=== PATIENT | male | born 1950 | race Caucasian/White ===

== ENCOUNTER → 2019-12-06 13:41 | Outpatient (BNVA) | payer MEDICARE, MEDICAID, SELFPAY | PROVIDERS: Family Provider Nurse Practitioner Primary Care; PCP Nurse Practitioner Primary Care; Visit Provider Internal Medicine Rheumatology | DX: L40.50 Arthropathic psoriasis, unspecified (principal); Z79.899 Other long term (current) drug therapy; L40.8 Other psoriasis | CPT/HCPCS: 36415; 80076; 82565; 85025; 85651; 86140 ==

== ENCOUNTER → 2019-12-06 14:04 | Outpatient (BNVA) | payer MEDICARE, MEDICAID, SELFPAY | PROVIDERS: Family Provider Nurse Practitioner Primary Care; PCP Nurse Practitioner Primary Care; Visit Provider Internal Medicine Rheumatology | DX: Z79.899 Other long term (current) drug therapy (principal); L40.50 Arthropathic psoriasis, unspecified | CPT/HCPCS: 85025 ==

== ENCOUNTER → 2020-02-21 10:39 | Outpatient (BNVA) | payer MEDICARE, MEDICAID, SELFPAY | PROVIDERS: Family Provider Nurse Practitioner Primary Care; PCP Nurse Practitioner Primary Care; Visit Provider Internal Medicine Rheumatology | DX: Z79.899 Other long term (current) drug therapy (principal) | CPT/HCPCS: 36415; 80076; 82565; 85025; 85651; 86140 ==

== ENCOUNTER 2020-03-23 09:46 | Outpatient (CLI) | payer MEDICARE, MEDICAID, SELFPAY ==
--- NOTE | 2020-03-23 10:15 | USCV_ITS ---
Bj Potter Age: 69 Gender: M : 1950 Exam Date: 03/23/2020 10:37 Ordering Phys: Gary Joshi MD ([email or web address]) Technologist: TANG PLEITEZ Exam Location: [facility] [place] Indication: PAD Risk Factors: Previous Vascular Surgery: RIGHT LEFT BP: 131.0 / BP: 129.0/ 0 0 Waveform Velocity (cm/s) Velocity (cm/s) Waveform Triphasic 113.9 Iliac Prox 102.0 Triphasic Triphasic 105.9 Iliac Mid 115.0 Triphasic Triphasic 109.2 Iliac Distal 121.9 Triphasic Triphasic 105.8 MAINTENANCE ASSOCIATE 99.4 Triphasic Triphasic 64.5 SFA Prox 120.3 Triphasic Triphasic 84.9 SFA Mid 98.6 Triphasic Triphasic 82.3 SFA Dist 98.6 Triphasic Biphasic 39.1 POP 83.4 Triphasic Biphasic 38.5 GLASS VIAL FILLER 45.3 Biphasic Biphasic 38.5 DPA 50.4 Biphasic FINDINGS Could not do SHONDA's due to ankle pressures being greater than 200. Supernormal resting ABIs bilaterally Normal Doppler flow velocities Mild to moderate diffuse plaques in the iliac and femoral arteries bilaterally CONCLUSIONS 1. Mild to moderate diffuse plaques in the iliac and femoral arteries bilaterally. 2. Features of arterial sclerosis 3. No significant arterial obstruction, based on the above findings Dr Aaron Edouard MD [facility] (Electronically Signed) Final Date: 23 March 2020 23:22 S
== END 2020-03-23 09:47 | disposition home or self-care (01) ==
LOC: US 09:47
PROVIDERS: Family Provider Nurse Practitioner Primary Care; PCP Nurse Practitioner Primary Care; Visit Provider Internal Medicine Cardiovascular Disease
DX: I73.9 Peripheral vascular disease, unspecified (principal)
CPT/HCPCS: 93925

== ENCOUNTER → 2020-03-26 10:37 | Outpatient (BNVA) | payer MEDICARE, MEDICAID, SELFPAY | PROVIDERS: Family Provider Nurse Practitioner Primary Care; PCP Nurse Practitioner Primary Care; Visit Provider Internal Medicine | DX: L40.50 Arthropathic psoriasis, unspecified (principal); Z79.899 Other long term (current) drug therapy | CPT/HCPCS: 36415; 80053; 85025; 85651; 99213 ==

== ENCOUNTER 2020-04-06 13:54 | Outpatient (CLI) | payer MEDICARE, MEDICAID, SELFPAY ==
--- NOTE | 2020-04-06 14:15 | USCV_ITS ---
Bj Potter Age: 69 Gender: M : 1950 Exam Date: 04/06/2020 14:29 Ordering Phys: Valerie Wade MD Technologist: Bolivar Smith [place] [facility] [place]: CHEST PAIN BP: 130 / 80 HR: 75 Rhythm: Sinus Technical Quality: Adequate MEASUREMENTS (Male / Female) Normal Values 2D ECHO LV Diastolic Diameter PLAX 5.6 cm 4.2 - 5.9 / 3.9 - 5.3 cm LV Systolic Diameter PLAX 3.8 cm IVS Diastolic Thickness 0.7 cm 0.6 - 1.0 / 0.6 - 0.9 cm IVS Systolic Thickness 1.5 cm LVPW Diastolic Thickness 1.1 cm 0.6 - 1.0 / 0.6 - 0.9 cm LVPW Systolic Thickness 1.5 cm LVOT Diameter 2.1 cm LV Ejection Fraction 2D Teich 58.9 % LV Ejection Fraction MOD 2C 67.8 % LV Ejection Fraction 2C AL 66.5 % LA Diameter 4.3 cm LA Width 3.4 cm LA Height 5.1 cm RA Width 4.1 cm RA Height 3.4 cm M-MODE LV Diastolic Diameter MM 4.3 cm 4.2 - 5.9 / 3.9 - 5.3 cm LV Systolic Diameter MM 3.2 cm LV Ejection Fraction MM Teich 53.5 % IVS Diastolic Thickness MM 1.2 cm 0.6 - 1.0 / 0.6 - 0.9 cm IVS Systolic Thickness MM 1.2 cm LVPW Diastolic Thickness MM 1.2 cm 0.6 - 1.0 / 0.6 - 0.9 cm LVPW Systolic Thickness MM 1.5 cm RV Diastolic Diameter MM 1.9 cm Aortic Annulus Diameter 4.1 cm LA Ao Ratio MM 1.1 MV E Point Septal Separation 2.0 cm DOPPLER AV Peak Velocity 134.0 cm/s LVOT Peak Velocity 84.0 cm/s AV Area Cont Eq vti 2.5 cm squared AV Area Cont Eq pk 2.2 cm squared MV Area PHT 5.0 cm squared Mitral E to A Ratio 0.9 MV E' Velocity 11.0 cm/s Mitral E to MV E' Ratio 8.1 Mitral E to LV E' Lateral Ratio 7.5 Mitral E to LV E' Septal Ratio 8.8 TR Peak Velocity 201.0 cm/s TR Peak Gradient 16.1 mmHg Right Atrial Pressure 3.0 mmHg Pulmonary Artery Systolic Pressu 19.2 mmHg PV Peak Velocity 106.0 cm/s FINDINGS Left Ventricle Moderate diffuse hypokinesia of the septum and the anteroseptal segments. LV ejection fraction around 45-50%(visual).Grade I/IV diastolic dysfunction (abnormal relaxation filling pattern), normal to mildly elevated filling pressures. Right Ventricle The right ventricle is normal in size and function. Right Atrium The right atrium is normal in size. Left Atrium Mildly increased left atrial size. Mitral Valve Trace mitral valve regurgitation. Thickened mitral valve. Moderate mitral annular calcification. Aortic Valve No gross abnormalities noted Tricuspid Valve No gross abnormalities noted.trace tricuspid valve regurgitation. Pulmonic Valve Mild pulmonary valve regurgitation. Pericardium Normal pericardium without effusion. Aorta Normal ascending aorta dimension. CONCLUSIONS Moderate diffuse hypokinesia of the septum and the anteroseptal segments. LV ejection fraction around 45-50%(visual).Grade I/IV diastolic dysfunction (abnormal relaxation filling pattern), normal to mildly elevated filling pressures. Mildly increased left atrial size. Trace mitral valve regurgitation. Thickened mitral valve. Moderate mitral annular calcification. Mild pulmonary valve regurgitation. Normal estimated pulmonary artery pressure There is no pericardial effusion. There are no intracardiac masses. No previous study is available for comparison. Dr Aaron Edouard MD FAC (Electronically Signed) Final Date: 07 April 2020 09:49 S
== END 2020-04-06 13:55 | disposition home or self-care (01) ==
LOC: US 13:55
PROVIDERS: PCP Nurse Practitioner Primary Care; Visit Provider Internal Medicine
DX: R07.9 Chest pain, unspecified (principal); I34.1 Nonrheumatic mitral (valve) prolapse; I37.1 Nonrheumatic pulmonary valve insufficiency
CPT/HCPCS: 93306

== ENCOUNTER → 2020-07-16 10:35 | Outpatient (BNVA) | payer MEDICARE, MEDICAID, SELFPAY | PROVIDERS: PCP Nurse Practitioner Primary Care; Visit Provider Internal Medicine | DX: L40.50 Arthropathic psoriasis, unspecified (principal); Z11.59 Encounter for screening for other viral diseases; Z11.1 Encounter for screening for respiratory tuberculosis; Z79.899 Other long term (current) drug therapy; D86.9 Sarcoidosis, unspecified; M32.9 Systemic lupus erythematosus, unspecified; L40.8 Other psoriasis; M06.9 Rheumatoid arthritis, unspecified | CPT/HCPCS: 36415; 80053; 85025; 85651; 86480; 86704; 86803; 87340; 99214 ==

== ENCOUNTER → 2020-09-10 13:35 | Outpatient (BNVA) | payer MEDICARE, MEDICAID, SELFPAY | PROVIDERS: PCP Nurse Practitioner Primary Care; Visit Provider Internal Medicine | DX: L40.50 Arthropathic psoriasis, unspecified (principal); D86.9 Sarcoidosis, unspecified; Z79.899 Other long term (current) drug therapy; Z79.52 Long term (current) use of systemic steroids; L40.9 Psoriasis, unspecified; Z87.891 Personal history of nicotine dependence | CPT/HCPCS: 99213 ==

== ENCOUNTER → 2020-12-28 08:33 | Outpatient (BNVA) | payer MEDICARE, MEDICAID, SELFPAY | PROVIDERS: PCP Nurse Practitioner Primary Care; Visit Provider Internal Medicine | DX: L40.50 Arthropathic psoriasis, unspecified (principal); R05 Cough; Z79.899 Other long term (current) drug therapy; Z79.52 Long term (current) use of systemic steroids; Z87.891 Personal history of nicotine dependence | CPT/HCPCS: 99214 ==

== ENCOUNTER → 2021-03-12 13:50 | Outpatient (BNVA) | payer MEDICARE, MEDICAID, SELFPAY | PROVIDERS: PCP Nurse Practitioner Primary Care; Visit Provider Internal Medicine | DX: L40.50 Arthropathic psoriasis, unspecified (principal); Z79.899 Other long term (current) drug therapy; Z87.891 Personal history of nicotine dependence | CPT/HCPCS: 36415; 80053; 85025; 85651; 86140; 99213; 99214 ==

== ENCOUNTER 2023-04-30 11:55 | Outpatient (CLI) | payer MEDICARE, MEDICAID, SELFPAY ==
--- NOTE | 2023-04-30 12:02 | CT_ITS ---
WS: [id number] CT HEAD TECHNIQUE: Noncontrast CT of the head obtained from the skullbase to the vertex. CLINICAL INFORMATION: DEMENTIA, MEMORY LOSS COMPARISON: None. DLP: 1100.[address] scans at [facility] use at least one of these dose optimization techniques: automated e xposure control; mA and/or kV adjustment per patient size (includes targeted exams where dose is matc hed to clinical indication); or iterative reconstruction. FINDINGS: No evidence of intracranial hemorrhage or mass effect. Ventricular system and basal cisterns are galdamez nt. Moderate small vessel changes with moderate parenchymal volume loss. No extra-axial fluid collect ions. No evidence of mass or mass effect. Mild mucosal thickening with small amount of fluid in the ethmoid air cells. Mastoid air cells are we ll aerated. IMPRESSION: 1. No evidence of intracranial hemorrhage or mass effect. 2. Moderate small vessel changes with moderate parenchymal volume loss. 3. No acute intracranial findings.
== END 2023-04-30 11:56 | disposition home or self-care (01) ==
PROVIDERS: PCP Family Medicine; Visit Provider Family Medicine
DX: F03.90 Unspecified dementia, unspecified severity, without behavioral disturbance, psychotic disturbance, mood disturbance, and anxiety (principal); I67.89 Other cerebrovascular disease
CPT/HCPCS: 70450

== ENCOUNTER 2023-11-25 15:48 | Emergency (ER) | payer MEDICARE, MEDICAID, SELFPAY ==
[2023-11-25 15:57] VITALS: BP 165/78; PULSE 103; RESP 18; TEMP 36.4; O2SAT 95
--- NOTE | 2023-11-25 16:13 | ECG_ITS ---
[facility] Test Date: 2023-11-25 Pat Name: Bj Potter Department: Room: Gender: Male Dispute Resolution Specialist: : 1950 Requested By: Rebel Davis Order Number: [id number] Siddhartha MD: Irineo Rick M.D. Measurements Intervals [place] Rate: 111 P: 101 TX: 182 QRS: -2 QRSD: 101 T: 36 QT: 323 QTc: 440 Interpretive Statements SINUS TACHYCARDIA WITH OCCASIONAL SUPRAVENTRICULAR PREMATURE COMPLEXES ANTERIOR MYOCARDIAL INFARCTION , PROBABLY OLD [40+ ms Q WAVE AND/OR ST/T ABNORMALITY IN V3/V4] Compared to ECG 10/03/2017 20:52:35 Myocardial infarct finding now present Sinus rhythm no longer present Intraventricular conduction delay no longer present T-wave abnormality no longer present Electronically Signed On 11-25-2023 16:48:10 CDT by Irineo Rick M.D. [id number] f
--- NOTE | 2023-11-25 16:13 | XRR_ITS ---
PROCEDURE INFORMATION: Exam: XR Chest Exam date and time: 11/25/2023 5:00 PM Age: 73 years old Clinical indication: Shortness of breath; Additional info: SOB TECHNIQUE: Imaging protocol: Radiologic exam of the chest. Views: 1 view. COMPARISON: CR XR chest 1V [id number] 08/01/2019 6:28 PM FINDINGS: Lungs: Unremarkable. No consolidation. Pleural spaces: Unremarkable. No pleural effusion. No pneumothorax. Heart/Mediastinum: Unremarkable. No cardiomegaly. Bones/joints: Median sternotomy. Multiple nonacute right-sided rib fractures. XR/XR chest 1V portable [id number] IMPRESSION: No acute findings.
--- NOTE | 2023-11-25 16:13 | CTR_ITS ---
PROCEDURE INFORMATION: Exam: CT Head Without Contrast Exam date and time: 11/25/2023 4:45 PM Age: 73 years old Clinical indication: Pain; Headache; Additional info: PATHAK TECHNIQUE: Imaging protocol: Computed tomography of the head without contrast. Radiation optimization: All CT scans at this facility use at least one of these dose optimization techniques: automated exposure control; mA and/or kV adjustment per patient size (includes targeted exams where dose is matched to clinical indication); or iterative reconstruction. COMPARISON: CT head wo con* [id number] 04/30/2023 12:13 PM RADIATION DOSE METRICS: Total DLP (mGy-cm): 1110.28 FINDINGS: Brain: No intracranial hemorrhage. There is global parenchymal volume loss. Periventricular white matter hypoattenuation is nonspecific but most likely due to small vessel disease. No evidence of acute territorial infarct or cerebral edema. No mass effect or midline shift. Cerebral ventricles: Prominent ventricles likely secondary to volume loss. Paranasal sinuses: Visualized sinuses are unremarkable. No fluid levels. Mastoid air cells: Visualized mastoid air cells are well aerated. Bones/joints: Unremarkable. No acute fracture. Soft tissues: Unremarkable. CT/CT head wo con* [id number] IMPRESSION: No acute intracranial findings.
--- NOTE | 2023-11-25 16:16 | ED_ITS ---
HPI - Chest Pain 2 General: Chief Complaint: Chest Pain Stated Complaint: migraine, sob, chest pain Time Seen by Provider: 11/25/23 16:09 Source: patient Mode of arrival: ambulatory Limitations: no limitations History of Present Illness: 73-year-old male who states over last 3 days has been having migraine headaches he is also been having chest pain and some shortness of breath. He has photophobia and phonophobia. He states that he is seen at [facility] 3 days ago and told he may have a bronchitis he states he gave him a steroid but did not give him any prescription. Had a mild cough he denies any severe chest pain denies any worsening improving factors. Associated symptoms: Reports dyspnea; Deny abdominal pain, fever(s), nausea or vomiting Review of Systems 2 Const: Denies: fever(s), chills, body aches or change in appetite Eyes: Denies: blurry vision or eye discomfort ENMT: Denies: throat pain or dental pain Card: Reports: chest pain Resp: Reports: dyspnea GI: Denies: abdominal pain, nausea, vomiting or diarrhea Musc: Denies: neck pain or back pain Skin/Breast: Denies: rash Neuro: Reports: headache(s) PFSH ED 2 PFSH: Medical History COPD (chronic obstructive pulmonary disease) PAD (peripheral artery disease) CAD (coronary artery disease) Hyperlipidemia High risk medication use Psoriatic arthritis Surgical History No pertinent past surgical history Family History Other Cancer Denies family history of Lupus (systemic lupus erythematosus) Rheumatoid arthritis Diabetes Social History Smoking and tobacco/nicotine status: former use of tobacco/nicotine Alcohol intake: current Alcohol intake frequency: holidays/special occasions only Alcohol type: beer Substance/Drug Use: never Physical Exam 2 Const: COMMON NORMALS: no acute distress, patient oriented x3 and healthy appearing HENMT: COMMON NORMALS: normocephalic and atraumatic HEAD & SCALP: n ormocephalic and atraumatic Eye: COMMON NORMALS: Equal, round and reactive pupils present and EOMs intact bilaterally PUPIL: Yes Equal, round and reactive pupils present Neck/C-Spine: COMMON NORMALS: full ROM and supple Chest: COMMONS NORMALS: normal inspection of the chest and normal palpation of entire chest wall Resp: COMMON NORMALS: normal respiratory effort, No retractions, No use of accessory muscles and clear to auscultation bilaterally AUSCULTATION: clear to auscultation bilaterally Cardio: COMMON NORMALS: regular rate, regular rhythm and No murmurs present (Cardio) RATE: regular rate RHYTHM: regular rhythm GI: COMMON NORMALS: Normal to inspection, nondistended, normoactive bowel sounds present, Soft to palpation, non-tender and no masses PALPATION: Yes Soft to palpation Extremity: COMMON NORMALS: normal to inspection and full ROM Neuro: COMMON NORMALS: patient oriented x3, moves all extremities and no focal motor deficits Psych: COMMON NORMALS: mental status grossly normal, Normal thought process present and cooperative THOUGHT PROCESS: Normal thought process present Skin: COMMON NORMALS: no rashes or lesions noted and no wounds GENERAL SKIN EXAM: no rashes or lesions noted Course 2 Vital Signs: Vital signs: Vital Signs Temperature 97.5 F L 11/25/23 15:57 Pulse Rate 103 H 11/25/23 15:57 Respiratory Rate 18 11/25/23 16:28 Blood Pressure 165/78 11/25/23 15:57 Pulse Oximetry 95 11/25/23 15:57 Oxygen Delivery Me thod Room Air 11/25/23 15:57 MDM - Chest Pain Medical Decision Making 73-year-old male presents with headache along with chest pain dyspnea is been going on for days he is well-appearing here he feels much improved blood work here is all normal he is stable for discharge follow-up with PCP and return if worsening. Medical Records I reviewed the patient's medical records. Lab Data I reviewed the patient's lab results. 11/25/23 16:22 11/25/23 16:22 Radiology Impressions Chest X-Ray 11/25/23 16:13 IMPRESSION: No acute findings. Head CT 11/25/23 16:13 IMPRESSION: No acute intracranial findings. Laboratory Results WBC 12.91 10^3/uL (3.29-11.43) H 11/25/23 16:22 RBC 4.50 10^6/uL (3.85-5.65) 11/25/23 16:22 Hgb 11.40 g/dL (11.27-16.99) 11/25/23 16: Hct 35.8 % (37-53) L 11/25/23 16: MCV 79.6 fl (82-101) L 11/25/23 16: MCH 25.3 pg (27-33) L 11/25/23 16: MCHC 31.8 g/dL (30-55) 11/25/23 16: RDW 13.4 % (12.1-15.1) 11/25/23 16: Plt Count 269 10^3/cmm (157-399) 11/25/23 16: MPV 10.4 fL (7.4-10.4) 11/25/23 16: Neut % (Auto) 89.3 % 11/25/23 16: Lymph % (Auto) 7.6 % 11/25/23: Liberty % (Auto) 2.6 % 11/25/23: Eos % (Auto) 0.0 % 11/25/23 16: Baso % (Auto) 0.1 % 11/25/23: Neut # (Auto) 11.54 10^3/uL (1.8-7.7) H 11/25/23: Lymph # (Auto) 1.0 10^3/uL (0.8-4.8) 11/25/23: Liberty # (Auto) 0.3 10^3/uL (0.2-0.9) 11/25/23: Eos # (Auto) 0.0 10^3/uL (0.0-0.8) 11/25/23 16: Baso # (Auto) 0.0 10^3/uL (0.0-0.1) 11/25/23: Nucleated RBC % (auto) 0 % 11/25/23: Nucleated RBCs # 0.0 /100WBC 11/25/23 16: PT 13.80 SECONDS (12.1-14.9) 11/25/23 16: INR 1.03 (0.8-1.2) 11/25/23 16: D-Dimer 0.38 ug/mLFEU (0-0.59) 11/25/23 16:22 Sodium 137 mmol/L (136-145) 11/25/23 16:22 Potassium 4.5 mmol/L (3.5-5.1) 11/25/23 16:22 Chloride 100 mmol/L (98-107) 11/25/23 16:22 Carbon Dioxide 19 mmol/L (22-29) L 11/25/23 16:22 Anion Gap 22.5 (5-19) H 11/25/23 16:22 BUN 16 mg/dL (8-23) 11/25/23 16:22 Creatinine 1.0 mg/dL (0.7-1.2) 11/25/23 16:22 GFR Calculation Not Reportable 11/25/23 16:22 Glucose 221 mg/dL (65-115) H 11/25/23 16:22 Calculated Osmolality 292 mOsm/kg (285-295) 11/25/23 16:22 Calcium 9.0 mg/dL (8.5-10.5) 11/25/23 16:22 Total Bilirubin 0.4 mg/dL (0.15-1.2) 11/25/23 16:22 AST 13 U/L (0-40) 11/25/23 16:22 ALT 18 U/L (0-41) 11/25/23 16:22 Alkaline Phosphatase 63 U/L (40-130) 11/25/23 16:22 Troponin T Baseline 19 ng/L (0-15) H 11/25/23 16:22 Troponin T 120 Minute 19.48 ng/L (0-15) H 11/25/23 18:14 Delta Troponin T 0.48 ABS# (0-10) 11/25/23 18:14 NT-Pro-B Natriuret Pep 1607 pg/mL (0-125) H 11/25/23 16:22 Total Protein 6.8 g/dL (6.6-8.7) 11/25/23 16:22 Albumin 4.1 g/dL (3.5-5.2) 11/25/23 16:22 Globulin 2.7 g/dL (1.3-4.6) 11/25/23 16:22 All radiology interpretation(s) finalized by discharge EKG Data EKG 1: I personally reviewed and interpreted this EKG as follows: EKG interpretation date: 11/25/23 EKG interpretation time: 15:52 Interpretation: sinus tach hr [address] or t wave abnormalities qrs 101 qtc 389 EKG 2: I personally reviewed and interpreted this EKG as follows: EKG interpretation date: 11/25/23 EKG interpretation time: 18:09 Interpretation: sinus tach hr [address] or t wave abnormalities qrs 105 qtc 378 Discharge Plan Discharge Patient Disposition: Home Clinical Impression: Chest pain, Headache Condition: Stable Prescriptions: No Action cetirizine 10 mg capsule PO docusate sodium 100 mg capsule 100 mg PO DAILY PRN magnesium oxide 400 mg magnesium capsule 400 mg PO BID meloxicam 7.5 mg tablet 7.5 mg PO BID tizanidine [Zanaflex] 4 mg capsule 4 mg PO BID PRN fluticasone propion-salmeterol [Advair Diskus] 500-50 mcg/dose blister with device 1 inh INHALATION BID aspirin [Adult Aspirin Regimen] 81 mg tablet,delayed release (DR/EC) 81 mg PO DAILY atorvastatin 80 mg tablet 80 mg PO DAILY ezetimibe 10 mg tablet 10 mg PO DAILY ferrous sulfate 325 mg (65 mg iron) tablet,delayed release (DR/EC) 325 mg PO DAILY glipizide 5 mg tablet 5 mg PO DAILY hydrocodone-acetaminophen 7.5-325 mg tablet 1 tab PO Q6H PRN losartan-hydrochlorothiazide 50-12.5 mg tablet 1 tab PO DAILY metformin 1,000 mg tablet extended release 24hr 1,000 mg PO BID nitroglycerin [Nitrostat] 0.4 mg tablet, sublingual 0.4 mg SUBLINGUAL Q5M PRN omeprazole 20 mg capsule,delayed release(DR/EC) 20 mg PO DAILY albuterol sulfate [ProAir HFA] 90 mcg/actuation HFA aerosol inhaler 1 puff INHALATION Q6H PRN Spiriva Respimat 2.5 mcg/actuation mist 2 inh INHALATION .unknown tamsulosin 0.4 mg capsule 0.4 mg PO .bedtime vitamin E 200 unit capsule 200 unit PO DAILY prednisone 5 mg tablet 5 mg PO .COMPLEX Qty: 20 0RF Rx Instructions: 5 mg PO take 15mg po q day x 3 days, then 10mg po qday x 3 days, then 5mg po qday; Xeljanz 5 mg tablet 5 mg PO BID Qty: 60 3RF methotrexate sodium 2.5 mg tablet 15 mg PO .weekly Qty: 30 2RF folic acid 1 mg tablet 1 mg PO DAILY Qty: 90 1RF Brilinta 90 mg tablet 90 mg PO BID Qty: 60 1RF Rx Instructions: MUST MAKE AN APPOINTMENT PRIOR TO ANY MORE REFILLS isosorbide mononitrate 30 mg tablet extended release 24 hr 15 mg PO .Bedtime Qty: 15 0RF Rx Instructions: Must have follow-up for further refills metoprolol succinate 25 mg tablet extended release 24 hr 25 mg PO DAILY Qty: 60 0RF Rx Instructions: Must make appointment and be seen for further refills. Discharge Orders: Discharge ED (Routine); Ordered 11/25/23 Ordered By: Rebel Davis Discharge Diet: Advance as tolerated Discharge Activity: Limit activity as instructed Patient Instructions: Chest Pain (ED), General Headache (ED) Coding Level of Care Code ED Supervisor Coremaker for Brayden Perales
[2023-11-25 16:28] VITALS: RESP 18
[2023-11-25] MEDS: morphine 4 mg/mL SDV 1 mL IVP (16:28)
[2023-11-25] MEDS: ondansetron 2 mg/ML SDV 2 mL 4 MG IVP (16:28)
[2023-11-25 16:37] LABS: Basophils % 0.1 %; Hematocrit 35.8 % (37-53); Lymphocytes % 7.6 %; Mean Corpuscular HGB Conc 31.8 g/dL (30-55); Mean Corpuscular Hemoglobin 25.3 pg (27-33); Mean Corpuscular Volume 79.6 fl (82-101); Mean Platelet Volume 10.4 fL (7.4-10.4); Monocytes # 0.3 10^3/uL (0.2-0.9); Monocytes % 2.6 %; Neutrophils # 11.54 10^3/uL (1.8-7.7); Neutrophils % 89.3 %; Nucleated Red Blood Cells % 0 %; Platelet Count 269 10^3/cmm (157-399); Red Cell Distribution Width 13.4 % (12.1-15.1); White Blood Count 12.91 10^3/uL (3.29-11.43)
[2023-11-25 16:51] LABS: Troponin(5th) Baseline 19 ng/L (0-15)
[2023-11-25 17:00] LABS: INR 1.03 (0.8-1.2)
[2023-11-25 17:02] LABS: D Dimer 0.38 ug/mLFEU (0-0.59)
[2023-11-25 17:13] LABS: NT Pro B Type Natriuretic Pept 1607 pg/mL (0-125)
[2023-11-25] MEDS: FUROsemide 10 mg/mL SDV 10mL 60 MG IVP (17:39)
--- NOTE | 2023-11-25 18:13 | ECG_ITS ---
[facility] Test Date: 2023-11-25 Pat Name: Bj Potter Department: Room: Gender: Male Claim Attorney: : 1950 Requested By: Rebel Davis Order Number: [id number] Siddhartha MD: Irineo Rick M.D. Measurements Intervals [place] Rate: 104 P: 77 SD: 181 QRS: -1 QRSD: 105 T: 36 QT: 317 QTc: 419 Interpretive Statements SINUS TACHYCARDIA WITH OCCASIONAL SUPRAVENTRICULAR PREMATURE COMPLEXES Compared to ECG 11/25/2023 15:52:20 Myocardial infarct finding no longer present Electronically Signed On 11-26-2023 7:49:28 CDT by Irineo Rick M.D. [id number]
[2023-11-25 18:17] LABS: Alanine Aminotransferase 18 U/L (0-41); Albumin Level 4.1 g/dL (3.5-5.2); Alkaline Phosphatase 63 U/L (40-130); Anion Gap 22.5 (5-19); Aspartate Amino Transferase 13 U/L (0-40); Blood Urea Nitrogen 16 mg/dL (8-23); Carbon Dioxide 19 mmol/L (22-29); Chloride 100 mmol/L (98-107); Creatinine Clr Calc Pharmacy 74.4113; Globulin 2.7 g/dL (1.3-4.6); Glucose 221 mg/dL (65-115); Osmolality Calculated 292 mOsm/kg (285-295); Potassium 4.5 mmol/L (3.5-5.1); Sodium 137 mmol/L (136-145); Total Bilirubin 0.4 mg/dL (0.15-1.2); Total Protein 6.8 g/dL (6.6-8.7)
[2023-11-25 18:43] LABS: Troponin 5 2HR 19.48 ng/L (0-15); Troponin 5 2HR Delta 0.48 ABS# (0-10)
[2023-11-25 19:28] VITALS: PULSE 98; RESP 18; O2SAT 95
== END 2023-11-25 19:29 | disposition home or self-care (01) ==
PROVIDERS: Emergency Provider Emergency Medicine
DX: R07.9 Chest pain, unspecified (principal); R51.9 Headache, unspecified; Z79.82 Long term (current) use of aspirin; Z79.84 Long term (current) use of oral hypoglycemic drugs; Z87.891 Personal history of nicotine dependence; J44.9 Chronic obstructive pulmonary disease, unspecified; I25.10 Atherosclerotic heart disease of native coronary artery without angina pectoris; E78.5 Hyperlipidemia, unspecified
CPT/HCPCS: 36415; 70450; 71045; 80053; 83880; 84484; 85025; 85378; 85610; 93005; 96374; 96375; 99285; J1940; J2270; J2405

== ENCOUNTER 2023-12-09 14:12 | Emergency (ER) | payer MEDICARE, MEDICAID, SELFPAY ==
[2023-12-09 14:28] VITALS: BP 132/76; PULSE 110; RESP 16; TEMP 36.6; O2SAT 98; BMI 29.7
--- NOTE | 2023-12-09 15:07 | XR_ITS ---
WS: [id number] Examination: XR chest 1V portable [id number] Reason for Exam: sob Date: December 09, 2023 Comparison: November 25, 2023 Findings: The heart is prominent in size. The mediastinum is not widened. Sternal wires are in place. There is no pulmonary edema or large effusion The lungs are hyperinflated without dense consolidation Impression: No failure consolidation is identified. The heart is prominent in size.
--- NOTE | 2023-12-09 15:07 | CT_ITS ---
WS: [id number] CT HEAD TECHNIQUE: Noncontrast CT of the head obtained from the skullbase to the vertex. CLINICAL INFORMATION: andrade COMPARISON: 11/25/2023 DLP: 1087.[address] scans at [facility] use at least one of these dose optimization techniques: automated e xposure control; mA and/or kV adjustment per patient size (includes targeted exams where dose is matc hed to clinical indication); or iterative reconstruction. FINDINGS: No evidence of intracranial hemorrhage or mass effect. Ventricular system and basal cisterns are galdamez nt. Mild small vessel changes with mild parenchymal volume loss. No extra-axial fluid collections. No evidence of mass or mass effect. Intracranial vascular calcification. Paranasal sinuses and mastoid air cells are well aerated. .Normal visualized soft tissues. IMPRESSION: 1. No evidence of intracranial hemorrhage or mass effect. 2. Mild small vessel changes. Mild parenchymal volume loss. 3. No acute intracranial findings.
--- NOTE | 2023-12-09 15:13 | ED_ITS ---
HPI - Headache 2 General: Chief Complaint: Headache Stated Complaint: head pains, sob Time Seen by Provider: 12/09/23 15:04 Source: patient Mode of arrival: ambulatory Limitations: no limitations History of Present Illness: 73-year-old male states he has had inter mittent headaches for the last 3 weeks. States he has headache currently rates it a 3 out of 10 he denies it being severe in nature said some mild dyspnea as well over that time. He denies any fever denies any chest pain. Denies any visual disturbances or weakness Associated symptoms: Deny chest pain, fever(s), nausea, rash or vomiting Review of Systems 2 Const: Denies: fever(s), chills, body aches or change in appetite Eyes: Denies: blurry vision or eye discomfort ENMT: Denies: throat pain or dental pain Card: Denies: chest pain Resp: Reports: dyspnea GI: Denies: abdominal pain, nausea, vomiting or diarrhea Musc: Denies: neck pain or back pain Skin/Breast: Denies: rash Neuro: Reports: headache(s) PFSH ED 2 PFSH: Medical History COPD (chronic obstructive pulmonary disease) PAD (peripheral artery disease) CAD (coronary artery disease) Hyperlipidemia High risk medication use Psoriatic arthritis Surgical History No pertinent past surgical history Family History Other Cancer Denies family history of Lupus (systemic lupus erythematosus) Rheumatoid arthritis Diabetes Social History Smoking and tobacco/nicotine status: former use of tobacco/nicotine Alcohol intake: current Alcohol intake frequency: holidays/special occasions only Alcohol type: beer Substance/Drug Use: never Physical Exam 2 Const: COMMON NORMALS: no acute distress, patient oriented x3 and healthy appearing HENMT: COMMON NORMALS: normocephalic and atraumatic HEAD & SCALP: n ormocephalic and atraumatic Neck/C-Spine: COMMON NORMALS: full ROM and supple Chest: COMMONS NORMALS: normal inspection of the chest and normal palpation of entire chest wall Resp: COMMON NORMALS: normal respiratory effort, No retractions, No use of accessory muscles and clear to auscultation bilaterally AUSCULTATION: clear to auscultation bilaterally Cardio: COMMON NORMALS: regular rate, regular rhythm and No murmurs present (Cardio) RATE: regular rate RHYTHM: regular rhythm Extremity: COMMON NORMALS: normal to inspection and full ROM Neuro: COMMON NORMALS: patient oriented x3, moves all extremities and no focal motor deficits Psych: COMMON NORMALS: mental status grossly normal, Normal thought process present and cooperative THOUGHT PROCESS: Normal thought process present Skin: COMMON NORMALS: no rashes or lesions noted and no wounds GENERAL SKIN EXAM: no rashes or lesions noted Course 2 Vital Signs: Vital signs: Vital Signs Temperature 97.8 F 12/09/23 14:28 Pulse Rate 110 H 12/09/23 14:28 Respiratory Rate 18 12/09/23 15:55 Blood Pressure 132/76 12/09/23 14:28 Pulse Oximetry 99 12/09/23 15:55 Oxygen Delivery Me thod Room Air 12/09/23 15:55 MDM - Headache Medical Decision Making Patient presents here with a headache is likely a tension headache head CT was normal his headaches resolved with Toradol he had some dyspnea his chest x-ray is normal blood works normal no signs of PE he stable for discharge he is to follow-up with PCP and return if worsening he understands agrees to plan. Medical Records I reviewed the patient's medical records. Lab Data I reviewed the patient's lab results. 12/09/23 15:30 12/09/23 15:30 Laboratory Results WBC 6.87 10^3/uL (3.29-11.43) 12/09/23 15:30 RBC 4.76 10^6/uL (3.85-5.65) 12/09/23 15:30 Hgb 11.90 g/dL (11.27-16.99) 12/09/23 15:30 Hct 38.4 % (37-53) 12/09/23 15:30 MCV 80.7 fl (82-101) L 12/09/23 15:30 MCH 25.0 pg (27-33) L 12/09/23 15:30 MCHC 31.0 g/dL (30-55) 12/09/23 15:30 RDW 13.8 % (12.1-15.1) 12/09/23 15:30 Plt Count 171 10^3/cmm (157-399) 12/09/23 15:30 MPV 10.2 fL (7.4-10.4) 12/09/23 15:30 Neut % (Auto) 79.6 % 12/09/23 15:30 Lymph % (Auto) 6.7 % 12/09/23 15:30 [place] % (Auto) 11.4 % 12/09/23 15:30 Eos % (Auto) 1.0 % 12/09/23 15:30 Baso % (Auto) 0.9 % 12/09/23 15:30 Neut # (Auto) 5.47 10^3/uL (1.8-7.7) 12/09/23 15:30 Lymph # (Auto) 0.5 10^3/uL (0.8-4.8) L 12/09/23 15:30 [place] # (Auto) 0.8 10^3/uL (0.2-0.9) 12/09/23 15:30 Eos # (Auto) 0.1 10^3/uL (0.0-0.8) 12/09/23 15:30 Baso # (Auto) 0.1 10^3/uL (0.0-0.1) 12/09/23 15:30 Nucleated RBC % (auto) 0 % 12/09/23 15: Nucleated RBCs # 0.0 /100WBC 12/09/23 15:30 D-Dimer 0.49 ug/mLFEU (0-0.59) 12/09/23 15:30 Sodium 136 mmol/L (136-145) 12/09/23 15:30 Potassium 3.9 mmol/L (3.5-5.1) 12/09/23 15:30 Chloride 100 mmol/L (98-107) 12/09/23 15:30 Carbon Dioxide 23 mmol/L (22-29) 12/09/23 15:30 Anion Gap 16.9 (5-19) 12/09/23 15:30 BUN 10 mg/dL (8-23) 12/09/23 15:30 Creatinine 1.1 mg/dL (0.7-1.2) 12/09/23 15:30 GFR Calculation Not Reportable 12/09/23 15:30 Glucose 163 mg/dL (65-115) H 12/09/23 15:30 Calculated Osmolality 285 mOsm/kg (285-295) 12/09/23 15:30 Calcium 8.5 mg/dL (8.5-10.5) 12/09/23 15:30 Total Bilirubin 0.4 mg/dL (0.15-1.2) 12/09/23 15:30 AST 21 U/L (0-40) 12/09/23 15:30 ALT 25 U/L (0-41) 12/09/23 15:30 Alkaline Phosphatase 57 U/L (40-130) 12/09/23 15:30 Total Protein 7.4 g/dL (6.6-8.7) 12/09/23 15:30 Albumin 4.2 g/dL (3.5-5.2) 12/09/23 15:30 Globulin 3.2 g/dL (1.3-4.6) 12/09/23 15:30 All radiology interpretation(s) finalized by discharge EKG Data EKG 1: I personally reviewed and interpreted this EKG as follows: EKG interpretation date: 12/09/23 EKG interpretation time: 15:54 Interpretation: sinus tach hr [address] or t wave abnormalities qrs 81 qtc 358 Discharge Plan Discharge Patient Disposition: Home Clinical Impression: Headache Condition: Stable Prescriptions: No Action cetirizine 10 mg capsule PO docusate sodium 100 mg capsule 100 mg PO DAILY PRN magnesium oxide 400 mg magnesium capsule 400 mg PO BID meloxicam 7.5 mg tablet 7.5 mg PO BID tizanidine [Zanaflex] 4 mg capsule 4 mg PO BID PRN fluticasone propion-salmeterol [Advair Diskus] 500-50 mcg/dose blister with device 1 inh INHALATION BID aspirin [Adult Aspirin Regimen] 81 mg tablet,delayed release (DR/EC) 81 mg PO DAILY atorvastatin 80 mg tablet 80 mg PO DAILY ezetimibe 10 mg tablet 10 mg PO DAILY ferrous sulfate 325 mg (65 mg iron) tablet,delayed release (DR/EC) 325 mg PO DAILY glipizide 5 mg tablet 5 mg PO DAILY hydrocodone-acetaminophen 7.5-325 mg tablet 1 tab PO Q6H PRN losartan-hydrochlorothiazide 50-12.5 mg tablet 1 tab PO DAILY metformin 1,000 mg tablet extended release 24hr 1,000 mg PO BID nitroglycerin [Nitrostat] 0.4 mg tablet, sublingual 0.4 mg SUBLINGUAL Q5M PRN omeprazole 20 mg capsule,delayed release(DR/EC) 20 mg PO DAILY albuterol sulfate [ProAir HFA] 90 mcg/actuation HFA aerosol inhaler 1 puff INHALATION Q6H PRN Spiriva Respimat 2.5 mcg/actuation mist 2 inh INHALATION .unknown tamsulosin 0.4 mg capsule 0.4 mg PO .bedtime vitamin E 200 unit capsule 200 unit PO DAILY prednisone 5 mg tablet 5 mg PO .COMPLEX Qty: 20 0RF Rx Instructions: 5 mg PO take 15mg po q day x 3 days, then 10mg po qday x 3 days, then 5mg po qday; Xeljanz 5 mg tablet 5 mg PO BID Qty: 60 3RF methotrexate sodium 2.5 mg tablet 15 mg PO .weekly Qty: 30 2RF folic acid 1 mg tablet 1 mg PO DAILY Qty: 90 1RF Brilinta 90 mg tablet 90 mg PO BID Qty: 60 1RF Rx Instructions: MUST MAKE AN APPOINTMENT PRIOR TO ANY MORE REFILLS isosorbide mononitrate 30 mg tablet extended release 24 hr 15 mg PO .Bedtime Qty: 15 0RF Rx Instructions: Must have follow-up for further refills metoprolol succinate 25 mg tablet extended release 24 hr 25 mg PO DAILY Qty: 60 0RF Rx Instructions: Must make appointment and be seen for further refills. Discharge Orders: Discharge ED (Routine); Ordered 12/09/23 Ordered By: Rebel Davis Discharge Diet: Advance as tolerated Discharge Activity: Resume usual activity Patient Instructions: General Headache (ED) Coding Level of Care Code ED Director Of Clinical Trials for Brayden Perales
[2023-12-09] MEDS: ondansetron 2 mg/ML SDV 2 mL 4 MG IVP (15:31)
[2023-12-09] MEDS: ketorolac 30 mg/mL INJ 15 MG IVP (15:31)
[2023-12-09 15:39] LABS: Basophils # 0.1 10^3/uL (0.0-0.1); Basophils % 0.9 %; Eosinophils # 0.1 10^3/uL (0.0-0.8); Hematocrit 38.4 % (37-53); Lymphocytes # 0.5 10^3/uL (0.8-4.8); Lymphocytes % 6.7 %; Mean Corpuscular Volume 80.7 fl (82-101); Mean Platelet Volume 10.2 fL (7.4-10.4); Monocytes # 0.8 10^3/uL (0.2-0.9); Monocytes % 11.4 %; Neutrophils # 5.47 10^3/uL (1.8-7.7); Neutrophils % 79.6 %; Nucleated Red Blood Cells % 0 %; Platelet Count 171 10^3/cmm (157-399); Red Blood Count 4.76 10^6/uL (3.85-5.65); Red Cell Distribution Width 13.8 % (12.1-15.1); White Blood Count 6.87 10^3/uL (3.29-11.43)
--- NOTE | 2023-12-09 15:54 | ECG_ITS ---
[facility] Test Date: 2023-12-09 Pat Name: Bj Potter Department: Room: Gender: Male Night Assistant: : 1950 Requested By: Rebel Davis Order Number: [id number] Siddhartha MD: Irineo Rick M.D. Measurements Intervals [place] Rate: 113 P: -24 CO: 156 QRS: -5 QRSD: 81 T: 0 QT: 291 QTc: 400 Interpretive Statements SINUS TACHYCARDIA LOW QRS VOLTAGE IN EXTREMITY LEADS [QRS DEFLECTION < 0.5 mV IN LIMB LEADS] SEPTAL MYOCARDIAL INFARCTION , PROBABLY OLD [40+ ms Q WAVE IN V1/V2] Compared to ECG 11/25/2023 18:09:24 Low QRS voltage now present Myocardial infarct finding now present Electronically Signed On 12-09-2023 22:11:31 CDT by Irineo Rick M.D. [id number]
[2023-12-09 15:55] VITALS: RESP 18; O2SAT 99
[2023-12-09 15:58] LABS: D Dimer 0.49 ug/mLFEU (0-0.59)
[2023-12-09 16:00] LABS: Alanine Aminotransferase 25 U/L (0-41); Albumin Level 4.2 g/dL (3.5-5.2); Alkaline Phosphatase 57 U/L (40-130); Anion Gap 16.9 (5-19); Aspartate Amino Transferase 21 U/L (0-40); Blood Urea Nitrogen 10 mg/dL (8-23); Calcium 8.5 mg/dL (8.5-10.5); Carbon Dioxide 23 mmol/L (22-29); Chloride 100 mmol/L (98-107); Globulin 3.2 g/dL (1.3-4.6); Glucose 163 mg/dL (65-115); Osmolality Calculated 285 mOsm/kg (285-295); Potassium 3.9 mmol/L (3.5-5.1); Sodium 136 mmol/L (136-145); Total Bilirubin 0.4 mg/dL (0.15-1.2); Total Protein 7.4 g/dL (6.6-8.7)
== END 2023-12-09 16:21 | disposition home or self-care (01) ==
PROVIDERS: Emergency Provider Emergency Medicine
DX: R51.9 Headache, unspecified (principal); Z79.82 Long term (current) use of aspirin; Z79.84 Long term (current) use of oral hypoglycemic drugs; Z87.891 Personal history of nicotine dependence; J44.9 Chronic obstructive pulmonary disease, unspecified; I25.10 Atherosclerotic heart disease of native coronary artery without angina pectoris; E78.5 Hyperlipidemia, unspecified
CPT/HCPCS: 70450; 71045; 80053; 85025; 85378; 93005; 96374; 96375; 99285; J1885; J2405

== ENCOUNTER 2024-02-18 13:13 | Outpatient (CLI) | payer MEDICARE, MEDICAID, SELFPAY ==
--- NOTE | 2024-02-18 13:21 | XRR_ITS ---
PROCEDURE INFORMATION: Exam: XR Chest Exam date and time: 02/18/2024 1:25 PM Age: 73 years old Clinical indication: Cough and shortness of breath; Prior surgery; Surgery date: 6+ months; Surgery type: Open heart, stent; Additional info: Shortness of breath, cough, copd TECHNIQUE: Imaging protocol: Radiologic exam of the chest. Views: 2 views. COMPARISON: CR XR chest 1V portable [id number] 12/09/2023 3:10 PM FINDINGS: Lungs: No significant active pathology. Pleural spaces: No pleural effusion or pneumothorax. Heart/Mediastinum: Unremarkable. Bones/joints: Prior median sternotomy. Unchanged old right healed rib fractures. Mild degenerative change present in the spine. XR/XR chest 2V* [id number] IMPRESSION: No acute pathology or significant interval change.
== END 2024-02-18 13:14 | disposition home or self-care (01) ==
DX: R05.9 Cough, unspecified (principal); R06.02 Shortness of breath; J44.1 Chronic obstructive pulmonary disease with (acute) exacerbation
CPT/HCPCS: 71046

== ENCOUNTER → 2024-06-01 13:00 | Outpatient (BNVA) | payer MEDICARE, MEDICAID, SELFPAY | PROVIDERS: Visit Provider Family Medicine | DX: Z79.899 Other long term (current) drug therapy (principal); E55.9 Vitamin D deficiency, unspecified; L40.50 Arthropathic psoriasis, unspecified; I25.810 Atherosclerosis of coronary artery bypass graft(s) without angina pectoris; I73.9 Peripheral vascular disease, unspecified; E78.49 Other hyperlipidemia; R79.89 Other specified abnormal findings of blood chemistry | CPT/HCPCS: 80053; 80061; 82306; 82607; 82746; 83036; 84443; 84550; 85025; 85651; 86140; G0103 ==

== ENCOUNTER → 2024-06-15 16:05 | Outpatient (BNVA) | payer MEDICARE, MEDICAID, SELFPAY | PROVIDERS: PCP Family Medicine; Visit Provider Family Medicine | DX: R06.00 Dyspnea, unspecified (principal); J18.9 Pneumonia, unspecified organism; J98.09 Other diseases of bronchus, not elsewhere classified | CPT/HCPCS: 71046 ==

== ENCOUNTER 2024-07-20 08:24 | Outpatient (CLI) | payer MEDICARE, MEDICAID, SELFPAY ==
--- NOTE | 2024-07-20 08:30 | CT_ITS ---
WS: [id number] CT chest wo con [id number] HISTORY: R06.00 - Dyspnea, unspecified TECHNIQUE: Axial imaging performed through the thorax. Coronal and sagittal reformats are submitted. All CT scans at [facility] use at least one of these dose optimization techniques: automated exposure control; mA and/or kV adjustment per patient size (includes targeted exams where dose is mat ched to clinical indication); or iterative reconstruction. CONTRAST: None DLP: 386.79 mGy.cm COMPARISON: Chest radiograph 06/15/2024 Lungs and central airway: Breathing motion artifact at the lung bases. No pneumonia. Minimal subsegme ntal atelectasis in the RIGHT middle lobe and in the LEFT upper lobe. No mass or pneumonia. Pleura: Normal. No pleural effusion. Heart and pericardium: Heart is normal size. Prior CABG. Mediastinum and lisa: No mediastinum or hilar adenopathy. Vessels: Mild atherosclerosis aorta. Normal size pulmonary artery. Chest wall and lower neck: No soft tissue masses. Upper abdomen: Small hiatal hernia. Gallbladder is slightly contracted. No adrenal mass. Osseous structures: Remote posterior RIGHT rib fractures have healed. CT/CT chest wo con [id number] IMPRESSION: 1. No pneumonia or consolidations. 2. Minimal subsegmental atelectasis in the RIGHT middle and LEFT upper lobes. 3. Moderate atherosclerosis thoracic aorta. No aneurysm. 4. Prior CABG. 5. No mediastinal or hilar adenopathy.
== END 2024-07-20 08:25 | disposition home or self-care (01) ==
LOC: RAD 08:25
PROVIDERS: PCP Family Medicine; Visit Provider Family Medicine
DX: K44.9 Diaphragmatic hernia without obstruction or gangrene (principal); I70.0 Atherosclerosis of aorta; R06.00 Dyspnea, unspecified; R05.8 Other specified cough; R06.2 Wheezing; Z95.1 Presence of aortocoronary bypass graft
CPT/HCPCS: 71250

== ENCOUNTER 2024-10-06 17:52 | Emergency (ER) | payer MEDICARE, MEDICAID, SELFPAY ==
[2024-10-06 17:59] VITALS: BP 133/70; PULSE 120; RESP 20; TEMP 36.6; O2SAT 98; BMI 26.4
--- NOTE | 2024-10-06 18:08 | XRR_ITS ---
PROCEDURE INFORMATION: Exam: XR Chest Exam date and time: 10/06/2024 7:21 PM Age: 74 years old Clinical indication: Cough; Additional info: Copd, cough/congestion TECHNIQUE: Imaging protocol: Radiologic exam of the chest. Views: 1 view. COMPARISON: CT chest [facility] [id number] 07/20/2024 8:36 AM FINDINGS: Lungs: Unremarkable. No consolidation. Pleural spaces: Unremarkable. No pleural effusion. No pneumothorax. Heart/Mediastinum: Unremarkable. No cardiomegaly. Bones/joints: Old healed fractures of the right 5th, 6th, 7th and 8th ribs. XR/XR chest 1V portable [id number] IMPRESSION: No acute findings.
[2024-10-06 18:38] LABS: Basophils # 0.1 10^3/uL (0.0-0.1); Basophils % 1.1 %; Eosinophils # 0.6 10^3/uL (0.0-0.8); Eosinophils % 6.5 %; Hematocrit 37.9 % (37-53); Lymphocytes # 1.8 10^3/uL (0.8-4.8); Lymphocytes % 20.6 %; Mean Corpuscular HGB Conc 31.1 g/dL (30-55); Mean Corpuscular Volume 80.3 fl (82-101); Mean Platelet Volume 9.7 fL (7.4-10.4); Monocytes # 0.8 10^3/uL (0.2-0.9); Monocytes % 9.7 %; Neutrophils % 61.9 %; Nucleated Red Blood Cells % 0 %; Platelet Count 253 10^3/cmm (157-399); Red Blood Count 4.72 10^6/uL (3.85-5.65); Red Cell Distribution Width 13.9 % (12.1-15.1); White Blood Count 8.56 10^3/uL (3.29-11.43)
[2024-10-06 18:58] LABS: Alanine Aminotransferase 14 U/L (0-41); Albumin Level 4.2 g/dL (3.5-5.2); Alkaline Phosphatase 53 U/L (40-130); Aspartate Amino Transferase 12 U/L (0-40); Blood Urea Nitrogen 13 mg/dL (8-23); Calcium 9.2 mg/dL (8.5-10.5); Carbon Dioxide 24 mmol/L (22-29); Chloride 99 mmol/L (98-107); Globulin 2.4 g/dL (1.3-4.6); Glucose 314 mg/dL (65-115); Osmolality Calculated 292 mOsm/kg (285-295); Sodium 135 mmol/L (136-145); Total Bilirubin 0.3 mg/dL (0.15-1.2); Total Protein 6.6 g/dL (6.6-8.7)
[2024-10-06 19:11] LABS: Covid PCR NEGATIVE (Negative); Influenza A NEGATIVE (Negative); Influenza B NEGATIVE (Negative); Respiratory Syncytial Virus Ce NEGATIVE (Negative)
[2024-10-06 19:42] VITALS: BP 110/87; PULSE 114; O2SAT 96
--- NOTE | 2024-10-06 19:53 | W.ED.URI ---
HPI - URI/Sore Throat General: Chief Complaint: Upper Respiratory Infection Stated Complaint: chest conjestion Time Seen by Provider: 10/06/24 19:34 Source: patient Mode of arrival: ambulatory Limitations: no limitations History of Present Illness: Patient is a 74-year-old male presents to ED today with complaint of cough and chest congestion. He states he has had a longstanding history of lung problems over the past 25 to 30 years and always has some degree of shortness of breath. Looking at previous documentation, he has been seen several times for COPD exacerbations over the past several months. Patient states he has all kinds of puffers and nebulizer medications that he uses at home. He feels like symptoms have been worse over the past few days. He arrives in no acute distress satting normally on room air. He has not been running fevers. He is not having any chest pain. MD elicited complaint: cough and other (sob) Onset (ago): day(s) Consistency: constant Severity: moderate Description of mucous: clear Able to tolerate fluids by mouth: Yes Exacerbating factors: nothing Relieving factors: nothing Associated symptoms: Deny abdominal pain, chills, chest pain, diarrhea, fever(s), headache(s), nausea or vomiting Treatments prior to arrival: none Related Data Home Medications Medication Instructions Recorded Confirmed albuterol sulfate 90 mcg/actuation 1 puff inhalation Q6H PRN 12/05/19 09/08/24 aerosol inhaler (ProAir HFA) aspirin 81 mg tablet,delayed 81 mg PO DAILY 12/05/19 09/08/24 release (Adult Aspirin Regimen) ferrous sulfate 325 mg (65 mg 325 mg PO DAILY 12/05/19 09/08/24 iron) tablet,delayed release glipizide 5 mg tablet 5 mg PO DAILY 12/05/19 09/08/24 losartan 50 mg-hydrochlorothiazide 1 tab PO DAILY 12/05/19 09/08/24 12.5 mg tablet metformin 1,000 mg tablet,extended 1,000 mg PO BID 12/05/19 09/08/24 release 24hr (osmotic) nitroglycerin 0.4 mg sublingual 0.4 mg sublingual Q5M PRN 12/05/19 09/08/24 tablet (Nitrostat) omeprazole 20 mg capsule,delayed 20 mg PO DAILY 12/05/19 09/08/24 release tamsulosin 0.4 mg capsule 0.4 mg PO .bedtime 12/05/19 09/08/24 tiotropium bromide 2.5 2 inh inhalation .unknown 12/05/19 09/08/24 mcg/actuation mist for inhalation (Spiriva Respimat) Previous Rx's Medication Instructions Recorded methotrexate sodium 2.5 mg tablet 15 mg (6 x 2.5 mg) PO .weekly #30 11/01/20 tabs isosorbide mononitrate 30 mg 15 mg (1/2 x 30 mg) PO .Bedtime 01/10/22 tablet,extended release 24 hr #15 tabs fluticasone 500 mcg-salmeterol 50 1 inh inhalation BID #60 ea 07/04/24 mcg/dose blistr powdr for inhalation (Advair Diskus) baclofen 10 mg tablet 10 mg PO BID #30 tabs 08/23/24 lidocaine 5 % topical patch 1 patch topical DAILY #15 ea 08/23/24 guaifenesin 400 mg tablet 400 mg PO QID PRN cough #90 tabs 09/08/24 ipratropium 0.5 mg-albuterol 3 mg 3 ml inhalation QID PRN wheezing 09/08/24 (2.5 mg base)/3 mL nebulization #180 mL soln prednisone 10 mg tablet 10 mg PO DAILY #30 tabs 09/08/24 amoxicillin 875 mg-potassium 1 tab PO BID #14 tabs 10/06/24 clavulanate 125 mg tablet azithromycin 250 mg tablet See Rx Instructions PO .COMPLEX #6 10/06/24 tabs Allergies Allergy/AdvReac Type Severity Reaction Status Date / Time montelukast [From [facility]] Allergy Intermediate Altered Verified 09/08/24 14:56 Heart Rate simvastatin Allergy Intermediate Hives/Skin Verified 09/08/24 14:56 Rash codeine Allergy Mild N/V Verified 09/08/24 14:56 milk Allergy Mild GI problems Verified 09/08/24 14:56 Sulfa (Sulfonamide Allergy Mild N/V Verified 09/08/24 14:56 Antibiotics) tramadol Allergy Mild N/V Verified 09/08/24 14:56 Review of Systems Const: Denies: fever(s), chills, body aches, fatigue or malaise Eyes: Denies: change in vision or blurry vision Card: Denies: chest pain, palpitations, irregular heart rhythm, lightheadedness, syncope or dyspnea on exertion Resp: Reports: dyspnea, non-productive cough and chest congestion; Denies: wheezing, pain on inspiration or hemoptysis GI: Denies: abdominal pain, nausea, vomiting, heartburn or diarrhea : Denies: flank pain, difficulty urinating or dysuria Musc: Denies: neck pain, back pain, extremity pain, extremity swelling or joint pain Skin/Breast: Denies: rash Neuro: Denies: headache(s), numbness in extremities, weakness in extremities, sensory changes or confusion PFSH ED PFSH: Medical History COPD (chronic obstructive pulmonary disease) PAD (peripheral artery disease) CAD (coronary artery disease) Hyperlipidemia High risk medication use Psoriatic arthritis Surgical History No pertinent past surgical history Family History Other Cancer Denies family history of Lupus (systemic lupus erythematosus) Rheumatoid arthritis Diabetes Social History Smoking and tobacco/nicotine status: never used tobacco/nicotine Alcohol intake: current Alcohol intake frequency: holidays/special occasions only Alcohol type: beer Substance/Drug Use: never Physical Exam Const: COMMON NORMALS: no acute distress, average body habitus, patient oriented x3, no limitations, healthy appearing, alert and well nourished GENERAL APPEARANCE: cooperative ORIENTATION/CONSCIOUSNESS: Yes awake, Yes oriented to person, Yes oriented to place and Yes oriented to time HENMT: COMMON NORMALS: normocephalic and atraumatic HEAD & SCALP: normal to inspection, normocephalic and atraumatic Eye: COMMON NORMALS: no scleral icterus Neck/C-Spine: COMMON NORMALS: full ROM, no lymphadenopathy, supple and no meningeal signs Chest: COMMONS NORMALS: normal inspection of the chest and normal palpation of entire chest wall Resp: COMMON NORMALS: normal respiratory effort AUSCULTATION: rhonchi and wheezes Cardio: COMMON NORMALS: regular rhythm RATE: tachycardic RHYTHM: regular rhythm GI: COMMON NORMALS: Normal to inspection, nondistended, normoactive bowel sounds present, Soft to palpation, non-tender, No hepatosplenomegaly present and no masses PALPATION: Yes Soft to palpation and Yes No hepatosplenomegaly present : COMMON NORMALS: Yes no CVA tenderness BLADDER/KIDNEY EXAM: Yes no CVA tenderness Back/Pelvis: COMMON NORMALS: no CVA tenderness and thoracic and lumbar spine normal to inspection Extremity: COMMON NORMALS: normal to inspection GENERAL: Yes normal exam except as noted Neuro: COMMON NORMALS: patient oriented x3, moves all extremities, no focal motor deficits, no sensory deficits noted and gait normal SENSORIUM/ORIENTATION: Yes alert, Yes oriented to person, Yes oriented to place and Yes oriented to time MENINGEAL SIGNS: Yes no meningeal signs Skin: COMMON NORMALS: no rashes or lesions noted GENERAL SKIN EXAM: no rashes or lesions noted Course Vital Signs: Vital signs: Vital Signs Temperature 97.9 F 10/06/24 17:59 Pulse Rate 104 H 10/06/24 20:12 Respiratory Rate 18 10/06/24 20:12 Blood Pressure 110/87 10/06/24 20:03 Pulse Oximetry 100 10/06/24 20:12 Oxygen Delivery Me thod Room Air 10/06/24 20:12 MDM - URI/Sore Throat Medical Decision Making Patient's lung sounds improving after IV Solu-Medrol and DuoNeb treatment by respiratory. He is satting normally on room air. Mildly tachycardic on repeat examination at 104. Blood work overall is unremarkable. Elevations to blood sugar 314. He has been on steroids recently for his breathing. COVID/flu/RSV is negative. CXR showing no acute findings. He will be treated with antibiotics for COPD exacerbation. Recommend he follow-up with his primary care provider. At some point he was supposed to have a CT of his chest performed for screening although I do not see any standing order for this. Also referred to pulmonology. Medical Records I reviewed the patient's medical records. Lab Data I reviewed the patient's lab results. 10/06/24 18:31 10/06/24 18:31 Radiology Impressions Chest X-Ray 10/06/24 18:08 IMPRESSION: No acute findings. Laboratory Results WBC 8.56 10^3/uL (3.29-11.43) 10/06/24 18:31 RBC 4.72 10^6/uL (3.85-5.65) 10/06/24 18: Hgb 11.80 g/dL (11.27-16.99) 10/06/24 18: Hct 37.9 % (37-53) 10/06/24 18: MCV 80.3 fl (82-101) L 10/06/24 18: MCH 25.0 pg (27-33) L 10/06/24 18: MCHC 31.1 g/dL (30-55) 10/06/24 18: RDW 13.9 % (12.1-15.1) 10/06/24 18: Plt Count 253 10^3/cmm (157-399) 10/06/24 18: MPV 9.7 fL (7.4-10.4) 10/06/24 18: Neut % (Auto) 61.9 % 10/06/24 18: Lymph % (Auto) 20.6 % 10/06/24 18: Hernando % (Auto) 9.7 % 10/06/24 18: Eos % (Auto) 6.5 % 10/06/24 18: Baso % (Auto) 1.1 % 10/06/24: Neut # (Auto) 5.30 10^3/uL (1.8-7.7) 10/06/24 18: Lymph # (Auto) 1.8 10^3/uL (0.8-4.8) 10/06/24 18: Hernando # (Auto) 0.8 10^3/uL (0.2-0.9) 10/06/24 18: Eos # (Auto) 0.6 10^3/uL (0.0-0.8) 10/06/24 18: Baso # (Auto) 0.1 10^3/uL (0.0-0.1) 10/06/24 18: Nucleated RBC % (auto) 0 % 10/06/24 18: Nucleated RBCs # 0.0 /100WBC 10/06/24 18: Sodium 135 mmol/L (136-145) L 10/06/24 18: Potassium 4.0 mmol/L (3.5-5.1) 10/06/24 18:31 Chloride 99 mmol/L (98-107) 10/06/24 18:31 Carbon Dioxide 24 mmol/L (22-29) 10/06/24 18:31 Anion Gap 16.0 (5-19) 10/06/24 18:31 BUN 13 mg/dL (8-23) 10/06/24 18:31 Creatinine 0.9 mg/dL (0.7-1.2) 10/06/24 18:31 GFR Calculation Not Reportable 10/06/24 18: Glucose 314 mg/dL (65-115) H 10/06/24 18:31 Calculated Osmolality 292 mOsm/kg (285-295) 10/06/24 18: Calcium 9.2 mg/dL (8.5-10.5) 10/06/24 18: Total Bilirubin 0.3 mg/dL (0.15-1.2) 10/06/24 18:31 AST 12 U/L (0-40) 10/06/24 18: ALT 14 U/L (0-41) 10/06/24 18:31 Alkaline Phosphatase 53 U/L (40-130) 10/06/24 18:31 Total Protein 6.6 g/dL (6.6-8.7) 10/06/24 18:31 Albumin 4.2 g/dL (3.5-5.2) 10/06/24 18:31 Globulin 2.4 g/dL (1.3-4.6) 10/06/24 18:31 Coronavirus (PCR) Negative (Negative) 10/06/24 18:06 Influenza A (PCR) Negative (Negative) 10/06/24 18:06 Influenza Type B (PCR) Negative (Negative) 10/06/24 18:06 RSV (PCR) Negative (Negative) 10/06/24 18:06 All radiology interpretation(s) finalized by discharge Discharge Plan Discharge Patient Disposition: Home Clinical Impression: COPD with acute exacerbation Condition: Stable Prescriptions: New azithromycin 250 mg tablet See Rx Instructions .ROUTE .COMPLEX Qty: 6 0RF Rx Instructions: take 500 mg today (day 1), then 250 mg for 4 days (days 2-5) amoxicillin-pot clavulanate 875-125 mg tablet 1 tab PO BID Qty: 14 0RF No Action aspirin [Adult Aspirin Regimen] 81 mg tablet,delayed release (DR/EC) 81 mg PO DAILY ferrous sulfate 325 mg (65 mg iron) tablet,delayed release (DR/EC) 325 mg PO DAILY glipizide 5 mg tablet 5 mg PO DAILY losartan-hydrochlorothiazide 50-12.5 mg tablet 1 tab PO DAILY metformin 1,000 mg tablet extended release 24hr 1,000 mg PO BID nitroglycerin [Nitrostat] 0.4 mg tablet, sublingual 0.4 mg SUBLINGUAL Q5M PRN omeprazole 20 mg capsule,delayed release(DR/EC) 20 mg PO DAILY albuterol sulfate [ProAir HFA] 90 mcg/actuation HFA aerosol inhaler 1 puff INHALATION Q6H PRN Spiriva Respimat 2.5 mcg/actuation mist 2 inh INHALATION .unknown tamsulosin 0.4 mg capsule 0.4 mg PO .bedtime fluticasone propion-salmeterol [Advair Diskus] 500-50 mcg/dose blister with device 1 inh INHALATION BID Qty: 60 2RF baclofen 10 mg tablet 10 mg PO BID Qty: 30 0RF lidocaine 5 % adhesive patch,medicated 1 patch topical DAILY Qty: 15 0RF Rx Instructions: leave on most painful area for up to 12 hrs ipratropium-albuterol 0.5 mg-3 mg(2.5 mg base)/3 mL solution for nebulization 3 ml inhalation QID PRN (Reason: wheezing) Qty: 180 2RF guaifenesin 400 mg tablet 400 mg PO QID PRN (Reason: cough) Qty: 90 2RF Rx Instructions: May take one tab up to four times a day as needed for cough. prednisone 10 mg tablet 10 mg PO DAILY Qty: 30 1RF methotrexate sodium 2.5 mg tablet 15 mg PO .weekly Qty: 30 2RF isosorbide mononitrate 30 mg tablet extended release 24 hr 15 mg PO .Bedtime Qty: 15 0RF Rx Instructions: Must have follow-up for further refills Discharge Orders: Discharge ED (Routine); Ordered 10/06/24 Ordered By: Celeste Estes Referrals: Frnacois Mcgill DO [Primary Care Provider] - Patient Instructions: COPD (Chronic Obstructive Pulmonary Disease) (DC) Activity Restrictions/Additional Instructions: As we discussed, please follow-up with primary care provider next week for reevaluation. You may return to the emergency department at anytime for worsening shortness of breath, difficulty breathing, chest pain, fevers, generally feeling worse or unwell, or any other concerns you may have. I hope you begin to feel better soon. Coding Level of Care Code ED Tetryl Screen Operator for Brayden Perales
[2024-10-06] MEDS: methylPREDNISolone sod succ 125 mg/2 mL INJ IVP (20:02)
[2024-10-06 20:03] VITALS: BP 110/87; PULSE 107; O2SAT 96
[2024-10-06 20:05] VITALS: PULSE 104; RESP 18; O2SAT 98
[2024-10-06] MEDS: ipratropium-albuterol 3 mL Neb INHALATION (20:11)
[2024-10-06 20:12] VITALS: PULSE 104; RESP 18; O2SAT 100
== END 2024-10-06 21:17 | disposition home or self-care (01) ==
PROVIDERS: Emergency Provider Physician Assistant; PCP Family Medicine
DX: J44.1 Chronic obstructive pulmonary disease with (acute) exacerbation (principal); Z11.52 Encounter for screening for COVID-19; Z79.82 Long term (current) use of aspirin; Z79.84 Long term (current) use of oral hypoglycemic drugs; I25.10 Atherosclerotic heart disease of native coronary artery without angina pectoris; E78.5 Hyperlipidemia, unspecified
CPT/HCPCS: 36415; 71045; 80053; 85025; 87637; 94640; 96374; 99284; J2919

== ENCOUNTER → 2024-12-28 15:15 | Outpatient (BNVA) | payer MEDICARE, MEDICAID, SELFPAY | PROVIDERS: PCP Family Medicine; Visit Provider Family Medicine | DX: M06.9 Rheumatoid arthritis, unspecified (principal); M54.50 Low back pain, unspecified; E78.49 Other hyperlipidemia; E11.9 Type 2 diabetes mellitus without complications; R06.00 Dyspnea, unspecified; Z12.5 Encounter for screening for malignant neoplasm of prostate; R79.89 Other specified abnormal findings of blood chemistry | CPT/HCPCS: 80053; 80061; 82607; 82728; 82746; 83036; 83540; 83690; 84439; 84443; 85025; 85651; 86038; 86140; 86200; 86431; G0103 ==

== ENCOUNTER → 2024-12-30 14:05 | Outpatient (BNVA) | payer MEDICARE, MEDICAID, SELFPAY | PROVIDERS: PCP Family Medicine; Visit Provider Family Medicine | DX: M06.9 Rheumatoid arthritis, unspecified (principal); L40.50 Arthropathic psoriasis, unspecified; M54.50 Low back pain, unspecified; E78.49 Other hyperlipidemia; E11.9 Type 2 diabetes mellitus without complications | CPT/HCPCS: 72100 ==

== ENCOUNTER 2025-01-10 12:18 | Emergency (ER) | payer MEDICARE, MEDICAID, SELFPAY ==
[2025-01-10 12:37] VITALS: BP 139/75; PULSE 112; RESP 20; TEMP 36.3; O2SAT 98
--- NOTE | 2025-01-10 14:03 | W.ED.WOUNDLC ---
HPI - Wound/Laceration General: Chief Complaint: Wound/Laceration Stated Complaint: lump on buttocks Time Seen by Provider: 01/10/25 12:41 Source: patient Mode of arrival: ambulatory Limitations: no limitations History of Present Illness: Patient is a 74-year-old male who presents to ED today with a complaint of a boil on his left buttock. He states symptoms are been present over the past 2 to 3 months. He reports previous similar lesion 10 years ago that drained on its own and then took forever to heal. States he has never had any formal follow-up or evaluation by general surgery. He is not complaining of fevers, chills, body aches. Onset (ago): month(s) Location: other (buttock) Place: home Patient tetanus UTD: Yes Context: accidental Associated symptoms: Reports no associated symptoms; Denies chills, fever(s) or vomiting Related Data Home Medications ?Medication ?Instructions ?Recorded ?Confirmed acetaminophen 325 mg tablet 325 mg PO QID PRN Pain 10/11/24 01/10/25 (Tylenol) docusate sodium 50 mg capsule 50 mg PO DAILY PRN Constipation 10/11/24 01/10/25 (Stool Softener) albuterol sulfate 90 mcg/actuation 1 puff inhalation Q6H PRN Pain 01/10/25 01/10/25 aerosol inhaler fluticasone fur. 200 mcg-umeclid 1 inh inhalation QAM 01/10/25 01/10/25 62.5 mcg-vilant 25 mcg inhalat.powder (Trelegy Ellipta) metformin 500 mg tablet,extended 1,000 mg PO DAILY 01/10/25 01/10/25 release 24 hr methotrexate sodium 2.5 mg tablet See Rx Instructions PO .weekly PRN 01/10/25 01/10/25 pain or arthritis flare Previous Rx's ?Medication ?Instructions ?Recorded ipratropium 0.5 mg-albuterol 3 mg 3 ml inhalation QID PRN wheezing 09/08/24 (2.5 mg base)/3 mL nebulization #180 mL soln atorvastatin 40 mg tablet (Lipitor) 40 mg PO DAILY 90 days #90 tabs 10/20/24 glipizide 5 mg tablet 5 mg PO DAILY 90 days #90 tabs 10/20/24 losartan 50 mg tablet 50 mg PO DAILY 90 days #90 tabs 10/20/24 omeprazole 20 mg capsule,delayed 20 mg PO DAILY 90 days #90 caps 10/20/24 release tamsulosin 0.4 mg capsule 0.4 mg PO .bedtime 90 days #90 caps 10/20/24 folic acid 1 mg tablet 1 mg PO DAILY #90 tabs 01/05/25 prednisone 10 mg tablet 10 mg PO QDAY PRN pain or 01/05/25 arthritis flare #90 tabs tirzepatide 2.5 mg/0.5 mL 2.5 mg (0.5 mL) SUBCUT .q7days #2 01/05/25 subcutaneous pen injector mL (Mounjaro) amoxicillin 875 mg-potassium 1 tab PO BID #14 tabs 01/10/25 clavulanate 125 mg tablet Allergies Allergy/AdvReac Type Severity Reaction Status Date / Time montelukast (From [facility]) Allergy Intermediate Altered Verified 01/05/25 12:58 Heart Rate simvastatin Allergy Intermediate Hives/Skin Verified 01/05/25 12:58 Rash codeine Allergy Mild N/V Verified 01/05/25 12:58 milk Allergy Mild GI problems Verified 01/05/25 12:58 Sulfa (Sulfonamide Allergy Mild N/V Verified 01/05/25 12:58 Antibiotics) tramadol Allergy Mild N/V Verified 01/05/25 12:58 Review of Systems Const: Denies: fever(s), chills, body aches, fatigue or malaise GI: Denies: abdominal pain, vomiting or change in bowel habits Skin/Breast: Reports: other ( boil ) PFSH ED PFSH: Medical History COPD (chronic obstructive pulmonary disease) PAD (peripheral artery disease) CAD (coronary artery disease) Hyperlipidemia High risk medication use Psoriatic arthritis Surgical History No pertinent past surgical history Family History Other Cancer Denies family history of Lupus (systemic lupus erythematosus) Rheumatoid arthritis Diabetes Social History Smoking and tobacco/nicotine status: never used tobacco/nicotine Alcohol intake: current Alcohol intake frequency: holidays/special occasions only Alcohol type: beer Substance/Drug Use: never Physical Exam Const: COMMON NORMALS: no acute distress, average body habitus, patient oriented x3, no limitations, healthy appearing, alert and well nourished Resp: COMMON NORMALS: normal respiratory effort and clear to auscultation bilaterally AUSCULTATION: clear to auscultation bilaterally Cardio: COMMON NORMALS: regular rate and regular rhythm RATE: regular rate RHYTHM: regular rhythm GI: OTHER: no buttock or pilonidal abscess; he has a very small dime sized area just to the left of his anal verge that is somewhat tender to palpation; no perineal involvement; no discharge present Neuro: COMMON NORMALS: patient oriented x3 SENSORIUM/ORIENTATION: Yes alert Course Vital Signs: Vital signs: Vital Signs Temperature 97.4 F L 01/10/25 12:37 Pulse Rate 112 H 01/10/25 12:37 Respiratory Rate 20 H 01/10/25 12:37 Blood Pressure 139/75 01/10/25 12:37 Pulse Oximetry 98 01/10/25 12:37 Oxygen Delivery Me thod Room Air 01/10/25 12:37 MDM - Wound/Laceration Medical Decision Making Patient with a very small 1 cm perianal possible abscess. This has been present over the past 2 to 3 months. Will have him follow-up with general surgery. Will place on Augmentin. At this time I think area is too small to visualize anything on CT imaging. Clinically appears no acute distress. Vitals stable. Return ED precautions discussed. Differential Diagnosis Likely abscess Medical Records I reviewed the patient's medical records. No radiology studies performed this visit Discharge Plan Discharge Patient Disposition: Home Clinical Impression: Anorectal abscess Condition: Stable Prescriptions: New amoxicillin-pot clavulanate 875-125 mg tablet 1 tab PO BID Qty: 14 0RF No Action ipratropium-albuterol 0.5 mg-3 mg(2.5 mg base)/3 mL solution for nebulization 3 ml inhalation QID PRN (Reason: wheezing) Qty: 180 2RF prednisone 10 mg tablet 10 mg PO QDAY PRN (Reason: pain or arthritis flare) Qty: 90 1RF folic acid 1 mg tablet 1 mg PO DAILY Qty: 90 3RF Mounjaro 2.5 mg/0.5 mL pen injector 2.5 mg SUBCUT .q7days Qty: 2 2RF Rx Instructions: Wed acetaminophen [Tylenol] 325 mg tablet 325 mg PO QID PRN (Reason: Pain) Stool Softener 50 mg capsule 50 mg PO DAILY PRN (Reason: Constipation) atorvastatin [Lipitor] 40 mg tablet 40 mg PO DAILY 90 Days Qty: 90 1RF glipizide 5 mg tablet 5 mg PO DAILY 90 Days Qty: 90 1RF losartan 50 mg tablet 50 mg PO DAILY 90 Days Qty: 90 1RF omeprazole 20 mg capsule,delayed release(DR/EC) 20 mg PO DAILY 90 Days Qty: 90 1RF tamsulosin 0.4 mg capsule 0.4 mg PO .bedtime 90 Days Qty: 90 1RF albuterol sulfate 90 mcg/actuation HFA aerosol inhaler 1 puff INHALATION Q6H PRN (Reason: Pain) metformin 500 mg tablet extended release 24 hr 1,000 mg PO DAILY methotrexate sodium 2.5 mg tablet See Rx Instructions PO .weekly PRN (Reason: pain or arthritis flare) Rx Instructions: Take 3 tabs by mouth one time a week. Trelegy Ellipta 200-62.5-25 mcg blister with device 1 inh inhalation QAM Discharge Orders: Discharge ED (Routine); Ordered 01/10/25 Ordered By: Celeste Estes Referrals: Francois Mcgill DO [Primary Care Provider, Family Practice] Activity Restrictions/Additional Instructions: As we discussed, case management should reach out to you shortly to help set you up with your follow-up appointment with general surgery for further evaluation. You may return to the emergency department for worsening pain, swelling, fevers, or any other concerns you may have. Print Language: Icelandic Coding Level of Care Code ED Bed Laborer for Brayden Perales
[2025-01-10 14:21] VITALS: BP 100/72; PULSE 102; RESP 16; O2SAT 97
--- NOTE | 2025-01-11 08:50 | DCPLANNER ---
Message sent to General Surgery for follow up- Medical Decision Making Patient with a very small 1 cm perianal possible abscess. This has been present over the past 2 to 3 months. Will have him follow-up with general surgery. Will place on Augmentin. At this time I think area is too small to visualize anything on CT imaging. Clinically appears no acute distress. Vitals stable. Return ED precautions discussed.
== END 2025-01-10 14:24 | disposition home or self-care (01) ==
PROVIDERS: Emergency Provider Physician Assistant; PCP Family Medicine
DX: K61.2 Anorectal abscess (principal); Z79.84 Long term (current) use of oral hypoglycemic drugs; J44.9 Chronic obstructive pulmonary disease, unspecified; I25.10 Atherosclerotic heart disease of native coronary artery without angina pectoris; E78.5 Hyperlipidemia, unspecified
CPT/HCPCS: 99283

== ENCOUNTER → 2025-01-18 13:39 | Outpatient (BNVA) | payer MEDICARE, MEDICAID, SELFPAY | PROVIDERS: PCP Family Medicine; Visit Provider Surgery | DX: L02.91 Cutaneous abscess, unspecified (principal) | CPT/HCPCS: 99203 ==

== ENCOUNTER → 2025-02-01 13:15 | Outpatient (BNVA) | payer MEDICARE, MEDICAID, SELFPAY | PROVIDERS: PCP Family Medicine; Visit Provider Surgery | DX: K61.2 Anorectal abscess (principal) | CPT/HCPCS: 99213 ==

== ENCOUNTER → 2025-03-13 11:20 | Outpatient (BNVA) | payer MEDICARE, MEDICAID, SELFPAY | PROVIDERS: PCP Family Medicine; Referring Provider Family Medicine; Visit Provider Internal Medicine Rheumatology | DX: M54.9 Dorsalgia, unspecified (principal); G89.29 Other chronic pain; Z79.899 Other long term (current) drug therapy; M05.79 Rheumatoid arthritis with rheumatoid factor of multiple sites without organ or systems involvement; L40.0 Psoriasis vulgaris; Z71.85 Encounter for immunization safety counseling | CPT/HCPCS: 36415; 72072; 72100; 80076; 82306; 82565; 85025; 85651; 86140; 86480; 86704; 86803; 87340; 99204 ==

== ENCOUNTER → 2025-04-05 13:00 | Outpatient (BNVA) | payer MEDICARE, MEDICAID, SELFPAY | PROVIDERS: PCP Family Medicine; Visit Provider Family Medicine | DX: R79.89 Other specified abnormal findings of blood chemistry (principal); E11.9 Type 2 diabetes mellitus without complications | CPT/HCPCS: 80048; 82607; 83036 ==

== ENCOUNTER 2025-04-13 14:59 | Outpatient (CLI) | payer MEDICARE, MEDICAID, SELFPAY ==
--- NOTE | 2025-04-13 15:45 | CTR_ITS ---
PROCEDURE INFORMATION: Exam: CTA Abdominal Aorta and Bilateral Lower Extremities (Run-off) With Contrast Exam date and time: 04/13/2025 4:08 PM Age: 74 years old Clinical indication: Pad, bilateral leg pain with numbness; Additional info: I73.9 - peripheral vascular disease, unspecified TECHNIQUE: Imaging protocol: Computed tomographic angiography of the of the abdominal aorta, pelvis and bilateral lower extremities with contrast. 3D rendering (Not supervised by radiologist): MIP and/or 3D reconstructed images were created by the technologist. Radiation optimization: All CT scans at this facility use at least one of these dose optimization techniques: automated exposure control; mA and/or kV adjustment per patient size (includes targeted exams where dose is matched to clinical indication); or iterative reconstruction. Contrast material: OMNIPAQUE 350; Contrast volume: 125 ml; Contrast route: INTRAVENOUS (IV); COMPARISON: CT chest wo con [id number] 07/20/2024 8:36 AM RADIATION DOSE METRICS: Total DLP (mGy-cm): 1634.04 FINDINGS: Aorta: Aortic and coronary atherosclerosis. No aortic aneurysm. No aortic dissection. Celiac trunk and mesenteric arteries: No occlusion or significant stenosis. Renal arteries: No occlusion or significant stenosis. Right iliac arteries: No occlusion or significant stenosis. Right femoral/popliteal arteries: No occlusion or significant stenosis. Right infrapopliteal arteries: Limited evaluation due to diminutive size with heavy calcification. Probably multifocal [id number] stenosis. Left iliac arteries: No occlusion or significant stenosis. 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 Left infrapopliteal arteries: Limited evaluation due to diminutive size with heavy calcification. Probably multifocal [id number] stenosis. Lung: Few scattered strands of the lung bases. Liver: No mass. Gallbladder and biliary ducts: Unremarkable. No calcified stones. No ductal dilation. Pancreas: Unremarkable. No mass. No ductal dilation. Spleen: Small splenule. Otherwise Normal. No splenomegaly. Adrenal glands: Normal. No mass. Kidneys and ureters: Nonspecific although commonly benign renal cysts. Otherwise Normal. No mass. Stomach and bowel: Unremarkable. No obstruction. No mucosal thickening. Appendix: No evidence of appendicitis. Urinary bladder: Unremarkable. No mass. Reproductive: Unremarkable as visualized. Intraperitoneal space: Unremarkable. No free air. No significant fluid collection. Lymph nodes: No lymphadenopathy. Bones/joints: [id number] degenerative changes of lumbar vertebral bodies with multilevel endplate spurring and disc space narrowing. No acute fracture. No dislocation. Soft tissues: Unremarkable. 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 Bilaterally,Limited evaluation of the runoff vessels due to diminutive size with heavy calcification. Probably multifocal [id number] stenosis. Heavy atheromatous vascular calcifications of the aorta and virtually all vessels.
[2025-04-13] MEDS: iohexol 350 mg/mL 500 mL Btl (per mL) IV (16:18)
== END 2025-04-13 15:00 | disposition home or self-care (01) ==
LOC: RAD 15:03
PROVIDERS: PCP Family Medicine; Visit Provider Family Medicine
DX: I73.9 Peripheral vascular disease, unspecified (principal); I70.92 Chronic total occlusion of artery of the extremities; I70.0 Atherosclerosis of aorta; R20.9 Unspecified disturbances of skin sensation
CPT/HCPCS: 75635

== ENCOUNTER 2025-04-21 13:07 | Emergency (ER) | payer MEDICARE, MEDICAID, SELFPAY ==
--- OUTSIDE RECORDS SUMMARY | 2024-07-11 04:00 | XMS_ITS ---
Author Organization [facility] [employer] Address [address] [place], [place] [id number] Care Team Providers Care Radio Performer Name Role Phone Bhupendra HERNANDEZ, Shahid Unavailable [phone] Farncois Mcgill DO Unavailable Unavailable Cara Mcclain Unavailable [phone] Allergies Allergen (clinical drug ingredient) Drug/Non Drug Allergy documented on EMR Reaction Allergy Type Onset Date Status Milk milk (uncoded) Unknown Allergy Activ e apremilast otezia (uncoded) Unknown Allergy Ac tive Sulfa (uncoded) Unknown Allergy Acti ve simvastatin Zocor Unknown Drug Allergy Activ e Sulfatrim Unknown Drug Allergy Active montelukast Singulair Unknown Drug Allergy Activ e codeine codeine Unknown Drug Allergy Active theophylline Unknown Drug Allergy Acti ve simvastatin simvastatin Unknown Drug Allergy Act rigo tramadol tramadol Unknown Drug Allergy Active montelukast montelukast Unknown Drug Allergy Act rigo REASON FOR VISIT New patient evaluation, FALL Medications Medication SIG (Take, Route, Frequency, Duration) Notes Start Date End Date Status Acetaminophen-[place] codone Bitartrate 325 mg-7.5 mg 1 tab po orally QID prn pain (hold within 4H of planned sleep); Duration: 30 day(s) Printed prescriptions given (3-months). Active Social History Tobacco Use: Social History Observation Description Date Details (start date - stop date) Former Smoker NA - NA alcohol Question Answer Notes Did you have a drink containing alcohol in the p ast year? No Points 0 Interpretation Negative Tobacco use: Question Answer Notes : former smoker When did you start smoking? Encounters Encounter Location Date Provider Diagnosis [facility] [address] [place], [place] [id number] 07/11/2024 Cara Owen Other detention (current) drug therapy Z79.899 ; Enthesopathy, unspecified M77.9 ; Low back pain M54.5 ; Sacroiliitis, not elsewhere classified M46.1 ; Intervertebral disc disorders with radiculopathy, lumbar region M51.16 ; Obstructive sleep apnea (adult) (pediatric) G47.33 and terminal gauger (current) use of opiate analgesic Z79.891 Assessments Encounter Date Diagnosis (ICD Code) Assessment Notes Treatment Notes Treatment Clinical Notes Section Notes 07/11/2024 Other detention (current) drug therapy (ICD-10 - Z79.899) Patient was given a copy of the Treatment Agreement, signed by patient on . 2022 opioid (OUD) risk tool score = . This places the patient in the low/high risk category. Plan urine toxicology screen today in anticipation of possibly starting opioid therapy at future visit as well as to assess for any prescribed, unprescribed, and / or illicit controlled substance(s). 07/11/2024 Enthesopathy, unspecified (ICD-10 - M77.9) Prior tendon steroid injections with history of efficacy appreciated 07/11/2024 Low back pain (ICD-10 - M54.5) Will consider interventional spine treatment when such treatment is desired by patient. Would need to consider patient's anticoagulation status in the event of planning a procedure 07/11/2024 Sacroiliitis, not elsewhere classified (ICD-10 - M46.1) 07/11/2024 Intervertebral disc disorders with radiculopathy, lumbar region (ICD-10 - M51.16) 07/11/2024 Obstructive sleep apnea (adult) (pediatric) (ICD-10 - G47.33) Patient with history of pneumonia in regards to prior attempt at CPAP utilization. Patient has expressed no interest in repeating CPAP titration portion of sleep study. Patient has verbalized understanding of the risks of OSAS as well as the risk of concomitant use of opioids (worsened sleep apnea, respiratory depression, ). Plan to restrict opioid usage in relation to sleep in lieu of strict compliance with positive airway pressure device: patient has verbalized understanding to hold short-acting opioids within four hours of planned sleep 07/11/2024 residential (current) use of opiate analgesic (ICD-10 - Z79.051) Patient has received the Opioid Analgesic [facility] Patient Counseling Guide. Patient has had opportunity to read the Guide and ask questions pertaining to the Guide. Patient has refused offer of a Narcan nasal spray prescription. Plan Of Treatment Medication Medication Name Sig Start Date Stop Date Notes Acetaminophen-Hydrocod one Bitartrate 325 mg-7.5 mg 1 tab po orally QID prn pain (hold within 4H of planned sleep); Duration: 30 day(s) Printed prescription s given (3-months). Treatment Notes Assessment Notes Other terminologist (current) drug therapy Patient was given a copy of the Treatment Agreement, signed by patient on . 2022 opioid (OUD) risk tool score = . This places the patient in the low/high risk category. Plan urine toxicology screen today in anticipation of possibly starting opioid therapy at future visit as well as to assess for any prescribed, unprescribed, and / or illicit controlled substance(s). Enthesopathy, unspecified Prior tendon s teroid injections with history of efficacy appreciated Low back pain Will consider interv entional spine treatment when such treatment is desired by patient. Would need to consider patient's anticoagulation status in the event of planning a procedure Obstructive sleep apnea (glenn lt) (pediatric) Patient with history of pneumonia in reg ards to prior attempt at CPAP utilization. Patient has expressed no interest in repeating CPAP titration portion of sleep study. Patient has verbalized understanding of the risks of OSAS as well as the risk of concomitant use of opioids (worsened sleep apnea, respiratory depression, ). Plan to restrict opioid usage in relation to sleep in lieu of strict compliance with positive airway pressure device: patient has verbalized understanding to hold short-acting opioids within four hours of planned sleep terminal gauger (current) use of o piate analgesic Patient has received the Opioid Analgesic [facility] Patient Counseling Guide. Patient has had opportunity to read the Guide and ask questions pertaining to the Guide. Patient has refused offer of a Narcan nasal spray prescription. Progress Notes * Bj POTTER CDOB: [birth year] (74 yo M)Acc No.[id number]:07/11/2024 Patient: Bj STILES Provider: HAVEN Eduardo :1950 A ge:73 Y S ex:Male Date:07/11/2024 Address:[address], [place], [id number] Subjective: * Chief Complaints: * 1 . New patient evaluation. 2. FALL. * HPI: C ervical Spine: 73 year old male presents with c/o pain f or * i n the neck. T horacic Spine: c/o pain f or * i n the mid back. L umbar Spine: c/o pain f or * i n the lower back , in the bilateral lower back. This pain extends into the right hip, buttock, groin and thigh. The back pain is described as constant aching with intermittent spasms in the thigh. This pain is aggravated by bending forward, riding in car > 10-15 miles, and lifting > 15-20 pounds. This pain is somewhat alleviated with frequent position changes and topical agents. c /o tingling/numbness i n the legs, feet, and toes; patient has related these symptoms to diabetes. c /o weakness i n the lower extremities. Denies : radiation of pain. Denies : change in bowel/bladder function. Denies : previous surgery:. injury: f ell out of tree as a child. S acro-Iliac / Coccyx: c/o pain f or * * . P otential Work or Litigation Related Injury: No: p atient stated pain is not due to a work or litigation related injury. P hysician's referral: Physician's referral received: gregorio Mcgill for lower back, hip and knee pain s ee scanned documents. P hysician/Clinic notes: Notes received from: [facility]; see scanned document. P revious Imaging/Studies: X-rays o f the L-spine on 08/17/09; of the knees on 10/06/13; of the pelvis on 04/22/10. MRI o f the L-spine on 06/09/12. I nterventional: Tendon steroid injection: o n 07/30/15 with fair benefit and moderate improvement with ADLs, such as reaching and lifting; on 07/28/16 with good benefit; on 09/30/17 with good benefit and good improvement with ADLs, such as moving arm and shoulder. P revious Therapy: Previous therapy: p hysical therapy for * with * benefit for weeks; home exercises for * with * benefit for weeks; chiropractic manipulation for * with * benefit for weeks; ice/heat therapy with * benefit for weeks; muscle relaxants for * with * benefit for weeks; anti-inflammatories for * with * benefit for weeks , physical therapy with benefit. Medication history: N orco 5/325; Teton 7.5/325; naproxen 500 mg; Lidoderm 5% patch; Zanaflex 4 mg; tramadol 50 mg. M edications: N on Compliance/Failure to Follow Treatment Agreement: Failure to bring prescribed medications to appointments: 1 (short #17 Teton), 10/27/16. * ROS: C onstitutional: Positive for: w eight loss 100 lbs. O pthalmology: Positive for: u se of eye glasses, use of contact lenses.? H ENT: Positive for: d iminished hearing, rhinitis, nasal congestion, sinus congestion, seasonal allergies, dry mouth. C ardiovascular: : N egative. R espiratory: [facility] with complaints of, restless legs, restlessness during sleep, thrashing about, impaired memory / intellectual function. S leep study completed at [facility] > 15 years ago. Patient does not use a CPAP.?[place] Sleepiness Scale: 0 . P ositive for: d ifficulty breathing, wheezing. ? G astrointestinal: : N egative. M usculoskeletal: Positive for: j oint pain, joint stiffness. ? I ntegumentary/ Dermatology: : N egative. N eurological: Claustrophobic: n o. P ositive for: m royal loss, headaches. P sychiatric: : N egative. E ndocrine: Positive for: e xcessive sweating, excessive thirst, diabetes mellitus, blood sugar range:120- 150. H ematology/Lymphatic: : N egative. * Medical History: C hronic bilateral low back pain with bilateral sciatica, Lumbar spondylosis, Psoriatic arthritis, Knee pain, Diabetes mellitus, Chronic obstructive pulmonary disease, Coronary artery disease, Psoriasis, Osteoarthritis, Chronic immunosuppression, Asthma, Sleep apnea (does not use CPAP), Hyperlipidemia, Elevated AST/ALT 10/24/01 (secondary to methotrexate), Hip pain, Plantar fasciitis, Bilateral shoulder pain, history of right shoulder trauma, Knee pain, Chronic obstructive pulmonary disease, Peripheral artery disease. * Surgical History: C oronary artery bypass graft, 06/1997, Bronchoscopy x 3 , Sinus surgery x 2 , Thumb arthrodesis, left, 12/2005, Tear duct surgery, bilateral, 06/2012, Knee arthroscopy, left, 01/2014, Knee surgery, performed at [facility] , Open heart surgery, performed at [facility] , Placement of stents, performed at [facility], 2015, Cataract surgery, bilateral, 2018. * Hospitalization/Major Diagno stic Procedure: L telma issues , Pneumonia, 12/2015, Bronchitis, 03/10/16. * Family History: F ather: 60 yrs, alcoholism. M other: 54 yrs, diabetes. * Social History: T obacco use : f ormer smoker When did you start smoking? * M arijuana: no. M eth: no. O ther illicit drug use: no. A lcohol Did you have a drink containing alcohol in the past year? N o Points 0 Interpretation N egative M arried: no (). C hildren: 3. E ducation: highest grade completed 8th. O ccupation: none. E xercise: daily. 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 T ravel: no. * Allergies: o tezia, Zocor, Sulfatrim, Singulair, codeine, theophylline, simvastatin, tramadol, Sulfa, montelukast, milk. Objective: * Vitals: Therapeutic Interventions: * Therapeutic Interventions: 1 . C ounseling Conditions of treatment : patient counseled to bring all medications prescribed by RING ROLLING MACHINE OPERATOR to every visit. Patient was advised that use of illicit drugs (including marijuana, other street drugs, prescription drugs not disclosed, and prescription drugs belonging to other persons) will result in dissolution of treatment. Patient also advised that misuse of prescription drugs (including sharing prescribed medications with other persons and inappropriate self-dosing) will result in dissolution of treatment. Patient verbalized understanding and intent to comply with treatment requirements 2 . D rug Screening Urine Sample : collected (results pending) 3 . I llicit drugs Social history : information is accurate regarding illicit drugs and dates of last use; if applicable. Patient confirmed that current listed medications are accurate and include all medications (prescribed and OTC) used within the past 2 months Assessment: * Assessment: 1. O ther detention (current) drug therapy - Z79.899 (Primary) 2 . E nthesopathy, unspecified - M77.9 3 . L ow back pain - M54.5 4 . S acroiliitis, not elsewhere classified - M46.1 5 . I ntervertebral disc disorders with radiculopathy, lumbar region - M51.16 6 . O bstructive sleep apnea (adult) (pediatric) - G47.33 7 . L wesley term (current) use of opiate analgesic - Z79.891? Plan: * Treatment: 2. E nthesopathy, unspecified Notes: Prior tendon steroid injections with history of efficacy appreciated 3. L ow back pain Notes: Will consider interventional spine treatment when such treatment is desired by patient. Would need to consider patient's anticoagulation status in the event of planning a procedure 4. O bstructive sleep apnea (adult) (pediatric) Notes: Patient with history of pneumonia in regards to prior attempt at CPAP utilization. Patient has expressed no interest in repeating CPAP titration portion of sleep study. Patient has verbalized understanding of the risks of OSAS as well as the risk of concomitant use of opioids (worsened sleep apnea, respiratory depression, ). Plan to restrict opioid usage in relation to sleep in lieu of strict compliance with positive airway pressure device: patient has verbalized understanding to hold short-acting opioids within four hours of planned sleep 5. L wesley term (current) use of opiate analgesic Notes: Patient has received the Opioid Analgesic [facility]S Patient Counseling Guide. Patient has had opportunity to read the Guide and ask questions pertaining to the Guide. Patient has refused offer of a Narcan nasal spray prescription. 6. O thers Continue Acetaminophen-Hydrocodone Bitartrate tablet, 325 mg-7.5 mg, 1 tab po, orally, QID prn pain (hold within 4H of planned sleep), 30 day(s), 120, Refills 0, Notes to Pharmacist: Printed prescriptions given (3-months).. * Procedure Codes: G 8427 DOC MEDS VERIFIED W/[place], [address] Urine Dip Cup, Modifiers: QW * Preventive Medicine: Counseling: C are Goal Follow Up Plan: BMI management provided Y es Above Normal BMI Follow-up D ietary management education, guidance, and counseling P ain Management: Follow-up Plan documented: Y es ASA Status Classification: s core: P 3. Screening / Special Tests: F all Risk Screening: N o falls in the past year as of: 12/06/19 * Images: * Electronic signature of Liyah Owen WEBBING TACKER on 04/21/2025 at 01:12 PM CDT Sign off status: Pending * Provider: Renee Owen WEBBING TACKER Date: 09/10/2023 Generated for Lori martinez/Yaniv/Dixon on: 0 04/21/2025 01:12 PM CDT History and Physical Notes * HPI (History of Present Illness) Category Sub-Category Detail Notes Category Not es Lumbar Spine injury: fell out of tree as a child tingling/numbness in the legs, feet, a nd toes; patient has related these symptoms to diabetes pain in the lower back , in the bilateral lower back. This pain extends into the right hip, buttock, groin and thigh. The back pain is described as constant aching with intermittent spasms in the thigh. This pain is aggravated by bending forward, riding in car > 10-15 miles, and lifting > 15-20 pounds. This pain is somewhat alleviated with frequent position changes and topical agents radiation of pain previous surgery: weakness in the lower extremi ties change in bowel/bladder function Cervical Spine pain in the neck Thoracic Spine pain in the mid back Sacro-Iliac / Coccyx pain * Interventional Tendon steroid injection: on with fair benefit and moderate improvement with ADLs, such as reaching and lifting; on 07/28/16 with good benefit; on 09/30/17 with good benefit and good improvement with ADLs, such as moving arm and shoulder Previous Therapy Previous therapy: pediatric physical therapist apy for * with * benefit for weeks; home exercises for * with * benefit for weeks; chiropractic manipulation for * with * benefit for weeks; ice/heat therapy with * benefit for weeks; muscle relaxants for * with * benefit for weeks; anti-inflammatories for * with * benefit for weeks , physical therapy with benefit Medication history: Teton 5/325; Teton 7 .5/325; naproxen 500 mg; Lidoderm 5% patch; Zanaflex 4 mg; tramadol 50 mg Potential Work or Litigation Related Injury No: patient stated pain is not d ue to a work or litigation related injury Previous Imaging/Studies MRI of the L-spine o n 06/09/12 X-rays of the L-spine on ; of the knees on 10/06/13; of the pelvis on 04/22/10 Physician's referral Physician's referra l received: from Dr. Mcgill for lower back, hip and knee pain see scanned documents Physician/Clinic notes Notes received from: [facility]; see scanned document Non Compliance/Failure to Follow Treatment Agreement Failure to bring prescribed medications to appointments: 06/24/18 (short #17 Briseyda), 10/27/16
--- OUTSIDE RECORDS SUMMARY | 2025-04-21 13:12 | XMS_ITS | Encounter Summary ---
Author Organization [facility] Address [address] [place] [address] Care Team Providers Care Production Clerk Name Role Phone Astrid Escobedo DO Primary Care Provider Encounter Details Date Type Department Care Team (Latest Contact Info) Description 07/21/2003 Outpatient Historical [facility] Rheumatology- [place] [address] [place] [phone] Winston Magana MD NO ADDRESS ON FILE PSORIATIC ARTHROPATHY (CMS/HCC) (Primary Dx); AFTERCARE [facility] USE MEDICATN Social History Tobacco Use Types Packs/Day Years Used Date Smoking Tobacco: Never Assessed Sex and Gender Information Value Date Recorded Sex Assigned at Not on file 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
--- OUTSIDE RECORDS SUMMARY | 2025-04-21 13:12 | XMS_ITS | Encounter Summary ---
Author Organization [facility] Address [address] [place] [address] Care Team Providers Care Research Biologist Name Role Phone Astrid Escobedo DO Primary Care Provider [phone] Encounter Details Date Type Department Care Team (Latest Contact Info) Description 07/29/2005 Outpatient Historical [facility] Rheumatology- [place] [address] [address] [place] [phone] Winston Magana MD NO ADDRESS ON FILE PSORIATIC ARTHROPATHY (CMS/HCC) (Primary Dx) Social History Tobacco Use Types Packs/Day Years Used Date Smoking Tobacco: Never Assessed Sex and Gender Information Value Date Recorded Sex Assigned at Not on file 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
--- OUTSIDE RECORDS SUMMARY | 2025-04-21 13:12 | XMS_ITS | Encounter Summary ---
Author Organization [facility] Address [address] [place] [address] Care Team Providers Care Rewriter Name Role Phone Astrid Escobedo DO Primary Care Provider Encounter Details Date Type Department Care Team (Latest Contact Info) Description 08/11/2001 Outpatient Historical [facility] Rheumatology- [place] [address] [place] [phone] Winston Magana MD NO ADDRESS ON FILE PSORIATIC ARTHROPATHY (CMS/HCC) (Primary Dx); AFTERCARE LONG-TERM USE MEDICATN Social History Tobacco Use Types Packs/Day Years Used Date Smoking Tobacco: Never Assessed Sex and Gender Information Value Date Recorded Sex Assigned at Not on file 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
--- OUTSIDE RECORDS SUMMARY | 2025-04-21 13:12 | XMS_ITS | Encounter Summary ---
Author Organization [facility] Address [address] [place] [address] Care Team Providers Care Heat Treat Technician Name Role Phone Astrid Escobedo DO Primary Care Provider Encounter Details Date Type Department Care Team (Latest Contact Info) Description 03/30/2003 Outpatient Historical [facility] Rheumatology- [place] [address] [address] [place] [phone] Winston Magana MD NO ADDRESS ON FILE PSORIATIC ARTHROPATHY (CMS/HCC) (Primary Dx); AFTERCARE [facility] USE MEDICATN Social History Tobacco Use Types Packs/Day Years Used Date Smoking Tobacco: Never Assessed Sex and Gender Information Value Date Recorded Sex Assigned at Not on file 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
--- OUTSIDE RECORDS SUMMARY | 2025-04-21 13:12 | XMS_ITS | Encounter Summary ---
Author Organization [facility] Address [address] [place] [address] Care Team Providers Care Broker Name Role Phone Astrid Escobedo DO Primary Care Provider [phone] Encounter Details Date Type Department Care Team (Latest Contact Info) Description 04/28/2002 Outpatient Historical [facility] Rheumatology- [place] [address] [address] [place] [phone] Winston Magana MD NO ADDRESS ON FILE PSORIATIC ARTHROPATHY (CMS/HCC) (Primary Dx); AFTERCARE HALF-WAY USE MEDICATN Social History Tobacco Use Types Packs/Day Years Used Date Smoking Tobacco: Never Assessed Sex and Gender Information Value Date Recorded Sex Assigned at Not on file 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
--- OUTSIDE RECORDS SUMMARY | 2025-04-21 13:12 | XMS_ITS | Encounter Summary ---
Author Organization [facility] Address [address] [place] [address] Care Team Providers Care Indoor Sports Centre Manager Name Role Phone Astrid Escobedo DO Primary Care Provider Encounter Details Date Type Department Care Team (Latest Contact Info) Description 12/29/2005 Outpatient Historical [facility] Orthopedics- 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
--- OUTSIDE RECORDS SUMMARY | 2025-04-21 13:12 | XMS_ITS | Encounter Summary ---
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 Social History Tobacco Use Types Packs/Day Years Used Date Smoking Tobacco: Never Assessed Sex and Gender Information Value Date Recorded Sex Assigned at Not on file 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
--- OUTSIDE RECORDS SUMMARY | 2025-04-21 13:12 | XMS_ITS | Encounter Summary ---
Author Organization [facility] Address [address] [place] [address] Care Team Providers Care Director Cardiology Name Role Phone Astrid Escobedo DO Primary Care Provider Encounter Details Date Type Department Care Team (Latest Contact Info) Description 11/05/2005 Outpatient Historical [facility] [address] [place] [address] [place] [address] Anthony Wilson MD [address] [place] [address] LOC PRIM OSTEOARTH-HAND (Primary Dx) Social History Tobacco Use Types Packs/Day Years Used Date Smoking Tobacco: Never Assessed Sex and Gender Information Value Date Recorded Sex Assigned at Not on file 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 Gender Identity Not on file Sexual Orientation Not on file documented as of this encounter Plan of Treatment Not on file documented as of this encounter Procedures Procedure Name Priority Date/Time Associated Diagnosis Comments POC GLUCOSE Routine 11/05/2005 8:57 AM CAM SPECIALIST POC GLUCOSE Routine 11/05/2005 7:02 AM CAM SPECIALIST documented in this encounter Results * (ABNORMAL) POC GLUCOSE (11/05/2005 8:57 AM CAM SPECIALIST) GLUCOSE POC 152(H) 60 - 100 mg/dL INTERFACE SYSTEM 11/05/2005 8:57 AM CAM SPECIALIST us Historical Provider POINT OF CARE TESTING Final Result INTERFACE SYSTEM Refer to clinic/hospital department * (ABNORMAL) POC GLUCOSE (11/05/2005 7:02 AM CAM SPECIALIST) GLUCOSE POC 140(H) 60 - 100 mg/dL INTERFACE SYSTEM 11/05/2005 7:02 AM CAM SPECIALIST [facility] Provider POINT OF CARE TESTING Final Result Performing Organization Address [facility] de Phone Number INTERFACE SYSTEM Refer to clinic/hospital department documented in this encounter Visit Diagnoses Diagnosis Primary localized osteoarthrosis, hand- Primary documented in this encounter Care Teams Director Cardiology Relationship Specialty Start Date End Date Astrid Escobedo DO [address] [place] [address] PCP - General Family Practice 12/17/15 documented as of this encounter
--- OUTSIDE RECORDS SUMMARY | 2025-04-21 13:12 | XMS_ITS | Encounter Summary ---
Author Organization [facility] Address [address] [place] [address] Care Team Providers Care Accounting Policy Consultant Name Role Phone Astrid Escobedo DO Primary Care Provider [phone] Encounter Details Date Type Department Care Team (Late st Contact Info) Description 01/13/2001 Outpatient Historical [facility] Winston Magana MD NO ADDRESS ON FILE Encounter for long-term (current) use of other medications (Primary Dx); Psoriatic arthropathy (CMS/HCC) Social History Tobacco Use Types Packs/Day Years Used Date Smoking Tobacco: Never Assessed Sex and Gender Information Value Date Recorded Sex Assigned at Not on file 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
--- OUTSIDE RECORDS SUMMARY | 2025-04-21 13:12 | XMS_ITS | Encounter Summary ---
Author Organization [facility] Address [address] [place] [address] Care Team Providers Care Assistant To The Dean Name Role Phone Astrid Escobedo DO Primary Care Provider Encounter Details Date Type Department Care Team (Latest Contact Info) Description 10/13/2005 Outpatient Historical [facility] Orthopedics- 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
--- OUTSIDE RECORDS SUMMARY | 2025-04-21 13:12 | XMS_ITS | Encounter Summary ---
Author Organization [facility] Address [address] [place] [address] Care Team Providers Care Security Officers And Guards Name Role Phone Astrid Escobedo DO Primary Care Provider Reason for Visit * Reason Onset Date Comments Referral 04/17/2025 Encounter Details Date Type Department Care Team (Late st Contact Info) Description 04/17/2025 Telephone [facility] Vascular Surgery [place] [address] [place] [address] Lucian Mcdonnell MD [address] [place] [address] Referral Social History Tobacco Use Types Packs/Day Years Used Date Smoking Tobacco: Former Cigarettes Q uit: 09/07/1996 Smokeless Tobacco: Current Chew Alcohol Use Standard Drinks/Week Comments No 0 (1 standard drink = 0.6 oz pur e alcohol) Sex and Gender Information Value Date Recorded Sex Assigned at Not on file 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 We can probably move his appt time up since we won't need the US. * Telephone Encounter - Karol Osborne - 04/17/2025 1:31 PM CDT Spoke to pt and made appts. documented in this encounter Plan of Treatment Upcoming Encounters Date Type Department Care Team (Latest Contact Info) Description 04/25/2025 3:45 PM CDT Office Visit [facility] Vascular Surgery [place] [address] [place] [address] Lucian Kirkpatrick MD [address] [place] [address] 05/03/2025 1:45 PM CDT Hospital Encounter [facility] [address] [place] [address] Bright Tenorio MD [address] [place] [address] 05/03/2025 1:45 PM CDT - 05/03/2025 2:[address] [facility] [address] [place] [address] Bright Tenorio MD [address] [place] [address] EYE PARS PLANA VITRECTOMY 05/04/2025 8:10 AM CDT Office Visit [facility] Op[facility] [place] [address] [place] [address] Bright Tenorio MD [address] [place] [address] Scheduled Procedures Name Priority Associated Diagnoses Date/Ti me EYE PARS PLANA VITRECTOMY H33.001 05/03/2025 1:45 PM CDT EYE MEMBRANE PEEL H33.001 05/03/2025 1:45 PM CDT EYE AIR FLUID GAS EXCHANGE H33.001 05/03/2025 1:45 PM CDT documented as of this encounter Goals Goal Patient Goal Type Associated Problems Recent Progress Patient-Stated? Author Autogenerat ed Goal Care Plan Autogenerated Problem No Vani Walker documented as of this encounter Visit Diagnoses Not on filedocumented in this encounter Additional Health Concerns Active Problems Noted Date Diagnosed Date Autogenerated Problem 04/10/2025 documented as of this encounter Care Teams Security Officers And Guards Relationship Specialty Start Date End Date Astrid Escobedo DO [address] [place] [address] PCP - General Family Practice 12/17/15 documented as of this encounter
--- OUTSIDE RECORDS SUMMARY | 2025-04-21 13:12 | XMS_ITS | Clinical Summary ---
Author Organization [facility] Address [address] [facility] Attn: Epic Prelude ADT [place] [address] Care Team Providers Care Client Services Account Manager Name Role Phone Astrid Escobedo DO Primary Care Provider Allergies Active Allergy Reactions Criticality Noted Date Comments Apremilast Unknown 03/06/2025 Codeine Nausea and Vomiting Low 12/17/2015 Milk Abdominal Pain Low 12/17/2015 Montelukast Other (See Comments) 12/17/2015 Rapid heart rate Simvastatin Rash Low 12/17/2015 Sulfa (Sulfonamide Antibiotics) Nausea and Vomiting Low 12/17/2015 Sulfamethoxazole-Trimet hoprim Unknown 03/06/2025 Theophylline Unknown 12/17/2015 Tramadol Nausea and Vomiting Low 12/17/2015 Medications isosorbide mononitrate (IMDUR) 30 mg Extended Release 24 hour tablet Take 30 mg by mouth daily surveyor geophysical prospecting. 12/22/19 18 Active ticagrelor (BRILINTA) 90 mg Tablet Take by mouth. 12/22/19 18 Active tamsulosin (FLOMAX) 0.4 mg capsule Take 0.4 mg by mouth daily. 12/22/19 18 Active metoprolol succinate (TOPROL XL) 25 mg Extended Release 24 hour tablet Take 25 mg by mouth daily. 12/22/19 18 Active omeprazole (PriLOSEC) 20 mg Capsule, Delayed Release(E.C.) Take 20 mg by mouth daily. 12/22/19 18 Active metFORMIN (GLUCOPHAGE) 1,000 mg tablet Take 1,000 mg by mouth 2 times daily with meals. 12/17/19 16 Active fluticasone propion-salmeter oL (ADVAIR HFA) 115-21 mcg/actuation HFA Aerosol Inhaler Take 2 Puffs by inhalation every 12 hours. 12 Gram 1 12/20/19 16 Active raNITIdine (ZANTAC) 300 mg tablet Take 300 mg by mouth 2 times daily. 12/17/19 16 Active dextromethorphan -guaiFENesin (MUCINEX DM) 30-600 mg Tablet Sustained Release 12HR Take 1 Tablet by mouth every 12 hours. 12/17/19 16 Active tiotropium (SPIRIVA) 18 mcg capsule Take 18 mcg by inhalation daily. 12/17/19 16 Active atorvastatin (LIPITOR) 80 mg tablet Take 80 mg by mouth Daily LATE. 12/17/19 16 Active HYDROcodone-acet aminophen (NORCO) 7.5-325 mg Tablet Take 1 Tablet by mouth every 6 hours as needed for Pain, Moderate. 12/17/19 16 Active aspirin (KEYLA) 325 mg tablet Take 325 mg by mouth daily. 12/17/19 16 Active glipiZIDE (GLUCOTROL) 5 mg tablet Take 5 mg by mouth daily with breakfast. 12/17/19 16 Active magnesium oxide (MAG-OX) 400 mg (241.3 mg magnesium) tablet Take 400 mg by mouth 2 times daily. 12/17/19 16 Active ipratropium-albu teroL (DUONEB) 0.5 mg-3 mg(2.5 mg base)/3 mL Solution for Nebulization Take 3 mL by inhalation every 4 hours as needed for Shortness of Breath. 12/17/19 16 Active losartan-hydroCH LOROthiazide (HYZAAR) 50-12.5 mg tablet Take 1 Tablet by mouth daily. 12/17/19 16 Active nitroglycerin (NITROSTAT) 0.4 mg Tablet, Sublingual Place 0.4 mg under tongue every 5 minutes as needed for Chest Pain. 12/17/19 16 Active vitamin E 400 unit capsule Take 400 Units by mouth daily. 12/17/19 16 Active nystatin (MYCOSTATIN) 100,000 unit/gram Ointment Apply to affected area 4 times daily as needed. 12/17/19 16 Active folic acid (FOLVITE) 1 mg tablet Take 1 mg by mouth daily. 12/17/19 16 Active Mounjaro 2.5 mg/0.5 mL Pen Injector 02/01/20 25 Active neomycin-polymyx in-dexAMETHasone (Maxitrol) 3.5mg/mL-10,000 unit/mL-0.1 % suspension Administer 1 Drop in right eye see administration instructions. QID x 7 days, TID x 7 days, BID x 7 days, q-day x 7 days, stop 5 mL 1 02/16/20 Active timoloL maleate (TIMOPTIC) 0.5% solution Administer 1 Drop in right eye 2 times daily. 10 mL 02/17/20 25 Active brimonidine (ALPHAGAN) 0.2 % solution Administer 1 Drop in right eye 2 times daily. 10 mL 02/17/20 25 Active neomycin-polymyx in B-hydrocortisone (CORTISPORIN OTIC) 3.5-10,000-1 mg/mL-unit/mL-% otic suspension 02/22/20 Active methotrexate (RHEUMATREX) 2.5 mg Tablet 01/06/20 Active Trelegy Ellipta 200-62.5-25 mcg Disk with Device 02/24/20 Active losartan (COZAAR) 50 mg tablet 02/25/20 25 Active clindamycin HCL (CLEOCIN) 300 mg Capsule 01/19/20 25 Active Hospital, Clinic, or Other Facility Administered Medication Ordered Dose Route Frequency Start Date End Date Status phenylephrine 2.5 % ophthalmic solution 1 DropIndications:Type 2 diabetes mellitus without complication, with long-term current use of insulin ([facility]) 1 Drop Right Eye ONE TIME ONLY 02/16/2025 Active tropicamide (MYDRIACYL) 1 % ophthalmic solution 1 DropIndications:Type 2 diabetes mellitus without complication, with long-term current use of insulin ([facility]) 1 Drop Right Eye ONE TIME ONLY 02/16/2025 Active proparacaine (OPTHAINE) 0.5 % ophthalmic solution 1 DropIndications:Type 2 diabetes mellitus without complication, with long-term current use of insulin ([facility]) 1 Drop Right Eye ONE TIME ONLY 02/16/2025 Active phenylephrine 2.5 % ophthalmic solution 1 DropIndications:Macu la-off rhegmatogenous retinal detachment, right 1 Drop Right Eye ONE TIME ONLY 04/10/2025 Active tropicamide (MYDRIACYL) 1 % ophthalmic solution 1 DropIndications:Macu la-off rhegmatogenous retinal detachment, right 1 Drop Right Eye ONE TIME ONLY 04/10/2025 Active proparacaine (OPTHAINE) 0.5 % ophthalmic solution 1 DropIndications:Macu la-off rhegmatogenous retinal detachment, right 1 Drop Both Eyes ONE TIME ONLY 04/10/2025 Active povidone-iodine (BETADINE) 5 % ophthalmic solution 1 DropIndications:Macu lar hole of right eye 1 Drop Right Eye INTRA-PROCEDURE ONCE 04/10/2025 Active Active Problems Problem Noted Date Diagnosed Date Macula-off rhegmatogenous retinal detachment, ri ght 02/13/[address] 12/21/2017 Type 2 diabetes mellitus without complication COPD (chronic obstructive pulmonary disease) 07/2016 CAD (coronary atherosclerotic disease) 6 COPD with exacerbation 12/17/2015 Encounters Date Type Department Care Team Description 04/17/2025 Orders Only [facility] [address] [place] [address] Francois Mcgill, 04/17/2025 Telephone [facility] Surgery [address] [phone] Lucian Kirkpatrick MD Referral 04/11/2025 Telephone [facility] Surgery [address] [place] [phone] Jose Dailey MD Referral 04/10/2025 2:40 PM CDT Office Visit [facility] [place] [address] [facility] [address] [place] [phone] Bright Tenorio MD Macula-off rhegmatogenous retinal detachment, right (Primary Dx); Macular hole of right eye; Type 2 diabetes mellitus without complication, with long-term current use of insulin ([facility]/HCC); Type 2 diabetes mellitus without complication, without long-term current use of insulin (CMS/HCC); Epiretinal membrane (ERM) of left eye 04/10/2025 Orders Only [facility] [place] [address] [place] [phone] Bright Tenorio MD 04/07/2025 Orders Only [facility] [place] [address] [place] [phone] Sanjuanita Ozuna DO PAD (peripheral artery disease) (Primary Dx); Iliac artery stenosis, bilateral 04/07/2025 Abstract [facility] [place] [address] [place] [phone] Merisotes, Cysco A, PA 03/22/2025 External Device Data STL ABSTRACTION Provider, Abstract 03/21/2025 External Device Data ST[facility] ABSTRACTION Provider, Abstract 03/06/2025 1:40 PM CDT Office Visit [facility] [place] [address] [place] [phone] Bright Tenorio MD Macula-off rhegmatogenous retinal detachment, right (Primary Dx) 02/21/2025 External Device Data STL ABSTRACTION Provider, Abstract 02/16/2025 8:30 AM CDT Office Visit [facility] [place] [address] [place] [phone] Bright Tenorio MD Type 2 diabetes mellitus without complication, with long-term current use of insulin ([facility]) (Primary Dx); Macula-off rhegmatogenous retinal detachment, right 02/15/2025 2:46 PM CDT Anesthesia Event [facility] [address] [place] [phone] Connor Medellin DO Petersen, Jefferson L, WINSOME 02/15/2025 2:29 PM CDT - 02/15/2025 3:23 PM CDT Surgery [facility] [address] [place] [phone] Bright Tenorio MD PARS PLANA VITRECTOMY WITH LASER 02/15/2025 11:05 AM CDT - 02/15/2025 3:50 PM CDT Hospital Encounter [facility] [address] [place] [phone] Bright Tenorio MD Discharge Disposition: Home or Self Care 02/14/2025 External Device Data STL ABSTRACTION Provider, Abstract 02/14/2025 External Device Data STL ABSTRACTION Provider, Abstract 02/14/2025 External Device Data STL ABSTRACTION Provider, Abstract 02/13/2025 8:30 AM CDT Office Visit [facility] [place] [address] [phone] Bright Tenorio MD Macula-off rhegmatogenous retinal detachment, right (Primary Dx); Type 2 diabetes mellitus without complication, without long-term current use of insulin (CMS/HCC); Type 2 diabetes mellitus with both eyes affected by moderate nonproliferative retinopathy and macular edema, without long-term current use of insulin (CMS/HCC); Epiretinal membrane (ERM) of left eye 02/13/2025 Travel 02/13/2025 Orders Only [facility] [place] [address] [phone] Bright Tenorio MD from Last 3 Months Immunizations Immunization Administration Dates Next Due (PREVNAR 13)(6 WKS UP) PNEUM OCOCCAL CONJUGATE (PCV13) 0.5 ML, IM 12/20/2015 (TDVAX)(7 YRS UP) TETANUS AN D DIPHTHERIA TOXOIDS, ADSORBED (2 LF OF TETANUS TOXOID AND 2 LF OF DIPHTHERIA TOXOID), 0.5ML (PF), IM 02/21/2005 Family History Medical History Relation Name Comments Unknown Father Unknown Mother Relation Name Status Comments Father Mother Social History Tobacco Use Types Packs/Day Years Used Date Smoking Tobacco: Former Cigarettes Q uit: 09/07/1996 Smokeless Tobacco: Current Chew Tobacco Cessation:Ready to Q uit: Not Asked; Counseling Given: Not Answered Alcohol Use Standard Drinks/Week Comments No 0 (1 standard drink = 0.6 oz pur e alcohol) Sex and Gender Information Value Date Recorded Sex Assigned at Not on file 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 Gender Identity Not on file Sexual Orientation Not on file Last Filed Vital Signs Vital Sign Reading Time Taken Comments Blood Pressure 112/64 02/15/2025 3:26 PM CDT Pulse 88 02/15/2025 3:26 PM CDT Temperature 36.2 C (97.2 F) 02/15/2025 3:26 PM CDT Respiratory Rate 20 02/15/2025 1:19 PM CDT Oxygen Saturation 95% 02/15/2025 3:26 PM CDT Inhaled Oxygen Concentration - - Weight 86.2 kg (190 lb) 02/15/2025 1:19 PM CDT Height 177.8 cm (5' 10 ) 02/15/2025 1:19 PM CDT Body Mass Index 27.26 02/15/2025 1:19 PM CDT Plan of Treatment Upcoming Encounters Date Type Department Care Team (Latest Contact Info) Description 04/25/2025 3:45 PM CDT Office Visit [facility] [place] [address] [place] [address] Lucian Kirkpatrick MD [address] [place] [address] 05/03/2025 1:45 PM CDT Hospital Encounter [facility] [address] [facility] [address] [place] [address] Bright Tenorio MD [address] [place] [address] 05/03/2025 1:45 PM CDT - 05/03/2025 2:40 PM CDT Surgery [facility] [address] [facility] [address] [place] [address] Bright Tenorio MD [address] [place] [address] EYE PARS PLANA VITRECTOMY 05/04/2025 8:10 AM CDT Office Visit [facility] [place] [address] [place] [address] Bright Tenorio MD [address] [place] [phone] Scheduled Procedures Name Priority Associated Diagnoses Date/Ti me EYE PARS PLANA VITRECTOMY H33.001 05/03/2025 1:45 PM CDT EYE MEMBRANE PEEL H33.001 05/03/2025 1:45 PM CDT EYE AIR FLUID GAS EXCHANGE H33.001 05/03/2025 1:45 PM CDT Health Maintenance Due Date Last Done Comments DIABETES ANNUAL FOOT EXAM 1967 DIABETES MICROALBUMIN ANNUAL SCREEN 1967 LDL CHOLESTEROL ANNUAL 1967 COLORECTAL SCREENING 1994 Colorectal Cancer Screening 1994 FIT-DNA Q 3 years 1994 FIT/FOBT Q 1 year 1994 Flex Sig/CT Colonography Q 5 years 1994 [place] VACCINE (1 of 2) 1999 DTAP/TDAP/TD VACCINES (1 - Tdap) 02/22/2005 02/22/20 05 Abdominal Aortic Aneurysm (A AA) Screening 2014 PNEUMOCOCCAL VACCINE 50+ YEA RS (2 of 2 - PPSV23, PCV20, or PCV21) 02/14/2016 12/20/2015 DIABETES HBA1C Q 6 MONTHS 06/18/2016 12/18/2015, 08/2016 COVID-19 Vaccine (2 - 2023-2 5 season) 2024 03/20/2022 Medicare [place] ([place]) Preventative Visit/Annual Wellness Visit 09/07/2024 RSV VACCINE (60+ or ) (1 - 1-dose 75+ series) 2024 INFLUENZA VACCINE (#1) 2025 07/02/2021, 2019 DIABETES ANNUAL RETINAL EXAM 04/10/202612/2024, 04/10/2025, 04/10/2025, Additional history exists Goals Goal Patient Goal Type Associated Problems Recent Progress Patient-Stated? Author Autogenerat ed Goal Care Plan Autogenerated Problem No Vani Walker Procedures Procedure Name Priority Date/Time Associated Diagnosis Comments CTA ABD AORTA BI ILIOFEM W AND/OR WO Routine 04/13/2025 3:57 PM CDT OCT, RETINA - OU - BOTH EYES Routine 04/10/2025 3:16 PM CDT Macula-off rhegmatogenous retinal detachment, right EYE DROPS Routine 03/06/2025 2:44 PM CDT Macula-off rhegmatogenous retinal detachment, right OCT, RETINA - OU - BOTH EYES Routine 03/06/2025 2:40 PM CDT Macula-off rhegmatogenous retinal detachment, right POC GLUCOSE Routine 02/15/2025 2:35 PM CDT MI INJ SUBSTITUTE PARS PLANA/LIMBL W/WO ASPIR SPX 02/15/2025 2:29 PM CDT H33.001 MI VITRECTOMY MCHNL PARS PLNA FOCAL ENDOLASER PC 02/15/2025 2:29 PM CDT H33.001 POC GLUCOSE Routine 02/15/2025 1:19 PM CDT OCT, RETINA - OU - BOTH EYES Routine 02/13/2025 9:41 AM CDT Macula-off rhegmatogenous retinal detachment, right Epiretinal membrane (ERM) of left eye EYE DROPS Routine 02/13/2025 9:29 AM CDT Type 2 diabetes mellitus without complication, without long-term current use of insulin ([facility]) Type 2 diabetes mellitus with both eyes affected by moderate nonproliferative retinopathy and macular edema, without long-term current use of insulin ([facility]) HEMOGLOBIN A1C Routine 12/18/2015 1:42 AM CDT from Last 3 Months or Most Recently Relevant to Health Maintenance Results * CTA ABD AORTA BI ILIOFEM W AND/OR WO (04/13/2025 3:57 PM CDT) Anatomical Region Laterality Modality Abdomen Computed Tomogra phy Francois Mcgill DO CT ORDERABLES Final Result * OCT, RETINA - OU - BOTH EYES (04/10/2025 3:16 PM CDT) Narrative [facility] OPHTHALMOLOGY ORDERS - 04/10/2025 4:23 PM CDT Right Eye Quality was good. Left Eye Quality was good. Notes Optical Coherence Tomography ordered to evaluate the status of the macula: Right Eye: FTMH. Left Eye: trace Epiretinal membrane Result [facility] Bright Tenorio MD OPHTH TOMOGRAPHY Final Resu lt Performing Organization Address [facility] Co de Phone Number [facility] OPHTHALMOLOGY ORDERS * EYE DROPS (03/06/2025 2:44 PM CDT) Narrative [facility] - 03/06/2025 2:56 PM CDT Medications Eye Drops: 1 Drop phenylephrine (AK-DILATE, MYDFRIN) 2.5% ophthalmic solution Route: Right Eye ND: 06924-267-90, Lot: [id number], Expiration date: 02/05/2026 1 Drop tropicamide (MYDRIACYL) 1% ophthalmic solution Route: Right Eye NDC: 00227-518-79, Lot: [id number], Expiration date: 02/05/2026 1 Drop proparacaine (OPHTHAINE) 0.5% ophthalmic solution Route: Both Eyes NDC: 15806-482-57, Lot: [id number], Expiration date: 10/08/2026 Result [facility] Bright Tenorio MD OPHTH CLINIC PROCEDURES Fin al Result Performing Organization Address [facility] Co de Phone Number [facility] CLIA# [id number] [address] [place] [address] * OCT, RETINA - OU - BOTH EYES (03/06/2025 2:40 PM CDT) Narrative [facility] OPHTHALMOLOGY ORDERS - 03/06/2025 2:56 PM CDT Right Eye Quality was good. Left Eye Quality was good. Notes Optical Coherence Tomography ordered to evaluate the status of the macula: Right Eye: no photos. Left Eye: trace Epiretinal membrane Bright Tenorio MD OPHTH TOMOGRAPHY Final Resu lt [facility] OPHTHALMOLOGY ORDERS * (ABNORMAL) POC GLUCOSE (02/15/2025 2:35 PM CDT) Only the most recent of2 resultswithin the time period is included. GLUCOSE POC 302(H) 74 - 99 mg/dL 02/15/2025 2:35 PM CDT [facility] SPECIMEN SOURCE, GLUCOSE POC Capillary 02/15/2025 2:35 PM CDT [facility] COMMENT, GLU POC Notified Caregiver 02/15/2025 2:35 PM CDT [facility] Blood, whole 02/15/2025 2:35 PM CDT 02/15/2025 2:43 PM CDT Bright Tenorio MD POINT OF CARE TESTING Final Result Performing Organization Address [facility]/ZIP Co de Phone Number [facility] CLIA# [id number] [address] [address] * OCT, RETINA - OU - BOTH EYES (02/13/2025 9:41 AM CDT) Narrative [facility] OPHTHALMOLOGY ORDERS - 02/13/2025 9:52 AM CDT Right Eye Quality was good. Left Eye Quality was good. Notes Optical Coherence Tomography ordered to evaluate the status of the macula: Right Eye: Retinal detachment, subretinal fluid Left Eye: trace Epiretinal membrane Bright Tenorio MD OPHTH TOMOGRAPHY Final Resu lt [facility] OPHTHALMOLOGY ORDERS * EYE DROPS (02/13/2025 9:29 AM CDT) Narrative [facility] - 02/13/2025 9:54 AM CDT Medications Eye Drops: 2 Drop proparacaine (OPHTHAINE) 0.5% ophthalmic solution Route: Both Eyes NDC: 71347-796-85, Lot: [id number], Expiration date: 10/08/2026 1 Drop tropicamide (MYDRIACYL) 1% ophthalmic solution Route: Both Eyes NDC: 90712-101-16, Lot: [id number], Expiration date: 12/06/2025 1 Drop phenylephrine (AK-DILATE, MYDFRIN) 2.5% ophthalmic solution Route: Both Eyes NDC: 78004-520-88, Lot: [id number], Expiration date: 02/05/2026 us Bright Tenorio MD OPHTH CLINIC PROCEDURES Fin al Result Performing Organization Address [facility] Co de Phone Number [facility] CLIA# [id number] [address] [place] [address] * (ABNORMAL) HEMOGLOBIN A1C (12/18/2015 1:42 AM CDT) HEMOGLOBIN A1C 6.9(H) 4.0 - 6.0 % 12/18/2015 9:23 AM CDT [facility] Morgan Everett [facility] EST. AVG GLUCOSE, A1C 151 mg/dL 12/18/2015 9:23 AM CDT [facility] Blood Venipuncture / Unknown 12/18/2015 1:42 AM CDT 12/18/2015 2:06 AM CDT Narrative [facility] Morgan Everett [facility] - 12/18/2015 9:23 AM CDT If not available from last three months. Test performed on ClouliII instrumentation using HPLC methodology us Hernan Millard MD CHEMISTRY ORDERABLES Final Res ult Performing Organization Address [facility]/ZIP Co de Phone Number [facility] CLIA# [id number] [address] [place], [place] [address] [facility] Morgan Everett [facility] CLIA # [id number] [address] [facility] [place] [address] from Last 3 Months or Most Recently Relevant to Health Maintenance Additional Health Concerns Active Problems Noted Date Diagnosed Date Autogenerated Problem 04/10/2025 Insurance [employer] [facility] [place]ICAID [place] Advance Directives For more information, please contact: [phone] * Full Code (Latest Code Status on File) Date Activated Date Inactivated Comments 02/15/2025 1:03 PM 02/15/2025 5:50 PM Care Teams Client Services Account Manager Relationship Specialty Start Date End Date Astrid Escobedo DO [address] [place] [address] PCP - General Family Practice 12/17/15
--- OUTSIDE RECORDS SUMMARY | 2025-04-21 13:12 | XMS_ITS | Encounter Summary ---
Author Organization [facility] Address [address] [place] [address] Care Team Providers Care Green Chain Marker Name Role Phone Astrid Escobedo DO Primary Care Provider [phone] Encounter Details Date Type Department Care Team (Latest Contact Info) Description 06/26/2005 Outpatient Historical [facility] Rheumatology- [place] [address] [place] [phone] Winston Magana MD NO ADDRESS ON FILE PSORIATIC ARTHROPATHY (CMS/HCC) (Primary Dx); AFTERCARE PENITENTIARY USE MEDICATN Social History Tobacco Use Types Packs/Day Years Used Date Smoking Tobacco: Never Assessed Sex and Gender Information Value Date Recorded Sex Assigned at Not on file 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
--- OUTSIDE RECORDS SUMMARY | 2025-04-21 13:12 | XMS_ITS | Encounter Summary ---
Author Organization [facility] Address [address] [place] [address] Care Team Providers Care Parking Lot Signaler Name Role Phone Astrid Escobedo DO Primary Care Provider Encounter Details Date Type Department Care Team (Latest Contact Info) Description 08/18/2002 Outpatient Historical [facility] Rheumatology- [place] [address] [place] [phone] Winston Magana MD NO ADDRESS ON FILE PSORIATIC ARTHROPATHY (CMS/HCC) (Primary Dx); AFTERCARE JAIL USE MEDICATN Social History Tobacco Use Types Packs/Day Years Used Date Smoking Tobacco: Never Assessed Sex and Gender Information Value Date Recorded Sex Assigned at Not on file 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
--- OUTSIDE RECORDS SUMMARY | 2025-04-21 13:12 | XMS_ITS | Encounter Summary ---
Author Organization [facility] Address [address] [place] [address] Care Team Providers Care Bulk Sugar Handler Name Role Phone Astrid Escobedo DO Primary Care Provider [phone] Encounter Details Date Type Department Care Team (Late st Contact Info) Description 04/17/2025 Orders Only [facility] Vascular Surgery [place] [address] [address] Francois Mcgill, [address] [address] Social History Tobacco Use Types Packs/Day Years Used Date Smoking Tobacco: Former Cigarettes Q uit: 09/07/1996 Smokeless Tobacco: Current Chew Alcohol Use Standard Drinks/Week Comments No 0 (1 standard drink = 0.6 oz pur e alcohol) Sex and Gender Information Value Date Recorded Sex Assigned at Not on file 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 Gender Identity Not on file Sexual Orientation Not on file documented as of this encounter Plan of Treatment Upcoming Encounters Date Type Department Care Team (Latest Contact Info) Description 04/25/2025 3:45 PM CDT Office Visit [facility] Vascular Surgery [place] [address] [address] Lucian Kirkpatrick MD [address] [address] 05/03/2025 1:45 PM CDT Hospital Encounter [facility] [address] [facility] [address] [place] [address] Bright Tenorio MD [address] [place] [address] 05/03/2025 1:45 PM CDT - 05/03/2025 2:40 PM CDT Surgery [facility] Surgery [place] [address] [place] [phone] Bright Tenorio MD [address] [place] [address] EYE PARS PLANA VITRECTOMY 05/04/2025 8:10 AM CDT Office Visit [facility] Ophthalmology [place] [address] [facility] [address] [place] [address] Bright Tenorio MD [address] [place] [address] Scheduled Procedures Name Priority Associated Diagnoses [...] Vani Walker documented as of this encounter Procedures Procedure Name Priority Date/Time Associated Diagnosis Comments CTA ABD AORTA BI ILIOFEM W AND/OR WO Routine 04/13/2025 3:57 PM CDT documented in this encounter Results * CTA ABD AORTA BI ILIOFEM W AND/OR WO (04/13/2025 3:57 PM CDT) Anatomical Region Laterality Modality Abdomen Computed Tomogra phy Francois Mcgill DO CT ORDERABLES Final Result documented in this encounter Visit Diagnoses Not on filedocumented in this encounter Additional Health Concerns Active Problems Noted Date Diagnosed Date Autogenerated Problem 04/10/2025 documented as of this encounter Care Teams Bulk Sugar Handler Relationship Specialty Start Date End Date Astrid Escobedo DO [address] [place] [address] PCP - General Family Practice 12/17/15 documented as of this encounter
--- OUTSIDE RECORDS SUMMARY | 2025-04-21 13:12 | XMS_ITS | Encounter Summary ---
Author Organization [facility] Address [address] [place] [address] Care Team Providers Care Teacher Aide Clerical Name Role Phone Astrid Escobedo DO Primary Care Provider Encounter Details Date Type Department Care Team (Latest Contact Info) Description 01/13/2001 Outpatient Historical [facility] Rheumatology- Bill Arango Jimi [address] [place] [address] Winston Magana MD NO ADDRESS ON FILE Psoriatic arthropathy (CMS/HCC) (Primary Dx); Encounter for long-term (current) use of other medications Social History Tobacco Use Types Packs/Day Years Used Date Smoking Tobacco: Never Assessed Sex and Gender Information Value Date Recorded Sex Assigned at Not on file 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
--- OUTSIDE RECORDS SUMMARY | 2025-04-21 13:12 | XMS_ITS | Encounter Summary ---
Author Organization [facility] Address [address] [place] [address] Care Team Providers Care Industrial Controls Technician Name Role Phone Astrid Escobedo DO Primary Care Provider Encounter Details Date Type Department Care Team (Latest Contact Info) Description 11/17/2005 Outpatient Historical [facility] Orthopedics- 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
--- OUTSIDE RECORDS SUMMARY | 2025-04-21 13:12 | XMS_ITS | Encounter Summary ---
Author Organization [facility] Address [address] [place] [address] Care Team Providers Care Fur Cutter Name Role Phone Astrid Escobedo DO Primary Care Provider Encounter Details Date Type Department Care Team (Latest Contact Info) Description 12/08/2002 Outpatient Historical [facility] Rheumatology- Khan Nba Jimi [address] [place] [address] Winston Magana MD NO ADDRESS ON FILE PSORIATIC ARTHROPATHY (CMS/HCC) (Primary Dx); AFTERCARE [facility] USE MEDICATN Social History Tobacco Use Types Packs/Day Years Used Date Smoking Tobacco: Never Assessed Sex and Gender Information Value Date Recorded Sex Assigned at Not on file 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
--- OUTSIDE RECORDS SUMMARY | 2025-04-21 13:12 | XMS_ITS | Encounter Summary ---
Author Organization [facility] Address [address] [place] [address] Care Team Providers Care Live Truck Operator Name Role Phone Astrid Escobedo DO Primary Care Provider [phone] Encounter Details Date Type Department Care Team (Latest Contact Info) Description 02/24/2001 Outpatient Historical [facility] Rheumatology- Bill Arango Jimi [address] [place] [phone] Winsotn Magana MD NO ADDRESS ON FILE Psoriatic arthropathy (CMS/HCC) (Primary Dx); Encounter for long-term (current) use of other medications Social History Tobacco Use Types Packs/Day Years Used Date Smoking Tobacco: Never Assessed Sex and Gender Information Value Date Recorded Sex Assigned at Not on file 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
--- OUTSIDE RECORDS SUMMARY | 2025-04-21 13:12 | XMS_ITS | Encounter Summary ---
Author Organization [facility] Address [address] [place] [address] Care Team Providers Care Medical Assistant Cardiology Name Role Phone Astrid Escobedo DO Primary Care Provider [phone] Encounter Details Date Type Department Care Team (Late st Contact Info) Description 04/07/2001 Outpatient Historical [facility] Winston Magana MD NO ADDRESS ON FILE Encounter for long-term (current) use of other medications (Primary Dx); Psoriatic arthropathy (CMS/HCC) Social History Tobacco Use Types Packs/Day Years Used Date Smoking Tobacco: Never Assessed Sex and Gender Information Value Date Recorded Sex Assigned at Not on file 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
--- OUTSIDE RECORDS SUMMARY | 2025-04-21 13:12 | XMS_ITS | Encounter Summary ---
Author Organization [facility] Address [address] [place] [address] Care Team Providers Care Grants Specialist Name Role Phone Astrid Escobedo DO Primary Care Provider [phone] Encounter Details Date Type Department Care Team (Late st Contact Info) Description 04/10/2025 Orders Only [facility] Ophthalmology [place] [address] [place] [address] Bright Tenorio MD [address] [place] [address] Social History Tobacco Use Types Packs/Day Years Used Date Smoking Tobacco: Former Cigarettes Q uit: 09/07/1996 Smokeless Tobacco: Current Chew Alcohol Use Standard Drinks/Week Comments No 0 (1 standard drink = 0.6 oz pur e alcohol) Sex and Gender Information Value Date Recorded Sex Assigned at Not on file Legal Sex Male 10:44 AM BEAD FLIPPER Gender Identity Not on file Sexual Orientation Not on file documented as of this encounter Plan of Treatment Upcoming Encounters Date Type Department Care Team (Latest Contact Info) Description 04/25/2025 3:45 PM CDT Office Visit [facility] Vascular Surgery [place] [address] [place] [address] Lucian Kirkpatrick MD [address] [place] [address] 05/03/2025 1:45 PM CDT Hospital Encounter [facility] [address] [place] [address] Bright Tenorio MD [address] [place] [address] 05/03/2025 1:45 PM CDT - 05/03/2025 2:40 PM CDT [facility] [place] [address] [place] [address] Bright Tenorio MD [address] [place] [address] EYE PARS PLANA VITRECTOMY 05/04/2025 8:10 AM CDT Office Visit [facility] Ophthalmology [place] [address] [facility] [address] [place] [address] Bright Tenorio MD [address] [place] [address] Scheduled Procedures Name Priority Associated Diagnoses [...] documented as of this encounter Care Teams Grants Specialist Relationship Specialty Start Date End Date Astrid Escobedo DO [address] [place] [address] PCP - General Family Practice 12/17/15 documented as of this encounter
--- OUTSIDE RECORDS SUMMARY | 2025-04-21 13:12 | XMS_ITS | Encounter Summary ---
Author Organization [facility] Address [address] [place] [address] Care Team Providers Care Cable Hooker Name Role Phone Astrid Escobedo DO Primary Care Provider Encounter Details Date Type Department Care Team (Latest Contact Info) Description 06/14/2004 Outpatient Historical [facility] [address] [place] [address] AMBULANCE, [facility] SHORTNESS OF BREATH (Primary Dx) Social History Tobacco Use Types Packs/Day Years Used Date Smoking Tobacco: Never Assessed Sex and Gender Information Value Date Recorded Sex Assigned at Not on file 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
--- OUTSIDE RECORDS SUMMARY | 2025-04-21 13:12 | XMS_ITS | Encounter Summary ---
Author Organization [facility] Address [address] [place] [address] Care Team Providers Care Tool And Die Supervisor Name Role Phone Astrid Escobedo DO Primary Care Provider Encounter Details Date Type Department Care Team (Latest Contact Info) Description 09/23/2001 Outpatient Historical [facility] Rheumatology- Khan Nba Jimi [address] [place] [address] Winston Magana MD NO ADDRESS ON FILE PSORIATIC ARTHROPATHY (CMS/HCC) (Primary Dx); AFTERCARE [place] USE MEDICATN Social History Tobacco Use Types Packs/Day Years Used Date Smoking Tobacco: Never Assessed Sex and Gender Information Value Date Recorded Sex Assigned at Not on file 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
--- OUTSIDE RECORDS SUMMARY | 2025-04-21 13:12 | XMS_ITS | Encounter Summary ---
Author Organization [facility] Address [address] [place] [address] Care Team Providers Care Vice President Talent Management Name Role Phone Astrid Escobedo DO Primary Care Provider [phone] Encounter Details Date Type Department Care Team (Latest Contact Info) Description 12/02/2000 Outpatient Historical [facility] Rheumatology- [place] Nba Jimi [address] [place] [address] Winston Magana MD NO ADDRESS ON FILE Psoriatic arthropathy (CMS/HCC) (Primary Dx) Social History Tobacco Use Types Packs/Day Years Used Date Smoking Tobacco: Never Assessed Sex and Gender Information Value Date Recorded Sex Assigned at Not on file 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
--- OUTSIDE RECORDS SUMMARY | 2025-04-21 13:12 | XMS_ITS | Encounter Summary ---
Author Organization [facility] Address [address] [place] [address] Care Team Providers Care Surgical Specialist Name Role Phone Astrid Escobedo DO Primary Care Provider Encounter Details Date Type Department Care Team (Latest Contact Info) Description 10/16/2005 Outpatient Historical [facility] Rheumatology- Khan Nba Jimi [address] [place] [address] Winston Magana MD NO ADDRESS ON FILE PSORIATIC ARTHROPATHY (CMS/HCC) (Primary Dx); AFTERCARE CUSTODIAL USE MEDICATN Social History Tobacco Use Types Packs/Day Years Used Date Smoking Tobacco: Never Assessed Sex and Gender Information Value Date Recorded Sex Assigned at Not on file 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
--- OUTSIDE RECORDS SUMMARY | 2025-04-21 13:12 | XMS_ITS | Encounter Summary ---
Author Organization [facility] Address [address] [place] [address] Care Team Providers Care Wood Barker Name Role Phone Astrid Escobedo DO Primary Care Provider Encounter Details Date Type Department Care Team (Latest Contact Info) Description 01/27/2002 Outpatient Historical [facility] Rheumatology- Bill Arango Jimi [address] [place] [address] Winston Magana MD NO ADDRESS ON FILE RHEUMATOID ARTHRITIS (CMS/[facility]) (Primary Dx); AFTERCARE TELLER HEAD USE MEDICATN Social History Tobacco Use Types Packs/Day Years Used Date Smoking Tobacco: Never Assessed Sex and Gender Information Value Date Recorded Sex Assigned at Not on file 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
--- OUTSIDE RECORDS SUMMARY | 2025-04-21 13:12 | XMS_ITS | Encounter Summary ---
Author Organization [facility] Address [address] [place] [address] Care Team Providers Care Manager Neonatal Name Role Phone Astrid Escobedo DO Primary Care Provider Encounter Details Date Type Department Care Team (Latest Contact Info) Description 03/13/2004 Outpatient Historical [facility] Rheumatology- Bill Arango Jimi [address] [place] [address] Winston Magana MD NO ADDRESS ON FILE PSORIATIC ARTHROPATHY (CMS/HCC) (Primary Dx); AFTERCARE SENIOR LIVING USE MEDICATN Social History Tobacco Use Types Packs/Day Years Used Date Smoking Tobacco: Never Assessed Sex and Gender Information Value Date Recorded Sex Assigned at Not on file 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
--- OUTSIDE RECORDS SUMMARY | 2025-04-21 13:12 | XMS_ITS | Encounter Summary ---
Author Organization [facility] Address [address] [place] [address] Care Team Providers Care Remittance Clerk Name Role Phone Astrid Escobedo DO Primary Care Provider Encounter Details Date Type Department Care Team (Latest Contact Info) Description 02/20/2005 Outpatient Historical [facility] Rheumatology- Khan Nba Jimi [address] [place] [address] Winston Magana MD NO ADDRESS ON FILE PSORIATIC ARTHROPATHY (CMS/HCC) (Primary Dx); AFTERCARE [facility] USE MEDICATN Social History Tobacco Use Types Packs/Day Years Used Date Smoking Tobacco: Never Assessed Sex and Gender Information Value Date Recorded Sex Assigned at Not on file 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
--- OUTSIDE RECORDS SUMMARY | 2025-04-21 13:12 | XMS_ITS | Encounter Summary ---
Author Organization [facility] Address [address] [place] [address] Care Team Providers Care Labeling Specialist Name Role Phone Astrid Escobedo DO Primary Care Provider [phone] Encounter Details Date Type Department Care Team (Late st Contact Info) Description 02/24/2001 Outpatient Historical [facility] Winston Magana MD NO ADDRESS ON FILE Encounter for long-term (current) use of other medications (Primary Dx); Psoriatic arthropathy (CMS/HCC) Social History Tobacco Use Types Packs/Day Years Used Date Smoking Tobacco: Never Assessed Sex and Gender Information Value Date Recorded Sex Assigned at Not on file 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
--- OUTSIDE RECORDS SUMMARY | 2025-04-21 13:12 | XMS_ITS | Encounter Summary ---
Author Organization [facility] Address [address] [place] [address] Care Team Providers Care Entertainment Usher Name Role Phone Astrid Escobedo DO Primary Care Provider Encounter Details Date Type Department Care Team (Latest Contact Info) Description 04/07/2001 Outpatient Historical [facility] Rheumatology- Bill Arango Jimi [address] [place] [address] Winston Magana MD NO ADDRESS ON FILE Psoriatic arthropathy (CMS/HCC) (Primary Dx); Encounter for long-term (current) use of other medications Social History Tobacco Use Types Packs/Day Years Used Date Smoking Tobacco: Never Assessed Sex and Gender Information Value Date Recorded Sex Assigned at Not on file 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
--- OUTSIDE RECORDS SUMMARY | 2025-04-21 13:13 | XMS_ITS | Encounter Summary ---
Author Organization [facility] Address [address] [place] [address] Care Team Providers Care Graduate Teaching Associate Name Role Phone sAtrid Escobedo DO Primary Care Provider [phone] Encounter Details Date Type Department Care Team (Latest Contact Info) Description 11/08/2004 Outpatient Historical [facility] Rheumatology- [place] [address] [place] [phone] Winston Magana MD NO ADDRESS ON FILE PSORIATIC ARTHROPATHY (CMS/HCC) (Primary Dx); AFTERCARE SKILLED NURSING USE MEDICATN Social History Tobacco Use Types Packs/Day Years Used Date Smoking Tobacco: Never Assessed Sex and Gender Information Value Date Recorded Sex Assigned at Not on file 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
--- OUTSIDE RECORDS SUMMARY | 2025-04-21 13:13 | XMS_ITS | Encounter Summary ---
Author Organization [facility] Address [address] [place] [address] Care Team Providers Care Tire And Lube Technician Name Role Phone Astrid Escobedo DO Primary Care Provider Encounter Details Date Type Department Care Team (Latest Contact Info) Description 09/24/2004 Outpatient Historical [facility] Allergy and Asthma- [place] [address] [place] [phone] Hector Landon MD NO ADDRESS ON FILE CHRONIC RHINITIS (Primary Dx); RESPIRATORY ABNORM NEC Social History Tobacco Use Types Packs/Day Years Used Date Smoking Tobacco: Never Assessed Sex and Gender Information Value Date Recorded Sex Assigned at Not on file 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
--- OUTSIDE RECORDS SUMMARY | 2025-04-21 13:13 | XMS_ITS | Encounter Summary ---
Author Organization [facility] Address [address] [place] [address] Care Team Providers Care Molding Utility Worker Name Role Phone Astrid Escobedo DO Primary Care Provider [phone] Encounter Details Date Type Department Care Team (Latest Contact Info) Description 07/05/2004 Outpatient Historical [facility] Rheumatology- [place] [address] [place] [phone] Winston Magana MD NO ADDRESS ON FILE PSORIATIC ARTHROPATHY (CMS/HCC) (Primary Dx); AFTERCARE CUSTODIAL USE MEDICATN Social History Tobacco Use Types Packs/Day Years Used Date Smoking Tobacco: Never Assessed Sex and Gender Information Value Date Recorded Sex Assigned at Not on file 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
--- OUTSIDE RECORDS SUMMARY | 2025-04-21 13:13 | XMS_ITS | Patient Health Record ---
Author Organization [facility] Address [address] [place], [place] [address] Care Team Providers Care Wine Consultant Name Role Phone Shahid Huizar MD Unavailable [phone] Francois Mcgill DO Unavailable Unavailable Cara Mcclain Unavailable [phone] Allergies Allergen (clinical drug ingredient) Drug/Non Drug [...] montelukast montelukast Unknown Drug Allergy Act rigo Reason For Referral Reason Psoriatic arthritis Diagnosis 1 Arthropathic psorias is, 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) Referring Provider First Name Francois Referring Provider Last Name Artem Referring Provider Speciality Family Med icine Referred Organization [facility] Referred Provider Shahid Huizar Referred Address [address] [place], [id number], Referred Provider Specialty Pain Managem ent General Notes Celina Sandoval 12:21:20 PM >Sent for insurance verification., Jossy Gastelum 06/21/2024 02:55:10 PM > [employer] and [employer]. Active. No copay. Referral Priority Routine Medications Medication SIG (Take, Route, Frequency, Duration) Notes Start Date End Date Status atorvastatin 80 mg 1 tab orally once a day (at bedtime); Duration: 30 day(s) Active methotrexate 2.5 mg as directed orally once a week; Duration: 30 Active Brilinta (ticagrelor) 90 mg 1 tab orally every 12 hours Active metoprolol 25 mg 1 tab orally once a day Active DOK sodium 100 mg 1 tab orally 2 times a day Active Metoprolol Succinate ER 25 mg 1 tab orally once a day Active fluticasone nasal 50 mcg/inh 1 spray intranasally once a day Active omeprazole 20 mg 1 cap orally once a day Active folic acid 1 tab orally as directed; Duration: 30 day(s) Active ProAir HFA CFC free 90 mcg/inh 2 puffs inhaled as needed; Duration: 30 day(s) Active ezetimibe 10 mg 1 tab orally once a day Active nitroglycerin 0.4 mg 1 tab sublingually every 5 minutes Active ferrous sulfate 325 mg 1 tab orally once a day Active Ridgeley 325 mg-7.5 mg 1 tab po orally QID prn pain (hold within 4H of planned sleep); Duration: 7 days Active Acetaminophen-Hydroc odone Bitartrate 325 mg-7.5 mg 1 tab po orally QID prn pain (hold within 4H of planned sleep); Duration: 30 day(s) Printed prescriptions given (3-months). Active isosorbide mononitrate 30 mg 1 tab orally once a day (in the morning) Active meloxicam 7.5 mg 1 tab orally twice a day Active aspirin 325 mg 1 tab orally once a day Active metFORMIN 1000 mg 1 tab orally 2 times a day; Duration: 30 day(s) Active glipiZIDE 5 mg 1 tab orally once a day; Duration: 30 day(s) Active Spiriva 18 mcg 1 ea inhaled once a day; Duration: 30 day(s) Active hydrochlorothiazide- losartan 12.5 mg-50 mg 1/2 tab orally once a day Active tamsulosin 0.4 mg 1 cap orally once a day Active Social History Tobacco Use: Social History Observation Description Date Details (start date - stop date) Former Smoker NA - NA alcohol Question Answer Notes Did you have a drink containing alcohol in the p ast year? No Points 0 Interpretation Negative Tobacco use: Question Answer Notes : former smoker When did you start smoking? Problems Problem Type SNOMED Code ICD Code Onset Dates Problem Status W/U Status Risk Notes Problem Sacroiliitis (39376987) Sacroiliitis (720.2) Active confirmed Problem Displacement of lumbar intervertebral disc without myelopathy (86240453) Lumbar (w/out myelopathy) intervertebral disc disorder (722.10) Active confirmed Problem Spasm (04164004) Muscle spasm (728.85) Active confirmed Problem Limb pain (32251179) Limb pain (729.5) Active confirmed Problem Low back pain (118084833) Low back pain (724.2) Active confirmed Problem Long-term drug therapy (663225626) LONG-TERM USE MEDS NEC (V58.69) Active confirmed r/o substance abuse Problem Obstructive sleep apnea syndrome (67418699) Sleep apnea, obstructive (327.23) Active confirmed Problem Solitary sacroiliitis (410716167) Sacroiliitis, not elsewhere classified (M46.1) Active confirmed Problem Low back pain (717290657) Low back pain (M54.5) Active confirmed Problem 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 (180927579) 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) Active confirmed Problem Enthesopathy (62994394) Enthesopathy, unspecified (M77.9) Active confirmed Problem Obstructive sleep apnea syndrome (28659631) Obstructive sleep apnea (adult) (pediatric) (G47.33) Active confirmed Problem H/O: psoriasis (093212278) Arthropathic psoriasis, 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) Active confirmed Problem Radiculopathy due to lumbar intervertebral disc disorder (579152586587856 ) Intervertebral disc disorders with radiculopathy, lumbar region (M51.16) Active confirmed Problem Myalgia (54196604) Myalgia (M79.1) Active confirmed Encounters Encounter Location Date Provider Diagnosis [facility] [address] [place], [place] [id number] 07/11/2024 Cara Owen Procedure and treatment not carried out because of patient's decision for unspecified reasons Z53.20 Assessments Encounter Date Diagnosis (ICD Code) Assessment Notes Treatment Notes Treatment Clinical Notes Section Notes 07/11/2024 Procedure and treatment not carried out because of patient's decision for unspecified reasons (ICD-10 - Z53.20) Plan Of Treatment No Information Insurance Providers Payer Name Payer Address Payer Phone Subscriber Number Group Number Insured Name Patient Relationship to Insured Coverage Start Date Coverage End Date [employer] MED[employer]ARE ADVANTAGE PLAN [address] [place] [address] [id number] Bj Potter Self - patient is the insured [place] [address] [place] [id number] Ulysses Potternie Self - patient is the insured Medical (General) History Medical History History ICD Code 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 Lumbar spondylosis Psoriatic arthritis Knee pain Diabetes mellitus Chronic obstructive pulmonary disease Coronary artery disease Psoriasis Osteoarthritis Chronic immunosuppression Asthma Sleep apnea (does not use CPAP) Hyperlipidemia Elevated AST/ALT 06/30/01 (secondary to methotrexate) Hip pain Plantar fasciitis Bilateral shoulder pain, history of righ t shoulder trauma Knee pain Chronic obstructive pulmonary disease Peripheral artery disease Surgical History Surgery Date(Month/Year) Coronary artery bypass graft, 06/1997 Bronchoscopy x 3 Sinus surgery x 2 Thumb arthrodesis, left, 12/2005 Tear duct surgery, bilateral, 06/2012 Knee arthroscopy, left, 01/2014 Knee surgery, performed at [facility] Open heart surgery, performed at [facility] Placement of stents, performed at [facility], 2 016 Cataract surgery, bilateral, 2019 Hospitalization History Reason Date(Month/Year) Bronchitis, 03/10/16 Pneumonia, 12/2015 Lung issues
--- OUTSIDE RECORDS SUMMARY | 2025-04-21 13:13 | XMS_ITS | Encounter Summary ---
Author Organization [facility] Address [address] [place] [address] Care Team Providers Care Oracle Application Architect Name Role Phone Astrid Escobedo DO Primary Care Provider [phone] Encounter Details Date Type Department Care Team (Latest Contact Info) Description 10/01/2004 Outpatient Historical [facility] Allergy and Asthma- [place] [address] [place] [phone] Hector Landon MD NO ADDRESS ON FILE CHRONIC RHINITIS (Primary Dx); RESPIRATORY ABNORM NEC Social History Tobacco Use Types Packs/Day Years Used Date Smoking Tobacco: Never Assessed Sex and Gender Information Value Date Recorded Sex Assigned at Not on file Legal Sex 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
--- OUTSIDE RECORDS SUMMARY | 2025-04-21 13:13 | XMS_ITS | Clinical Summary ---
Author Organization [facility] Address [address] [place] [address] Phone Care Team Providers Care Driller Multiple Spindle Name Role Phone Astrid Escobedo Primary Care Provider [phone] Allergies Active Allergy Reactions Criticality Noted Date Comments Codeine Nausea and Vomiting Low 12/17/2015 Milk Abdominal Pain Low 12/17/2015 Montelukast Other (See Comments) 12/17/2015 Rapid heart rate Simvastatin Rash Low 12/17/2015 Sulfa (Sulfonamide Antibiotics) Nausea and Vomiting Low 12/17/2015 Theophylline Unknown 12/17/2015 Tramadol Nausea and Vomiting Low 12/17/2015 Medications HYDROcodone-aceta minophen (NORCO) 7.5-325 mg Tablet Take 1 Tablet by mouth every 6 hours as needed for Pain, Moderate. Active ipratropium-albut antoinette (DUONEB) 0.5 mg-3 mg(2.5 mg base)/3 mL Solution for Nebulization Take 3 mL by inhalation every 4 hours as needed for Shortness of Breath. Active aspirin (KEYLA) 325 mg tablet Take 325 mg by mouth daily. Active atorvastatin (LIPITOR) 80 mg tablet Take 80 mg by mouth Daily LATE. Active dextromethorphan- guaiFENesin (MUCINEX DM) 30-600 mg Tablet Sustained Release 12HR Take 1 Tablet by mouth every 12 hours. Active folic acid (FOLVITE) 1 mg tablet Take 1 mg by mouth daily. Active glipiZIDE (GLUCOTROL) 5 mg tablet Take 5 mg by mouth daily with breakfast. Active losartan-hydrochl orothiazide (HYZAAR) 50-12.5 mg tablet Take 1 Tablet by mouth daily. Active magnesium oxide (MAG-OX) 400 mg tablet Take 400 mg by mouth 2 times daily. Active metFORMIN (GLUCOPHAGE) 1,000 mg tablet Take 1,000 mg by mouth 2 times daily with meals. Active nitroglycerin (NITROSTAT) 0.4 mg Tablet, Sublingual Place 0.4 mg under tongue every 5 minutes as needed for Chest Pain. Active ranitidine (ZANTAC) 300 mg tablet Take 300 mg by mouth 2 times daily. Active tiotropium (SPIRIVA) 18 mcg capsule Take 18 mcg by inhalation daily. Active vitamin E 400 unit capsule Take 400 Units by mouth daily. Active nystatin (MYCOSTATIN) 100,000 unit/gram Ointment Apply to affected area 4 times daily as needed. Active fluticasone-salme terol (ADVAIR HFA) 115-21 mcg/actuation HFA Aerosol Inhaler Take 2 Puffs by inhalation every 12 hours. 12 Gram 1 6 Active omeprazole (PriLOSEC) 20 mg Capsule, Delayed Release(E.C.) Take 20 mg by mouth daily. Active tamsulosin (FLOMAX) 0.4 mg capsule Take 0.4 mg by mouth daily. Active isosorbide mononitrate (IMDUR) 30 mg Extended Release 24 hour tablet Take 30 mg by mouth daily electric motor analyst. Active metoprolol succinate (TOPROL XL) 25 mg Extended Release 24 hour tablet Take 25 mg by mouth daily. Active ticagrelor (BRILINTA) 90 mg Tablet Take by mouth. Activ e Active Problems Problem Noted Date Diagnosed Date Lung infiltrate on CT 12/21/2017 Type 2 diabetes mellitus without complication CAD (coronary atherosclerotic disease) 6 COPD (chronic obstructive pulmonary disease) 07/2016 COPD with exacerbation 12/17/2015 Immunizations Immunization Administration Dates Next Due (PREVNAR [...] Years Used Date Smoking Tobacco: Former Cigarettes 2 30 0 09/07/1966 - 09/07/1996 Smokeless Tobacco: Never Alcohol Use Standard Drinks/Week Comments No 0 (1 standard drink = 0.6 oz pur e alcohol) Sex and Gender Information Value Date Recorded Sex Assigned at Not on file 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 Gender Identity Not on file Sexual Orientation Not on file Last Filed Vital Signs Vital Sign Reading Time Taken Comments Blood Pressure 132/68 02/24/2018 10:00 AM CDT Pulse 86 02/24/2018 10:00 AM CDT Temperature 36.4 C (97.5 F) 12/20/2015 8:49 AM CDT Respiratory Rate 20 12/20/2015 8:49 AM CDT Oxygen Saturation 99% 02/24/2018 10:00 AM CDT Inhaled Oxygen Concentration - - Weight 95.7 kg (211 lb) 02/24/2018 10:00 AM CDT Height 179.1 cm (5' 10.5 ) 02/24/2018 10:00 AM C DT Body Mass Index 29.85 02/24/2018 10:00 AM CDT Plan of Treatment Health Maintenance Due Date Last Done Comments DIABETES ANNUAL FOOT EXAM 1967 DIABETES ANNUAL RETINAL EXAM 1967 DIABETES MICROALBUMIN ANNUAL SCREEN 1967 LDL CHOLESTEROL ANNUAL 1967 COLORECTAL SCREENING 1994 Colorectal Cancer Screening 1994 FIT-DNA Q 3 years 1994 FIT/FOBT Q 1 year 1994 Flex Sig/CT Colonography Q 5 years 1994 ZOSTER VACCINE (1 of 2) 1999 DTAP/TDAP/TD VACCINES (1 - Tdap) 02/22/2005 02/22/20 05 PNEUMOCOCCAL VACCINE 50+ YEA RS (2 of 2 - PPSV23, PCV20, or PCV21) 02/14/2016 12/20/2015 DIABETES HBA1C Q 6 MONTHS 06/18/2016 12/18/2015 RSV VACCINE (60+ or ) (1 - 1-dose 75+ series) 2024 INFLUENZA VACCINE (#1) 2025 Procedures Procedure Name Priority Date/Time Associated Diagnosis Comments HEMOGLOBIN A1C Routine 12/18/2015 1:42 AM CDT from Last 3 Months or Most Recently Relevant to Health Maintenance Results * (ABNORMAL) HEMOGLOBIN A1C (12/18/2015 1:42 AM CDT) HEMOGLOBIN A1C 6.9(H) 4.0 - 6.0 % 12/18/2015 9:23 AM CDT [facility] EST. AVG GLUCOSE, A1C 151 mg/dL 12/18/2015 9:23 AM CDT [facility] Blood Venipuncture - L ab Collect / Unknown 12/18/2015 1:42 AM CDT 12/18/2015 2:06 AM CDT Narrative [facility] - 12/18/2015 9:23 AM CDT Test performed on App[employer] instrumentation using HPLC methodology us Hernan Millard MD CHEMISTRY ORDERABLES Final Res ult [facility] CLIA# [id number] [address] [place] [address] from Last 3 Months or Most Recently Relevant to Health Maintenance Insurance [place]ID [place] [facility] Advance Directives For more information, please contact: [phone] * Full Code (Latest Code Status on File) Date Activated Date Inactivated Comments 12/17/2015 6:17 PM 12/20/2015 1:12 PM Care Teams Driller Multiple Spindle Relationship Specialty Start Date End Date Astrid Escobedo DO [address] [place] [address] PCP - General Family Practice 12/17/15
--- NOTE | 2025-04-21 13:29 | ECG_ITS ---
[employer] Test Date: 2025-04-21 Pat Name: Bj Potter Department: Room: Gender: Male Barrel Racer: : 1950 Requested By: Rebel Davis Order Number: [id number] Siddhartha MD: Lamont Gonzalez M.D. Measurements Intervals [place] Rate: 134 P: 17 DE: 165 QRS: -11 QRSD: 95 T: 61 QT: 292 QTc: 437 Interpretive Statements SINUS TACHYCARDIA WITH A FUSION BEAT POSSIBLE ANTERIOR MYOCARDIAL INFARCTION , PROBABLY OLD [30 ms Q WAVE IN V3/V4, OR R < 0.2 mV IN V4] MILD NONSPECIFIC T WAVE ABNORMALITY Compared to ECG 12/09/2023 15:54:39 No significant changes Electronically Signed On 04-22-2025 22:10:48 CDT by Lamont Gonzalez M.D. [email or web address]
[2025-04-21 13:30] VITALS: BP 104/65; PULSE 97; RESP 16; O2SAT 97
--- NOTE | 2025-04-21 14:06 | ECG_ITS ---
[facility] Date: 2025-04[facility]21 Pat Name: Bj Potter Department: Room: Gender: Male Return Agent: : 1950 Requested By: Rebel Davis Order Number: [id number] Siddhartha MD: Lamont Gonzalez M.D. Measurements Intervals [place] Rate: 120 P: 81 AK: 181 QRS: -39 QRSD: 93 T: 125 QT: 301 QTc: 426 Interpretive Statements SINUS TACHYCARDIA LEFT AXIS DEVIATION [QRS AXIS < -30] ANTERIOR MYOCARDIAL INFARCTION , PROBABLY OLD [40+ ms Q WAVE AND/OR ST/T ABNORMALITY IN V3/V4] INFERIOR MYOCARDIAL INFARCTION , PROBABLY OLD [40+ ms Q WAVE AND/OR ST/T ABNORMALITY IN II/aVF] Compared to ECG 12/09/2023 15:54:39 No significant change Electronically Signed On 04-21-2025 14:12:45 CDT by Lamont Gonzalez M.D. [email or web address]
[2025-04-21 14:12] LABS: Hematocrit 36.2 % (37-53); Hemoglobin 12.00 g/dL (11.27-16.99); Mean Corpuscular HGB Conc 33.1 g/dL (30-55); Mean Corpuscular Hemoglobin 27.3 pg (27-33); Mean Corpuscular Volume 82.3 fl (82-101); Nucleated Red Blood Cells % 0 %; Platelet Count 172 10^3/cmm (157-399); Red Blood Count 4.40 10^6/uL (3.85-5.65); White Blood Count 13.86 10^3/uL (3.29-11.43)
--- NOTE | 2025-04-21 14:14 | XR_ITS ---
WS: [id number] Portable AP upright chest, 04/21/2025 Clinical Data: short of breath Comparison: Portable chest, 10/06/2024 Findings: No nodules, masses or effusions are seen. The heart is normal. The pulmonary vascularity is not increased. No pneumonia or pneumothorax is seen. The aortic arch and descending thoracic aorta show minimal calcification and tortuosity. There are old healed right lateral rib fractures. Midline sternotomy sutures are present. There are monitor leads on the chest wall. XR/XR chest 1V portable [id number] Impression: Atherosclerosis.
--- NOTE | 2025-04-21 14:15 | W.ED.GENADLT ---
HPI - General Adult General: Chief complaint: General Medical Stated complaint: Upper ABD both hip pain Time Seen by Provider: 04/21/25 14:02 History of Present Illness: Patient is a 74-year-old gentleman with history of HTN, DM, was outside today and it was high in the 90s, started having sweating, low back pain, bilateral knee pain. He did not have any injury. He just had overwhelming back pain, knee pain, shortness of breath, and sweating. Patient noted palpitations. Heart rate in triage and continued heart rate is in 120. No sick contacts. He did take his losartan this morning and blood pressure is soft at 104/65. Denies any nausea, vomiting, recent illness. Associated symptoms: Reports malaise; Deny chest pain, dyspnea, headache(s), nausea, rash, palpitations or vomiting Related Data Home Medications ?Medication ?Instructions ?Recorded ?Confirmed acetaminophen 325 mg tablet 325 mg PO QID PRN Pain 10/11/24 04/21/25 (Tylenol) docusate sodium 50 mg capsule 50 mg PO DAILY PRN Constipation 10/11/24 04/21/25 (Stool Softener) albuterol sulfate 90 mcg/actuation 2 puff inhalation Q6H PRN 04/21/25 04/21/25 aerosol inhaler Shortness Of Breath atorvastatin 40 mg tablet 40 mg PO QPM 04/21/25 04/21/25 brimonidine 0.2 % eye drops 1 drp ophthalmic (eye) TID PRN 04/21/25 04/21/25 glaucoma fluticasone fur. 200 mcg-umeclid 1 inh inhalation QAM 04/21/25 04/21/25 62.5 mcg-vilant 25 mcg inhalat.powder (Trelegy Ellipta) glipizide 5 mg tablet 5 mg PO DAILY 04/21/25 04/21/25 leflunomide 20 mg tablet 20 mg PO QAM 04/21/25 04/21/25 losartan 50 mg tablet 50 mg PO QPM 04/21/25 04/21/25 metformin 500 mg tablet,extended 1,000 mg PO QPM 04/21/25 04/21/25 release 24 hr methotrexate sodium 2.5 mg tablet See Rx Instructions .Route .COMPLEX 04/21/25 04/21/25 omeprazole 20 mg capsule,delayed 20 mg PO QAM 04/21/25 04/21/25 release prednisone 10 mg tablet 10 mg PO DAILY 04/21/25 04/21/25 timolol maleate 0.5 % eye drops 1 drp ophthalmic (eye) TID PRN 04/21/25 04/21/25 glaucoma tirzepatide 5 mg/0.5 mL 5 mg SUBCUT Q7D 04/21/25 04/21/25 subcutaneous pen injector Previous Rx's ?Medication ?Instructions ?Recorded ipratropium 0.5 mg-albuterol 3 mg 3 ml inhalation QID PRN wheezing 09/08/24 (2.5 mg base)/3 mL nebulization #180 mL soln insulin glargine 100 unit/mL (3 10 unit (0.1 mL) SUBCUT DAILY #15 04/05/25 mL) subcutaneous pen (Lantus mL Solostar U-100 Insulin) diclofenac sodium 75 mg 75 mg PO Q12H PRN moderate to 04/12/25 tablet,delayed release severe pain as needed #60 tabs methocarbamol 500 mg tablet 500 mg PO Q8H PRN muscle spasm #30 04/21/25 tabs Allergies Allergy/AdvReac Type Severity Reaction Status Date / Time montelukast (From Singulair) Allergy Intermediate Altered Verified 04/05/25 13:10 Heart Rate simvastatin Allergy Intermediate Hives/Skin Verified 04/05/25 13:10 Rash codeine Allergy Mild N/V Verified 04/05/25 13:10 milk Allergy Mild GI problems Verified 04/05/25 13:10 Sulfa (Sulfonamide Allergy Mild N/V Verified 04/05/25 13:10 Antibiotics) tramadol Allergy Mild N/V Verified 04/05/25 13:10 Review of Systems General: Reports: 10 or more systems reviewed and unremarkable except in HPI and below Const: Reports: body aches, fatigue and malaise; Denies: fever(s) or chills Eyes: Denies: change in vision or blurry vision Card: Denies: chest pain or palpitations Resp: Denies: dyspnea or non-productive cough GI: Denies: abdominal pain, nausea or vomiting : Denies: flank pain or difficulty urinating Musc: Reports: back pain, extremity pain, joint pain, joint stiffness and muscle cramps; Denies: extremity swelling, joint swelling, joint redness or joint warmth Skin/Breast: Denies: rash or pruritus Neuro: Denies: headache(s) or numbness in extremities Psych: Denies: anxiety or depression PFSH ED PFSH: Medical History (Updated 04/21/25 @ 16:20 by MARIBELL Casper) Immunization counseling Plaque psoriasis Seropositive rheumatoid arthritis of multiple sites Diabetes mellitus COPD (chronic obstructive pulmonary disease) PAD (peripheral artery disease) CAD (coronary artery disease) Hyperlipidemia High risk medication use Psoriatic arthritis Surgical History S/P colostomy S/P cataract extraction No pertinent past surgical history Family History Other Cancer Denies family history of Lupus (systemic lupus erythematosus) Rheumatoid arthritis Diabetes Social History Smoking and tobacco/nicotine status: never used tobacco/nicotine Alcohol intake: current Alcohol intake frequency: holidays/special occasions only Alcohol type: beer Substance/Drug Use: never Physical Exam Const: COMMON NORMALS: no acute distress, average body habitus and patient oriented x3 GENERAL APPEARANCE: cooperative and comfortable HENMT: COMMON NORMALS: normocephalic, atraumatic and TM's normal bilaterally HEAD & SCALP: normocephalic and atraumatic TYMPANIC MEMBRANE: TM's normal bilaterally Neck/C-Spine: COMMON NORMALS: full ROM and no lymphadenopathy Chest: COMMONS NORMALS: normal inspection of the chest and normal palpation of entire chest wall Cardio: COMMON NORMALS: regular rate and regular rhythm RATE: regular rate RHYTHM: regular rhythm GI: COMMON NORMALS: Normal to inspection, nondistended, normoactive bowel sounds present, Soft to palpation, non-tender and No hepatosplenomegaly present PALPATION: Yes Soft to palpation and Yes No hepatosplenomegaly present : COMMON NORMALS: Yes no CVA tenderness BLADDER/KIDNEY EXAM: Yes no CVA tenderness Back/Pelvis: COMMON NORMALS: no CVA tenderness Extremity: COMMON NORMALS: normal to inspection, full ROM and capillary refill normal Neuro: COMMON NORMALS: patient oriented x3 Psych: COMMON NORMALS: mental status grossly normal and Normal thought process present THOUGHT PROCESS: Normal thought process present Course Reevaluation(s): Reevaluation #1: Maybe some improvement. Patient complains of pain in back. Patient has approximately 500 mL in, blood pressure 109/64. Vital Signs: Vital signs: Vital Signs Pulse Rate 99 04/21/25 16:08 Respiratory Rate 18 04/21/25 16:08 Blood Pressure 88/44 04/21/25 16:08 Pulse Oximetry 97 04/21/25 16:08 Oxygen Delivery Me thod Room Air 04/21/25 13:30 MDM - General Adult Medical Decision Making Physical examination is benign, however all laboratory data he does have some association of metabolic acidosis with a CO2 of 19, blood glucose of 539, sodium of 129, that is in range with corrected, or pseudohyponatremia. He does have a leukocytosis and mild neutropenia without source. Urine analysis is pending. Blood glucose is improved to 360 12:09 units IV push of regular insulin. Discussed with patient. He states he is just taken his weekly insulin and has been taking his long-acting insulin. He is on prednisone 10 mg daily for his psoriatic arthritis. I do suspect differential of psoriatic arthritis flare. Will treat x 1, and have him follow-up with rheumatology. He is improved after IV fluids with his blood pressure is 136/81. Added on CRP. Patient had mild leukocytosis, and some neutrophils, and urine analysis is still pending. Medical Records I reviewed the patient's medical records. Lab Data I reviewed the patient's lab results. 04/21/25 14:06 04/21/25 14:06 Radiology Impressions Chest X-Ray 04/21/25 14:14 Impression: Atherosclerosis. Laboratory Results WBC 13.86 10^3/uL (3.29-11.43) H 04/21/25 14:06 RBC 4.40 10^6/uL (3.85-5.65) 04/21/25 14:06 Hgb 12.00 g/dL (11.27-16.99) 04/21/25 14:06 Hct 36.2 % (37-53) L 04/21/25 14:06 MCV 82.3 fl (82-101) 04/21/25 14:06 MCH 27.3 pg (27-33) 04/21/25 14:06 MCHC 33.1 g/dL (30-55) 04/21/25 14:06 RDW 14.1 % (12.1-15.1) 04/21/25 14:06 Plt Count 172 10^3/cmm (157-399) 04/21/25 14:06 MPV 10.3 fL (7.4-10.4) 04/21/25 14:06 Neut % (Auto) 90.4 % 04/21/25 14:06 Lymph % (Auto) 2.2 % 04/21/25 14:06 [place] % (Auto) 5.6 % 04/21/25 14:06 Eos % (Auto) 0.3 % 04/21/25 14:06 Baso % (Auto) 0.6 % 04/21/25 14:06 Neut # (Auto) 12.53 10^3/uL (1.8-7.7) H 04/21/25 14:06 Lymph # (Auto) 0.3 10^3/uL (0.8-4.8) L 04/21/25 14:06 [place] # (Auto) 0.8 10^3/uL (0.2-0.9) 04/21/25 14:06 Eos # (Auto) 0.0 10^3/uL (0.0-0.8) 04/21/25 14:06 Baso # (Auto) 0.1 10^3/uL (0.0-0.1) 04/21/25 14:06 Nucleated RBC % (auto) 0 % 04/21/25 14:06 Nucleated RBCs # 0.0 /100WBC 04/21/25 14:06 Sodium 129 mmol/L (136-145) L 04/21/25 14:06 Potassium 3.8 mmol/L (3.5-5.1) 04/21/25 14:06 Chloride 94 mmol/L (98-107) L 04/21/25 14:06 Carbon Dioxide 19 mmol/L (22-29) L 04/21/25 14:06 Anion Gap 19.8 (5-19) H 04/21/25 14:06 BUN 14 mg/dL (8-23) 04/21/25 14:06 Creatinine 1.1 mg/dL (0.7-1.2) 04/21/25 14:06 GFR Calculation Not Reportable 04/21/25 14:06 Glucose 539 mg/dL (65-115) H* 04/21/25 14:06 POC Glucose 369 mg/dL (70-110) H 04/21/25 15:30 Calculated Osmolality 293 mOsm/kg (285-295) 04/21/25 14:06 Calcium 8.5 mg/dL (8.5-10.5) 04/21/25 14:06 Total Bilirubin 0.5 mg/dL (0.15-1.2) 04/21/25 14:06 AST 14 U/L (0-40) 04/21/25 14:06 ALT 16 U/L (0-41) 04/21/25 14:06 Alkaline Phosphatase 56 U/L (40-130) 04/21/25 14:06 Troponin T Baseline 30 ng/L (0-15) H 04/21/25 14:06 Troponin T 120 Minute 32.13 ng/L (0-15) H 04/21/25 15:47 Delta Troponin T 2.13 ABS# (0-10) 04/21/25 15:47 Total Protein 6.1 g/dL (6.6-8.7) L 04/21/25 14:06 Albumin 3.6 g/dL (3.5-5.2) 04/21/25 14:06 Globulin 2.5 g/dL (1.3-4.6) 04/21/25 14:06 Lipase 80 U/L (13-60) H 04/21/25 14:06 Urine Color Yellow (Yellow) 04/21/25 Unknown Urine Appearance Clear (CLEAR) 04/21/25 Unknown Urine pH 5.0 (5-7) 04/21/25 Unknown Ur Specific [place] 1.032 (1.005-1.030) H 04/21/25 Unknown Urine Protein Negative (Negative) 04/21/25 Unknown Urine Glucose (UA) 3+ (Normal) H 04/21/25 Unknown Urine Ketones Negative (Negative) 04/21/25 Unknown Urine Blood Negative (Negative) 04/21/25 Unknown Urine Nitrate Negative (Negative) 04/21/25 Unknown Urine Bilirubin Negative (Negative) 04/21/25 Unknown Urine Urobilinogen 0.2 mg/dL (Negative) 04/21/25 Unknown Ur Leukocyte Esterase Negative (Negative) 04/21/25 Unknown Amorphous Sediment Not Reportable 04/21/25 Unknown Serum Ketones Negative (Negative) 04/21/25 14:06 All radiology interpretation(s) finalized by discharge EKG Data EKG 1: Interpretation: Sinus tachycardia left axis Computer generated interpretation: Chest X-Ray 04/21/25 14:14 Impression: Atherosclerosis. Discharge Plan Discharge Patient Disposition: Home Clinical Impression: Hyperglycemia, Pseudohyponatremia, Metabolic acidosis Condition: Stable Prescriptions: New methocarbamol 500 mg tablet 500 mg PO Q8H PRN (Reason: muscle spasm) Qty: 30 0RF No Action ipratropium-albuterol 0.5 mg-3 mg(2.5 mg base)/3 mL solution for nebulization 3 ml inhalation QID PRN (Reason: wheezing) Qty: 180 2RF acetaminophen [Tylenol] 325 mg tablet 325 mg PO QID PRN (Reason: Pain) Stool Softener 50 mg capsule 50 mg PO DAILY PRN (Reason: Constipation) insulin glargine [Lantus Solostar U-100 Insulin] 100 unit/mL (3 mL) insulin pen 10 unit SUBCUT DAILY Qty: 15 0RF diclofenac sodium 75 mg tablet,delayed release (DR/EC) 75 mg PO Q12H PRN (Reason: moderate to severe pain as needed) Qty: 60 0RF prednisone 10 mg tablet 10 mg PO DAILY methotrexate sodium 2.5 mg tablet See Rx Instructions .ROUTE .COMPLEX Rx Instructions: Take 6 tablets all at once by mouth once weekly on Thursday. brimonidine 0.2 % drops 1 drp ophthalmic (eye) TID PRN (Reason: glaucoma) albuterol sulfate 90 mcg/actuation HFA aerosol inhaler 2 puff INHALATION Q6H PRN (Reason: Shortness Of Breath) timolol maleate 0.5 % drops 1 drp ophthalmic (eye) TID PRN (Reason: glaucoma) glipizide 5 mg tablet 5 mg PO DAILY losartan 50 mg tablet 50 mg PO QPM atorvastatin 40 mg tablet 40 mg PO QPM leflunomide 20 mg tablet 20 mg PO QAM omeprazole 20 mg capsule,delayed release(DR/EC) 20 mg PO QAM metformin 500 mg tablet extended release 24 hr 1,000 mg PO QPM Trelegy Ellipta 200-62.5-25 mcg blister with device 1 inh inhalation QAM tirzepatide 5 mg/0.5 mL pen injector 5 mg SUBCUT Q7D Rx Instructions: Thursday Discharge Orders: Discharge ED (Routine); Ordered 04/21/25 Ordered By: Swathi Diane Referrals: Francois Mcgill DO [Primary Care Provider, Family Practice] Patient Instructions: Arthralgia (ED), Patient Portal & Abdiel Instructions Activity Restrictions/Additional Instructions: Hold your blood pressure pills: Losartan Call your doctor for a follow-up regarding your high blood glucose. 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 Call your primary care for follow-up Caution on Robaxin, causes sedation. Return to ED for worsening symptoms, fever greater than 100.4 ?F Print Language: Czech Coding Level of Care Code ED Executive Consultant for Brayden Perales
[2025-04-21 14:38] LABS: Alanine Aminotransferase 16 U/L (0-41); Albumin Level 3.6 g/dL (3.5-5.2); Alkaline Phosphatase 56 U/L (40-130); Anion Gap 19.8 (5-19); Aspartate Amino Transferase 14 U/L (0-40); Blood Urea Nitrogen 14 mg/dL (8-23); Calcium 8.5 mg/dL (8.5-10.5); Carbon Dioxide 19 mmol/L (22-29); Chloride 94 mmol/L (98-107); Creatinine Clr Calc Pharmacy 63.8829; Globulin 2.5 g/dL (1.3-4.6); Lipase 80 U/L (13-60); Osmolality Calculated 293 mOsm/kg (285-295); Potassium 3.8 mmol/L (3.5-5.1); Sodium 129 mmol/L (136-145); Total Protein 6.1 g/dL (6.6-8.7); Troponin(5th) Baseline 30 ng/L (0-15)
[2025-04-21 14:41] VITALS: BP 103/58; PULSE 117; RESP 18; O2SAT 94
[2025-04-21 14:42] LABS: Glucose 539 mg/dL (65-115)
[2025-04-21 15:00] LABS: Ketone (Acetest) Serum Negative (Negative)
[2025-04-21] MEDS: insulin regular-human 100 units/1 mL 15 UNIT IVP (15:03)
[2025-04-21 15:39] VITALS: BP 109/64; PULSE 116; RESP 16; O2SAT 97
[2025-04-21 16:08] VITALS: BP 88/44; PULSE 99; RESP 18; O2SAT 97
[2025-04-21 16:19] LABS: Troponin 5 2HR 32.13 ng/L (0-15); Troponin 5 2HR Delta 2.13 ABS# (0-10)
[2025-04-21 16:35] LABS: Add Urine Microscopic? NO
[2025-04-21 16:48] LABS: Glucose Urine UA 3+ (Normal); Nitrate Urine Negative (Negative)
[2025-04-21 16:52] LABS: Specific Gravity, Urine 1.032 (1.005-1.030)
[2025-04-21 17:06] VITALS: RESP 18
[2025-04-21] MEDS: morphine 4 mg/mL SDV 1 mL IVP (17:06)
[2025-04-21] MEDS: ondansetron 2 mg/ML SDV 2 mL 4 MG IVP (17:06)
[2025-04-21] MEDS: orphenadrine 30 mg/mL Inj 2 mL IVP (17:06)
[2025-04-21 17:18] VITALS: BP 114/63; PULSE 94; RESP 18; O2SAT 95
[2025-04-21 17:19] LABS: Respiratory Syncytial Virus Ce NEGATIVE (Negative); SARS-CoV-2 PCR NEGATIVE (Negative)
[2025-04-21 17:20] LABS: Charge for UA Resulting for Rev
== END 2025-04-21 17:18 | disposition home or self-care (01) ==
PROVIDERS: Emergency Medicine; Emergency Provider Physician Assistant; PCP Family Medicine
DX: E11.65 Type 2 diabetes mellitus with hyperglycemia (principal); E87.20 Acidosis, unspecified; I25.10 Atherosclerotic heart disease of native coronary artery without angina pectoris; J44.9 Chronic obstructive pulmonary disease, unspecified; E78.5 Hyperlipidemia, unspecified; Z79.4 Long term (current) use of insulin; Z79.84 Long term (current) use of oral hypoglycemic drugs
CPT/HCPCS: 36415; 36416; 71045; 80053; 81003; 82009; 82010; 82962; 83690; 84484; 85025; 86140; 87637; 93005; 96374; 96375; 99285; J1815; J2270; J2360; J2405; J7030; J9999

== ENCOUNTER 2025-07-07 19:13 | Emergency (ER) | payer MEDICARE, MEDICAID, SELFPAY ==
--- OUTSIDE RECORDS SUMMARY | 2025-06-28 09:36 | XMS_ITS | Encounter Summary ---
Author Organization [employer] [facility] [place] Address [address] [place] [address] Care Team Providers Care Director Targeted Marketing Name Role Phone Astrid Escobedo Primary Care Provider + [phone] Reason for Visit * Auth/Cert (Routine) Specialty Diagnoses / Procedures Referred By Contac t Referred To Contact Perioperative Diagnoses Atherosclerosis of [place] arteries of extremities with intermittent claudication, bilateral legs Atherosclerosis of [place] arteries of extremities with intermittent claudication, left leg Procedures [place] TEAEC W/WO PATCH GRAFT ILIOFEMORAL CHG ANGIOGRAPHY EXTREMITY UNILATERAL RS&I CHG AORTOGRAPHY ABDOMINAL SERIALOGRAPHY RS&I [place] REVASCULARIZATION ILIAC ARTERY ANGIOP 1ST VSL [place] REVSC OPN/PRQ ILIAC ART W/STNT PLMT & ANGIOPLSTY [place] REVSC OPN/PRQ FEM/POP W/ATHRC/ANGIOP SM VSL [place] REVSC OPN/PRQ FEM/POP W/STNT/ATHRC/ANGIOP SM VSL [place] SLCTV CATHJ 3RD+ ORD SLCTV ABDL PEL/LXTR BRNCH [place] REVSC OPN/PRQ TIB/YEISON W/ATHRC/ANGIOP SM VSL [place] REVSC OPN/PRQ TIB/YEISON W/STNT/ATHR/ANGIOP SM VSL [place] INTRAVASCULAR US NONCORONARY RS&I INTIAL VESSEL [place] INTRAVASCULAR US NONCORONARY RS&I ADDL VESSEL [place] TEAEC W/WO PATCH GRAFT COMMON FEMORAL [place] REVSC OPN/PRQ FEM/POP W/STNT/ANGIOP SM VSL FEMORAL ENDARTERECTOMY FEMORAL ANGIOGRAPHY WITH INTERVENTION Mario Kurtz MD [address] [place] [address] Phone: tel: fax: [facility] Operating Room [address] [place] [address] Phone: tel: fax: Referral ID Status Reason Start Date Expiration Date Visits Re quested Visits Authorized [id number] 1 1 Encounter Details Date Type Department Care Team (Latest Contact Info) Description 06/28/2025 9:36 AM CDT - 07/03/2025 2:41 PM CDT Hospital Encounter [facility] 4C Medical [address] [place] [address] Lucian Kirkpatrick MD [address] [address] Atherosclerosis of [place] arteries of extremities with intermittent claudication, left leg Discharge Disposition: Home or Self Care Social History Tobacco Use Types Packs/Day Years Used Date Smoking Tobacco: Former Cigarettes Q uit: 09/07/1996 Smokeless Tobacco: Current Chew Alcohol Use Standard Drinks/Week Comments No 0 (1 standard drink = 0.6 oz pur e alcohol) Feeling Safe Answer Date Recorded Are you in a relationship wi th someone who hurts you emotionally and/or physically? 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 Gender Identity Not on file Sexual Orientation Not on file documented as of this encounter Last Filed Vital Signs Vital Sign Reading Time Taken Comments Blood Pressure 90/54 07/03/2025 7:28 AM CDT Pulse 99 07/03/2025 7:28 AM CDT Temperature 36.3 C (97.4 F) 07/03/2025 7:28 AM CDT Respiratory Rate 18 07/03/2025 7:28 AM CDT Oxygen Saturation 97% 07/03/2025 7:28 AM CDT Inhaled Oxygen Concentration - - Weight 78 kg (172 lb) 07/01/2025 6:22 AM CDT Height 175.3 cm (5' 9 ) 06/28/2025 10:06 AM CDT Body Mass Index 25.4 06/28/2025 10:06 AM CDT documented in this encounter Discharge Summaries * Marysol Larios, DENTAL TREATMENT COORDINATOR - 07/03/2025 9:37 AM CDT Patient: Go Armendariz Tariq / 74 y.o. 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 Attending Physician: Lucian Mcdonnell Procedures: Procedure(s): FEMORAL ENDARTERECTOMY FEMORAL ANGIOGRAPHY WITH INTERVENTION VASCULAR STENT INSERTION ARTERIAL ANGIOPLASTY ARTERIAL Hospital Course: Patient underwent left femoral endarterectomy and L SFA stenting on 06/28/[address] Hanson. He was admitted for monitoring and had some bruising to the left groin without hematoma. This has started to resolve. Post operative course was complicated by post-op delirium resulting in a clinical hold on the patient as he kept trying to leave. He was at times combative with staff and the hospitalists were consulted to help manage. At this point he is nearing baseline cognitively and is ok for discharge home with home health and family assistance. PE: Constitutional: Well nourished, no signs of distress Neurologic: Oriented to person HENT: Normocephalic and atraumatic. Cardiovascular: Normal rate, regular rhythm Pulmonary/Chest: No respiratory distress. Non-labored work of breathing Abdominal: Soft. No abdominal distension or tenderness. Musculoskeletal: Normal range of motion. Extremities: Warm and well-perfused Incision: L groin and thigh incisions intact with gabriel. Area is soft with some resolving ecchymosis. Weakly palpable left DP pulse. Discharge Condition: Stable Disposition: stable to home Discharge medications: Medication List START taking these medications HYDROcodone-acetaminophen 5-325 mg tablet Commonly known as: NORCO Take 1 Tablet by mouth every 6 hours as needed for Pain. Max Daily Amount: 4 Tablets Signed by: Nurse Practitioner Marcello Larios Quantity: 10 Tablet Refills: 0 Replaces: HYDROcodone-acetaminophen 7.5-325 mg Tablet QUEtiapine 25 mg tablet Commonly known as: SEROquel Take 1 Tablet (25 mg) by mouth daily at bedtime. Signed by: Nurse Practitioner Marcello Larios Quantity: 7 Tablet Refills: 0 CONTINUE taking these medications aspirin 81 mg Tablet, Delayed Release (E.C.) Commonly known as: ECOTRIN EC Take 1 Tablet (81 mg) by mouth daily. Signed by: Dr. Renee Lizama Quantity: 90 Tablet Refills: 3 atorvastatin 80 mg tablet Commonly known as: LIPITOR Take 80 mg by mouth Daily LATE. Refills: 0 brimonidine 0.2 % solution Commonly known as: ALPHAGAN INSTILL 1 DROP IN RIGHT EYE TWO TIMES A DAY Signed by: Dr. Renee Tenorio Quantity: 10 mL Refills: 0 cephALEXin 500 mg capsule Commonly known as: KEFLEX Refills: 0 diclofenac sodium 75 mg Tablet, Delayed Release (E.C.) Commonly known as: VOLTAREN Refills: 0 fluticasone propion-salmeteroL 115-21 mcg/actuation HFA Aerosol Inhaler Commonly known as: ADVAIR HFA Take 2 Puffs by inhalation every 12 hours. Signed by: Dr. Zeina Maria Quantity: 12 Gram Refills: 1 folic acid 1 mg tablet Commonly known as: FOLVITE Take 1 mg by mouth daily. Refills: 0 ipratropium-albuteroL 0.5 mg-3 mg(2.5 mg base)/3 mL Solution for Nebulization Commonly known as: DUONEB Take 3 mL by inhalation every 4 hours as needed for Shortness of Breath. Refills: 0 isosorbide mononitrate 30 mg Extended Release 24 hour tablet Commonly known as: IMDUR Take 30 mg by mouth daily water leak repairer. Refills: 0 leflunomide 20 mg Tablet Commonly known as: ARAVA Refills: 0 losartan 50 mg tablet Commonly known as: COZAAR Refills: 0 magnesium OXIDE 400 mg (241.3 mg magnesium) tablet Commonly known as: MAG-OX Take 400 mg by mouth 2 times daily. Refills: 0 metFORMIN 1,000 mg tablet Commonly known as: GLUCOPHAGE Take 1,000 mg by mouth 2 times daily with meals. Refills: 0 methotrexate 2.5 mg Tablet Commonly known as: RHEUMATREX Refills: 0 Mounjaro 2.5 mg/0.5 mL Pen Injector Refills: 0 Generic drug: tirzepatide hmctkehy-vaniwcqoq-lsbEHJFXpzzot 3.5mg/mL-10,000 unit/mL-0.1 % suspension Commonly known as: Maxitrol Administer 1 Drop in right eye see administration instructions. QID x 7 days, TID x 7 days, BID x 7days, q-day x 7 days, stop Signed by: Dr. Renee Tenorio Quantity: 5 mL Refills: 1 nitroglycerin 0.4 mg Tablet, Sublingual Commonly known as: NITROSTAT Place 0.4 mg under tongue every 5 minutes as needed for Chest Pain. Refills: 0 nystatin 100,000 unit/gram Ointment Commonly known as: MYCOSTATIN Apply to affected area 4 times daily as needed. Refills: 0 omeprazole 20 mg Capsule, Delayed Release(E.C.) Commonly known as: PriLOSEC Take 20 mg by mouth daily. Refills: 0 tamsulosin 0.4 mg capsule Commonly known as: FLOMAX Take 0.4 mg by mouth daily. Refills: 0 timoloL maleate 0.5% solution Commonly known as: TIMOPTIC INSTILL 1 DROP IN RIGHT EYE TWO TIMES A DAY Signed by: Dr. Renee Tenorio Quantity: 10 mL Refills: 0 tiotropium 18 mcg capsule Commonly known as: SPIRIVA Take 18 mcg by inhalation daily. Refills: 0 tiZANidine 4 mg Tablet Commonly known as: ZANAFLEX Refills: 0 Trelegy Ellipta 200-62.5-25 mcg Disk with Device Refills: 0 Generic drug: bphtwdfxqnq-aencvmebmvzz-xqppvfjlsh valACYclovir 1 gram tablet Commonly known as: VALTREX Refills: 0 vitamin E 400 unit capsule Take 400 Units by mouth daily. Refills: 0 STOP taking these medications clindamycin HCL 300 mg Capsule Commonly known as: CLEOCIN glipiZIDE 5 mg tablet Commonly known as: GLUCOTROL HYDROcodone-acetaminophen 7.5-325 mg Tablet Commonly known as: NORCO Replaced by: HYDROcodone-acetaminophen 5-325 mg tablet losartan-hydroCHLOROthiazide 50-12.5 mg tablet Commonly known as: HYZAAR metoprolol succinate 25 mg Extended Release 24 hour tablet Commonly known as: TOPROL XL raNITIdine 300 mg tablet Commonly known as: ZANTAC ticagrelor 90 mg Tablet Commonly known as: BRILINTA Where to Get Your Medications These medications were sent to [facility] - [place], [place] - [address] [facility] [address] [place] [address] HYDROcodone-acetaminophen 5-325 mg tablet QUEtiapine 25 mg tablet Patient instructions: 1. Discharge to home 2. Follow-up 2 weeks and 6 weeks - appointments already scheduled. 3. May shower without restrictions. No tub baths for 2 weeks. 4. Routine wound care/teach wound care if applicable. 5. Activity: light for 2 weeks 6. Prescriptions e-prescribed. 7. Call if temperature is greater than 101.5, severe pain, nausea, vomiting, wound drainage, questions or concerns. 8. Diet: regular 9. Resume home medications as instructed. Signed: HAVEN Baez 07/03/2025, 9:37 AM Cosigned by Lucian Mcdonnell MD at 07/03/2025 9:46 AM CDT documented in this encounter Discharge Instructions * Discharge Instructions* Marysol Larios FNP - 07/03/2025 9:36 AM CDT [facility]???s work [facility] ENDOVASC[facility] THERAPY [place], [place] DISCHARGE INSTRUCTIONS Keep incision clean and dry. Shower daily with antibacterial soap. Do not apply ointments, oils or lotions to incision. 1) GO HOME AND REST FOR THE REMAINDER OF THE DAY 2) TAKE MEDICATIONS PRESCRIBED BY YOUR DOCTOR, DO NOT DRIVE WHILE TAKING PAIN MEDICATIONS, ESPECIALLY NARCOTICS 3) OK TO SHOWER, DO NOT BATH OR SWIM FOR 2 WEEKS 4) CALL YOUR DOCTOR'S OFFICE (M-F 8am-430pm) FOR WORSENING PAIN, FEVER, CHILLS, NAUSEA, VOMITING, REDNESS AROUND THE SURGERY SITE. IF AFTER HOURS, GO TO THE NEAREST URGENT CARE OR ER IF YOU NEED IMMEDIATE ATTENTION. 5) REMOVE GROIN DRESSING ON POSTOPERATIVE DAY 1 IF YOU HAVE UNDERGONE AN ANGIOGRAM PROCEDURE (PERCUTANEOUS SURGERY) 6) GABRIEL OR STITCHES (IF ANY) WILL BE REMOVED IN CLINIC DURING YOUR FOLLOW UP APPOINTMENT 7) NO LIFTING MORE THAN 8 POUNDS FOR 2 WEEKS, NO DRIVING WHILE TAKING NARCOTICS 8) FOLLOW UP USUALLY IN 2 WEEKS and 6 weeks AFTER SURGERY, CALL THE OFFICE TO SCHEDULE/CONFIRM YOURAPPOINTMENT If you underwent placement of a stent or a bypass in the lower extremity, please do not flex your knees or squat for prolonged periods of time as that could lead to occlusion of the bypass or stent * Attachments The following attachments cannot be sent through Care Everywhere. * Clopidogrel (Niuean) * Hydrocodone Combination Products (Niuean) * Quetiapine (Niuean) documented in this encounter Medications at Time of Discharge HYDROcodone-aceta minophen (NORCO) 5-325 mg tabletIndications :Peripheral vascular disease, unspecified,Post- op pain Take 1 Tablet by mouth every 6 hours as needed for Pain. Max Daily Amount: 4 Tablets 10 Tablet 5 07/08/20 25 QUEtiapine (SEROquel) 25 mg tablet Take 1 Tablet (25 mg) by mouth daily at bedtime. 7 Tablet 5 clopidogreL (Plavix) 75 mg Tablet Take 1 Tablet (75 mg) by mouth daily. 90 Tablet 1 5 diclofenac sodium (VOLTAREN) 75 mg Tablet, Delayed Release (E.C.) 5 leflunomide (ARAVA) 20 mg Tablet 5 brimonidine (ALPHAGAN) 0.2 % solution INSTILL 1 DROP IN RIGHT EYE TWO TIMES A DAY 10 mL 5 timoloL maleate (TIMOPTIC) 0.5% solution INSTILL 1 DROP IN RIGHT EYE TWO TIMES A DAY 10 mL 5 aspirin (ECOTRIN EC) 81 mg Tablet, Delayed Release (E.C.) Take 1 Tablet (81 mg) by mouth daily. 90 Tablet 3 5 neomycin-polymyxi n-dexAMETHasone (Maxitrol) 3.5mg/mL-10,000 unit/mL-0.1 % suspension Administer 1 Drop in right eye see administration instructions. QID x 7 days, TID x 7 days, BID x 7 days, q-day x 7 days, stop 5 mL 1 5 cephALEXin (KEFLEX) 500 mg capsule 5 tiZANidine (ZANAFLEX) 4 mg Tablet 5 valACYclovir (VALTREX) 1 gram tablet 5 methotrexate (RHEUMATREX) 2.5 mg Tablet 5 Trelegy Ellipta 200-62.5-25 mcg Disk with Device 5 losartan (COZAAR) 50 mg tablet 5 Mounjaro 2.5 mg/0.5 mL Pen Injector 5 isosorbide mononitrate (IMDUR) 30 mg Extended Release 24 hour tablet Take 30 mg by mouth daily water leak repairer. 8 tamsulosin (FLOMAX) 0.4 mg capsule Take 0.4 mg by mouth daily. 8 omeprazole (PriLOSEC) 20 mg Capsule, Delayed Release(E.C.) Take 20 mg by mouth daily. 8 fluticasone propion-salmetero L (ADVAIR HFA) 115-21 mcg/actuation HFA Aerosol Inhaler Take 2 Puffs by inhalation every 12 hours. 12 Gram 1 6 metFORMIN (GLUCOPHAGE) 1,000 mg tablet Take 1,000 mg by mouth 2 times daily with meals. 6 tiotropium (SPIRIVA) 18 mcg capsule Take 18 mcg by inhalation daily. 6 atorvastatin (LIPITOR) 80 mg tablet Take 80 mg by mouth Daily LATE. 6 magnesium oxide (MAG-OX) 400 mg (241.3 mg magnesium) tablet Take 400 mg by mouth 2 times daily. 6 ipratropium-albut Ruth Ann (DUONEB) 0.5 mg-3 mg(2.5 mg base)/3 mL Solution for Nebulization Take 3 mL by inhalation every 4 hours as needed for Shortness of Breath. 6 nitroglycerin (NITROSTAT) 0.4 mg Tablet, Sublingual Place 0.4 mg under tongue every 5 minutes as needed for Chest Pain. 6 vitamin E 400 unit capsule Take 400 Units by mouth daily. 6 nystatin (MYCOSTATIN) 100,000 unit/gram Ointment Apply to affected area 4 times daily as needed. 6 folic acid (FOLVITE) 1 mg tablet Take 1 mg by mouth daily. 6 documented as of this encounter Progress Notes * Cheri Head RN - 07/03/2025 12:16 PM CDT Discharge Planning Add All Identify discharge needs upon admission and through discharge Add Today at 1211 - Resolved by Cheri Head, thermograph operator Discharge Planning Expected Discharge Date Jul 03, 2025 Baig Kirk to transfer home today via POV around 1300. Plan Discharge To: Home with family assist (06/29/251206) Plan Discharge To - Alternate: Home or Self Care (06/29/251206) Family/Caregiver Assist Does the patient have family and/or a caregiver that is willing, able and available to assist if needed?: Yes (06/29/251206) Name and Relation: Kirk, son (06/29/251206) Referrals Status: Follow-up on Referrals Sent: No (06/29/251206) [facility]acy: [facility] [place] [address] - [address] Patient / Family Communications: Patient/Family Communications: Plan Discharge To Update (06/29/251206) Resources Provided Transportation Plan: Has discharge transport been arranged?: No (06/29/251206) Follow Up Appointments Scheduled Cheri Head RN * Javier Christensen MD - 07/03/2025 9:57 AM CDT Images from the original note were not included. [facility] work [facility] Hospitalist/Hospital Medicine Progress note LOS: LOS: 5 days Room/Bed: 4220/01 Patient name: Go Adair Date of : 1950 HOSPITAL COURSE SUMMARY CONSULT NOTE 74 y.o. male with PHM of diabetes, hypertension, hyperlipidemia, COPD, coronary disease with PCI and stenting in , GERD who presented to [facility] 06[facility]25 for evaluation for peripheral vascular disease. Over the last few months he has noticed that he has lost muscle mass at the left thigh and left leg and has developed severe claudication with short distance ambulation about 20feet. Patient denies any nonhealing ulcers. CT angiogram with runoff was done showing a complete occlusion of his left common femoral artery extending to the origin of profunda and SFA. There is reconstitution of branches of the profunda as well as reconstitution of the mid SFA. The SFA and performed that have significant atherosclerotic disease also noted. Iliac arteries and abdominal aorta appear to be widely patent. Right common femoral artery is widely patent. Patient underwent left common femoral endarterectomy and a stenting of the left proximal SFA on 06/28/2025 for severe PAD with life-limiting claudication of left lower extremity. Postoperatively, patient was confused and agitated for which hospitalist service was consulted 06/30 Patient confused and agitated this morning. He also received Geodon last night for agitation. Upon my evaluation, patient was on restraints. He is able to tell his name, but otherwise confused. He does not appear to be in acute distress Post-op groin site looks dry Addendum: patient had significant agitation requiring precedex gtt 07/01: Off of precedex. Calm this morning. More alert, AAO x2. Denies any new complaints. Ensure delirium precautions, frequent reorientation. Disposition per primary. Thank you for the consult. Willcontinue to round while inpatient. 07/02: Discussed plan of care with patient's son who mentions patient has some memory issues at baseline and sometimes gets confused. However, before going for surgery he was with-it. On my evaluation this morning, he was calm, off of restraints. Monitor. Disposition per primary. 07/03 Patient more calm, cooperative and follows commands. Appears to be better than yesterday. Plan for DC home as per primary team. Son at home able to take care of the patient based on my discussion yesterday. -Will recommend a short course of seroquel low dose nightly. If confusions continue beyond a reasonable time, will need neurology referral as outpatient including further tests such as MRI which I have discussed with the son yesterday. Consultants During this admission: IP CONSULT TO IV TEAM IP CONSULT TO IV TEAM IP CONSULT TO IV TEAM IP CONSULT TO IV TEAM SUBJECTIVE: Patient was seen and examined at bedside. No new events overnight Review of System: A 12-point ROS was negative except for those mentioned. OBJECTIVE: Temp (24hrs), Av.4 ??F (36.3 ??C), Min:97.3 ??F (36.3 ??C), Max:97.6 ??F (36.4 ??C) BP (!) 90/54 (BP Location: Left arm, Patient Position (BP): Lying right side) Pulse 99 Temp 97.4 ??F (36.3 ??C) (Temporal) Resp 18 Ht 5' 9 (1.753 m) Wt 78 kg (172 lb) SpO2 97% BMI 25.40 kg/m?? Intake/Output Summary (Last 24 hours) at 07/03/2025 0957 Last data filed at 07/03/2025 0854 Gross per 24 hour Intake 240 ml Output 1251 ml Net -1011 ml Last documented weight: Weight: 78 kg (172 lb) (07/01/25 0622) GENERAL: male laying on bed in no acute distress. EYES: Pupils symmetric, round, regular and reactive to light, conjunctiva not congested. E/N/M/T: Normal appearing pinna, no ear discharge noted. Oral mucosa moist. Pharynx with no erythema. CARDIOVASCULAR: Normal rate, rhythm, S1 S2 heard. no peripheral edema noted. RESPIRATORY: equal breath sounds on auscultation bilaterally. GASTROINTESTINAL: Non-distended, soft, non-tender . Bowel sounds normoactive . GENITOURINARY: no suprapubic tenderness. no CVA tenderness INTEGUMENTARY: no new rash MUSCULOSKELETAL: moves all extremities PSYCHIATRIC: agitation and confusion HEMATOLOGIC/LYMPHATIC/IMMUNOLOGIC: no cervical lymphadenopathy NEUROLOGIC: Awake, alert , AAO x1-2. No new gross focal motor deficits noted. LABORATORY Recent Labs 07/01/25 0805 WBC 7.0 HGB 10.3* HCT 32.0* PLT 194 Recent Labs 07/01/25 0805 NA 140 K 4.0 CL 104 CO2 24 CA 8.2* BUN 11 CREAT 0.99 GLUCOSE 167* No results for input(s): TOTALPROTEIN , ALBUMIN , BILITOTAL , ALKPHOS , AST , ALT in the last 72 hours. No results for input(s): INR , PT in the last 72 hours. Invalid input(s): PTT No results for input(s): BASETROP , 2HRTROP , DELTA , 6HRTROP in the last 72 hours. MEDICATIONS HOSPITALIST PHYSICIAN medications reviewed. Medications Prior to Admission Medication Sig Dispense Refill Last Dose/Taking diclofenac sodium (VOLTAREN) 75 mg Tablet, Delayed Release (E.C.) Taking leflunomide (ARAVA) 20 mg Tablet 06/27/2025 brimonidine (ALPHAGAN) 0.2 % solution INSTILL 1 DROP IN RIGHT EYE TWO TIMES A DAY 10 mL 0 Taking timoloL maleate (TIMOPTIC) 0.5% solution INSTILL 1 DROP IN RIGHT EYE TWO TIMES A DAY 10 mL 0 Taking aspirin (ECOTRIN EC) 81 mg Tablet, Delayed Release (E.C.) Take 1 Tablet (81 mg) by mouth daily. 90 Tablet 3 Taking methotrexate (RHEUMATREX) 2.5 mg Tablet Taking Trelegy Ellipta 200-62.5-25 mcg Disk with Device Taking losartan (COZAAR) 50 mg tablet 06/27/2025 isosorbide mononitrate (IMDUR) 30 mg Extended Release 24 hour tablet Take 30 mg by mouth daily water leak repairer. Taking omeprazole (PriLOSEC) 20 mg Capsule, Delayed Release(E.C.) Take 20 mg by mouth daily. 06/27/2025 fluticasone propion-salmeteroL (ADVAIR HFA) 115-21 mcg/actuation HFA Aerosol Inhaler Take 2 Puffs by inhalation every 12 hours. 12 Gram 1 Taking metFORMIN (GLUCOPHAGE) 1,000 mg tablet Take 1,000 mg by mouth 2 times daily with meals. 06/27/2025 tiotropium (SPIRIVA) 18 mcg capsule Take 18 mcg by inhalation daily. 06/27/2025 atorvastatin (LIPITOR) 80 mg tablet Take 80 mg by mouth Daily LATE. 06/27/2025 glipiZIDE (GLUCOTROL) 5 mg tablet Take 5 mg by mouth daily with breakfast. Taking magnesium oxide (MAG-OX) 400 mg (241.3 mg magnesium) tablet Take 400 mg by mouth 2 times daily. 06/27/2025 losartan-hydroCHLOROthiazide (HYZAAR) 50-12.5 mg tablet Take 1 Tablet by mouth daily. 06/27/2025 vitamin E 400 unit capsule Take 400 Units by mouth daily. 06/27/2025 folic acid (FOLVITE) 1 mg tablet Take 1 mg by mouth daily. 06/27/2025 tdydsqsq-pduliofdk-yglQXKXVwouff (Maxitrol) 3.5mg/mL-10,000 unit/mL-0.1 % suspension Administer 1 Drop in right eye see administration instructions. QID x 7 days, TID x 7 days, BID x 7 days, q-day x 7 days, stop 5 mL 1 cephALEXin (KEFLEX) 500 mg capsule tiZANidine (ZANAFLEX) 4 mg Tablet valACYclovir (VALTREX) 1 gram tablet clindamycin HCL (CLEOCIN) 300 mg Capsule (Patient not taking: No sig reported) Not Taking Mounjaro 2.5 mg/0.5 mL Pen Injector ticagrelor (BRILINTA) 90 mg Tablet Take by mouth. tamsulosin (FLOMAX) 0.4 mg capsule Take 0.4 mg by mouth daily. metoprolol succinate (TOPROL XL) 25 mg Extended Release 24 hour tablet Take 25 mg by mouth daily. raNITIdine (ZANTAC) 300 mg tablet Take 300 mg by mouth 2 times daily. (Patient not taking: No sig reported) Not Taking HYDROcodone-acetaminophen (NORCO) 7.5-325 mg Tablet Take 1 Tablet by mouth every 6 hours as needed for Pain, Moderate. ipratropium-albuteroL (DUONEB) 0.5 mg-3 mg(2.5 mg base)/3 mL Solution for Nebulization Take 3 mL byinhalation every 4 hours as needed for Shortness of Breath. nitroglycerin (NITROSTAT) 0.4 mg Tablet, Sublingual Place 0.4 mg under tongue every 5 minutes as needed for Chest Pain. nystatin (MYCOSTATIN) 100,000 unit/gram Ointment Apply to affected area 4 times daily as needed. Inpatient Medications and relevant orders were reviewed. Pertinent lab data, most recent imaging, HOSPITALIST PHYSICIAN and current medications were reviewed. Reviewed Primary Discharge Diagnosis: Atherosclerosis of [place] arteries of extremities with intermittent claudication, left leg Other Active medical issues also addressed during this admission: Active Hospital Problems Diagnosis Delirium Atherosclerosis of [place] arteries of extremities with intermittent claudication, left leg Peripheral vascular disease, unspecified Resolved Hospital Problems No resolved problems to display. ASSESSMENT AND PLAN: Post-operative delirium: His symptoms likely reflect post-operative delirium - post-anesthesia, component of hospital acquired delirium ?questionable underlying dementia. Does not have focal localizing signs. CT brain is negative for acute process. No clinical signs of infective process. No evidence of hypoxemia or hypercapnia on ABG. UA with no evidence of infection. TSH wnl. UDS consistent withwhat the patient received during surgery. Alcohol levels wnl. Mild hyponatremia. Ammonia level 14.5. Sitter at bedside. Delirium precautions Continue scheduled seroquel 25/50 (AM and PM) Plan of care discussed with the son who reports memory issues at baseline. -Will recommend a short course of seroquel low dose nightly. If confusions continue beyond a reasonable time, will need neurology referral as outpatient including further tests such as MRI which I have discussed with the son yesterday. Severe PAD with life-limiting caludication of LLE: S/P left BINDER OPERATOR endarterectomy with bovine pericardial patch repair along with angioplasty and stenting of left proximal SFA with [place] Viabahn stent and 5mm balloon. Antiplatelets and statin per vascular surgery CAD S/P PCI/CABG: continue asprin, atorvastatin, imdur Type II DM: SSI, hyperglycemia protocol Mild hyponatremia: continue NS, encourage oral intake HTN: losartan COPD: currently not on exacerbation. Duonebs PRN GERD: protonix Glaucoma right eye: continue timolol and brimonidine BPH: Tamsulosin 0.4 Code status: Full Code Diet: DIET DIABETIC DVT Prophylaxis DVT prophylaxis: Per Primary team when ok with chemoppx GLYCEMIC CONTROL GLUCOSE and POC GLUCOSE Reviewed Lab Results Component Value Date/Time GLUCPOC 278 (H) 07/03/2025 08:13 AM GLUCPOC 188 (H) 07/02/2025 04:19 PM GLUCPOC 230 (H) 07/02/2025 11:53 AM Communication preference: Epic 'Secure Chat' preferred over pages for this provider, Please leave your callback number with each new secure chat. 7AM-7PM only. Page/SecureChat oncall E-hospitalist orcross-covering floor physician/provider from 7PM-7AM. Javier Christensen MD Hospitalist, [facility] Parts of this note were transcribed using an automated dictation software. Efforts have been made to assure accuracy of the child daycare worker. Any obvious errors or omissions should be clarified with theauthor of the document. * Marysol Larios, DENTAL TREATMENT COORDINATOR - 07/03/2025 8:40 AM CDT VASCULAR & ENDOVASCULAR SURGERY [place], [place] PROGRESS NOTE HISTORY OF PRESENT ILLNESS: Go Adair is a 74 y.o. male who is POD 5 from left common femoral endarterectomy and stenting of the left proximal SFA. 24 HOUR EVENTS & SUBJECTIVE: Patient cooperative this morning with exam. Resting in bed. Sitter at bedside. VITAL SIGNS: BP (!) 90/54 (BP Location: Left arm, Patient Position (BP): Lying right side) Pulse 99 Temp 97.4 ??F (36.3 ??C) (Temporal) Resp 18 Ht 5' 9 (1.753 m) Wt 78 kg (172 lb) SpO2 97% BMI 25.40 kg/m?? PHYSICAL EXAM: Constitutional: Well nourished, no signs of distress Neurologic: Oriented to person HENT: Normocephalic and atraumatic. Cardiovascular: Normal rate, regular rhythm Pulmonary/Chest: No respiratory distress. Non-labored work of breathing Abdominal: Soft. No abdominal distension or tenderness. Musculoskeletal: Normal range of motion. Extremities: Warm and well-perfused Incision: L groin and thigh incisions intact with gabriel. Area is soft with some resolving ecchymosis. Weakly palpable left DP pulse. LABORATORY: I personally reviewed & assessed the most recent labs available for this patient ASSESSMENT & PLAN: Go Adair is POD 5 from left common femoral endarterectomy and stenting of the left proximalSFA. OK for discharge to home with home health and family assistance. Follow up in 2 weeks for staple removal, f/u 6 weeks for appointment with Dr. Hanson and arterialduplex. Signed: HAVEN Baez Vascular [facility] Endovascular Surgery [facility] Cosigned by Lucian Mcdonnell MD at 07/03/2025 9:33 AM CDT * Lucian Mcdonnell MD - 07/02/2025 3:46 PM CDT VASCULAR & ENDOVASCULAR SURGERY [place], [place] PROGRESS NOTE HISTORY OF PRESENT ILLNESS: Go Adair is a 74 y.o. male who is POD 1 from left common femoral endarterectomy and stenting of the left proximal SFA. 24 HOUR EVENTS & SUBJECTIVE: Patient removed PIV and art line overnight. Confused this am. Got up and got dressed. Trying to remove IV again. Denies complaints. VITAL SIGNS: BP 110/64 (BP Location: Left arm, Patient Position (BP): Supine) Pulse (!) 104 Temp 97.3 ??F (36.3 ??C) (Oral) Resp 17 Ht 5' 9 (1.753 m) Wt 78 kg (172 lb) SpO2 92% BMI 25.40 kg/m?? PHYSICAL EXAM: Constitutional: Well nourished, no signs of distress Neurologic: Alert & oriented to person HENT: Normocephalic and atraumatic. Cardiovascular: Normal rate, regular rhythm Pulmonary/Chest: No respiratory distress. Non-labored work of breathing Abdominal: Soft. No abdominal distension or tenderness. Musculoskeletal: Normal range of motion. Extremities: Warm and well-perfused Incision: L groin and thigh incisions intact with gabriel. Area is soft with some ecchymosis. Weakly palpable left DP pulse. LABORATORY: I personally reviewed & assessed the most recent labs available for this patient ASSESSMENT & PLAN: Go Adair is POD 4 from left common femoral endarterectomy and stenting of the left proximalSFA. OOB with assist to chair and to ambuluate. Clinical hold in place. investigation manager to help with setting him up for assisted living versus halfway. Signed: Lucian Mcdonnell MD Vascular & Endovascular Surgery [facility] [place] * Oksana Sanderson RN - 07/02/2025 11:19 AM CDT Report called to nurse Marlys on 4C. Patient to be transported via chair to room 4220. I contacted Dave, son of patient. He was updated. He did mentioned that Dad wakes up groggy in the morning and it takes awhile to get him going. * Javier Christensen MD - 07/02/2025 11:17 AM CDT Images from the original note were not included. Your Life is our life's work [facility] Hospitalist/Hospital Medicine Progress note LOS: LOS: 4 days Room/Bed: [address] [place] [address] Patient name: Go Adair Date of : 1950 HOSPITAL COURSE SUMMARY CONSULT NOTE 74 y.o. male with PHM of diabetes, hypertension, hyperlipidemia, COPD, coronary disease with PCI and stenting in , GERD who presented to [facility] on 06/28/2025 for evaluation for peripheral vascular disease. Over the last few months he has noticed that he has lost muscle mass at the left thigh and left leg and has developed severe claudication with short distance ambulation about 20feet. Patient denies any nonhealing ulcers. CT angiogram with runoff was done showing a complete occlusion of his left common femoral artery extending to the origin of profunda and SFA. There is reconstitution of branches of the profunda as well as reconstitution of the mid SFA. The SFA and performed that have significant atherosclerotic disease also noted. Iliac arteries and abdominal aorta appear to be widely patent. Right common femoral artery is widely patent. Patient underwent left common femoral endarterectomy and a stenting of the left proximal SFA on 06/28/2025 for severe PAD with life-limiting claudication of left lower extremity. Postoperatively, patient was confused and agitated for which hospitalist service was consulted 06/30 Patient confused and agitated this morning. He also received Geodon last night for agitation. Upon my evaluation, patient was on restraints. He is able to tell his name, but otherwise confused. He does not appear to be in acute distress Post-op groin site looks dry Addendum: patient had significant agitation requiring precedex gtt 07/01: Off of precedex. Calm this morning. More alert, AAO x2. Denies any new complaints. Ensure delirium precautions, frequent reorientation. Disposition per primary. Thank you for the consult. Willcontinue to round while inpatient. 07/02: Discussed plan of care with patient's son who mentions patient has some memory issues at baseline and sometimes gets confused. However, before going for surgery he was with-it. On my evaluation this morning, he was calm, off of restraints. Monitor. Disposition per primary. Consultants During this admission: IP CONSULT TO IV TEAM IP CONSULT TO IV TEAM IP CONSULT TO IV TEAM IP CONSULT TO IV TEAM SUBJECTIVE: Patient was seen and examined at bedside. No new events overnight Review of System: A 12-point ROS was negative except for those mentioned. OBJECTIVE: Temp (24hrs), Av.2 ??F (36.2 ??C), Min:96.9 ??F (36.1 ??C), Max:97.5 ??F (36.4 ??C) BP 104/81 Pulse (!) 104 Temp 96.9 ??F (36.1 ??C) (Temporal) Resp 17 Ht 5' 9 (1.753 m) Wt78 kg (172 lb) SpO2 92% BMI 25.40 kg/m?? Intake/Output Summary (Last 24 hours) at 07/02/2025 1117 Last data filed at 07/02/2025 0937 Gross per 24 hour Intake 180 ml Output 1650 ml Net -1470 ml Last documented weight: Weight: 78 kg (172 lb) (07/01/25 0622) GENERAL: male laying on bed in no acute distress. EYES: Pupils symmetric, round, regular and reactive to light, conjunctiva not congested. E/N/M/T: Normal appearing pinna, no ear discharge noted. Oral mucosa moist. Pharynx with no erythema. CARDIOVASCULAR: Normal rate, rhythm, S1 S2 heard. no peripheral edema noted. RESPIRATORY: equal breath sounds on auscultation bilaterally. GASTROINTESTINAL: Non-distended, soft, non-tender . Bowel sounds normoactive . GENITOURINARY: no suprapubic tenderness. no CVA tenderness INTEGUMENTARY: no new rash MUSCULOSKELETAL: moves all extremities PSYCHIATRIC: agitation and confusion HEMATOLOGIC/LYMPHATIC/IMMUNOLOGIC: no cervical lymphadenopathy NEUROLOGIC: Awake, alert , AAO x1-2. No new gross focal motor deficits noted. LABORATORY Recent Labs 07/01/25 0805 WBC 7.0 HGB 10.3* HCT 32.0* PLT 194 Recent Labs 06/30/25 0137 07/01/25 0805 NA 128* 140 K 4.1 4.0 CL 92* 104 CO2 25 24 CA 8.7* 8.2* BUN 16 11 CREAT 1.15 0.99 GLUCOSE 176* 167* No results for input(s): TOTALPROTEIN , ALBUMIN , BILITOTAL , ALKPHOS , AST , ALT in the last 72 hours. No results for input(s): INR , PT in the last 72 hours. Invalid input(s): PTT No results for input(s): BASETROP , 2HRTROP , DELTA , 6HRTROP in the last 72 hours. MEDICATIONS HOSPITALIST PHYSICIAN medications reviewed. Medications Prior to Admission Medication Sig Dispense Refill Last Dose/Taking diclofenac sodium (VOLTAREN) 75 mg Tablet, Delayed Release (E.C.) Taking leflunomide (ARAVA) 20 mg Tablet 06/27/2025 brimonidine (ALPHAGAN) 0.2 % solution INSTILL 1 DROP IN RIGHT EYE TWO TIMES A DAY 10 mL 0 Taking timoloL maleate (TIMOPTIC) 0.5% solution INSTILL 1 DROP IN RIGHT EYE TWO TIMES A DAY 10 mL 0 Taking aspirin (ECOTRIN EC) 81 mg Tablet, Delayed Release (E.C.) Take 1 Tablet (81 mg) by mouth daily. 90 Tablet 3 Taking methotrexate (RHEUMATREX) 2.5 mg Tablet Taking Trelegy Ellipta 200-62.5-25 mcg Disk with Device Taking losartan (COZAAR) 50 mg tablet 06/27/2025 isosorbide mononitrate (IMDUR) 30 mg Extended Release 24 hour tablet Take 30 mg by mouth daily water leak repairer. Taking omeprazole (PriLOSEC) 20 mg Capsule, Delayed Release(E.C.) Take 20 mg by mouth daily. 06/27/2025 fluticasone propion-salmeteroL (ADVAIR HFA) 115-21 mcg/actuation HFA Aerosol Inhaler Take 2 Puffs by inhalation every 12 hours. 12 Gram 1 Taking metFORMIN (GLUCOPHAGE) 1,000 mg tablet Take 1,000 mg by mouth 2 times daily with meals. 06/27/2025 tiotropium (SPIRIVA) 18 mcg capsule Take 18 mcg by inhalation daily. 06/27/2025 atorvastatin (LIPITOR) 80 mg tablet Take 80 mg by mouth Daily LATE. 06/27/2025 glipiZIDE (GLUCOTROL) 5 mg tablet Take 5 mg by mouth daily with breakfast. Taking magnesium oxide (MAG-OX) 400 mg (241.3 mg magnesium) tablet Take 400 mg by mouth 2 times daily. 06/27/2025 losartan-hydroCHLOROthiazide (HYZAAR) 50-12.5 mg tablet Take 1 Tablet by mouth daily. 06/27/2025 vitamin E 400 unit capsule Take 400 Units by mouth daily. 06/27/2025 folic acid (FOLVITE) 1 mg tablet Take 1 mg by mouth daily. 06/27/2025 nxtpeqml-qowjvdcaf-yrgSFOVPbzqkj (Maxitrol) 3.5mg/mL-10,000 unit/mL-0.1 % suspension Administer 1 Drop in right eye see administration instructions. QID x 7 days, TID x 7 days, BID x 7 days, q-day x 7 days, stop 5 mL 1 cephALEXin (KEFLEX) 500 mg capsule tiZANidine (ZANAFLEX) 4 mg Tablet valACYclovir (VALTREX) 1 gram tablet clindamycin HCL (CLEOCIN) 300 mg Capsule (Patient not taking: No sig reported) Not Taking Mounjaro 2.5 mg/0.5 mL Pen Injector ticagrelor (BRILINTA) 90 mg Tablet Take by mouth. tamsulosin (FLOMAX) 0.4 mg capsule Take 0.4 mg by mouth daily. metoprolol succinate (TOPROL XL) 25 mg Extended Release 24 hour tablet Take 25 mg by mouth daily. raNITIdine (ZANTAC) 300 mg tablet Take 300 mg by mouth 2 times daily. (Patient not taking: No sig reported) Not Taking HYDROcodone-acetaminophen (NORCO) 7.5-325 mg Tablet Take 1 Tablet by mouth every 6 hours as needed for Pain, Moderate. ipratropium-albuteroL (DUONEB) 0.5 mg-3 mg(2.5 mg base)/3 mL Solution for Nebulization Take 3 mL byinhalation every 4 hours as needed for Shortness of Breath. nitroglycerin (NITROSTAT) 0.4 mg Tablet, Sublingual Place 0.4 mg under tongue every 5 minutes as needed for Chest Pain. nystatin (MYCOSTATIN) 100,000 unit/gram Ointment Apply to affected area 4 times daily as needed. Inpatient Medications and relevant orders were reviewed. Pertinent lab data, most recent imaging, HOSPITALIST PHYSICIAN and current medications were reviewed. Reviewed Primary Discharge Diagnosis: Atherosclerosis of [place] arteries of extremities with intermittent claudication, left leg Other Active medical issues also addressed during this admission: Active Hospital Problems Diagnosis Delirium Atherosclerosis of [place] arteries of extremities with intermittent claudication, left leg Peripheral vascular disease, unspecified Resolved Hospital Problems No resolved problems to display. ASSESSMENT AND PLAN: Post-operative delirium: His symptoms likely reflect post-operative delirium - post-anesthesia, component of hospital acquired delirium ?questionable underlying dementia. Does not have focal localizing signs. CT brain is negative for acute process. No clinical signs of infective process. No evidence of hypoxemia or hypercapnia on ABG. UA with no evidence of infection. TSH wnl. UDS consistent withwhat the patient received during surgery. Alcohol levels wnl. Mild hyponatremia. Ammonia level 14.5. Sitter at bedside. Delirium precautions Continue scheduled seroquel (AM and PM) Plan of care discussed with the son who reports memory issues at baseline. If confusions get protracted, will recommend EEG and MRI. However, currently clinical presentation point to delirium with a baseline possible dementia. Severe PAD with life-limiting caludication of LLE: S/P left BINDER OPERATOR endarterectomy with bovine pericardial patch repair along with angioplasty and stenting of left proximal SFA with [place] Viabahn stent and 5mm balloon. Antiplatelets and statin per vascular surgery CAD S/P PCI/CABG: continue asprin, atorvastatin, imdur Type II DM: SSI, hyperglycemia protocol Mild hyponatremia: continue NS, encourage oral intake HTN: losartan COPD: currently not on exacerbation. Duonebs PRN GERD: protonix Glaucoma right eye: continue timolol and brimonidine BPH: Tamsulosin 0.4 Code status: Full Code Diet: DIET DIABETIC DVT Prophylaxis DVT prophylaxis: Per Primary team when ok with chemoppx GLYCEMIC CONTROL GLUCOSE and POC GLUCOSE Reviewed Lab Results Component Value Date/Time GLUCPOC 166 (H) 07/02/2025 07:50 AM GLUCPOC 163 (H) 07/01/2025 08:51 PM GLUCPOC 152 (H) 07/01/2025 05:38 PM GLUCPOC 169 (H) 07/01/2025 11:46 AM Communication preference: [employer] 'Secure Chat' preferred over pages for this provider, Please leave your callback number with each new secure chat. 7AM-7PM only. Page/SecureChat oncall E-hospitalist orcross-covering floor physician/provider from 7PM-7AM. Javier Christensen MD Hospitalist, [facility] Parts of this note were transcribed using an automated dictation software. Efforts have been made to assure accuracy of the child daycare worker. Any obvious errors or omissions should be clarified with theauthor of the document. * Chad Zimmerman, Physical Therapist - 07/01/2025 1:42 PM CDT [facility] - Therapy Services 3K Ph. Acute Physical Therapy Evaluation 07/01/2025 Room: [address] [place] [address] Name: Go Adair Age: 74 y.o. Date of : 1950 Insurance: Payor: T MEDICARE ADVANTAGE / Plan: AET HMO DSNP MCR / Product Type: HMO / Patient Class: Inpatient Onset of illness/injury or date of surgery: 06/28/2025 Subjective Information/History Subjective Information Provided By: Patient Prior level of Function: pt states that he lives with his adult son who is home 90% of time and does most of the cooking/cleaning and magazine hand. Pt reports that he is independent with self care at baseline Patient does not report a history of falls Home Environment: 1-Story home Number of Inside Stairs: 0 Number of Outside Stairs: 0 Available Adaptive Equipment: Cane: single point cane Walkers: 2 wheeled Assistance available: yes from his adult son Patient/Family Goals Statement: to go home Pain: Refer to Doc Flowsheet for documented pain levels. Consent To Treatment Given By: Patient and Nurse Safety Awareness Orientation: pt is a poor historian, he is oriented to self Command following: good Safety Awareness: Fair Precautions Patient Precautions: none Bracing/Orthotics: none Weight Bearing: No Restrictions Objective Information/Examination Muscle Tone: Normal Coordination: Normal Sensation: Intact to light touch ROM: Right UE: Active: WFL Left UE: Active: WFL Right LE: Active: WFL Left LE: Active: WFL Strength: Right UE: WFL Left UE: WFL Right LE: WFL Left LE: WFL Functional Mobility: Rolling: Independent Scooting: Independent Supine to sit: Independent Sit to stand: Independent Bed to chair: supervision for watchful oversight for safety Gait Trainin feet with rolling walker. supervision for watchful oversight for safety . Deficits affecting function/Deviations noted: decreased step length Patient required verbal cues proper posture Balance: Sitting: Normal Standing: Normal Vitals Patient on room air Vital signs stable throughout session [facility]-PAC Basic Mobility How much help from another person does the patient currently need? Score 1. Turning from your back to your side while in a flat bed without using bedrails? 4 - None (independent) 2. Moving from lying on your back to sitting on the side of a flat bed without using bedrails? 4 - None (independent) 3. Moving to and from a bed to a chair (including a wheelchair)? 4 - None (independent) 4. Standing up from a chair using your arms (e.g., wheelchair, or bedside chair)? 4 - None (independent) 5. Walking in hospital room? 3 - A little (supervision to min assist) 6. Climbing 3-5 steps with a railing? 3 - A little (supervision to min assist) Total score 22/24 0-16 - indicates likely facility discharge 17-24 indicates likely community discharge * scores determined based on patient report, observation or professional expertise Assessment/Plan Go Adair is a 74 y.o. male is referred for physical therapy. Based on objective findings above, the patient does not present with deficits sufficient to require skilled acute physical therapyintervention at this time. Patient is currently functioning near his prior level of function. PT Evaluation: low complexity Recommendations Therapy Frequency: eval only, no further skilled acute PT services (Complete Order) Based on PT assessment of and/or progress with physical function and AM-PAC Basic Mobility score, anticipated discharge disposition, once medically ready: Home with assistance (07/01/25 113). Patient's at functional baseline. * The final discharge location is determined through physician, case management, and patient/caregiver input along with insurance authorization of skilled services when appropriate Plan of care and/or discharge recommendations shared with: Patient and Nurse PT Recommended DME: No new DME recommended (07/01/251134). Daily activity recommendations: Up ad sukumar Recommendations for referral to another service: none Education/Training Provided Additional education provided: basic time frames for healing Learner, method of education, and response to learning listed in Education tab in Epic. Disposition At start of session, patient found lying in bed At end of session, patient left seated in chair and call light in reach Current Diagnoses/Past Medical History Pertinent diagnoses and past medical history related to this hospital stay are present in physicianH&P and physician daily notes. Prior to PT session a thorough chart review was completed including prior PT notes as applicable. Thank you for this referral, Chad Zimmerman Physical Therapist * Javier Christensen MD - 07/01/2025 11:13 AM CDT Images from the original note were not included. Your Life is our life's work [facility] Hospitalist/Hospital Medicine Progress note LOS: LOS: 3 days Room/Bed: [facility]/ Patient name: Go Adair Date of : 1950 HOSPITAL COURSE SUMMARY CONSULT NOTE 74 y.o. male with PHM of diabetes, hypertension, hyperlipidemia, COPD, coronary disease with PCI and stenting in , GERD who presented to [facility] on 06/28/2025 for evaluation for peripheral vascular disease. Over the last few months he has noticed that he has lost muscle mass at the left thigh and left leg and has developed severe claudication with short distance ambulation about 20feet. Patient denies any nonhealing ulcers. CT angiogram with runoff was done showing a complete occlusion of his left common femoral artery extending to the origin of profunda and SFA. There is reconstitution of branches of the profunda as well as reconstitution of the mid SFA. The SFA and performed that have significant atherosclerotic disease also noted. Iliac arteries and abdominal aorta appear to be widely patent. Right common femoral artery is widely patent. Patient underwent left common femoral endarterectomy and a stenting of the left proximal SFA on 06/28/2025 for severe PAD with life-limiting claudication of left lower extremity. Postoperatively, patient was confused and agitated for which hospitalist service was consulted 06/30 Patient confused and agitated this morning. He also received Geodon last night for agitation. Upon my evaluation, patient was on restraints. He is able to tell his name, but otherwise confused. He does not appear to be in acute distress Post-op groin site looks dry Addendum: patient had significant agitation requiring precedex gtt 07/01: Off of precedex. Calm this morning. More alert, AAO x2. Denies any new complaints. Ensure delirium precautions, frequent reorientation. Disposition per primary. Thank you for the consult. Willcontinue to round while inpatient. Consultants During this admission: IP CONSULT TO IV TEAM IP CONSULT TO IV TEAM IP CONSULT TO IV TEAM SUBJECTIVE: Patient was seen and examined at bedside. As above Review of System: A 12-point ROS was negative except for those mentioned. OBJECTIVE: Temp (24hrs), Av.2 ??F (36.2 ??C), Min:96.8 ??F (36 ??C), Max:97.7 ??F (36.5 ??C) BP 105/55 (BP Location: Left arm, Patient Position (BP): Supine) Pulse (!) 104 Temp 96.8 ??F (36 ??C) (Temporal) Resp 21 Ht 5' 9 (1.753 m) Wt 78 kg (172 lb) SpO2 92% BMI 25.40 kg/m?? Intake/Output Summary (Last 24 hours) at 07/01/2025 1113 Last data filed at 07/01/2025 0755 Gross per 24 hour Intake 360 ml Output 2045 ml Net -1685 ml Last documented weight: Weight: 78 kg (172 lb) (07/01/25 0622) GENERAL: male laying on bed in no acute distress. EYES: Pupils symmetric, round, regular and reactive to light, conjunctiva not congested. E/N/M/T: Normal appearing pinna, no ear discharge noted. Oral mucosa moist. Pharynx with no erythema. CARDIOVASCULAR: Normal rate, rhythm, S1 S2 heard. no peripheral edema noted. RESPIRATORY: equal breath sounds on auscultation bilaterally. GASTROINTESTINAL: Non-distended, soft, non-tender . Bowel sounds normoactive . GENITOURINARY: no suprapubic tenderness. no CVA tenderness INTEGUMENTARY: no new rash MUSCULOSKELETAL: moves all extremities PSYCHIATRIC: agitation and confusion HEMATOLOGIC/LYMPHATIC/IMMUNOLOGIC: no cervical lymphadenopathy NEUROLOGIC: Awake, alert , AAO x1-2. No new gross focal motor deficits noted. LABORATORY Recent Labs 07/01/25 0805 WBC 7.0 HGB 10.3* HCT 32.0* PLT 194 Recent Labs 06/29/25 0202 06/30/25 0137 07/01/25 0805 NA 132* 128* 140 K 4.3 4.1 4.0 CL 96* 92* 104 CO2 CA 8.4* 8.7* 8.2* BUN 9 16 11 CREAT 0.89 1.15 0.99 GLUCOSE 149* 176* 167* No results for input(s): TOTALPROTEIN , ALBUMIN , BILITOTAL , ALKPHOS , AST , ALT in the last 72 hours. No results for input(s): INR , PT in the last 72 hours. Invalid input(s): PTT No results for input(s): BASETROP , 2HRTROP , DELTA , 6HRTROP in the last 72 hours. MEDICATIONS HOSPITALIST PHYSICIAN medications reviewed. Medications Prior to Admission Medication Sig Dispense Refill Last Dose/Taking diclofenac sodium (VOLTAREN) 75 mg Tablet, Delayed Release (E.C.) Taking leflunomide (ARAVA) 20 mg Tablet 06/27/2025 brimonidine (ALPHAGAN) 0.2 % solution INSTILL 1 DROP IN RIGHT EYE TWO TIMES A DAY 10 mL 0 Taking timoloL maleate (TIMOPTIC) 0.5% solution INSTILL 1 DROP IN RIGHT EYE TWO TIMES A DAY 10 mL 0 Taking aspirin (ECOTRIN EC) 81 mg Tablet, Delayed Release (E.C.) Take 1 Tablet (81 mg) by mouth daily. 90 Tablet 3 Taking methotrexate (RHEUMATREX) 2.5 mg Tablet Taking Trelegy Ellipta 200-62.5-25 mcg Disk with Device Taking losartan (COZAAR) 50 mg tablet 06/27/2025 isosorbide mononitrate (IMDUR) 30 mg Extended Release 24 hour tablet Take 30 mg by mouth daily water leak repairer. Taking omeprazole (PriLOSEC) 20 mg Capsule, Delayed Release(E.C.) Take 20 mg by mouth daily. 06/27/2025 fluticasone propion-salmeteroL (ADVAIR HFA) 115-21 mcg/actuation HFA Aerosol Inhaler Take 2 Puffs by inhalation every 12 hours. 12 Gram 1 Taking metFORMIN (GLUCOPHAGE) 1,000 mg tablet Take 1,000 mg by mouth 2 times daily with meals. 06/27/2025 tiotropium (SPIRIVA) 18 mcg capsule Take 18 mcg by inhalation daily. 06/27/2025 atorvastatin (LIPITOR) 80 mg tablet Take 80 mg by mouth Daily LATE. 06/27/2025 glipiZIDE (GLUCOTROL) 5 mg tablet Take 5 mg by mouth daily with breakfast. Taking magnesium oxide (MAG-OX) 400 mg (241.3 mg magnesium) tablet Take 400 mg by mouth 2 times daily. 06/27/2025 losartan-hydroCHLOROthiazide (HYZAAR) 50-12.5 mg tablet Take 1 Tablet by mouth daily. 06/27/2025 vitamin E 400 unit capsule Take 400 Units by mouth daily. 06/27/2025 folic acid (FOLVITE) 1 mg tablet Take 1 mg by mouth daily. 06/27/2025 ldiwvsek-zeywefcon-kbbQWBIXoydzk (Maxitrol) 3.5mg/mL-10,000 unit/mL-0.1 % suspension Administer 1 Drop in right eye see administration instructions. QID x 7 days, TID x 7 days, BID x 7 days, q-day x 7 days, stop 5 mL 1 cephALEXin (KEFLEX) 500 mg capsule tiZANidine (ZANAFLEX) 4 mg Tablet valACYclovir (VALTREX) 1 gram tablet clindamycin HCL (CLEOCIN) 300 mg Capsule (Patient not taking: No sig reported) Not Taking Mounjaro 2.5 mg/0.5 mL Pen Injector ticagrelor (BRILINTA) 90 mg Tablet Take by mouth. tamsulosin (FLOMAX) 0.4 mg capsule Take 0.4 mg by mouth daily. metoprolol succinate (TOPROL XL) 25 mg Extended Release 24 hour tablet Take 25 mg by mouth daily. raNITIdine (ZANTAC) 300 mg tablet Take 300 mg by mouth 2 times daily. (Patient not taking: No sig reported) Not Taking HYDROcodone-acetaminophen (NORCO) 7.5-325 mg Tablet Take 1 Tablet by mouth every 6 hours as needed for Pain, Moderate. ipratropium-albuteroL (DUONEB) 0.5 mg-3 mg(2.5 mg base)/3 mL Solution for Nebulization Take 3 mL byinhalation every 4 hours as needed for Shortness of Breath. nitroglycerin (NITROSTAT) 0.4 mg Tablet, Sublingual Place 0.4 mg under tongue every 5 minutes as needed for Chest Pain. nystatin (MYCOSTATIN) 100,000 unit/gram Ointment Apply to affected area 4 times daily as needed. Inpatient Medications and relevant orders were reviewed. Pertinent lab data, most recent imaging, HOSPITALIST PHYSICIAN and current medications were reviewed. Reviewed Primary Discharge Diagnosis: Atherosclerosis of [place] arteries of extremities with intermittent claudication, left leg Other Active medical issues also addressed during this admission: Active Hospital Problems Diagnosis Delirium Atherosclerosis of [place] arteries of extremities with intermittent claudication, left leg Peripheral vascular disease, unspecified Resolved Hospital Problems No resolved problems to display. ASSESSMENT AND PLAN: Post-operative delirium: His symptoms likely reflect post-operative delirium - post-anesthesia, component of hospital acquired delirium ?questionable underlying dementia. Does not have focal localizing signs. CT brain is negative for acute process. No clinical signs of infective process. No evidence of hypoxemia or hypercapnia on ABG. UA with no evidence of infection. TSH wnl. UDS consistent withwhat the patient received during surgery. Alcohol levels wnl. Mild hyponatremia. Ammonia level 14.5. Sitter at bedside. Delirium precautions Continue scheduled seroquel 25/50 (AM and PM) Severe PAD with life-limiting caludication of LLE: S/P left BINDER OPERATOR endarterectomy with bovine pericardial patch repair along with angioplasty and stenting of left proximal SFA with [place] Viabahn stent and 5mm balloon. Antiplatelets and statin per vascular surgery CAD S/P PCI/CABG: continue asprin, atorvastatin, imdur Type II DM: SSI, hyperglycemia protocol Mild hyponatremia: continue NS, encourage oral intake HTN: losartan COPD: currently not on exacerbation. Duonebs PRN GERD: protonix Glaucoma right eye: continue timolol and brimonidine BPH: Tamsulosin 0.4 Code status: Full Code Diet: DIET DIABETIC DVT Prophylaxis DVT prophylaxis: Per Primary team when ok with chemoppx GLYCEMIC CONTROL GLUCOSE and POC GLUCOSE Reviewed Lab Results Component Value Date/Time GLUCOSE 167 (H) 07/01/2025 08:05 AM GLUCPOC 145 (H) 07/01/2025 07:09 AM GLUCPOC 145 (H) 06/30/2025 09:54 PM GLUCPOC 153 (H) 06/30/2025 05:00 PM GLUCPOC 162 (H) 06/30/2025 11:37 AM Communication preference: [employer] 'Secure Chat' preferred over pages for this provider, Please leave your callback number with each new secure chat. 7AM-7PM only. Page/SecureChat oncall E-hospitalist orcross-covering floor physician/provider from 7PM-7AM. Javier Christensen MD Hospitalist, [facility] Parts of this note were transcribed using an automated dictation software. Efforts have been made to assure accuracy of the child daycare worker. Any obvious errors or omissions should be clarified with theauthor of the document. * John Buchanan, Occupational Therapist - 07/01/2025 9:07 AM CDT [facility] - Therapy Services 3K Ph. Acute Occupational Therapy Evaluation 07/01/2025 Room: [address] [place] [address] Name: Go Adari Age: 74 y.o. Patient Class: Inpatient Date of : 1950 Insurance: Payor: [employer] / [facility] / Product Type: HMO / Prior to OT session thorough chart review completed, including prior OT notes as applicable. Consent to evaluate provided by patient and nurse Date of admission: 06/28/2025 SUBJECTIVE Occupational Profile Information provided by: patient and limited by cognition & alertness Prior Level of Function ADLs: unknown due to patient cognition; no family present IADLs: unknown due to patient cognition; no family present Functional mobility: modified independent with a cane sometimes Falls: unknown Home Information Self-care assist available at home: states he lives with 15-year-old son, unsure how accurate this is Home environment: Mobile home 4 step(s) to enter Walk-in shower; built-in bench Durable medical equipment already in home: Cane Additional Information Patient/family statement/goal(s): return to PLOF Comments: pt pleasant and agreeable to therapy. States he had a seizure in the past and since then he has been confused. He eventually told OT that it was stressful to be asked questions because he couldn't remember things. Sitter in room. Pain: Refer to flowsheet for documentation of pain and interventions. OBJECTIVE Cognition Level of alertness: alert Orientation: oriented to person Command following: good Safety awareness: fair; limited by slow processing Memory: impaired STM and impaired LTM - OT asked orientation questions again throughout session such as if patient remembered why he was in hospital and he could not remember. Vision: not assessed UE Function UE Assessment Right Left ROM Active: WNL Active: WNL Strength Impaired shoulder flexion 4/5 and gross grasp 3+/5 Impaired shoulder flexion 4/5 and grossgrasp 3+/5 Muscle Tone Normal Normal Coordination Normal Normal Sensation Normal Normal Edema None noted None noted Lower extremity comments: See PT note for additional details. Occupational Performance Activities of Daily Living Feeding: NT; anticipate supervision to set up task for setup Grooming: supervision for watchful oversight for safety, for watchful oversight for possible LOB, for watchful oversight for behavior, and to set up task standing at sink to wash his hands. OT assisted patient finding paper towels and trash can. Upper extremity dressing: NT; anticipate minimal assistance Lower extremity dressing: supervision for watchful oversight for safety and for watchful oversight for possible LOB to don/doff socks while sitting EOB. Patient took sock off and laid it on the bed. He was unable to then find sock without prompting from OT. Toileting: NT; anticipate minimal assistance on toilet for pericare. Supervision for clothing management. Toilet transfer: supervision for watchful oversight for safety and for watchful oversight for possible LOB sit < > stand from toilet All tasks not tested with anticipated assist levels are based on observed tasks and movement patterns. Functional Mobility All mobility completed with gait belt, non-skid socks, and walker Bed mobility: supervision for watchful oversight for safety supine < > sit EOB Sit to stand: supervision for watchful oversight for safety and for watchful oversight for possibleLOB from EOB Functional ambulation: minimal assistance x 30 feet in room with walker for balance and steadying. Bed to toilet to sink to bed. Sitting balance: supervision for watchful oversight for safety and for watchful oversight for possible LOB for dynamic tasks Standing balance: minimal assistance for dynamic tasks [facility] Daily Activity How much help from another person does the patient currently need? Score 1. Putting on and taking off regular lower body clothing? 3 - A little (supervision to min assist) 2. Bathing (including washing, rinsing, drying)? 3 - A little (supervision to min assist) 3. Toileting, which includes using toilet, bedpan or urinal? 3 - A little (supervision to min assist) 4. Putting on and taking off regular upper body clothing? 3 - A little (supervision to min assist) 5. Taking care of personal grooming such as brushing teeth? 3 - A little (supervision to min assist) 6. Eating meals? 3 - A little (supervision to min assist) Total score 18/24 0-19 indicates likely facility discharge 19-24 indicates likely community discharge *Scores determined based on patient report, observation or professional expertise* Vitals Current O2 requirement: room air Vital signs stable throughout. Precautions Patient precautions: none Patient bracing: none Weight bearing: no restrictions ASSESSMENT & PLAN Evaluation Details Go Adair is a 74 y.o. male referred for OT following admission for L BINDER OPERATOR endarterectomy. Additional pertinent diagnoses and past medical history related to this hospital stay are present in physician H&P and physician daily notes. OT evaluation: Low complexity Assessment Patient is currently functioning significantly below his prior level of function. Patient presents with acute functional deficits including: Functional balance Safety awareness Decreased functional strength Decreased endurance Cognitive deficits Pain These deficits impact patient ability to complete: Functional mobility Bathing Toileting Dressing Personal hygiene/grooming Home management Health management Meal preparation Community access Patient would benefit from continued skilled OT services in order to increase occupational performance through modification and remediation approaches such as ADL training, balance training, endurance training, strength training, functional transfer training, home safety education, patient education, caregiver education, and energy conservation training Plan During acute hospitalization, recommend medium frequency treatment (3-5 times/week). Current plan of care to continue until goals met or patient discharges from facility Anticipate ongoing OT treatment sessions with specific focus on ADLs and functional mobility Recommendations Based on OT assessment of patient's ability to complete self care tasks and AM- [facility]IN [facility] Daily Activity Score, anticipated discharge disposition, once medically ready: intermediate facility (07/01/25906). Rationale: Patient needs daily (weekday) skilled OT services. Anticipate tolerance is limited for intensive or adapted intensive rehab program and extended recovery time needed. * The final dischargelocation is determined through physician, case management, and patient/caregiver input along with in surance authorization of skilled services when appropriate. Plan of care and discharge recommendations shared with patient, physician, and nurse OT recommended DME and AE upon discharge: To be determined (07/01/25906) No new additional adaptive equipment necessary (07/01/25906) Education provided to patient regarding OT recommendations and plan of care, goals of session, safemobility, walker management Education response: verbalized understanding and would benefit from reinforcement Nursing Staff Mobility Recommendations Recommended daily activity during admission: assist x 1 Disposition At start of session, patient found lying in bed At end of session, patient left in bed, call light in reach, elderly caregiver at bedside, and staff notified of patient location/events of session Further treatment notes and therapeutic goals can be found in Care Plan Notes. If the patient discharges from facility before another therapy visit, this shall serve as therapy discharge summary. Thank you for this referral, John Buchanan Occupational Therapist * Berenice Vazquez, Physical Therapist - 06/30/2025 11:02 AM CDT Attempted to see patient for PT evaluation. As per coordination with OT and nurse, hold today due to increased aggression and in restraints Will continue with attempts for evaluation/established planof care when appropriate. Thank you, Berenice Vazquez, Physical Therapist * Beverly Johnson, Occupational Therapist - 06/30/2025 11:00 AM CDT Orders received to evaluate and treat. Per chart, patient with increased confusion/agitation overnight. Per nursing, patient is still in soft restraints, is not redirectable, and is still demonstrating agitation. RN recommends hold this date. Will continue to hold and evaluate as patient is appropriate to participate in skilled therapy. Beverly Johnson OT * Javier Christensen MD - 06/30/2025 10:57 AM CDT [facility] Hospitalist/Hospital Medicine Progress note LOS: LOS: 2 days Room/Bed: 425/ Patient name: Go Adair Date of : 1950 HOSPITAL COURSE SUMMARY 74 y.o. male with PHM of diabetes, hypertension, hyperlipidemia, COPD, coronary disease with PCI and stenting in , GERD who presented to [facility] 06/28/2025 for evaluation for peripheral vascular disease. Over the last few months he has noticed that he has lost muscle mass at the left thigh and left leg and has developed severe claudication with short distance ambulation about 20feet. Patient denies any nonhealing ulcers. CT angiogram with runoff was done showing a complete occlusion of his left common femoral artery extending to the origin of profunda and SFA. There is reconstitution of branches of the profunda as well as reconstitution of the mid SFA. The SFA and performed that have significant atherosclerotic disease also noted. Iliac arteries and abdominal aorta appear to be widely patent. Right common femoral artery is widely patent. Patient underwent left common femoral endarterectomy and a stenting of the left proximal SFA on 06/28/2025 for severe PAD with life-limiting claudication of left lower extremity. Postoperatively, patient was confused and agitated for which hospitalist service was consulted 06/30 Assumed care Patient confused and agitated this morning. He also received Geodon last night for agitation. Upon my evaluation, patient was on restraints. He is able to tell his name, but otherwise confused. He does not appear to be in acute distress Post-op groin site looks dry Addendum: patient had significant agitation requiring precedex gtt Consultants During this admission: IP CONSULT TO IV TEAM SUBJECTIVE: Patient was seen and examined at bedside. As above Review of System: A 12-point ROS was negative except for those mentioned. OBJECTIVE: Temp (24hrs), Av.3 ??F (36.3 ??C), Min:96.9 ??F (36.1 ??C), Max:97.8 ??F (36.6 ??C) BP (!) 155/66 Pulse (!) 104 Temp 97.8 ??F (36.6 ??C) (Temporal) Resp 20 Ht 5' 9 (1.753 m) Wt 80 kg (176 lb 6.4 oz) SpO2 96% BMI 26.05 kg/m?? Intake/Output Summary (Last 24 hours) at 06/30/2025 1113 Last data filed at 06/30/2025 1100 Gross per 24 hour Intake -- Output 3850 ml Net -3850 ml Last documented weight: Weight: 80 kg (176 lb 6.4 oz) (06/28/25 1006) GENERAL: male laying on bed in no acute distress. EYES: Pupils symmetric, round, regular and reactive to light, conjunctiva not congested. E/N/M/T: Normal appearing pinna, no ear discharge noted. Oral mucosa moist. Pharynx with no erythema. CARDIOVASCULAR: Normal rate, rhythm, S1 S2 heard. no peripheral edema noted. RESPIRATORY: equal breath sounds on auscultation bilaterally. GASTROINTESTINAL: Non-distended, soft, non-tender . Bowel sounds normoactive . GENITOURINARY: no suprapubic tenderness. no CVA tenderness INTEGUMENTARY: no new rash MUSCULOSKELETAL: moves all extremities PSYCHIATRIC: agitation and confusion HEMATOLOGIC/LYMPHATIC/IMMUNOLOGIC: no cervical lymphadenopathy NEUROLOGIC: Awake, alert , AAO x1-2. No new gross focal motor deficits noted. LABORATORY Recent Labs 06/28/25 1101 WBC 6.2 HGB 12.4* HCT 38.1* PLT 221 Recent Labs 06/28/25 1101 06/29/25 0202 06/30/25 0137 NA 132* 132* 128* K 4.0 4.3 4.1 CL 94* 96* 92* CO2 CA 9.2 8.4* 8.7* BUN 9 9 16 CREAT 0.86 0.89 1.15 GLUCOSE 181* 149* 176* No results for input(s): TOTALPROTEIN , ALBUMIN , BILITOTAL , ALKPHOS , AST , ALT in the last 72 hours. Recent Labs 06/28/25 1101 INR 1.0 PT 13.4 No results for input(s): BASETROP , 2HRTROP , DELTA , 6HRTROP in the last 72 hours. MEDICATIONS HOSPITALIST PHYSICIAN medications reviewed. Medications Prior to Admission Medication Sig Dispense Refill Last Dose/Taking diclofenac sodium (VOLTAREN) 75 mg Tablet, Delayed Release (E.C.) Taking leflunomide (ARAVA) 20 mg Tablet 06/27/2025 brimonidine (ALPHAGAN) 0.2 % solution INSTILL 1 DROP IN RIGHT EYE TWO TIMES A DAY 10 mL 0 Taking timoloL maleate (TIMOPTIC) 0.5% solution INSTILL 1 DROP IN RIGHT EYE TWO TIMES A DAY 10 mL 0 Taking aspirin (ECOTRIN EC) 81 mg Tablet, Delayed Release (E.C.) Take 1 Tablet (81 mg) by mouth daily. 90 Tablet 3 Taking methotrexate (RHEUMATREX) 2.5 mg Tablet Taking Trelegy Ellipta 200-62.5-25 mcg Disk with Device Taking losartan (COZAAR) 50 mg tablet 06/27/2025 isosorbide mononitrate (IMDUR) 30 mg Extended Release 24 hour tablet Take 30 mg by mouth daily water leak repairer. Taking omeprazole (PriLOSEC) 20 mg Capsule, Delayed Release(E.C.) Take 20 mg by mouth daily. 06/27/2025 fluticasone propion-salmeteroL (ADVAIR HFA) 115-21 mcg/actuation HFA Aerosol Inhaler Take 2 Puffs by inhalation every 12 hours. 12 Gram 1 Taking metFORMIN (GLUCOPHAGE) 1,000 mg tablet Take 1,000 mg by mouth 2 times daily with meals. 06/27/2025 tiotropium (SPIRIVA) 18 mcg capsule Take 18 mcg by inhalation daily. 06/27/2025 atorvastatin (LIPITOR) 80 mg tablet Take 80 mg by mouth Daily LATE. 06/27/2025 glipiZIDE (GLUCOTROL) 5 mg tablet Take 5 mg by mouth daily with breakfast. Taking magnesium oxide (MAG-OX) 400 mg (241.3 mg magnesium) tablet Take 400 mg by mouth 2 times daily. 06/27/2025 losartan-hydroCHLOROthiazide (HYZAAR) 50-12.5 mg tablet Take 1 Tablet by mouth daily. 06/27/2025 vitamin E 400 unit capsule Take 400 Units by mouth daily. 06/27/2025 folic acid (FOLVITE) 1 mg tablet Take 1 mg by mouth daily. 06/27/2025 mbqsouzj-znxrdjhfz-okhINDPJdeepv (Maxitrol) 3.5mg/mL-10,000 unit/mL-0.1 % suspension Administer 1 Drop in right eye see administration instructions. QID x 7 days, TID x 7 days, BID x 7 days, q-day x 7 days, stop 5 mL 1 cephALEXin (KEFLEX) 500 mg capsule tiZANidine (ZANAFLEX) 4 mg Tablet valACYclovir (VALTREX) 1 gram tablet clindamycin HCL (CLEOCIN) 300 mg Capsule (Patient not taking: No sig reported) Not Taking Mounjaro 2.5 mg/0.5 mL Pen Injector ticagrelor (BRILINTA) 90 mg Tablet Take by mouth. tamsulosin (FLOMAX) 0.4 mg capsule Take 0.4 mg by mouth daily. metoprolol succinate (TOPROL XL) 25 mg Extended Release 24 hour tablet Take 25 mg by mouth daily. raNITIdine (ZANTAC) 300 mg tablet Take 300 mg by mouth 2 times daily. (Patient not taking: No sig reported) Not Taking HYDROcodone-acetaminophen (NORCO) 7.5-325 mg Tablet Take 1 Tablet by mouth every 6 hours as needed for Pain, Moderate. ipratropium-albuteroL (DUONEB) 0.5 mg-3 mg(2.5 mg base)/3 mL Solution for Nebulization Take 3 mL byinhalation every 4 hours as needed for Shortness of Breath. nitroglycerin (NITROSTAT) 0.4 mg Tablet, Sublingual Place 0.4 mg under tongue every 5 minutes as needed for Chest Pain. nystatin (MYCOSTATIN) 100,000 unit/gram Ointment Apply to affected area 4 times daily as needed. Inpatient Medications and relevant orders were reviewed. Pertinent lab data, most recent imaging, HOSPITALIST PHYSICIAN and current medications were reviewed. Reviewed Primary Discharge Diagnosis: Atherosclerosis of [place] arteries of extremities with intermittent claudication, left leg Other Active medical issues also addressed during this admission: Active Hospital Problems Diagnosis Delirium Atherosclerosis of [place] arteries of extremities with intermittent claudication, left leg Peripheral vascular disease, unspecified Resolved Hospital Problems No resolved problems to display. ASSESSMENT AND PLAN: Post-operative delirium: His symptoms likely reflect post-operative delirium - post-anesthesia, component of hospital acquired delirium ?questionable underlying dementia. Does not have focal localizing signs. CT brain is negative for acute process. No clinical signs of infective process. No evidence of hypoxemia or hypercapnia on ABG. UA with no evidence of infection. TSH wnl. UDS consistent withwhat the patient received during surgery. Alcohol levels wnl. Mild hyponatremia. Ammonia level 14.5. Agitation management with second generation antipsychotics as needed Sitter at bedside. Delirium precautions Add scheduled seroquel 25/50 (AM and PM) Severe PAD with life-limiting caludication of LLE: S/P left BINDER OPERATOR endarterectomy with bovine pericardial patch repair along with angioplasty and stenting of left proximal SFA with [place] Viabahn stent and 5mm balloon. Antiplatelets and statin per vascular surgery CAD S/P PCI/CABG: continue asprin, atorvastatin, imdur Type II DM: SSI, hyperglycemia protocol Mild hyponatremia: continue NS, encourage oral intake HTN: losartan COPD: currently not on exacerbation. Duonebs PRN GERD: protonix Glaucoma right eye: continue timolol and brimonidine BPH: Tamsulosin 0.4 Code status: Full Code Diet: DIET DIABETIC DVT Prophylaxis DVT prophylaxis: Per Primary team when ok with chemoppx GLYCEMIC CONTROL GLUCOSE and POC GLUCOSE Reviewed Lab Results Component Value Date/Time GLUCOSE 176 (H) 06/30/2025 01:37 AM GLUCPOC 144 (H) 06/30/2025 07:19 AM GLUCPOC 154 (H) 06/30/2025 02:17 AM GLUCPOC 236 (H) 06/29/2025 09:02 PM GLUCPOC 203 (H) 06/29/2025 05:28 PM Communication preference: Epic 'Secure Chat' preferred over pages for this provider, Please leave your callback number with each new secure chat. 7AM-7PM only. Page/SecureChat oncall E-hospitalist orcross-covering floor physician/provider from 7PM-7AM. Javier Christensen MD Hospitalist, [facility] Parts of this note were transcribed using an automated dictation software. Efforts have been made to assure accuracy of the child daycare worker. Any obvious errors or omissions should be clarified with theauthor of the document. * Marysol Larios FNP - 06/30/2025 7:54 AM CDT VASCULAR & ENDOVASCULAR SURGERY [place], [place] PROGRESS NOTE HISTORY OF PRESENT ILLNESS: Go Adair is a 74 y.o. male who is POD 2 from left common femoral endarterectomy and stenting of the left proximal SFA. 24 HOUR EVENTS & SUBJECTIVE: Patient has been increasingly confused. Became combative with staff this am. Clinical hold initiated yesterday and patient required soft restraints. REVIEW OF SYSTEMS: A complete review of systems was obtained, & negative except for those mentioned in the HPI above VITAL SIGNS: BP (!) 154/68 Pulse (!) 104 Temp 97.4 ??F (36.3 ??C) (Temporal) Resp 19 Ht 5' 9 (1.753 m) Wt 80 kg (176 lb 6.4 oz) SpO2 97% BMI 26.05 kg/m?? PHYSICAL EXAM: Constitutional: Well nourished, no signs of distress Neurologic: Alert & oriented to person. Refuses to answer questions. HENT: Normocephalic and atraumatic. Cardiovascular: Normal rate, regular rhythm Pulmonary/Chest: No respiratory distress. Non-labored work of breathing Abdominal: Soft. No abdominal distension or tenderness. Musculoskeletal: Normal range of motion. Extremities: No edema or cyanosis Incision: L groin and thigh incisions intact with gabriel. Area is soft with some evolving ecchymosis spreading down the thigh. No edema. Gauze dressing over incisions with scant serosanguineous drainage. LLE with good doppler signals, DP and PT. LABORATORY: I personally reviewed & assessed the most recent labs available for this patient ASSESSMENT & PLAN: Go Adair is POD 2 from left common femoral endarterectomy and stenting of the left proximalSFA. Appreciate medicine team's assistance with patient's mental status issues. From a vascular surgery standpoint, patient is ok for discharge, however will need to discuss disposition as patient remains agitated/disoriented. Dr. Hanson to discuss with medical team after his first OR case this morning for recommendations and to coordinate discharge planning. Signed: HAVEN Baez Vascular & Endovascular Surgery [facility] Cosigned by Lucian Mcdonnell MD at 06/30/2025 5:11 PM CDT * Anushka Becerra FNP - 06/30/2025 12:59 AM CDT [facility]ist Cross Cover Call Two patient identifier: Go Adair 1950 Called for: agitation Last Recorded Vitals: BP (!) 161/83 (BP Location: Right arm, Patient Position (BP): Supine) Pulse(!) 104 Temp 96.9 ??F (36.1 ??C) (Temporal) Resp 20 Ht 5' 9 (1.753 m) Wt 80 kg (176 lb 6.4oz) SpO2 97% BMI 26.05 kg/m?? 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 He has a history of DM, hypertension, hyperlipidemia, arthritis, COPD, CAD, previous percutaneous coronary artery intervention with stenting back in the 's, and GERD. RN called with patient wandering in halls, difficult to redirect, and increased confusion. Patient was given oral Zyprexa with no improvement, redirected to room, became increasingly agitated, and soft restraints applied due to safety concerns. VS are stable. Sitter is at bedside and he has clinical hold on chart. Documentation/Intervention/Outcome: Chart reviewed. IV benadryl ordered Soft restraint ordered placed Went to see patient who refused to answer orientation question, appeared agitated, and was difficult to redirect Please call back any time if I can be of more assistance. HAVEN Wayne Cosigned by Luis Chance MD at 06/30/2025 2:45 AM CDT * Tevin Vitale RN - 06/29/2025 11:31 PM CDT Pt is currently AOx1 and has been noncompliant with care plan and refusing assessments. Assessment refused since 2199. Frequent redirection and de- escalation required as pt is wondering room and halls, attempting to enter occupied patient rooms despite redirection, as well as tampering with medical equipment. PRN zyprexa administered. At this time pt is seated in room while staff is monitoring toensure fall prevention and physical safety. At the 2300 hour, pt became increasingly agitated and ordered benadryl was administered. Pt began to ambulate unstably with a fall avoided, prompting staff to move him to the bed to ensure fall safety. Restraints were then applied as pt continued to attempt to stand and ambulate. Hospitalist team notified of interventions. Assessments performed, sitter at bedside. Care plan continued. * Kathie Redmond RN - 06/29/2025 6:22 PM CDT Pt confused and oriented only to himself throughout shift. Patient has been pacing the hallways with sitter most of the day. * Marysol Larios FNP - 06/29/2025 7:35 AM CDT VASCULAR & ENDOVASCULAR SURGERY [place], [place] PROGRESS NOTE HISTORY OF PRESENT ILLNESS: Go Adair is a 74 y.o. male who is POD 1 from left common femoral endarterectomy and stenting of the left proximal SFA. 24 HOUR EVENTS & SUBJECTIVE: Patient removed PIV and art line overnight. Confused this am. Got up and got dressed. Trying to remove IV again. Denies complaints. REVIEW OF SYSTEMS: A complete review of systems was obtained, & negative except for those mentioned in the HPI above VITAL SIGNS: BP (!) 162/85 Pulse 89 Temp 98.2 ??F (36.8 ??C) (Temporal) Resp 26 Ht 5' 9 (1.753 m) Wt 80 kg (176 lb 6.4 oz) SpO2 95% BMI 26.05 kg/m?? PHYSICAL EXAM: Constitutional: Well nourished, no signs of distress Neurologic: Alert & oriented to person HENT: Normocephalic and atraumatic. Cardiovascular: Normal rate, regular rhythm Pulmonary/Chest: No respiratory distress. Non-labored work of breathing Abdominal: Soft. No abdominal distension or tenderness. Musculoskeletal: Normal range of motion. Extremities: No edema or cyanosis Incision: L groin and thigh incisions intact with gabriel. Area is soft with some ecchymosis. Nursereports some oozing from lower incision overnight. L foot warm and well perfused. LABORATORY: I personally reviewed & assessed the most recent labs available for this patient ASSESSMENT & PLAN: Go Adair is POD 1 from left common femoral endarterectomy and stenting of the left proximalSFA. OOB with assist to chair and to ambuluate. PT eval today. Possible d/c home tomorrow pending PT recs. Signed: HAVEN Baez Vascular & Endovascular Surgery [facility] Cosigned by Lucian Mcdonnell MD at 06/30/2025 5:11 PM CDT * Tevin Vitale RN - 06/29/2025 6:19 AM CDT At the 0400 hour, pt found to be tampering with medical equipment, having removed a PIV from the L AC. Pt educated on necessity of equipment with mixed reception centre manager. Lines organizes and limited from patient reach. At 0600, pt found having removed his R arterial line. Direct pressure was held for 10 minutes and an occlusive gauze dressing with coban placed. No signs of oozing or ecchymosis. Will continue with post-op management and care plan. documented in this encounter H&P Notes * Lucian Mcdonnell MD - 06/28/2025 12:15 PM CDT Images from the original note were not included. Your life is our life???s work SECTION OF VASCULAR SURGERY & ENDOVASCULAR THERAPY [place], [place] CLINIC NOTE HISTORY & PHYSICAL PATIENT NAME: Go Adair : 1950; AGE: 74 y.o.; SEX: M PHONE NUMBER: ; (Work); ; SS#: [id number] PHYSICIAN: Lucian Mcdonnell MD PRIMARY CARE / REFERRING PHYSICIAN: No ref. provider found / Astrid Escobedo / [address] / [place] [address] / REASON FOR EVALUATION / CHIEF COMPLAINT: PAD with life-limiting claudication left lower extremity PLANNED INTERVENTION: Left femoral endarterectomy, possible profundoplasty, possible left SFA stent. Hybrid OR. General anesthesia HISTORY OF PRESENT ILLNESS: Patient is a 74-year-old male former smoker with multiple medical problems including diabetes, hypertension, hyperlipidemia, arthritis, COPD, coronary artery disease and previous percutaneous coronary artery intervention and stenting back in the , GERD, who is being referred for evaluation for pe ripheral vascular disease. He had a cutaneous abscess located at the gluteal region a few months ago from which he sought medical attention but at the same time he noticed that his left lower extremity became weaker and had pain with exertion. Over the last few months he has noticed that he has lost muscle mass at the left thigh and left leg and that he has developed severe claudicating pain withshort distance ambulation approximately 20 feet. He denies noticing any nonhealing ulcers. Patient takes aspirin and Brilinta. CT angiogram with runoff was done showing a complete occlusion of her left common femoral artery extending to the origin of the profunda and SFA. There is reconstitution of branches of the profunda as well as reconstitution of the mid SFA. The SFA and performed that have significant atheroscleroticdisease also noted. Iliac arteries and abdominal aorta appear to be widely patent. Right common femoral artery is widely patent. PAST SURGICAL HISTORY: The patient's has a past surgical history that includes ptca; coronary artery bypass graft; pr vitrectomy mchnl pars plna focal endolaser pc (Right, 02/15/2025); pr inj substitute pars plana/limbl w/wo aspir spx (Right, 02/15/2025); pr rmvl vitreous ant appr partial removal (Right, 05/03/2025); pr vitrectomy pars plana remove preretinal membrane (Right, 05/03/2025); pr inj substitute pars plana/limbl w/wo aspir spx (Right, 05/03/2025); pr cath plmt l hrt/arts/grfts wnjx & angio img s&i (N/A, 05/25/2025); and pr njx drg c-cathj supravalvular aortography s&i (N/A, 05/25/2025). PAST MEDICAL HISTORY: The patient has a past medical history of Back pain, Congenital anomaly of heart, COPD (chronic obstructive pulmonary disease), Coronary artery disease, CRI (chronic renal insufficiency), Diabetes mellitus, Difficult intravenous access, Essential hypertension, Eye injury, GERD (gastroesophageal reflux disease), Headache, Mixed hyperlipidemia, Obstructive sleep apnea, Peripheral vascular disease, Rheumatoid arthritis ([facility]), and Seizure disorder ([facility]). He has no past medical history of Blood clotting disorder, Calculus of kidney, Clostridium difficile enterocolitis, Congestive heart failure, Latex sensitivity, Malignant neoplasm ([facility]), Motion sickness, MRSA (methicillin resistant Staphylococcus aureus), Post-operative nausea and vomiting, Stroke ([facility]), Temporomandibular disorder, or VRE (vancomycin-resistant Enterococci). FAMILY HISTORY: The patient's family history includes Unknown in his father and mother. CURRENT MEDICATIONS: No current facility-administered medications on file prior to encounter. Current Outpatient Medications on File Prior to Encounter Medication Sig Dispense Refill diclofenac sodium (VOLTAREN) 75 mg Tablet, Delayed Release (E.C.) leflunomide (ARAVA) 20 mg Tablet brimonidine (ALPHAGAN) 0.2 % solution INSTILL 1 DROP IN RIGHT EYE TWO TIMES A DAY 10 mL 0 timoloL maleate (TIMOPTIC) 0.5% solution INSTILL 1 DROP IN RIGHT EYE TWO TIMES A DAY 10 mL 0 aspirin (ECOTRIN EC) 81 mg Tablet, Delayed Release (E.C.) Take 1 Tablet (81 mg) by mouth daily. 90 Tablet 3 methotrexate (RHEUMATREX) 2.5 mg Tablet Trelegy Ellipta 200-62.5-25 mcg Disk with Device losartan (COZAAR) 50 mg tablet isosorbide mononitrate (IMDUR) 30 mg Extended Release 24 hour tablet Take 30 mg by mouth daily water leak repairer. omeprazole (PriLOSEC) 20 mg Capsule, Delayed Release(E.C.) Take 20 mg by mouth daily. fluticasone propion-salmeteroL (ADVAIR HFA) 115-21 mcg/actuation HFA Aerosol Inhaler Take 2 Puffs by inhalation every 12 hours. 12 Gram 1 metFORMIN (GLUCOPHAGE) 1,000 mg tablet Take 1,000 mg by mouth 2 times daily with meals. tiotropium (SPIRIVA) 18 mcg capsule Take 18 mcg by inhalation daily. atorvastatin (LIPITOR) 80 mg tablet Take 80 mg by mouth Daily LATE. glipiZIDE (GLUCOTROL) 5 mg tablet Take 5 mg by mouth daily with breakfast. magnesium oxide (MAG-OX) 400 mg (241.3 mg magnesium) tablet Take 400 mg by mouth 2 times daily. losartan-hydroCHLOROthiazide (HYZAAR) 50-12.5 mg tablet Take 1 Tablet by mouth daily. vitamin E 400 unit capsule Take 400 Units by mouth daily. folic acid (FOLVITE) 1 mg tablet Take 1 mg by mouth daily. pvilyvij-hkagaskbg-msfDCROYsjakp (Maxitrol) 3.5mg/mL-10,000 unit/mL-0.1 % suspension Administer 1 Drop in right eye see administration instructions. QID x 7 days, TID x 7 days, BID x 7 days, q-day x 7 days, stop 5 mL 1 cephALEXin (KEFLEX) 500 mg capsule tiZANidine (ZANAFLEX) 4 mg Tablet valACYclovir (VALTREX) 1 gram tablet clindamycin HCL (CLEOCIN) 300 mg Capsule (Patient not taking: No sig reported) Mounjaro 2.5 mg/0.5 mL Pen Injector ticagrelor (BRILINTA) 90 mg Tablet Take by mouth. tamsulosin (FLOMAX) 0.4 mg capsule Take 0.4 mg by mouth daily. metoprolol succinate (TOPROL XL) 25 mg Extended Release 24 hour tablet Take 25 mg by mouth daily. raNITIdine (ZANTAC) 300 mg tablet Take 300 mg by mouth 2 times daily. (Patient not taking: No sig reported) HYDROcodone-acetaminophen (NORCO) 7.5-325 mg Tablet Take 1 Tablet by mouth every 6 hours as needed for Pain, Moderate. ipratropium-albuteroL (DUONEB) 0.5 mg-3 mg(2.5 mg base)/3 mL Solution for Nebulization Take 3 mL byinhalation every 4 hours as needed for Shortness of Breath. nitroglycerin (NITROSTAT) 0.4 mg Tablet, Sublingual Place 0.4 mg under tongue every 5 minutes as needed for Chest Pain. nystatin (MYCOSTATIN) 100,000 unit/gram Ointment Apply to affected area 4 times daily as needed. ALLERGIES: Allergies Allergen Reactions Apremilast Unknown Montelukast Other (See Comments) Rapid heart rate Sulfamethoxazole-Trimethoprim Unknown Theophylline Unknown Codeine Nausea and Vomiting Milk Abdominal Pain Simvastatin Rash Sulfa (Sulfonamide Antibiotics) Nausea and Vomiting Tramadol Nausea and Vomiting SOCIAL HISTORY: reports that he quit smoking about 28 years ago. His smoking use included cigarettes. His smokeless tobacco use includes chew. He reports that he does not drink alcohol and does not use drugs. REVIEW OF SYSTEMS: General: negative for - night sweats, sleep disturbance, weight gain or weight loss Respiratory: no cough, shortness of breath, wheezing, dyspnea, sputum production, or hemoptysis. Cardiovascular: no chest pain, orthopnea, heart murmur, or dyspnea on exertion Gastrointestinal: no abdominal pain, change in bowel habits, jaundice, constipation, or black or bloody stools VITAL SIGNS: BP (!) 137/90 (BP Location: Left arm, Patient Position (BP): Sitting) Pulse 80 Temp (!) 96.6 ??F (35.9 ??C) (Temporal) Resp 18 Ht 5' 9 (1.753 m) Wt 80 kg (176 lb 6.4 oz) SpO2 100% BMI 26.05 kg/m?? PHYSICAL EXAM: Constitutional: Following commands, no signs of distress, alert and oriented Neck: Supple, no adenopathy noted, no masses, no scars Cardiovascular: Normal rate, regular rhythm and normal heart sounds. Pulmonary/Chest: No respiratory distress. Non labored breathing. Abdominal: Soft. No abdominal distension or tenderness. No masses palpated. Extremities: No edema, cyanosis or clubbing. Mild muscle atrophy noted at the left thigh and left leg compared to the right side. Right DP pulses palpable. Unable to palpate DP or PT on the left side. The great capillary refill 3 seconds on the toes on the left. No necrosis. No ulcers. 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 There is also more extension of the atherosclerotic disease towards the SFA and profunda. He has life limiting claudication, 20 feet ambulation distance, and occasional pain at rest. The best option for this patientto help improve circulation is to revascularize with a femoral endarterectomy and patch repair withpossible profundoplasty and possible SFA stent. Patient has significant risk factors for wound healing issues such as previous cutaneous abscess inthe area of the pelvis posteriorly (gluteal region), as well as chronic use of disease modifying antirheumatic agents for arteritis such as methotrexate and diabetes. Patient also has risk factors for perioperative complications such as coronary artery disease and previous intervention. Patient and his son understand the findings and the risks mentioned above. He will be referred to cardiology for risk stratification and optimization and then we will schedule him for the left femoral endarterectomy and patch repair, possible profundoplasty and possible SFA stent. TOBACCO COUNSELING He is not a tobacco/nicotine user. Signed: Lucian Mcdonnell MD 06/28/2025 12:15 PM MD Lucian Lema MD Vascular Surgeon [address], [address] [facility]. [id number] (Office) documented in this encounter Procedure Notes * Sindhu Kitchen, SPORTS DEVELOPMENT OFFICER - 07/01/2025 2:49 PM CDT VASCULAR ACCESS TEAM Peripheral IV insertion PATIENT NAME: Go Adair DATE OF : 1950 [facility]: [id number] DATE: 07/01/2025 Room: [address] [place] [address] Admit Date: 06/28/2025 Hospital day: LOS: 3 days Allergies: Allergies Allergen Reactions Apremilast Unknown Montelukast Other (See Comments) Rapid heart rate Sulfamethoxazole-Trimethoprim Unknown Theophylline Unknown Codeine Nausea and Vomiting Milk Abdominal Pain Simvastatin Rash Sulfa (Sulfonamide Antibiotics) Nausea and Vomiting Tramadol Nausea and Vomiting PERIPHERAL IV INSERTION Ultrasound assessment was performed to assess adequacy of vascular anatomy Adequate vessel was located Insertion site cleansed for 30 seconds with Chlora-prep. Allowed to dry before initial needle stick. A 20 Gauge 2 Inch peripheral IV was successfully placed using ultrasound guidance in the right, lower Arm Secure port adhesive used Yes 1 attempts 20 minutes required to complete procedure Positive blood return noted Neutral pressure cap applied Catheter Flushed with 5ml of Normal Saline Transparent dressing applied with date, time and initials of cowoker inserting. LDA documentation is contained in EMR flowsheet Patient tolerated well. GAURI Turner * Jer Norman - 06/30/2025 2:45 PM CDT VASCULAR ACCESS TEAM Peripheral IV insertion PATIENT NAME: Go Adair DATE OF : 1950 CSN: [id number] DATE: 06/30/2025 Room: [address] [place] [address] Admit Date: 06/28/2025 Hospital day: LOS: 2 days Allergies: Allergies Allergen Reactions Apremilast Unknown Montelukast Other (See Comments) Rapid heart rate Sulfamethoxazole-Trimethoprim Unknown Theophylline Unknown Codeine Nausea and Vomiting Milk Abdominal Pain Simvastatin Rash Sulfa (Sulfonamide Antibiotics) Nausea and Vomiting Tramadol Nausea and Vomiting PERIPHERAL IV INSERTION Ultrasound assessment was performed to assess adequacy of vascular anatomy Adequate vessel was located Insertion site cleansed for 30 seconds with Chlora-prep. Allowed to dry before initial needle stick. A 20 Gauge 2 Inch peripheral IV was successfully placed using ultrasound guidance in the right, upper Arm Secure port adhesive used Yes 1 attempts 15 minutes required to complete procedure Positive blood return noted Neutral pressure cap applied Catheter Flushed with 5ml of Normal Saline Transparent dressing applied with date, time and initials of cowoker inserting. LDA documentation is contained in EMR flowsheet Patient tolerated well. Jer Norman * Jer Norman - 06/30/2025 2:01 PM CDT VASCULAR ACCESS TEAM Peripheral IV insertion Assessed PIV placed by primary RN; unable to visualize patency with ultrasound. RN requested if possible to obtain another PIV; RN placed additional PIV order. Jer Norman * Tresa Klein - 06/29/2025 2:16 PM CDT Pt very confused. RN will place new consult later today. documented in this encounter Consult Notes * Gabriel Arellano MD - 06/29/2025 3:29 PM CDT Images from the original note were not included. Your life is our life's work [facility]-Gabriel Arellano MD Consult- date: 06/29/25 Patient name: Go Adair Date of : 1950 CSN number: [id number] PCP: Astrid Escobedo DO Chief Complaint: No chief complaint on file. History of present illness: Pt seen and examined at the bedside Go Adair is a 74 y.o. male with PHM of diabetes, hypertension, hyperlipidemia, COPD, coronary disease with PCI and stenting in , GERD who presented to [facility] 06[facility]25 forevaluation for peripheral vascular disease. Patient had a cutaneous abscess located at the gluteal region and a few month ago for which he sought medical attention. At the same time patient noticed pain in his left lower extremity and associated weakness. Over the last few months he has noticed that he has lost muscle mass at the left thigh and left leg and has developed severe claudication with short distance ambulation about 20 feet. Jeana ent denies any nonhealing ulcers. Patient reports taking aspirin and Brilinta. CT angiogram with runoff was done showing a complete occlusion of his left common femoral artery extending to the origin of profunda and SFA. There is reconstitution of branches of the profunda as well as reconstitution of the mid SFA. The SFA and performed that have significant atherosclerotic disease also noted. Iliac arteries and abdominal aorta appear to be widely patent. Right common femoralartery is widely patent. Patient underwent left common femoral endarterectomy and a stenting of theleft proximal SFA on 06/28/2025 for severe PAD with life-limiting claudication of left lower extremity. His surgery was uncomplicated however today he remains confused. Unclear etiology-possible hospitaldelirium. He had tried to leave AMA however was placed on clinical hold due to lack of capacity. Internal medicine team was consulted for evaluation and management of confusion. Patient was standing at the nursing station during my visit. I requested him to go inside his room which he agreed. Patient denies any fever, chills, headache, chest pain, cough, pain abdomen, nausea, vomiting, diarrhea or urinary symptoms. Patient reports quitting alcohol long time ago. Patient denies illicit drug use. Patient denies any recent sick contact. Patient is oriented to self, not to place, person or time. Past medical history: Past Medical History: Diagnosis Date Back pain Congenital anomaly of heart COPD (chronic obstructive pulmonary disease) Coronary artery disease CRI (chronic renal insufficiency) Diabetes mellitus Difficult intravenous access Essential hypertension Eye injury diminished peripheral vision right eye GERD (gastroesophageal reflux disease) Headache Mixed hyperlipidemia Obstructive sleep apnea Peripheral vascular disease Rheumatoid arthritis (CMS/HCC) Seizure disorder ([facility]) epilepsy Active chronic medical issues that patient has been followed for as outpatient: Patient Active Problem List Diagnosis Code COPD (chronic obstructive pulmonary disease) J44.9 CAD (coronary atherosclerotic disease) I25.10 COPD with exacerbation J44.1 Type 2 diabetes mellitus without complication E11.[address] R91.8 Macula-off rhegmatogenous retinal detachment, right H33.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 Other forms of angina pectoris I20.89 Shortness of breath R06.02 Abnormal stress test R94.39 Peripheral vascular disease, unspecified I73.9 Atherosclerosis of [place] arteries of extremities with intermittent claudication, left leg I70.212 Past surgical history: Past Surgical History: Procedure Laterality Date HX CORONARY ARTERY BYPASS GRAFT HX [facility] [place] CATH PLMT L HRT/ARTS/GRFTS WNJX & ANGIO IMG S&I N/A 05/25/2025 Left heart cath with grafts performed by Bonnie Lizama MD at [facility] [place] INJ SUBSTITUTE PARS PLANA/LIMBL W/WO ASPIR SPX Right 02/15/2025 EYE AIR FLUID GAS EXCHANGE performed by Bright Tenorio MD at [facility] [place] INJ SUBSTITUTE PARS PLANA/LIMBL W/WO ASPIR SPX Right 05/03/2025 EYE AIR FLUID GAS EXCHANGE performed by Bright Tenorio MD at [facility] [place] NJX DRG C-CATHJ SUPRAVALVULAR AORTOGRAPHY S&I N/A 05/25/2025 Supravalvular aortography performed by Bonnie Lizama MD at [facility] [place] RMVL VITREOUS ANT APPR PARTIAL REMOVAL Right 05/03/2025 EYE PARS PLANA VITRECTOMY performed by Bright Tenorio MD at [facility] [place] VITRECTOMY [facility] PARS PLNA FOCAL ENDOLASER PC Right 02/15/2025 PARS PLANA VITRECTOMY WITH LASER performed by Bright Tenorio MD at [facility] [place] VITRECTOMY PARS PLANA REMOVE PRERETINAL MEMBRANE Right 05/03/2025 EYE MEMBRANE PEEL performed by Bright Tenorio MD at [facility] Current medications: Prior to Admission Medications Prescriptions Last Dose Informant Patient Reported? Taking? HYDROcodone-acetaminophen (NORCO) 7.5-325 mg Tablet No No Sig: Take 1 Tablet by mouth every 6 hours as needed for Pain, Moderate. Mounjaro 2.5 mg/0.5 mL Pen Injector Yes No Trelegy Ellipta 200-62.5-25 mcg Disk with Device Yes Yes aspirin (ECOTRIN EC) 81 mg Tablet, Delayed Release (E.C.) No Yes Sig: Take 1 Tablet (81 mg) by mouth daily. atorvastatin (LIPITOR) 80 mg tablet 06/27/2025 No Yes Sig: Take 80 mg by mouth Daily LATE. brimonidine (ALPHAGAN) 0.2 % solution No Yes Sig: INSTILL 1 DROP IN RIGHT EYE TWO TIMES A DAY cephALEXin (KEFLEX) 500 mg capsule Yes No clindamycin HCL (CLEOCIN) 300 mg Capsule Yes No Patient not taking: No sig reported diclofenac sodium (VOLTAREN) 75 mg Tablet, Delayed Release (E.C.) Yes Yes fluticasone propion-salmeteroL (ADVAIR HFA) 115-21 mcg/actuation HFA Aerosol Inhaler No Yes Sig: Take 2 Puffs by inhalation every 12 hours. folic acid (FOLVITE) 1 mg tablet 06/27/2025 No Yes Sig: Take 1 mg by mouth daily. glipiZIDE (GLUCOTROL) 5 mg tablet No Yes Sig: Take 5 mg by mouth daily with breakfast. ipratropium-albuteroL (DUONEB) 0.5 mg-3 mg(2.5 mg base)/3 mL Solution for Nebulization No No Sig: Take 3 mL by inhalation every 4 hours as needed for Shortness of Breath. isosorbide mononitrate (IMDUR) 30 mg Extended Release 24 hour tablet Yes Yes Sig: Take 30 mg by mouth daily water leak repairer. leflunomide (ARAVA) 20 mg Tablet 06/27/2025 Yes Yes losartan (COZAAR) 50 mg tablet 06/27/2025 Yes Yes losartan-hydroCHLOROthiazide (HYZAAR) 50-12.5 mg tablet 06/27/2025 No Yes Sig: Take 1 Tablet by mouth daily. magnesium oxide (MAG-OX) 400 mg (241.3 mg magnesium) tablet 06/27/2025 No Yes Sig: Take 400 mg by mouth 2 times daily. metFORMIN (GLUCOPHAGE) 1,000 mg tablet 06/27/2025 No Yes Sig: Take 1,000 mg by mouth 2 times daily with meals. methotrexate (RHEUMATREX) 2.5 mg Tablet Yes Yes metoprolol succinate (TOPROL XL) 25 mg Extended Release 24 hour tablet Yes No Sig: Take 25 mg by mouth daily. xeepfmqd-dddwimerj-njvPAXRVazqec (Maxitrol) 3.5mg/mL-10,000 unit/mL-0.1 % suspension No No Sig: Administer 1 Drop in right eye see administration instructions. QID x 7 days, TID x 7 days, BID x 7 days, q-day x 7 days, stop nitroglycerin (NITROSTAT) 0.4 mg Tablet, Sublingual No No Sig: Place 0.4 mg under tongue every 5 minutes as needed for Chest Pain. nystatin (MYCOSTATIN) 100,000 unit/gram Ointment No No Sig: Apply to affected area 4 times daily as needed. omeprazole (PriLOSEC) 20 mg Capsule, Delayed Release(E.C.) 06/27/2025 Yes Yes Sig: Take 20 mg by mouth daily. raNITIdine (ZANTAC) 300 mg tablet No No Sig: Take 300 mg by mouth 2 times daily. Patient not taking: No sig reported tamsulosin (FLOMAX) 0.4 mg capsule Yes No Sig: Take 0.4 mg by mouth daily. tiZANidine (ZANAFLEX) 4 mg Tablet Yes No ticagrelor (BRILINTA) 90 mg Tablet Yes No Sig: Take by mouth. timoloL maleate (TIMOPTIC) 0.5% solution No Yes Sig: INSTILL 1 DROP IN RIGHT EYE TWO TIMES A DAY tiotropium (SPIRIVA) 18 mcg capsule 06/27/2025 No Yes Sig: Take 18 mcg by inhalation daily. valACYclovir (VALTREX) 1 gram tablet Yes No vitamin E 400 unit capsule 06/27/2025 No Yes Sig: Take 400 Units by mouth daily. Facility-Administered Medications: None Allergies and intolerances: Allergies Allergen Reactions Apremilast Unknown Montelukast Other (See Comments) Rapid heart rate Sulfamethoxazole-Trimethoprim Unknown Theophylline Unknown Codeine Nausea and Vomiting Milk Abdominal Pain Simvastatin Rash Sulfa (Sulfonamide Antibiotics) Nausea and Vomiting Tramadol Nausea and Vomiting Social history: Social History Socioeconomic History Marital status: Spouse name: Not on file Number of children: Not on file Years of education: Not on file Highest education level: Not on file Occupational History Not on file Tobacco Use Smoking status: Former Current packs/day: 0.00 Types: Cigarettes Quit date: 09/07/1996 Years since quittin.8 Smokeless tobacco: Current Types: Chew Vaping Use Vaping status: Never Used Substance and Sexual Activity Alcohol use: No Drug use: No Sexual activity: Not on file Other Topics Concern Not on file Social History Narrative Not on file Health-Related Social Needs Food Insecurity: Not on file (06/23/2025) Transportation Needs: No Transportation Needs (06/23/2025) Transportation Needs Patient needs follow up regarding:: 1 Domestic Concerns: Not At Risk (06/28/2025) Feeling Safe Patient has indicated abuse: : No Housing Stability: Not on file Family History: Family History Problem Relation Name Age of Onset Unknown Father Unknown Mother ROS: Review of Systems Constitutional: Negative for chills and fever. HENT: Negative for sore throat. Eyes: Negative for blurred vision and photophobia. Respiratory: Negative for cough, hemoptysis and shortness of breath. Cardiovascular: Negative for chest pain, palpitations and leg swelling. Gastrointestinal: Negative for abdominal pain, blood in stool, constipation, diarrhea, melena, nausea and vomiting. Genitourinary: Negative for dysuria, frequency, hematuria and urgency. Musculoskeletal: Positive for neck pain. Negative for back pain and joint pain. Skin: Negative for rash. Neurological: Negative for dizziness, sensory change, speech change, focal weakness, loss of consciousness, weakness and headaches. Psychiatric/Behavioral: Negative for suicidal ideas. OBJECTIVE: Temp (24hrs), Av.4 ??F (36.3 ??C), Min:96.8 ??F (36 ??C), Max:98.2 ??F (36.8 ??C) BP 128/56 Pulse 95 Temp 96.9 ??F (36.1 ??C) (Temporal) Resp 26 Ht 5' 9 (1.753 m) Wt 80 kg (176 lb 6.4 oz) SpO2 92% BMI 26.05 kg/m?? Intake/Output Summary (Last 24 hours) at 06/29/2025 1529 Last data filed at 06/29/2025 0800 Gross per 24 hour Intake 1540 ml Output 1475 ml Net 65 ml Last documented weight: Weight: 80 kg (176 lb 6.4 oz) (06/28/25 1006) EXAM: Physical examination: General: Alert, and awake, not in acute distress Neurologic: Alert and pleasantly confused, following simple commands, neuro exam grossly normal. Negative Kernig and Brudzinski sign. HEENT: Normocephalic, atraumatic Lungs: Clear to auscultation bilaterally, normal respiratory effort, no wheezing Heart: Normal rate, regular rhythm, normal S1-S2, no murmur Abdomen: Soft, non-tender. Bowel sounds normal. Extremities: intact distal pulses, no edema Skin: Warm and dry Lab Data: Recent Labs 06/28/25 1101 WBC 6.2 HGB 12.4* HCT 38.1* PLT 221 Recent Labs 06/28/25 1101 06/29/25 0202 NA 132* 132* K 4.0 4.3 CL 94* 96* CO2 24 25 CA 9.2 8.4* BUN 9 9 CREAT 0.86 0.89 GLUCOSE 181* 149* No results for input(s): TOTALPROTEIN , ALBUMIN , BILITOTAL , ALKPHOS , AST , ALT in the last 72 hours. Recent Labs 06/28/25 1101 INR 1.0 PT 13.4 No results for input(s): CPK , CKMB , TROPONIN in the last 72 hours. EKG: N/A CXR: N/A Imaging Results None Primary diagnosis: Atherosclerosis of [place] arteries of extremities with intermittent claudication, left leg Other active medical issues Active Hospital Problems Diagnosis Atherosclerosis of [place] arteries of extremities with intermittent claudication, left leg Peripheral vascular disease, unspecified Resolved Hospital Problems No resolved problems to display. ASSESSMENT AND PLAN: 74 y.o. male with PHM of diabetes, hypertension, hyperlipidemia, COPD, coronary disease with PCI and stenting in , GERD who presented to [facility] for evaluation for peripheral vascular disease. Status post left common femoral endarterectomy and a stenting of the left proximal SFA on 06/28/2025 for severe PAD with life-limiting claudication of left lower extremity. Interval medicine team consulted for postoperative persistent confusion. Acute Encephalopathy: Altered mental status/confusion: Patient developed postop persistent confusion. Denies fever, headache, photophobia, neck stiffness.Denies chronic alcohol abuse. Negative Kernig's and Brudzinski sign on exam. Unable to perform neuro exam due to patient mental acuity. - Normal white cell count, mild natremia, afebrile on exam. - Will order CT head to rule out acute bleed or mass. - Will check urinalysis to rule out UTI. - Will check serum alcohol and urine tox screen - Will check TSH/FT4, vitamin B12, folate, ammonia -Will do ABG to rule out hypoxemia and hypercapnia as a cause - Unclear etiology at this time; could be multifactorial; underlying dementia, hyponatremia, post-anesthesia, polypharmacy, hospital delirium among others. - Ordered IV thiamine 100 mg once - Delirium precaution - Fall precaution - Telemetry Hyponatremia: Sodium 132 at presentation. - Appears hypo to euvolemic. - Will check urine sodium, urine osmolarity - Will start on IVF NS 75 mL/h for maintenance - Monitor sodium on morning labs Coronary artery disease: Status post PCI/CABG (unknown arteries however over 15 to 20 years ago per patient) Left heart cath on 06/04/25: Prox RCA to Mid RCA lesion is 25% stenosed. Ost LAD to Prox LAD lesion is 95% stenosed. Prox LAD lesion is 100% stenosed. Continue maximally tolerated GDMT; aspirin, atorvastatin, Imdur Type 2 Diabetes: - Last A1C: 6.9 on 12/18/2015 -Will check A1c - POC glucose before meals and at bedtime - Low dose correctional Sliding scale insulin - Will titrate insulin regimen based on response - Hypoglycemia precautions - Hold oral hypoglycemic while inpatient Hypertension: Continue losartan 50 mg daily Hyperlipidemia: Continue Lipitor 80 mg nightly COPD: Continue INCURSE Ellipta 1 puff daily, DuoNeb every 6 hours as needed Supplemental oxygen to keep saturation above 88 to 92% GERD: Takes omeprazole 20 Mg daily at home. Continue with Protonix 40 mg daily while in the hospital. Glaucoma right eye: Continue timolol 1 drop right eye twice daily Continue brimonidine 1 drop right eye twice daily BPH: Continue tamsulosin 0.4 mg daily Current diet : DIET DIABETIC Code status and goals of care will be discussed with the patient, and code status was updated in the chart. Code Status: Full Code Ambulatory status: Independent DVT prophylaxis: Heparin Admission status; inpatient This patient is admitted as inpatient. I have a reasonable expectation that this patient requires hospital care that crosses 2 midnights supported by complex medical factors documented in the medicalrecord. On the day of the visit, I spent 50 minutes providing care to this patient including Preparing to see the patient, Obtaining and/or reviewing separately obtained history, Performing a medically appropriate examination and/or evaluation, Counseling and educating the patient/family/caregiver, Ordering medications, tests or procedures, Documenting clinical information in the medical record, Referring and communication with other health childbirth and infant care teacher (not separately reported), Independently interpreting results and communicating results to the patient/family/caregiver (not separately reported), Care coordination (not separately reported), and Excluding time spent performing separately billed procedures and/or services. This documentation was written in part with the use of Tuee speech to text software. Effort has been done to assure accuracy of child daycare worker. Any errors in spelling, syntax, or meaningshould be interpreted in the context of the broader note. Any obvious errors or omissions should beclarified with the author of the document. Gabriel Arellano MD 06/29/2025 3:29 PM documented in this encounter OR Notes * Operative Report - Lucian Mcdonnell MD - 06/28/2025 5:41 PM CDT Images from the original note were not included. Your life is our life???s work [facility] [place], [place] PATIENT NAME: Go Adair : 1950; AGE: 74 y.o.; SEX: M PHONE NUMBER: ; (Work); ; SS#: [id number] PHYSICIAN: Lucian Mcdonnell MD PRIMARY CARE / REFERRING PHYSICIAN: No ref. 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 Direct acces to the left common femoral artery for placement of 6F sheath and leg angiogram Left lower extremity angiogram. Revascularization-angioplasty and stenting of the left proximal SFA with 6 mm [place] Viabahn stent and 5 mm balloon. Above procedures include corresponding radiologic supervision and interpretation of images Surgeon(s) and Role: Lucian Mcdonnell MD Assistants: None Anesthesia/Sedation: General Specimens: None Estimated Blood Loss: 300 mL Blood Administered: None Grafts or Implants: Bovine pericardial patch, [place] Viabahn stent 6 mm x 50 millimeters Complications: None Condition: Stable Procedure Details: Radiation dose: mGy Fluoroscopy time: Contrast: Heparin administered serially IV to maintain ACT >250; not reversed Findings: Relatively long common femoral artery with extensive atherosclerotic plaque with almost complete occlusion extending past the femoral bifurcation into the SFA and origin of the profunda. There is diffuse calcification of the wall of the lower extremity arteries. After endarterectomy there was stillsome remaining atherosclerotic plaque with stenosis at the proximal left SFA just distal to the endarterectomy endpoint that was noted on angiogram with distal runoff. Angioplasty and stenting of this was done with excellent result. Small tibial vessels but at least 2-3 vessel runoff was noted. 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 There is also more extension of the atherosclerotic disease towards the SFA and profunda. He has life limiting claudication, 20 feet ambulation distance, and occasional pain at rest. The best option for this patientto help improve circulation is to revascularize with a femoral endarterectomy and patch repair withpossible profundoplasty and possible SFA stent. We discussed risk versus benefit of the procedure, he expressed understanding was in agreement. Procedure in detail: Patient was taken to the operating room and placed on the operating table in the supine position. Aphysician led timeout was then done. Procedure was done under general anesthesia. Lower abdomen, bilateral groins were prepped and the patient draped in the usual sterile fashion. An oblique incision was done at the left groin using a skin scalpel. Dissection was continued usingelectrocautery where we identified and isolated the common femoral artery, profunda femoral artery,and superficial femoral artery. His left common femoral artery was significantly long and there wasextensive atherosclerotic plaque throughout all the way into the SFA. I could not have adequate distal control through the oblique incision for which I decided to make an additional counterincision 3cm below the groin incision at the thigh in a longitudinal fashion with #10 blade and then deepenedwith Bovie cautery. Tissue was mobilized until identifying the femoral neurovascular bundle in the SFA that was encircled and Vesseloops placed for vascular control. Systemic heparin was next given intravenously and redosed appropriately. At the groin, vascular clamps were placed proximally and distally and the common femoral artery opened by doing an arteriotomywith a #11 blade and then extending this proximally and distally using a Dougherty scissor. Endarterectomy was then done of the entire common femoral artery extending from the distal externaliliac artery to the SFA and profunda femoris, , being able to obtain adequate proximal endpoint of the endarterectomy but distally still some leftover atherosclerotic plaque that we will plan to takecare of endovascularly after patch repair. Bovine pericardial patch repair was then done using 5-0 P rolene stitches. Prior to completion of the anastomosis we allow forward and backward bleeding as well as flushing with heparinized saline. We then evaluated for hemostasis of the patch repair, and any bleeders were repaired with 6-0 and 5-0 Prolene stitches. We then directly accessed the left BINDER OPERATOR through the patch using micro puncture kit and then a 6F sheath placed in antegrade fashion towards the SFA. Angiogram via the sheath done with above findings. Then using an 035 Glidewire advantage and catheter we crossed the left SFA lesion and exchanged to an 018 wire. Then we placed a [place] Viabahn stent 6 mm x 50 mm at the proximal left SFA followed by post stenting balloon dilation with a 5 mm balloon. A completion angiogram was then done demonstratingexcellent result and no evidence of distal embolization. After removing all catheters and wires, emiliano removed the sheath and the arteriotomy at the patch was closed with 5-0 Prolene stitches. At this juncture we irrigated our surgical sites and assess for hemostasis. Adequate hemostasis wasnoted. Surgicel was left at the wound beds. We then closed the incisions in layers using 2-0 Vicryls and 3-0 Vicryl, and the skin closed with gabriel. After this the incision was dressed, the patientwas extubated and transferred to the recovery unit in stable condition. The patient tolerated the procedure well and suffered no complications. I was present throughout the entire procedure. TREATMENT DISPOSITION - Plan: Bedrest laying flat for 4 hours. Continue Plavix. Neurovascular checks. Watch for bleeding. Will get out of the bed tomorrow. Expected hospital stay 2 to 3 days. I was scrubbed and present for the entire case and performed all aspects of the procedure. Signed: Lucian Mcdonnell MD, 06/28/2025 5:41 PM Lucian Mcdonnell MD Vascular Surgeon [address], [address] [facility]. [id number] (Office) documented in this encounter Miscellaneous Notes * Query - Gabriel Arellano MD - 07/04/2025 8:22 PM CDT Question: Clarify the type/cause of encephalopathy: Encephalopathy type/cause: Toxic Encephalopathy: Likely post operative delirium from anesthesia * Care Plan - Tresa Hudson RN - 07/03/2025 6:24 AM CDT Shift Summary Severe back pain was reported and managed with PRN HYDROcodone-acetaminophen, resulting in improvedcomfort and ability to rest. albuterol sulfate was administered once and then refused later in the shift. No changes were noted in wound status or peripheral IV function, and all remained within defined limits or baseline. Cognitive and neuro assessments remained consistent with baseline, with no acute changes or delirium observed; supportive interventions were provided. Overall, the shift was stable with pain managed, no falls or injuries, and no significant changes in infection or neurovascular status. Infection Risk/Actual: Infection prevention, control, or resolution by discharge: No new or worsening findings related to infection risk; surgical wounds on left anterior greater trochanter and left groin remained within defined limits, and right anterior lower arm wound status unchanged. Safety/Fall: Absence of fall, injury, harm during hospitalization: No falls or injuries occurred during the shift, and safety checks were completed as scheduled; fall risk status remained unchanged. * Care Plan - Oksana Sanderson RN - 07/01/2025 4:50 PM CDT Shift Summary Patient off wrist restraints for approximately 8 hours, then became combative and pulling off leadsand he removed IV. Restraints restarted. Pain management interventions led to comfort and pain was denied during all subsequent assessments. Wound assessments remained stable, with no new concerns documented and hygiene care was completed with [facility]. Safety checks and high fall risk interventions were consistently performed, including use of chair alarm and armbands. Discharge planning progressed with updated recommendations from PT and OT, and therapy plans of care were reviewed. Peripheral neurovascular function was maintained at baseline with weak pulses and stable extremity color throughout the shift. Verbalizes/displays acceptable comfort level or baseline comfort level: Pain in the left leg was described as aching and constant with increased discomfort on movement, but rest and positioning interventions led to a content and relaxed state; throughout the shift, pain was consistently denied during assessments. Infection Risk/Actual: Infection prevention, control, or resolution by discharge: Wounds on the left anterior greater trochanter and right anterior lower arm remained within defined limits, while theleft groin surgical wound was not fully visualized but periwound area remained ecchymotic; temperature remained stable and hygiene care was performed with [facility]. Safety/Fall: Absence of fall, injury, harm during hospitalization: High fall risk interventions andsafety checks were completed throughout the shift, and no injuries or falls were documented; armbands and chair alarm were in place as additional precautions. Identify discharge needs upon admission and through discharge: Physical therapy recommended discharge home with assistance and no new DME, while occupational therapy recommended senior living facility and DME to be determined; therapy plans of care were reviewed and updated during the shift. Achieve optimal peripheral neurovascular function by discharge or maintain baseline function: Peripheral neurovascular assessments showed weak dorsalis pedis pulses bilaterally and decreased peripheral sensation, but extremity color remained pink and weight-bearing was tolerated; neurovascular status remained unchanged throughout the shift. * Care Plan - Bonita Camp RN - 06/30/2025 6:01 PM CDT Shift Summary Multiple antipsychotic medications were administered throughout the shift in response to agitation and confusion. Behavioral status improved from agitation and confusion in the morning to calmness in the afternoonand evening. Peripheral neurovascular and musculoskeletal function remained at baseline with no significant changes. Skin integrity and wound status were stable, with no new concerns documented. Overall, the shift was marked by fluctuating cognitive status and successful prevention of harm or injury while in restraints. Achieve optimal peripheral neurovascular function by discharge or maintain baseline function: Peripheral neurovascular status remained consistent with baseline throughout the shift, with weak dorsalis pedis pulse on the right and capillary refill equal to or less than 3 seconds; no significant changes were noted in assessments. Achieve optimal musculoskeletal function by discharge or maintain baseline function: Left ankle dorsiflexion remained moderate and weight-bearing was tolerated; activity was mostly in bed with brief dangling at bedside, and musculoskeletal interventions focused on promoting mobility and independence in ADLs. Maintain skin integrity and/or promote wound healing by discharge: Skin integrity was maintained with no additional skin assessments noted, and the left anterior greater trochanter surgical wound remained within defined limits while the left groin surgical wound was not fully visualized but showed no new concerns. Achieve optimal cognitive/perceptual/neurological function by discharge or maintain baseline function: Cognitive and behavioral status fluctuated, with periods of agitation, confusion, and hallucination in the morning and early afternoon, followed by calmness later in the shift; altered level of con sciousness was consistently positive on assessments and required repeated stimulation for responsiveness in the afternoon. Absence of Harm/Injury While in Restraints: No signs of injury were documented during restraint monitoring, and range of motion, fluids, and elimination were regularly offered as part of care. * Care Plan - Sonia Combs RN - 06/30/2025 1:07 PM CDT Problem: Discharge Planning Goal: Identify discharge needs upon admission and through discharge Description: Outcome: Progressing Pt currently yelling at staff, unable to have meaningful conversation regarding DC planning at thistime. * Care Plan - Sonia Combs RN - 06/29/2025 12:07 PM CDT Problem: Discharge Planning Goal: Identify discharge needs upon admission and through discharge Description: Outcome: Progressing Quality Improvement Coordinator Discharge Planning It is unclear to me at this time what the pt may need at dc. He is belligerent at this time and up walking around, he refuses to sit down despite being educated that it would be safest for him. He told me he had a epileptic seizure but can't remember anything else. He also keeps walking around on the other side of the curtain where his room mate is located. Pt unable to be re directed, he went back to his side on his own recognizance, nursing staff notified of pts behavior. Will continue to follow along for pts safety. Expected Discharge Date Jun 29, 2025 Plan Discharge To: Home with family assist (06/29/251206) Plan Discharge To - Alternate: Home or Self Care (06/29/251206) Family/Caregiver Assist Does the patient have family and/or a caregiver that is willing, able and available to assist if needed?: Yes (06/29/251206) Name and Relation: Kirk, son (06/29/251206) Referrals Status: Follow-up on Referrals Sent: No (06/29/251206) Preferred Pharmacy: [facility] [address] Patient / Family Communications: Patient/Family Communications: Plan Discharge To Update (06/29/251206) Resources Provided Transportation Plan: Has discharge transport been arranged?: No (06/29/251206) Follow Up Appointments Scheduled Sonia Combs RN * Care Plan - Doyle Frey NURSING PROGRAM MANAGER - 06/29/2025 2:14 AM CDT Images from the original note were not included. Respiratory Patient Care Assessment S- Patient states shortness of breath and requesting to use his Albuterol MDI. Patient would like nebulizer treatments PRN. Iván Adair is a 74 y.o. male admitted for Peripheral vascular disease, unspecified [I73.9]on 06/28/2025 9:36 AM. Social History Tobacco Use Smoking status: Former Current packs/day: 0.00 Types: Cigarettes Quit date: 09/07/1996 Years since quittin.8 Smokeless tobacco: Current Types: Chew Vaping Use Vaping status: Never Used Substance Use Topics Alcohol use: No Drug use: No Prior to Admission medications Medication Sig Start Date End Date Taking? Authorizing Provider diclofenac sodium (VOLTAREN) 75 mg Tablet, Delayed Release (E.C.) 05/09/25 Yes Provider, Historical leflunomide (ARAVA) 20 mg Tablet 05/09/25 Yes Provider, Historical brimonidine (ALPHAGAN) 0.2 % solution INSTILL 1 DROP IN RIGHT EYE TWO TIMES A DAY 05/30/25 Yes Bright Tenorio MD timoloL maleate (TIMOPTIC) 0.5% solution INSTILL 1 DROP IN RIGHT EYE TWO TIMES A DAY 05/30/25 Yes Bright Tenorio MD aspirin (ECOTRIN EC) 81 mg Tablet, Delayed Release (E.C.) Take 1 Tablet (81 mg) by mouth daily. 05/25/25 Yes Bonnie Lizama MD methotrexate (RHEUMATREX) 2.5 mg Tablet 01/05/25 Yes Provider, Historical Trelegy Ellipta 200-62.5-25 mcg Disk with Device 02/23/25 Yes Provider, Historical losartan (COZAAR) 50 mg tablet 02/24/25 Yes Provider, Historical isosorbide mononitrate (IMDUR) 30 mg Extended Release 24 hour tablet Take 30 mg by mouth daily water leak repairer. 12/21/17 Yes Provider, Historical omeprazole (PriLOSEC) 20 mg Capsule, Delayed Release(E.C.) Take 20 mg by mouth daily. 12/21/17 Yes Provider, Historical fluticasone propion-salmeteroL (ADVAIR HFA) 115-21 mcg/actuation HFA Aerosol Inhaler Take 2 Puffs by inhalation every 12 hours. 12/20/15 Yes Rachael Maria MD metFORMIN (GLUCOPHAGE) 1,000 mg tablet Take 1,000 mg by mouth 2 times daily with meals. 12/17/15 YesProvider, Historical tiotropium (SPIRIVA) 18 mcg capsule Take 18 mcg by inhalation daily. 12/17/15 Yes Provider, Historical atorvastatin (LIPITOR) 80 mg tablet Take 80 mg by mouth Daily LATE. 12/17/15 Yes Provider, Historical glipiZIDE (GLUCOTROL) 5 mg tablet Take 5 mg by mouth daily with breakfast. 12/17/15 Yes Provider, Historical magnesium oxide (MAG-OX) 400 mg (241.3 mg magnesium) tablet Take 400 mg by mouth 2 times daily. 12/17/15 Yes Provider, Historical losartan-hydroCHLOROthiazide (HYZAAR) 50-12.5 mg tablet Take 1 Tablet by mouth daily. 12/17/15 Yes Provider, Historical vitamin E 400 unit capsule Take 400 Units by mouth daily. 12/17/15 Yes Provider, Historical folic acid (FOLVITE) 1 mg tablet Take 1 mg by mouth daily. 12/17/15 Yes Provider, Historical bomnfqny-loxkizopx-rviMQKUUpsiod (Maxitrol) 3.5mg/mL-10,000 unit/mL-0.1 % suspension Administer 1 Drop in right eye see administration instructions. QID x 7 days, TID x 7 days, BID x 7 days, q-day x 7 days, stop 05/03/25 Bright Tenorio MD cephALEXin (KEFLEX) 500 mg capsule 03/15/25 Provider, Historical tiZANidine (ZANAFLEX) 4 mg Tablet 04/25/25 Provider, Historical valACYclovir (VALTREX) 1 gram tablet 03/15/25 Provider, Historical clindamycin HCL (CLEOCIN) 300 mg Capsule 01/18/25 Provider, Historical Mounjaro 2.5 mg/0.5 mL Pen Injector 01/31/25 Provider, Historical ticagrelor (BRILINTA) 90 mg Tablet Take by mouth. 12/21/17 Provider, Historical tamsulosin (FLOMAX) 0.4 mg capsule Take 0.4 mg by mouth daily. 12/21/17 Provider, Historical metoprolol succinate (TOPROL XL) 25 mg Extended Release 24 hour tablet Take 25 mg by mouth daily. 12/21/17 Provider, Historical raNITIdine (ZANTAC) 300 mg tablet Take 300 mg by mouth 2 times daily. Patient not taking: No sig reported 12/17/15 Provider, Historical HYDROcodone-acetaminophen (NORCO) 7.5-325 mg Tablet Take 1 Tablet by mouth every 6 hours as needed for Pain, Moderate. 12/17/15 Provider, Historical ipratropium-albuteroL (DUONEB) 0.5 mg-3 mg(2.5 mg base)/3 mL Solution for Nebulization Take 3 mL byinhalation every 4 hours as needed for Shortness of Breath. 12/17/15 Provider, Historical nitroglycerin (NITROSTAT) 0.4 mg Tablet, Sublingual Place 0.4 mg under tongue every 5 minutes as needed for Chest Pain. 12/17/15 Provider, Historical nystatin (MYCOSTATIN) 100,000 unit/gram Ointment Apply to affected area 4 times daily as needed. 12/17/15 Provider, Historical Lab Results Component Value Date/Time WBC 6.2 06/28/2025 11:01 AM HGB 12.4 (L) 06/28/2025 11:01 AM HCT 38.1 (L) 06/28/2025 11:01 AM PLT 221 06/28/2025 11:01 AM MCV 78.1 (L) 06/28/2025 11:01 AM Lab Results Component Value Date/Time NA 132 (L) 06/28/2025 11:01 AM K 4.0 06/28/2025 11:01 AM CL 94 (L) 06/28/2025 11:01 AM CO2 24 06/28/2025 11:01 AM CA 9.2 06/28/2025 11:01 AM BUN 9 06/28/2025 11:01 AM CREAT 0.86 06/28/2025 11:01 AM GLUCOSE 181 (H) 06/28/2025 11:01 AM ANIONGAP 14 06/28/2025 11:01 AM Lab Results Component Value Date/Time TROPONIN <0.02 12/17/2015 10:09 AM Breath sounds reveal clear and diminished throughout. Last chest x-ray reveals Findings: There is questionable mild retrocardiac opacity which is nonspecific. There is a calcified granuloma in the left upper lung. No pleural effusion or pneumothorax. Mediastinal contours are unremarkable. There has been prior sternotomy. A- Treat bronchospasms. P- Patient educated on purpose and technique of therapy. Based on above, patient will be placed on an Albuterol MDI 2 puffs Q6 and Duoneb PRN. Will reassess patient status PRN. Doyle Frey RCP * Care Plan - Leslie Morrow MSW - 06/28/2025 11:30 AM CDT Clinical documentation reviewed. Comprehensive Discharge Planning Risk Assessment was completed. Documentation Related to CDPA score CDPA Documentation Ambulation: assistive equipment Transferring: independent Toileting: independent Bathing: independent Dressing: independent Eating: independent Communication: understands/communicates w/o difficulty Weight-Bearing Status: no weight-bearing restrictions Living Arrangements: Lives with family member(s) Total Score of 9 or below does not identify immediate needs for discharge. CDPA Risk Score Total Score: 6 6 Age Criteria that do not apply: Self-reported walking limitation Disability Prior Living Status Please place consult if needs for discharge are identified. Care Management will continue to follow for discharge planning. documented in this encounter Plan of Treatment Upcoming Encounters Date Type Department Care Team (Late st Contact Info) Description 07/25/2025 2:30 PM CERTIFIED PEDIATRIC NURSE PRACTITIONER Office Visit [facility] [address] [place] [phone] 08/10/2025 12:30 PM CERTIFIED PEDIATRIC NURSE PRACTITIONER Ancillary Procedure [facility]- [address] [phone] Lucian Mcdonnell MD S [address] [phone] 08/10/2025 1:15 PM CERTIFIED PEDIATRIC NURSE PRACTITIONER Office Visit [facility] [place] [address] [address] Lucian Mcdonnell MD [address] [place] [phone] 08/10/2025 2:00 PM CERTIFIED PEDIATRIC NURSE PRACTITIONER Office Visit [facility] [address] [place] [phone] Bonnie Lizama MD [address] [place] [address] Cira Juarez, [facility] [address] [place] [address] 11/07/2025 1:20 PM CERTIFIED PEDIATRIC NURSE PRACTITIONER Office Visit [facility] [address] [place] [phone] Bonnie Lizama MD [address] [place] [address] Ariana Brice NP [address] [place] [address] 11/27/2025 1:10 PM CDT Office Visit [facility] [place] [address] [place] [address] Bright Tenorio MD [address] [place] [address] documented as of this encounter Procedures Procedure Name Priority Date/Time Associated Diagnosis Comments TELEMETRY REPORT 07/05/2025 2:06 AM CDT POC GLUCOSE Routine 07/03/2025 11:22 AM CDT POC GLUCOSE Routine 07/03/2025 8:13 AM CDT POC GLUCOSE Routine 07/02/2025 4:19 PM CDT POC GLUCOSE Routine 07/02/2025 11:53 AM CDT POC GLUCOSE Routine 07/02/2025 7:50 AM CDT POC GLUCOSE Routine 07/01/2025 8:51 PM CDT POC GLUCOSE Routine 07/01/2025 5:38 PM CDT POC GLUCOSE Routine 07/01/2025 11:46 AM CDT CBC WITH DIFFERENTIAL Stat 07/01/2025 8:05 AM CDT BASIC METABOLIC PANEL Stat 07/01/2025 8:05 AM CDT POC GLUCOSE Routine 07/01/2025 7:09 AM CDT POC GLUCOSE Routine 06/30/2025 9:54 PM CDT POC GLUCOSE Routine 06/30/2025 5:00 PM CDT TELEMETRY REPORT 06/30/2025 3:32 PM CDT POC GLUCOSE Routine 06/30/2025 11:37 AM CDT POC GLUCOSE Routine 06/30/2025 7:19 AM CDT EXTRA TUBE (URINE YU) Routine 06/30/2025 3:25 AM CDT SODIUM, RANDOM URINE Routine 06/30/2025 3:25 AM CDT OSMOLALITY, URINE Routine 06/30/2025 3:2 5 AM CDT DRUG SCREEN, URINE Routine 06/30/2025 3: 25 AM CDT URINALYSIS W/REFLEX MICROSCOPIC Routine 06/30/2025 3:25 AM CDT POC GLUCOSE Routine 06/30/2025 2:17 AM CDT BASIC METABOLIC PANEL Routine 06/30/2025 1:37 AM CDT POC GLUCOSE Routine 06/29/2025 9:[address] HEAD WO CONTRAST Pending Discharge 06/29/2025 8:41 PM CDT BLOOD GAS ARTERIAL Routine 06/29/2025 8: 27 PM CDT EKG 12-LEAD Stat 06/29/2025 8:13 PM CDT POC GLUCOSE Routine 06/29/2025 5:28 PM CDT LACTIC ACID Stat 06/29/2025 4:42 PM CDT VITAMIN B12 AND FOLATE Routine 06/29/2025 4:42 PM CDT OSMOLALITY Routine 06/29/2025 4:42 PM CDT HEMOGLOBIN A1C Routine 06/29/2025 4:42 PM CDT AMMONIA LEVEL Routine 06/29/2025 4:42 PM CDT ETHANOL LEVEL Routine 06/29/2025 4:42 PM CDT PT EVAL AND TREAT Pending Discharge 06/29/2025 9:17 AM CDT POC GLUCOSE Routine 06/29/2025 5:10 AM CDT TSH Routine 06/29/2025 2:02 AM CDT T4 FREE Routine 06/29/2025 2:02 AM CDT BASIC METABOLIC PANEL Routine 06/29/2025 2:02 AM CDT RT ASSESS AND TREAT Routine 06/29/2025 1 :45 AM CDT POC GLUCOSE Routine 06/28/2025 8:30 PM CDT POC GLUCOSE Routine 06/28/2025 4:12 PM CDT POC ACTIVATED CLOTTING TIME Routine 06/28/2025 3:05 PM CDT POC ACTIVATED CLOTTING TIME Routine 06/28/2025 2:22 PM CDT POC ACTIVATED CLOTTING TIME Routine 06/28/2025 1:45 PM CDT ANGIOPLASTY ARTERIAL 06/28/2025 12:27 PM CDT Peripheral vascular disease, unspecified VASCULAR STENT INSERTION ARTERIAL 06/28/2025 12:27 PM CDT Peripheral vascular disease, unspecified CHG ANGIOGRAPHY EXTREMITY UNILATERAL RS&I 06/28/2025 12:27 PM CDT Peripheral vascular disease, unspecified [place] TEAEC W/WO PATCH GRAFT ILIOFEMORAL 06/28/2025 12:27 PM CDT Peripheral vascular disease, unspecified VERIFICATION BLOOD GROUP Stat 06/28/2025 11:01 AM CDT CBC WITH DIFFERENTIAL Stat 06/28/2025 11:01 AM CDT PROTIME-INR Stat 06/28/2025 11:01 AM CDT BASIC METABOLIC PANEL Stat 06/28/2025 11:01 AM CDT TYPE AND SCREEN Stat 06/28/2025 10:50 AM CDT documented in this encounter Results * TELEMETRY REPORT (07/05/2025 2:06 AM CDT) us Provider Scanning ECG ORDERABLES Final Result * (ABNORMAL) POC GLUCOSE (07/03/2025 11:22 AM CDT) GLUCOSE POC 180(H) 74 - 99 mg/dL 07/03/2025 11:22 AM CDT [facility] SPECIMEN SOURCE, GLUCOSE POC Capillary 07/03/2025 11:22 AM CDT [facility] Blood, whole 07/03/2025 11:2 2 AM CDT 07/03/2025 11:33 AM CDT Lucian Mcdonnell MD POINT OF CARE TESTIN G Final Result [facility] CLIA # [id number] [address] [address] [place] [address] * (ABNORMAL) POC GLUCOSE (07/03/2025 8:13 AM CDT) GLUCOSE POC 278(H) 74 - 99 mg/dL 07/03/2025 8:13 AM CDT [facility] SPECIMEN SOURCE, GLUCOSE POC Capillary 07/03/2025 8:13 AM CDT [facility] Blood, whole 07/03/2025 8:13 AM CDT 07/03/2025 8:26 AM CDT us Lucian Mcdonnell MD POINT OF CARE TESTIN G Final Result Performing Organization Address City/[facility]/ZIP Co de Phone Number [facility] CLIA # [id number] [address] [address] [place], [place] [address] * (ABNORMAL) POC GLUCOSE (07/02/2025 4:19 PM CDT) GLUCOSE POC 188(H) 74 - 99 mg/dL 07/02/2025 4:19 PM CDT [facility] SPECIMEN SOURCE, GLUCOSE POC Capillary 07/02/2025 4:19 PM CDT [facility] Blood, whole 07/02/2025 4:19 PM CDT 07/02/2025 4:40 PM CDT us Lucian Mcdonnell MD POINT OF CARE TESTIN G Final Result Performing Organization Address City/[facility]/ZIP Co de Phone Number [facility] CLIA # [id number] [address] [address] * (ABNORMAL) POC GLUCOSE (07/02/2025 11:53 AM CDT) GLUCOSE POC 230(H) 74 - 99 mg/dL 07/02/2025 11:53 AM CDT [facility] SPECIMEN SOURCE, GLUCOSE POC Capillary 07/02/2025 11:53 AM CDT [facility] Blood, whole 07/02/2025 11:5 3 AM CDT 07/02/2025 12:02 PM CDT us Lucian Mcdonnell MD POINT OF CARE TESTIN G Final Result Performing Organization Address [facility] Co de Phone Number [facility] CLIA # [id number] [address] [address] [place], [place] [address] * (ABNORMAL) POC GLUCOSE (07/02/2025 7:50 AM CDT) GLUCOSE POC 166(H) 74 - 99 mg/dL 07/02/2025 7:50 AM CDT [facility] SPECIMEN SOURCE, GLUCOSE POC Capillary 07/02/2025 7:50 AM CDT [facility] Blood, whole 07/02/2025 7:50 AM CDT 07/02/2025 8:50 AM CDT us Lucian Mcdonnell MD POINT OF CARE TESTIN G Final Result Performing Organization Address [facility] de Phone Number [facility] CLIA # [id number] [address] [address] [place] [address] * (ABNORMAL) POC GLUCOSE (07/01/2025 8:51 PM CDT) GLUCOSE POC 163(H) 74 - 99 mg/dL 07/01/2025 8:51 PM CDT [facility] SPECIMEN SOURCE, GLUCOSE POC Capillary 07/01/2025 8:51 PM CDT [facility] Blood, whole 07/01/2025 8:51 PM CDT 07/01/2025 9:31 PM CDT us Lucian Mcdonnell MD POINT OF CARE TESTIN G Final Result Performing Organization Address [facility]/ZIP Co de Phone Number [facility] CLIA # [id number] [address] [address] [place] [address] * (ABNORMAL) POC GLUCOSE (07/01/2025 5:38 PM CDT) GLUCOSE POC 152(H) 74 - 99 mg/dL 07/01/2025 5:38 PM CDT [facility] SPECIMEN SOURCE, GLUCOSE POC Capillary 07/01/2025 5:38 PM CDT [facility] Blood, whole 07/01/2025 5:38 PM CDT 07/01/2025 5:47 PM CDT us Lucian Mcdonnell MD POINT OF CARE TESTIN G Final Result Performing Organization Address [facility] Co de Phone Number [facility] CLIA # [id number] [address] [address] [place] [address] * (ABNORMAL) POC GLUCOSE (07/01/2025 11:46 AM CDT) GLUCOSE POC 169(H) 74 - 99 mg/dL 07/01/2025 11:46 AM CDT [facility] SPECIMEN SOURCE, GLUCOSE POC Capillary 07/01/2025 11:46 AM CDT [facility] Blood, whole 07/01/2025 11:4 6 AM CDT 07/01/2025 12:14 PM CDT us Lucian Mcdonnell MD POINT OF CARE TESTIN G Final Result Performing Organization Address City/[facility]/ZIP Co de Phone Number [facility] CLIA # [id number] [address] [address] [place] [address] * (ABNORMAL) BASIC METABOLIC PANEL (07/01/2025 8:05 AM CDT) SODIUM 140 136 - 145 mmol/L 07/01/2025 9:04 AM T [facility] POTASSIUM 4.0 3.5 - 5.1 mmol/L 07/01/2025 9:04 AM T [facility] CHLORIDE 104 98 - 107 mmol/L 07/01/2025 9:04 AM T [facility] CO2 24 22 - 29 mmol/L 07/01/2025 9:04 AM T [facility] CALCIUM 8.2(L) 8.8 - 10.2 mg/dL 07/01/2025 9:04 AM T [facility] BUN 11 8 - 23 mg/dL 07/01/2025 9:04 AM T [facility] CREATININE 0.99 0.67 - 1.17 mg/dL 07/01/2025 9:04 AM T [facility] Comment:The GFR result is no t clinically significant on patients <18 or >70 years of age. GLUCOSE 167(H) 74 - 99 mg/dL 07/01/2025 9:04 AM [facility] GFR >60 mL/min/1.7 3 sq meter 07/01/2025 9:04 AM [facility] Comment:eGFR calculated with 2020 CKD-EPI equation. Vegetarian diet, extremely high or low muscle mass, and may affect results. Cystatin C with Glomerular Filtration Rate is a suitable alternative for these patients. ANION GAP 12 9 - 20 mmol/L 07/01/2025 9:04 AM T [facility] Blood Venipuncture / Unknown 07/01/2025 8:05 AM CDT 07/01/2025 8:29 AM CDT us Javier Christensen MD CHEMISTRY ORDERABLES Final Resu lt [facility] CLIA # [id number] [address] [address] * (ABNORMAL) CBC WITH DIFFERENTIAL (07/01/2025 8:05 AM CDT) [facility] WBC 7.0 4.8 - 10.8 K/uL 07/01/2025 8:35 AM T [facility] RBC 4.01(L) 4.60 - 6.20 M/uL 07/01/2025 8:35 AM T [facility] HEMOGLOBIN 10.3(L) 14.0 - 18.0 g/dL 07/01/2025 8:35 AM T [facility] HEMATOCRIT 32.0(L) 41.0 - 53.0 % 07/01/2025 8:35 AM T [facility] MCV 79.8(L) 84.0 - 103.0 fL 07/01/2025 8:35 AM T [facility] MCH 25.7(L) 27.0 - 34.0 pg 07/01/2025 8:35 AM [facility] MCHC 32.2 30.0 - 35.0 g/dL 07/01/2025 8:35 AM T [facility] PLATELETS 194 140 - 440 K/uL 07/01/2025 8:35 AM [facility] MPV 11.2 8.9 - 12.8 fL 07/01/2025 8:35 AM T [facility] RDW 14.1 11.0 - 14.5 % 07/01/2025 8:35 AM [facility] RDW-STDEV 40.6 37.0 - 54.0 fL 07/01/2025 8:35 AM T [facility] NEUTROPHILS 64 42 - 75 % 07/01/2025 8:35 AM [facility] LYMPHOCYTES 18(L) 24 - 44 % 07/01/2025 8:35 AM [facility] MONOCYTES 13(H) 2 - 10 % 07/01/2025 8:35 AM T [facility] EOSINOPHILS 4 0 - 7 % 07/01/2025 8:35 AM CDT [facility] BASOPHILS 1 0 - 1 % 07/01/2025 8:35 AM CDT [facility] IMMATURE GRANULOCYTES 0 0 - 2 % 07/01/2025 8:35 AM CDT [facility] NEUTROPHIL ABSOLUTE 4.45 2.00 - 8.00 K/uL 07/01/2025 8:35 AM CDT [facility] LYMPHOCYTE ABSOLUTE 1.28 1.20 - 4.00 K/uL 07/01/2025 8:35 AM CDT [facility] MONOCYTE ABSOLUTE 0.92(H) 0.10 - 0.60 K/uL 07/01/2025 8:35 AM CDT [facility] EOSINOPHIL ABSOLUTE 0.25 0.00 - 0.70 K/uL 07/01/2025 8:35 AM CDT [facility] BASOPHILS ABSOLUTE 0.07 0.00 - 0.20 K/uL 07/01/2025 8:35 AM CDT [facility] IMMATURE GRANULOCYTES ABSOLUTE 0.03 0.00 - 0.10 K/uL 07/01/2025 8:35 AM T [facility] SMEAR REVIEWED: NA - Not Applicable 07/01/2025 8:35 AM [facility] Blood Venipuncture / Unknown 07/01/2025 8:05 AM CDT 07/01/2025 8:28 AM CDT us Javier Christensen MD HEMATOLOGY ORDERABLES Final Res ult [facility] CLIA # [id number] [address] [place] [address] [place] [address] * (ABNORMAL) POC GLUCOSE (07/01/2025 7:09 AM CDT) GLUCOSE POC 145(H) 74 - 99 mg/dL 07/01/2025 7:09 AM T [facility] SPECIMEN SOURCE, GLUCOSE POC Capillary 07/01/2025 7:09 AM CDT [facility] Blood, whole 07/01/2025 7:09 AM CDT 07/01/2025 7:42 AM CDT us Lucian Mcdonnell MD POINT OF CARE TESTIN G Final Result Performing Organization Address [facility]/ZIP Co de Phone Number [facility] CLIA # [id number] [address] [address] [place], [place] [address] * (ABNORMAL) POC GLUCOSE (06/30/2025 9:54 PM CDT) GLUCOSE POC 145(H) 74 - 99 mg/dL 06/30/2025 9:54 PM CDT [facility] SPECIMEN SOURCE, GLUCOSE POC Capillary 06/30/2025 9:54 PM CDT [facility] Blood, whole 06/30/2025 9:54 PM CDT 06/30/2025 10:07 PM CDT Lucian Mcdonnell MD POINT OF CARE TESTIN G Final Result Performing Organization Address [facility] Co de Phone Number [facility] CLIA # [id number] [address] [address] [address] * (ABNORMAL) POC GLUCOSE (06/30/2025 5:00 PM CDT) GLUCOSE POC 153(H) 74 - 99 mg/dL 06/30/2025 5:00 PM CDT [facility] SPECIMEN SOURCE, GLUCOSE POC Capillary 06/30/2025 5:00 PM CDT [facility] Blood, whole 06/30/2025 5:00 PM CDT 06/30/2025 5:19 PM CDT Lucian Mcdonnell MD POINT OF CARE TESTIN G Final Result Performing Organization Address [facility]/ZIP Co de Phone Number [facility] CLIA # [id number] [address] [place] [address] * TELEMETRY REPORT (06/30/2025 3:32 PM CDT) Provider Scanning ECG ORDERABLES Final Result * (ABNORMAL) POC GLUCOSE (06/30/2025 11:37 AM CDT) GLUCOSE POC 162(H) 74 - 99 mg/dL 06/30/2025 11:37 AM CDT [facility] SPECIMEN SOURCE, GLUCOSE POC Capillary 06/30/2025 11:37 AM CDT [facility] Blood, whole 06/30/2025 11:3 7 AM CDT 06/30/2025 12:02 PM CDT Lucian Mcdonnell MD POINT OF CARE TESTIN G Final Result Performing Organization Address [facility] Co de Phone Number [facility] CLIA # [id number] [address] [address] [place] [address] * (ABNORMAL) POC GLUCOSE (06/30/2025 7:19 AM CDT) GLUCOSE POC 144(H) 74 - 99 mg/dL 06/30/2025 7:19 AM CDT [facility] SPECIMEN SOURCE, GLUCOSE POC Capillary 06/30/2025 7:19 AM CDT [facility] Blood, whole 06/30/2025 7:19 AM CDT 06/30/2025 8:41 AM CDT Lucian Mcdonnell MD POINT OF CARE TESTIN G Final Result Performing Organization Address [facility] Co de Phone Number [facility] CLIA # [id number] [address] [address] [place] [address] * EXTRA TUBE (URINE YU) (06/30/2025 3:25 AM CDT) Urine URINE SPECIMEN OBTAINED BY CLEAN CATCH PROCEDURE / Unknown Collection / Unknown 06/30/2025 3:25 AM CDT 06/30/2025 3:30 AM CDT us Gabriel Arellano MD URINE ORDERABLES Final Result Performing Organization Address [facility] de Phone Number [facility] CLIA # [id number] [address] [address] [place] [address] * SODIUM, RANDOM URINE (06/30/2025 3:25 AM CDT) SODIUM, URINE <20 mmol/L 06/30/2025 4:12 AM CDT [facility] Urine URINE SPECIMEN OBTAINED BY CLEAN CATCH PROCEDURE / Unknown Collection / Unknown 06/30/2025 3:25 AM CDT 06/30/2025 3:30 AM CDT us Gabriel Arellano MD URINE ORDERABLES Final Result Performing Organization Address [facility] Co de Phone Number [facility] CLIA # [id number] [address] [address] [place] [address] * OSMOLALITY, URINE (06/30/2025 3:25 AM CDT) OSMOLALITY, URINE 147 50 - 1,200 mOsm/kg 06/30/2025 4:01 AM CDT [facility] Urine URINE SPECIMEN OBTAINED BY CLEAN CATCH PROCEDURE / Unknown Collection / Unknown 06/30/2025 3:25 AM CDT 06/30/2025 3:30 AM CDT Narrative [facility] - 06/30/2025 4:01 AM CDT Reference range: 50-1200 mOsm/kg H2O, depending on fluid intake. Gabriel Arellano MD URINE ORDERABLES Final Result [id number] [address] [place] [address] [place] [address] * (ABNORMAL) DRUG SCREEN, URINE (06/30/2025 3:25 AM CDT) [facility] AMPHETAMINE QUAL, URINE Negative Negative 06/30/2025 4:10 AM CDT [facility] BARBITURATE QUAL, URINE Negative Negative 06/30/2025 4:10 AM CDT [facility] BENZODIAZEPINE QUAL, URINE Negative Negative 06/30/2025 4:10 AM CDT [facility] COCAINE QUAL URINE Negative Negative 06/30/2025 4:10 AM CDT [facility] OPIATE QUAL, URINE Negative Negative 06/30/2025 4:10 AM CDT [facility] CANNABINOIDS QUAL, URINE Negative Negative 06/30/2025 4:10 AM CDT [facility] OXYCODONE QUAL, URINE Negative Negative 06/30/2025 4:10 AM CDT [facility] METHADONE QUAL, URINE Negative Negative 06/30/2025 4:10 AM CDT [facility] FENTANYL QUAL, URINE Presumptive Positive(A) Negative 06/30/2025 4:10 AM CDT [facility] CREATININE, URINE 32.8(L) 40.0 - 278.0 mg/dL 06/30/2025 4:10 AM T [facility] Comment:Reference Range vari es with fluid intake and diet. Urine URINE SPECIMEN OBTAINED BY CLEAN CATCH PROCEDURE / Unknown Collection / Unknown 06/30/2025 3:25 AM CDT 06/30/2025 3:30 AM CDT Narrative [facility] - 06/30/2025 4:10 AM CDT This test is a qualitative screen. The presumptive positive results should not be used for legal purposes. If confirmation of results is desired, the lab must be contacted without delay. Drug Ref. Range Screening Threshold Amphetamines Negative 500 ng/mL Barbiturates Negative 200 ng/mL Benzodiazepines Negative 100 ng/mL Cannabinoids Negative 50 ng/mL Cocaine Metabolite Negative 300 ng/mL Opiate Negative 300 ng/mL Oxycodone Negative 100 ng/mL Methadone Negative 300 ng/mL Fentanyl Negative 5 ng/mL us Gabriel Arellano MD URINE ORDERABLES Final Result [facility] CLIA # [id number] [facility] [address] * (ABNORMAL) URINALYSIS WITH REFLEX MICROSCOPIC (06/30/2025 3:25 AM CDT) COLOR UA Colorless(A ) Pale to Dark Yellow 06/30/2025 3:34 AM T [facility] CLARITY UA Clear Clear 06/30/2025 3:34 AM T [facility] SPECIFIC GRAVITY UA 1.007 1.003 - 1.035 06/30/2025 3:34 AM T [facility] PH UA 6.0 5.0 - 8.0 06/30/2025 3:34 AM T [facility] LEUKOCYTE ESTERASE UA Negative Negative 06/30/2025 3:34 AM T [facility] NITRITE UA Negative Negative 06/30/2025 3:34 AM T [facility] PROTEIN UA Negative Negative 06/30/2025 3:34 AM T [facility] GLUCOSE UA Trace(A) Negative 06/30/2025 3:34 AM T [facility] KETONES UA Trace(A) Negative 06/30/2025 3:34 AM T [facility] UROBILINOGEN UA <2.0 <2.0 mg/dL 3:34 AM CDT [facility] BILIRUBIN UA Negative Negative 06/30/2025 3:34 AM CDT [facility] BLOOD UA Negative Negative 06/30/2025 3:34 AM CDT [facility] Urine URINE SPECIMEN OBTAINED BY CLEAN CATCH PROCEDURE / Unknown Collection / Unknown 06/30/2025 3:25 AM CDT 06/30/2025 3:30 AM CDT us Gabriel Arellano MD URINE ORDERABLES Final Result Performing Organization Address City/[facility]/ZIP Co de Phone Number [facility] CLIA # [id number] [address] [address] * (ABNORMAL) POC GLUCOSE (06/30/2025 2:17 AM CDT) GLUCOSE POC 154(H) 74 - 99 mg/dL 06/30/2025 2:17 AM CDT [facility] SPECIMEN SOURCE, GLUCOSE POC Capillary 06/30/2025 2:17 AM CDT [facility] Blood, whole 06/30/2025 2:17 AM CDT 06/30/2025 2:24 AM CDT Lucian Mcdonnell MD POINT OF CARE TESTIN G Final Result [facility] CLIA # [id number] [address] [address] * (ABNORMAL) BASIC METABOLIC PANEL (06/30/2025 1:37 AM CDT) SODIUM 128(L) 136 - 145 mmol/L 06/30/2025 2:52 AM CDT [facility] POTASSIUM 4.1 3.5 - 5.1 mmol/L 06/30/2025 2:52 AM CDT [facility] CHLORIDE 92(L) 98 - 107 mmol/L 06/30/2025 2:52 AM T [facility] CO2 25 22 - 29 mmol/L 06/30/2025 2:52 AM T [facility] CALCIUM 8.7(L) 8.8 - 10.2 mg/dL 06/30/2025 2:52 AM T [facility] BUN 16 8 - 23 mg/dL 06/30/2025 2:52 AM T [facility] CREATININE 1.15 0.67 - 1.17 mg/dL 06/30/2025 2:52 AM T [facility] Comment:The GFR result is no t clinically significant on patients <18 or >70 years of age. GLUCOSE 176(H) 74 - 99 mg/dL 06/30/2025 2:52 AM [facility] GFR >60 mL/min/1.7 3 sq meter 06/30/2025 2:52 AM T [facility] Comment:eGFR calculated with 2020 CKD-EPI equation. Vegetarian diet, extremely high or low muscle mass, and may affect results. Cystatin C with Glomerular Filtration Rate is a suitable alternative for these patients. ANION GAP 11 9 - 20 mmol/L 06/30/2025 2:52 AM [facility] Blood Venipuncture / Unknown 06/30/2025 1:37 AM CDT 06/30/2025 2:20 AM CDT us Gabriel Arellano MD CHEMISTRY ORDERABLES Final Resul t [facility] CLIA # [id number] [address] [place] [address] * (ABNORMAL) POC GLUCOSE (06/29/2025 9:02 PM CDT) [facility] Signature GLUCOSE POC 236(H) 74 - 99 mg/dL 06/29/2025 9:02 PM CDT [facility] SPECIMEN SOURCE, GLUCOSE POC Capillary 06/29/2025 9:02 PM CDT [facility] Blood, whole 06/29/2025 9:02 PM CDT 06/29/2025 9:15 PM CDT Lucian Mcdonnell MD POINT OF CARE TESTIN G Final Result [facility] CLIA # [id number] [address] [facility] [place] [address] * CT HEAD WO CONTRAST (06/29/2025 8:41 PM CDT) Anatomical Region Laterality Modality Head Computed Tomogra phy 06/29/2025 8:36 PM CDT Impressions 06/30/2025 4:22 AM CDT IMPRESSION: No acute intracranial abnormality. Narrative 06/30/2025 4:22 AM CDT Exam: CT HEAD WO CONTRAST Date/Time of Exam: 06/29/2025 8:41 PM Reason For Exam: Mental status change, unknown cause. Diagnosis: Encounter for preadmission testing; Abnormal coagulation profile. Technique: CT of the head was performed without the administration of intravenous contrast. Findings: . No acute infarction, hemorrhage or extra axial collection. Mild sequela of small vessel ischemic disease. Diffuse parenchymal volume loss. No hydrocephalus. The basal cisterns are patent. No acute osseous abnormality. The paranasal sinuses and mastoid air cells are clear. Prior cataract surgery. Procedure Note Dominik Schneider, DO - 06/30/2025 Exam: CT HEAD WO CONTRAST Date/Time of Exam: 06/29/2025 8:41 PM Reason For Exam: Mental status change, unknown cause. Diagnosis: Encounter for preadmission testing; Abnormal coagulation profile. Technique: CT of the head was performed without the administration of intravenous contrast. Findings: . No acute infarction, hemorrhage or extra axial collection. Mild sequela of small vessel ischemic disease. Diffuse parenchymal volume loss. No hydrocephalus. The basal cisterns are patent. No acute osseous abnormality. The paranasal sinuses and mastoid air cells are clear. Prior cataract surgery. IMPRESSION: No acute intracranial abnormality. Gabriel Arellano MD CT ORDERABLES Final Result * (ABNORMAL) BLOOD GAS ARTERIAL (06/29/2025 8:27 PM CD) PH BLOOD POC 7.42 7.35 - 7.45 06/29/2025 8:27 PM [facility] PCO2 POC 34(L) 35 - 45 mm Hg 06/29/2025 8:27 PM [facility] PO2 POC 76(L) 80 - 105 mm Hg 06/29/2025 8:27 PM [facility] HCO3 (CALC) POC 22 22 - 26 mmol/L 06/29/2025 8:27 PM [facility] HEMOGLOBIN POC 10.6(L) 12.0 - 18.0 g/dL 06/29/2025 8:27 PM [facility] BASE EXCESS POC -2 -2 - 3 mmol/L 06/29/2025 8:27 PM [facility] O2 SATURATION POC 98 95 - 98 % 8:27 PM [facility] SODIUM POC 120(L) 138 - 146 mmol/L 06/29/2025 8:27 PM [facility] POTASSIUM POC 4.3 3.5 - 4.9 mmol/L 06/29/2025 8:27 PM [facility] HEMATOCRIT POC 32(L) 38 - 51 % 06/29/2025 8:27 PM [facility] PH TEMP CORRECT 7.42 7.35 - 7.45 06/29/2025 8:27 PM [facility] PCO2 TEMP CORRECT 34(L) 35 - 45 mm Hg 06/29/2025 8:27 PM [facility] PO2 TEMP CORRECT 76(L) 80 - 105 mm Hg 06/29/2025 8:27 PM [facility] SPECIMEN SOURCE, GASES POC Arterial 06/29/2025 8:27 PM CDT [facility] CALCIUM IONIZED POC 4.7(L) 4.8 - 5.2 mg/dL 06/29/2025 8:27 PM CDT [facility] TCO2 (CALC) POC 23 23 - 27 mmol/L 06/29/2025 8:27 PM CDT [facility] FIO2 21.0 21.0 - 100.0 % 06/29/2025 8:27 PM CDT [facility] Comment:FIO2 values reported <21.0 indicate O2 flow in Liters/minute. Values >/= 21.0 indicate percent O2. P/F RATIO POC 362 06/29/2025 8:27 PM CDT [facility] Comment: P/F Ratio Interpretation ARDS SEVERITY PaO2/FiO2 Mild 200-300 Moderate 100-200 Severe <100 [facility] SITE POC ART PUNCT 06/29/2025 8:27 PM CDT [facility] PATIENT'S TEMPERATURE POC 37.0 degrees 06/29/2025 8:27 PM CDT [facility] Blood, arterial 06/29/2025 8 :27 PM CDT 06/29/2025 8:29 PM CDT Lucian Mcdonnell MD ABG ORDERABLES Halle l Result [facility] CLIA # [id number] [address] [address] * EKG 12-LEAD (06/29/2025 8:13 PM CDT) 06/29/2025 8:13 PM CDT Narrative INTERFACE SYSTEM - 06/29/2025 9:54 PM CDT [address] [address] Test Date: 2025-06-29 Pat Name: GO ADAIR Department: 12 Room: 4251 02 Gender: Male Fashion Director: [id number] : 1950 Requested By: Order Number: [id number] Reading MD: Magda Lakhani Measurements Intervals [place] Rate: 104 P: 48 [place]: 212 QRS: 24 QRSD: 92 T: 1 QT: 348 QTc: 457 Interpretive Statements Sinus tachycardia with 1st degree AV block Nonspecific T wave abnormality Abnormal ECG Electronically Signed On 06-29-2025 21:54:49 CDT by Magda Lakhani Procedure Note Magda Lakhani MD - 06/29/2025 [facility] [address] [place] [address] Test Date: 2025-06-29 Pat Name: GO ADAIR Department: 12 Room: [address] [place] [address] Gender: Male Fashion Director: [id number] : 1950 Requested By: Order Number: [id number] Reading MD: Magda Lakhani Measurements Intervals [place] Rate: 104 P: 48 [place]: 212 QRS: 24 QRSD: 92 T: 1 QT: 348 QTc: 457 Interpretive Statements Sinus tachycardia with 1st degree AV block Nonspecific T wave abnormality Abnormal ECG Electronically Signed On 06-29-2025 21:54:49 CDT by Magda Lakhani us Anushka Becerra DENTAL TREATMENT COORDINATOR ECG ORDERABLES Final R esult Performing Organization Address City/[facility] Co de Phone Number INTERFACE SYSTEM Refer to clinic/hospital department * (ABNORMAL) POC GLUCOSE (06/29/2025 5:28 PM CDT) GLUCOSE POC 203(H) 74 - 99 mg/dL 06/29/2025 5:[address] [facility] SPECIMEN SOURCE, GLUCOSE POC Capillary 06/29/2025 5:28 PM CDT [facility] Blood, whole 06/29/2025 5:28 PM CDT 06/29/2025 5:37 PM CDT us Lucian Mcdonnell MD POINT OF CARE TESTIN G Final Result Performing Organization Address City/[facility] Co de Phone Number [facility] CLIA # [id number] [address] [place] [address] * ETHANOL LEVEL (06/29/2025 4:42 PM CDT) Pathologist [facility] ETHANOL <10.10 <10.10 mg/dL 06/29/2025 6:03 PM CDT [facility] ETHANOL % <0.01 <=0.01 %w/v 06/29/2025 6:03 PM CDT [facility] Blood Venipuncture / Unknown 06/29/2025 4:42 PM CDT 06/29/2025 5:23 PM CDT Gabriel Arellano MD CHEMISTRY ORDERABLES Final Resul t Performing Organization Address [facility] Co de Phone Number [facility] CLIA # [id number] [address] [address] * (ABNORMAL) HEMOGLOBIN A1C (06/29/2025 4:42 PM CDT) [facility] HEMOGLOBIN A1C 8.3(H) <=5.6 % 06/30/2025 11:27 AM CDT [facility] EST. AVG GLUCOSE, A1C 192 mg/dL 06/30/2025 11:27 AM CDT [facility] Blood Venipuncture / Unknown 06/29/2025 4:42 PM CDT 06/29/2025 5:30 PM CDT Narrative [facility] - 06/30/2025 11:27 AM CDT HGB A1C INTERPRETATION NORMAL: <5.7% PRE-DIABETES: 5.7 - 6.4% DIABETES: 6.5% OR GREATER Gabriel Arellano MD CHEMISTRY ORDERABLES Final Resul t [facility] CLIA # [id number] [address] [facility] [place], [place] [address] * (ABNORMAL) OSMOLALITY (06/29/2025 4:42 PM CDT) Pathologist [facility] OSMOLALITY 272(L) 275 - 295 mOsm/kg 06/29/2025 6:33 PM CDT [facility] Blood Venipuncture / Unknown 06/29/2025 4:42 PM CDT 06/29/2025 5:31 PM CDT Gabriel Arellano MD CHEMISTRY ORDERABLES Final Resul t Performing Organization Address [facility] Co de Phone Number [facility] CLIA # [id number] [address] [id number] * (ABNORMAL) LACTIC ACID (06/29/2025 4:42 PM CDT) [facility] LACTIC ACID 2.1(H) <=2.0 mmol/L 06/29/2025 5:40 PM CDT [facility] Blood Venipuncture / Unknown 06/29/2025 4:42 PM CDT 06/29/2025 4:53 PM CDT Gabriel Arellano MD CHEMISTRY ORDERABLES Final Resul t Performing Organization Address City/[facility]/ZIP Co de Phone Number [facility] CLIA # [id number] [address] [address] * (ABNORMAL) VITAMIN B12 AND FOLATE (06/29/2025 4:42 PM CDT) [facility] VITAMIN B12 441 211 - 946 pg/mL 06/29/2025 10:58 PM CDT [facility] FOLATE, SERUM >20.0(H) 3.1 - 17.5 ng/mL 06/29/2025 10:58 PM CDT [facility] Blood Venipuncture / Unknown 06/29/2025 4:42 PM CDT 06/29/2025 5:23 PM CDT Gabriel Arellano MD CHEMISTRY ORDERABLES Final Resul t Performing Organization Address [facility] Co de Phone Number [facility] CLIA # [id number] [address] [address] [place], [place] [address] * (ABNORMAL) AMMONIA LEVEL (06/29/2025 4:42 PM CDT) [facility] AMMONIA 14.5(L) 16.0 - 60.0 umol/L 06/29/2025 5:43 PM CDT [facility] Blood, venous 06/29/2025 4:4 2 PM CDT 06/29/2025 4:53 PM CDT Gabriel Arellano MD CHEMISTRY ORDERABLES Final Resul t Performing Organization Address [facility] de Phone Number [facility] CLIA # [id number] [address] [id number] * (ABNORMAL) POC GLUCOSE (06/29/2025 5:10 AM CDT) [facility] GLUCOSE POC 149(H) 74 - 99 mg/dL 06/29/2025 5:10 AM CDT [facility] SPECIMEN SOURCE, GLUCOSE POC Capillary 06/29/2025 5:10 AM CDT [facility] Blood, whole 06/29/2025 5:10 AM CDT 06/29/2025 5:19 AM CDT Lucian Mcdonnell MD POINT OF CARE TESTIN G Final Result Performing Organization Address [facility] Co de Phone Number [facility] CLIA # [id number] [address] [address] [place] [address] * T4 FREE (06/29/2025 2:02 AM CDT) T4 FREE 1.21 0.81 - 1.70 ng/dL 06/29/2025 4:33 PM CDT [facility] Blood Venipuncture / Unknown 06/29/2025 2:02 AM CDT 06/29/2025 2:31 AM CDT Gabriel Arellano MD CHEMISTRY ORDERABLES Final Resul t Performing Organization Address [facility] Co de Phone Number [facility] CLIA # [id number] [address] [place] [place] [address] * TSH (06/29/2025 2:02 AM CDT) TSH 2.57 0.27 - 4.20 uIU/mL 06/29/2025 4:45 PM CDT [facility] Blood Venipuncture / Unknown 06/29/2025 2:02 AM CDT 06/29/2025 2:31 AM CDT Gabriel Arellano MD CHEMISTRY ORDERABLES Final Resul t Performing Organization Address [facility] Co de Phone Number [facility] CLIA # [id number] [address] [place] [address] [place] [address] * (ABNORMAL) BASIC METABOLIC PANEL (06/29/2025 2:02 AM CDT) SODIUM 132(L) 136 - 145 mmol/L 06/29/2025 3:06 AM CDT [facility] POTASSIUM 4.3 3.5 - 5.1 mmol/L 06/29/2025 3:06 AM CDT [facility] CHLORIDE 96(L) 98 - 107 mmol/L 06/29/2025 3:06 AM T [facility] CO2 25 22 - 29 mmol/L 06/29/2025 3:06 AM T [facility] CALCIUM 8.4(L) 8.8 - 10.2 mg/dL 06/29/2025 3:06 AM T [facility] BUN 9 8 - 23 mg/dL 06/29/2025 3:06 AM T [facility] CREATININE 0.89 0.67 - 1.17 mg/dL 06/29/2025 3:06 AM T [facility] Comment:The GFR result is no t clinically significant on patients <18 or >70 years of age. GLUCOSE 149(H) 74 - 99 mg/dL 06/29/2025 3:06 AM T [facility] GFR >60 mL/min/1.7 3 sq meter 06/29/2025 3:06 AM T [facility] Comment:eGFR calculated with 2020 CKD-EPI equation. Vegetarian diet, extremely high or low muscle mass, and may affect results. Cystatin C with Glomerular Filtration Rate is a suitable alternative for these patients. ANION GAP 11 9 - 20 mmol/L 06/29/2025 3:06 AM T [facility] Blood Venipuncture / Unknown 06/29/2025 2:02 AM CDT 06/29/2025 2:31 AM CDT us Lucian Mcdonnell MD CHEMISTRY ORDERABLES Final Result [facility] CLIA # [id number] [facility] [address] [place], [place] [address] * (ABNORMAL) POC GLUCOSE (06/28/2025 8:30 PM CDT) GLUCOSE POC 156(H) 74 - 99 mg/dL 06/28/2025 8:30 PM CDT [facility] SPECIMEN SOURCE, GLUCOSE POC Capillary 06/28/2025 8:30 PM CDT [facility] Blood, whole 06/28/2025 8:30 PM CDT 06/28/2025 8:38 PM CDT us Lucian Mcdonnell MD POINT OF CARE TESTIN G Final Result Performing Organization Address City/[facility]/ZIP Co de Phone Number [facility] CLIA # [id number] [address] [address] [place], [place] [address] * (ABNORMAL) POC GLUCOSE (06/28/2025 4:12 PM CDT) GLUCOSE POC 138(H) 74 - 99 mg/dL 06/28/2025 4:12 PM CDT [facility] SPECIMEN SOURCE, GLUCOSE POC Capillary 06/28/2025 4:12 PM CDT [facility] Blood, whole 06/28/2025 4:12 PM CDT 06/28/2025 4:19 PM CDT us Lucian Mcdonnell MD POINT OF CARE TESTIN G Final Result Performing Organization Address [facility]/ZIP Co de Phone Number [facility] CLIA # [id number] [address] [address] [place] [address] * (ABNORMAL) POC ACTIVATED CLOTTING TIME (06/28/2025 3:05 PM CDT) ACTIVATED CLOTTING TIME POC 233(H) 116 - 140 sec 06/28/2025 3:05 PM CDT [facility] Blood 06/28/2025 3:05 PM CDT 06/28/2025 4:09 PM CDT Lucian Mcdonnell MD POINT OF CARE TESTIN G Final Result Performing Organization Address [facility]/ZIP Co de Phone Number [facility] CLIA # [id number] [address] [place] [address] * (ABNORMAL) POC ACTIVATED CLOTTING TIME (06/28/2025 2:22 PM CDT) ACTIVATED CLOTTING TIME POC 222(H) 116 - 140 sec 06/28/2025 2:22 PM CDT [facility] Blood 06/28/2025 2:22 PM CDT 06/28/2025 4:09 PM CDT Lucian Mcdonnell MD POINT OF CARE TESTIN G Final Result Performing Organization Address [facility] Co de Phone Number [facility] CLIA # [id number] [address] [place] [address] * (ABNORMAL) POC ACTIVATED CLOTTING TIME (06/28/2025 1:45 PM CDT) ACTIVATED CLOTTING TIME POC 256(H) 116 - 140 sec 06/28/2025 1:45 PM CDT [facility] Blood 06/28/2025 1:45 PM CDT 06/28/2025 4:09 PM CDT Lucian Mcdonnell MD POINT OF CARE TESTIN G Final Result Performing Organization Address City/[facility] Co de Phone Number [facility] CLIA # [id number] [address] [place], [place] [address] * PROTIME-INR (06/28/2025 11:01 AM CDT) Pathologist [facility] PROTIME 13.4 12.7 - 14.9 Seconds 06/28/2025 11:[address] [facility] INR 1.0 0.8 - 1.2 06/28/2025 11:[address] [facility] Blood Venipuncture / Unknown 06/28/2025 11:01 AM CDT 06/28/2025 11:[address] [facility] - 06/28/2025 11:26 AM CDT Expected Values for INR: DVT/PE Goal INR 2.5; range 2.0 - 3.0 Valve Replacement Tissue Goal INR 2.5; range 2.0 - 3.0 Valve Replacement Mechanical Goal INR 3.0; range 2.5 - 3.5 POST-CO Goal INR 2.5; range 2.0 - 3.0 or Goal INR 3.0; range 2.5 - 3.5 Atrial Fibrillation Goal INR 2.5; range 2.0 - 3.0 Ischemic Stroke Goal INR 2.5; range 2.0 - 3.0 Lucian Mcdonnell MD HEMATOLOGY ORDERABLE S Final Result [facility] CLIA # [id number] [address] [place] [address] [place] [address] * VERIFICATION BLOOD GROUP (06/28/2025 11:01 AM CDT) [facility] ABO GROUP A 06/28/2025 11:[address] [facility] RH (D) TYPE Positive 06/28/2025 11:[address] [facility] Blood Venipuncture / Unknown 06/28/2025 11:01 AM CDT 06/28/2025 11:08 AM CDT Lucian Mcdonnell MD BLOOD BANK ORDERABLE S Final Result [facility] CLIA#[id number] [facility] [place] [address], * (ABNORMAL) CBC WITH DIFFERENTIAL (06/28/2025 11:01 AM CDT) [facility] WBC 6.2 4.8 - 10.8 K/uL 06/28/2025 11:18 AM CDT [facility] RBC 4.88 4.60 - 6.20 M/uL 06/28/2025 11:18 AM CDT [facility] HEMOGLOBIN 12.4(L) 14.0 - 18.0 g/dL 06/28/2025 11:18 AM CDT [facility] HEMATOCRIT 38.1(L) 41.0 - 53.0 % 06/28/2025 11:18 AM CDT [facility] MCV 78.1(L) 84.0 - 103.0 fL 06/28/2025 11:18 AM CDT [facility] MCH 25.4(L) 27.0 - 34.0 pg 06/28/2025 11:[facility] MCHC 32.5 30.0 - 35.0 g/dL 06/28/2025 11:18 AM CDT [facility] PLATELETS 221 140 - 440 K/uL 06/28/2025 11:18 AM CDT [facility] MPV 11.5 8.9 - 12.8 fL 06/28/2025 11:18 AM CDT [facility] RDW 13.5 11.0 - 14.5 % 06/28/2025 11:18 AM CDT [facility] RDW-STDEV 38.4 37.0 - 54.0 fL 06/28/2025 11:18 AM CDT [facility] NEUTROPHILS 74 42 - 75 % 06/28/2025 11:18 AM CDT [facility] LYMPHOCYTES 17(L) 24 - 44 % 06/28/2025 11:18 AM CDT [facility] MONOCYTES 8 2 - 10 % 06/28/2025 11:18 AM CDT [facility] EOSINOPHILS 1 0 - 7 % 06/28/2025 11:18 AM CDT [facility] BASOPHILS 1 0 - 1 % 06/28/2025 11:18 AM CDT [facility] IMMATURE GRANULOCYTES 0 0 - 2 % 06/28/2025 11:18 AM CDT [facility] NEUTROPHIL ABSOLUTE 4.58 2.00 - 8.00 K/uL 06/28/2025 11:18 AM CDT [facility] LYMPHOCYTE ABSOLUTE 1.04(L) 1.20 - 4.00 K/uL 06/28/2025 11:18 AM CDT [facility] MONOCYTE ABSOLUTE 0.48 0.10 - 0.60 K/uL 06/28/2025 11:18 AM CDT [facility] EOSINOPHIL ABSOLUTE 0.04 0.00 - 0.70 K/uL 06/28/2025 11:18 AM CDT [facility] BASOPHILS ABSOLUTE 0.06 0.00 - 0.20 K/uL 06/28/2025 11:18 AM CDT [facility] IMMATURE GRANULOCYTES ABSOLUTE 0.01 0.00 - 0.10 K/uL 06/28/2025 11:18 AM [facility] SMEAR REVIEWED: NA - Not Applicable 06/28/2025 11:18 AM T [facility] Blood Venipuncture / Unknown 06/28/2025 11:01 AM CDT 06/28/2025 11:10 AM CDT us Lucian Mcdonnell MD HEMATOLOGY ORDERABLE S Final Result [facility] CLIA # [id number] [address] [address] [place] [address] * (ABNORMAL) BASIC METABOLIC PANEL (06/28/2025 11:01 AM CDT) SODIUM 132(L) 136 - 145 mmol/L 06/28/2025 11:43 AM [facility] POTASSIUM 4.0 3.5 - 5.1 mmol/L 06/28/2025 11:43 AM [facility] CHLORIDE 94(L) 98 - 107 mmol/L 06/28/2025 11:43 AM [facility] CO2 24 22 - 29 mmol/L 06/28/2025 11:43 AM [facility] CALCIUM 9.2 8.8 - 10.2 mg/dL 06/28/2025 11:43 AM [facility] BUN 9 8 - 23 mg/dL 06/28/2025 11:43 AM [facility] CREATININE 0.86 0.67 - 1.17 mg/dL 06/28/2025 11:43 AM [facility] Comment:The GFR result is no t clinically significant on patients <18 or >70 years of age. GLUCOSE 181(H) 74 - 99 mg/dL 06/28/2025 11:43 AM [facility] GFR >60 mL/min/1.7 3 sq meter 06/28/2025 11:43 AM [facility] Comment:eGFR calculated with 2020 CKD-EPI equation. Vegetarian diet, extremely high or low muscle mass, and may affect results. Cystatin C with Glomerular Filtration Rate is a suitable alternative for these patients. ANION GAP 14 9 - 20 mmol/L 06/28/2025 11:43 AM [facility] Blood Venipuncture / Unknown 06/28/2025 11:01 AM CDT 06/28/2025 11:10 AM [facility] Lucian Mcdonnell MD CHEMISTRY ORDERABLES Final Result [facility] CLIA # [id number] [address] [place] [address] * TYPE AND SCREEN (06/28/2025 10:50 AM CDT) ABO GROUP A 06/28/2025 12:[address] [facility] RH (D) TYPE Positive 06/28/2025 12:[address] [facility] ANTIBODY SCREEN Negative 06/28/2025 12:[address] [facility] Blood Venipuncture / Unknown 06/28/2025 10:50 AM CDT 06/28/2025 11:08 AM CDT us Lucian Mcdonnell MD BLOOD BANK ORDERABLE S Edited Result - Final [facility] CLIA#[id number] [address] [place] [address], documented in this encounter Visit Diagnoses Diagnosis Atherosclerosis of [place] arteries of extremities with intermittent claudication, left leg- Primary Encounter for preadmission testing Abnormal coagulation profile Peripheral vascular disease, unspecified Post-op pain Other acute postoperative pain Peripheral vascular disease, unspecified Delirium Other alteration of consciousness documented in this encounter Admitting Diagnoses Diagnosis Peripheral vascular disease, unspecified documented in this encounter Administered Medications Inactive Administered Medications - up to 3 most recent administrations Medication Order MAR Action Action Date Dose Rate Site acetaminophen (TYLENOL) tablet 650 mg 650 mg, Oral, EVERY 6 HOURS PRN, Starting on Thu06/28/25 at 1956, Until Thu07/03/25 at 1641, Other (See Comment), See admin instructions, Routine, Post-op - Floor Given 06/28/2025 11:30 PM CDT 650 mg albuterol sulfate 90 mcg/Actuation inhaler 2 Puff 2 Puff, Inhalation, EVERY 6 HOURS RESPIRATORY, First dose on Thu06/29/25 at 0215, Until Discontinued, Routine Given 07/03/2025 12:35 PM CDT 2 Puffs Given 07/03/2025 8:32 AM CDT 2 Puffs Given 07/02/2025 9:10 PM CDT 2 Puffs aspirin (ECOTRIN EC) tablet 81 mg 81 mg, Oral, DAILY, First dose on Thu06/29/25 at 0900, Until Discontinued, Routine, Previous Med: aspirin (ECOTRIN EC) 81 mg Tablet, Delayed Release (E.C.) - Orig Sig - Take 1 Tablet (81 mg) by mouth daily. Given 07/03/2025 8:31 AM CDT 81 mg Given 07/02/2025 10:17 AM CDT 81 mg Given 07/01/2025 8:41 AM CDT 81 mg atorvastatin (LIPITOR) tablet 80 mg 80 mg, Oral, DAILY LATE, First dose on Thu06/28/25 at 2000, Until Discontinued, Routine, Previous Med: atorvastatin (LIPITOR) 80 mg tablet - Orig Sig - Take 80 mg by mouth Daily LATE. Given 07/02/2025 9:06 PM CDT 80 mg Given 07/01/2025 8:41 PM CDT 80 mg Given 06/29/2025 8:55 PM CDT 80 mg brimonidine (ALPHAGAN) 0.2 % ophthalmic solution 1 Drop 1 Drop, Right Eye, EVERY 12 HOURS (BlD), First dose on Thu06/28/25 at 2100, Until Discontinued, Routine, Previous Med: brimonidine (ALPHAGAN) 0.2 % solution - Orig Sig - INSTILL 1 DROP IN RIGHT EYE TWO TIMES A DAY Given 07/03/2025 8:34 AM CDT 1 Drop Given 07/02/2025 9:11 PM CDT 1 Drop Given 07/02/2025 12:00 PM CDT 1 Drop dexmedeTOMIDine in dextrose 5% (PRECEDEX) 400 mcg/100 mL (4 mcg/mL) infusion 0-1.5 mcg/kg/hr 80 kg (0-30 mL/hr), IV, TITRATE, Starting on Thu06/30/25 at 1330, Until 07/01/25 at 1113, Should this infusion be titrated? Yes, Initial infusion dose? 0.2 mcg/kg/hr, Titration Dose Increment? 0.2 mcg/kg/hr, Titration Interval? 30 minutes, RASS Goal? -2 to 0 New Bag 06/30/2025 1:45 PM CDT 1 mcg/kg/hr 20 mL/hr dextrose 5 % - sodium chloride 0.9 % infusion IV, at 40 mL/hr, SEE ADMIN INSTRUCTIONS, Starting on Thu06/29/25 at 1557, Until Thu07/03/25 at 1641, Routine dextrose 50% (D50) syringe 12.5 Gram 12.5 Gram, IV, SEE ADMIN INSTRUCTIONS, Starting on Sharmila 06/29/25 at 1557, Until Thu07/03/25 at 1641, Routine dextrose 50% (D50) syringe 25 Gram 25 Gram, IV, SEE ADMIN INSTRUCTIONS, Starting on Thu06/29/25 at 1557, Until Thu07/03/25 at 1641, Routine diphenhydrAMINE (BENADRYL) injection 25 mg 25 mg, IV, ONE TIME ONLY, 1 dose, On Thu06/29/25 at 2345, Routine Given 06/29/2025 11:38 PM CDT 25 mg fluticasone furoate-vilanteroL (BREO ELLIPTA) 100-25 mcg/dose inhaler 1 Puff 1 Puff, Inhalation, DAILY RESPIRATORY, First dose on Sharmila 06/29/25 at 0800, Until Discontinued, Routine Given 07/03/2025 8:31 AM CDT 1 Puff Given 07/01/2025 8:44 AM CDT 1 Puff Patient/Family Admin 06/29/2025 8:00 AM CDT 1 Puff folic acid (FOLVITE) tablet 1 mg 1 mg, Oral, DAILY, First dose on Thu06/29/25 at 0900, Until Discontinued, Routine, Previous Med: folic acid (FOLVITE) 1 mg tablet - Orig Sig - Take 1 mg by mouth daily. Given 07/03/2025 9:09 AM CDT 1 mg Given 07/02/2025 10:17 AM CDT 1 mg Given 07/01/2025 8:41 AM CDT 1 mg glucagon HCL 1 mg/mL injection 1 mg 1 mg, IM, SEE ADMIN INSTRUCTIONS, Starting on Thu06/29/25 at 1557, Until Thu07/03/25 at 1641, Routine HYDROcodone-acetaminophen (NORCO) 5-325 mg per tablet 1 Tablet 1 Tablet, Oral, EVERY 4 HOURS PRN, Starting on Thu06/28/25 at 1956, Until Thu07/03/25 at 1641, Pain (See admin instructions), Routine, Post-op - Floor Given 07/03/2025 12:38 PM CDT 1 T ablet Given 07/02/2025 9:07 PM CDT 1 Tablet Given 07/02/2025 12:02 PM CDT 1 Tablet HYDROmorphone (PF) (DILAUDID) injection 0.6 mg 0.6 mg, IV, POST-PROCEDURE Q 5 MINUTES PRN, 5 doses, Starting on Thu06/28/25 at 1130, Until Thu06/28/25 at 1939, Pain, Routine, PACU Given 06/28/2025 4:58 PM CDT 0.6 mg Given 06/28/2025 4:42 PM CDT 0.6 mg ibuprofen (MOTRIN) tablet 400 mg 400 mg, Oral, EVERY 6 HOURS PRN, Starting on Thu06/28/25 at 1956, Until Thu07/03/25 at 1641, Pain, for pain secondary to inflammation, Routine, Post-op - Floor Given 07/03/2025 8:31 AM CDT 400 m g Given 06/29/2025 2:57 AM CDT 400 mg insulin lispro (HumaLOG,ADMELOG) injection 0-6 Units 0-6 Units, subCUT, THREE TIMES DAILY WITH MEALS, First dose on Thu06/29/25 at 1700, Until Discontinued, Routine Given 07/03/2025 8:43 AM CDT 3 Units Abdomen, Left Lower Quadrant Given 07/02/2025 4:19 PM CDT 1 Units Ri ght Arm Given 07/02/2025 12:01 PM CDT 2 Units R ight Arm ipratropium-albuteroL (DUONEB) 0.5 mg-3 mg(2.5 mg base)/3 mL inhalation solution 3 mL 3 mL, Inhalation, EVERY 6 HOURS PRN RESPIRATORY, Starting on Thu06/29/25 at 0215, Until Thu07/03/25 at 1641, Shortness of Breath, Wheezing, Routine, Previous Med: ipratropium-albuteroL (DUONEB) 0.5 mg-3 mg(2.5 mg base)/3 mL Solution for Nebulization - Orig Sig - Take 3 mL by inhalation every 4 hours as needed for Shortness of Breath. isosorbide mononitrate (IMDUR) SR 24 hour tablet 30 mg 30 mg, Oral, DAILY EARLY, First dose on Thu06/29/25 at 0600, Until Discontinued, Routine, Previous Med: isosorbide mononitrate (IMDUR) 30 mg Extended Release 24 hour tablet - Orig Sig - Take 30 mg by mouth daily water leak repairer. Given 07/03/2025 6: 20 AM CDT 30 mg Given 07/02/2025 5:07 AM CDT 30 mg Given 07/01/2025 6:32 AM CDT 30 mg losartan (COZAAR) tablet 50 mg 50 mg, Oral, DAILY, First dose on Thu06/29/25 at 0900, Until Discontinued, Routine Given 07/03/2025 8:30 AM CDT 50 mg Given 07/02/2025 10:18 AM CDT 50 mg Given 07/01/2025 8:41 AM CDT 50 mg magnesium OXIDE (MAG-OX) tablet 400 mg 400 mg, Oral, TWO TIMES DAILY, First dose on Thu06/28/25 at 2100, Until Discontinued, Routine, Previous Med: magnesium oxide (MAG-OX) 400 mg (241.3 mg magnesium) tablet - Orig Sig - Take 400 mg by mouth 2 times daily. Given 07/03/2025 8:31 AM CDT 400 mg Given 07/02/2025 9:07 PM CDT 400 mg Given 07/02/2025 10:18 AM CDT 400 mg melatonin tablet 6 mg 6 mg, Oral, DAILY AT BEDTIME, First dose on Thu06/30/25 at 2100, Until Discontinued, Routine Given 07/02/2025 9:07 PM CDT 6 mg Given 07/01/2025 8:41 PM CDT 6 mg Given 06/30/2025 9:51 PM CDT 6 mg naloxone (NARCAN) 0.4 mg/mL injection 0.1-0.4 mg 0.1-0.4 mg, IV, SEE ADMIN INSTRUCTIONS, Starting on Thu06/28/25 at 1130, Until Thu07/03/25 at 1641, Routine, PACU OLANZapine (ZyPREXA ZYDIS) rapid dissolve tablet 5 mg 5 mg, Oral, ONE TIME PRN, 1 dose, Starting on Thu06/29/25 at 2226, Until Thu06/29/25 at 2231, Anxiety, Delirium, Routine Given 06/29/2025 10:31 PM CDT 5 mg OLANZapine (ZyPREXA) 5 mg in sterile water 1 mL injection 5 mg, IM, ONE TIME ONLY, 1 dose, On Thu06/30/25 at 0745, Routine Given 06/30/2025 9:53 AM CDT 5 mg Deltoid, Right pantoprazole (PROTONIX) tablet 40 mg 40 mg, Oral, DAILY BEFORE BREAKFAST, First dose on Thu06/29/25 at 0730, Until Discontinued, Previous Med: omeprazole (PriLOSEC) 20 mg Capsule, Delayed Release(E.C.) - Orig Sig - Take 20 mg by mouth daily. , Indication: Gastroesophageal reflux disease (GERD) Given 07/03/2025 8:31 AM CDT 40 mg Given 07/02/2025 10:18 AM CDT 40 mg Given 07/01/2025 8:41 AM CDT 40 mg QUEtiapine (SEROquel) tablet 25 mg 25 mg, Oral, DAILY, First dose on Thu06/30/25 at 1130, Until Discontinued, Routine Given 07/03/2025 8:31 AM CDT 25 mg Given 07/02/2025 10:19 AM CDT 25 mg Given 07/01/2025 8:41 AM CDT 25 mg QUEtiapine (SEROquel) tablet 50 mg 50 mg, Oral, DAILY AT BEDTIME, First dose (after last modification) on Thu06/30/25 at 2100, Until Discontinued, Routine Given 07/02/2025 9:06 PM CDT 50 mg Given 07/01/2025 8:41 PM CDT 50 mg Given 06/30/2025 9:51 PM CDT 50 mg sodium chloride 0.9 % bolus solution 500 mL 500 mL, IV, ONE TIME ONLY, 1 dose, On Thu06/30/25 at 1515, at 999 mL/hr, Administer over 30 Minutes, Routine New Bag 06/30/2025 3:09 PM CDT 500 mL 999 mL/hr sodium chloride 0.9 % infusion IV, at 40 mL/hr, CONTINUOUS, Starting on Thu06/28/25 at 2000, Until Thu06/29/25 at 0759, Routine, Post-op - Floor New Bag 06/28/2025 9:53 PM CDT 40 mL/ hr sodium chloride 0.9 % infusion IV, at 75 mL/hr, CONTINUOUS, Starting on Thu06/29/25 at 1630, Until Thu06/30/25 at 1629, Routine, Post-op - Floor Restarted 06/30/2025 3:28 AM CDT 75 mL/ hr New Bag 06/29/2025 5:47 PM CDT 75 mL/hr tamsulosin (FLOMAX) SR 24 hour capsule 0.4 mg 0.4 mg, Oral, DAILY, First dose on Thu06/29/25 at 0900, Until Discontinued, Routine, Previous Med: tamsulosin (FLOMAX) 0.4 mg capsule - Orig Sig - Take 0.4 mg by mouth daily. Given 07/03/2025 8:31 AM CDT 0.4 mg Given 07/02/2025 10:19 AM CDT 0.4 mg Given 07/01/2025 8:41 AM CDT 0.4 mg thiamine (VITAMIN B-1) 100 mg in sodium chloride 0.9 % 100 mL IVPB 100 mg, IV, ONE TIME ONLY, 1 dose, On Thu06/29/25 at 1630, Routine New Bag 06/29/2025 5:48 PM CDT 100 mg 116 mL/hr timoloL maleate (TIMOPTIC) 0.5% ophthalmic solution 1 Drop 1 Drop, Right Eye, TWO TIMES DAILY, First dose on Thu06/28/25 at 2100, Until Discontinued, Routine, Previous Med: timoloL maleate (TIMOPTIC) 0.5% solution - Orig Sig - INSTILL 1 DROP IN RIGHT EYE TWO TIMES A DAY Given 07/03/2025 8:34 AM CDT 1 Drop Given 07/02/2025 9:11 PM CDT 1 Drop Given 07/02/2025 12:05 PM CDT 1 Drop umeclidinium (INCRUSE ELLIPTA) 62.5 mcg/actuation inhaler 1 Puff 1 Puff, Inhalation, DAILY RESPIRATORY, First dose on Thu06/29/25 at 0800, Until Discontinued, Routine Given 07/03/2025 8:31 AM CDT 1 Puff Given 07/01/2025 8:44 AM CDT 1 Puff Patient/Family Admin 06/29/2025 8:00 AM CDT 1 Puff ziprasidone (GEODON) injection 10 mg 10 mg, IM, ONE TIME ONLY, 1 dose, On Thu06/30/25 at 1315, Routine Given 06/30/2025 1:15 PM CDT 10 mg Arm, Left Upper documented in this encounter Active and Recently Administered Medications Times are shown in CDT. Scheduled Medication Order 07/01/2025 07/02/2025 07/03/2025 albuterol sulfate 90 mcg/Actuation inhaler 2 Puff 2 Puff, Inhalation, EVERY 6 HOURS RESPIRATORY, First dose on Sharmila 06/29/25 at 0215, Until Discontinued, Routine 0100 (Not Given - Provider: SONYA Shields - Reason: Patient asleep)0843 (Given - Provider: Oksana Sanderson RN)1154 (Given - Provider: Oksana Sanderson RN)1900 (Not Given - Provider: Shen Dueñas RN - Reason: Patient condition) 0100 (Not Given - Provider: Shen Dueñas RN - Reason: Patient asleep)0700 (Refused - Provider: Oksana Sanderson RN)1300 (Refused - Provider: Sulema Chavis RN)2110 (Given - Provider: Tresa Hudson RN) 0100 (Refused - Provider: Tresa Hudson RN)0832 (Given - Provider: Kendall Reeves RN)1235 (Given - Provider: Kendall Reeves RN) aspirin (ECOTRIN EC) tablet 81 mg 81 mg, Oral, DAILY, First dose on Thu06/29/25 at 0900, Until Discontinued, Routine, Previous Med: aspirin (ECOTRIN EC) 81 mg Tablet, Delayed Release (E.C.) - Orig Sig - Take 1 Tablet (81 mg) by mouth daily. 0841 (Given - Provider: Oksana Sanderson RN) 1017 (Given - Provider: Oksana Sanderson RN) 0831 (Given - Provider: Kendall Reeves RN) atorvastatin (LIPITOR) tablet 80 mg 80 mg, Oral, DAILY LATE, First dose on Thu06/28/25 at 2000, Until Discontinued, Routine, Previous Med: atorvastatin (LIPITOR) 80 mg tablet - Orig Sig - Take 80 mg by mouth Daily LATE. 2040 (Given - Provider: Shen Dueñas RN) 210 (Given - Provider: Tresa Hudson RN) brimonidine (ALPHAGAN) 0.2 % ophthalmic solution 1 Drop 1 Drop, Right Eye, EVERY 12 HOURS (BlD), First dose on Thu06/28/25 at 2100, Until Discontinued, Routine, Previous Med: brimonidine (ALPHAGAN) 0.2 % solution - Orig Sig - INSTILL 1 DROP IN RIGHT EYE TWO TIMES A DAY 0846 (Given - Provider: Oksana Sanderson RN)2041 (Given - Provider: Shen Dueñas RN) 1199 (Given - Provider: Sulema Chavis RN)2110 (Given - Provider: Tresa Hudson RN) 0834 (Given - Provider: Kendall Reeves RN) dextrose 5 % - sodium chloride 0.9 % infusion IV, at 40 mL/hr, SEE ADMIN INSTRUCTIONS, Starting on Thu06/29/25 at 1557, Until Thu07/03/25 at 1641, Routine dextrose 50% (D50) syringe 12.5 Gram 12.5 Gram, IV, SEE ADMIN INSTRUCTIONS, Starting on Sharmila 06/29/25 at 1557, Until Thu07/03/25 at 1641, Routine dextrose 50% (D50) syringe 25 Gram 25 Gram, IV, SEE ADMIN INSTRUCTIONS, Starting on Sharmila 06/29/25 at 1557, Until Thu07/03/25 at 1641, Routine fluticasone furoate-vilanteroL (BREO ELLIPTA) 100-25 mcg/dose inhaler 1 Puff 1 Puff, Inhalation, DAILY RESPIRATORY, First dose on Thu06/29/25 at 0800, Until Discontinued, Routine 0844 (Given - Provider: Oksana Sanderson RN) 0800 (Refused - Provider: Oksana Sanderson RN) 0831 (Given - Provider: Kendall Reeves RN) folic acid (FOLVITE) tablet 1 mg 1 mg, Oral, DAILY, First dose on Thu06/29/25 at 0900, Until Discontinued, Routine, Previous Med: folic acid (FOLVITE) 1 mg tablet - Orig Sig - Take 1 mg by mouth daily. 0841 (Given - Provider: Oksana Sanderson RN) 1017 (Given - Provider: Oksana Sanderson RN) 0909 (Given - Provider: Kendall Reeves RN) glucagon HCL 1 mg/mL injection 1 mg 1 mg, IM, SEE ADMIN INSTRUCTIONS, Starting on Thu06/29/25 at 1557, Until Thu07/03/25 at 1641, Routine insulin lispro (HumaLOG,ADMELOG) injection 0-6 Units 0-6 Units, subCUT, THREE TIMES DAILY WITH MEALS, First dose on Thu06/29/25 at 1700, Until Discontinued, Routine 0800 (Not Given - Provider: Oksana Sanderson RN - Reason: Lab results / vitals - Comment: BG 145)1200 (Not Given - Provider: Oksana Sanderson RN - Reason: Lab results / vitals - Comment: BG 169)1700 (Not Given - Provider: Oksana Sanderson RN - Reason: Lab results / vitals - Comment: BG 152) 0800 (Not Given - Provider: Oksana Sanderson RN - Reason: Lab results / vitals - Comment: BG 166)1201 (Given - Provider: Sulema Chavis RN)1619 (Given - Provider: Sulema Chavis RN) 0843 (Given - Provider: Kendall Reeves RN)1200 (Not Given - Provider: Kendall Reeves RN - Reason: Patient condition) isosorbide mononitrate (IMDUR) SR 24 hour tablet 30 mg 30 mg, Oral, DAILY EARLY, First dose on Thu06/29/25 at 0600, Until Discontinued, Routine, Previous Med: isosorbide mononitrate (IMDUR) 30 mg Extended Release 24 hour tablet - Orig Sig - Take 30 mg by mouth daily water leak repairer. 0632 (Given - Provider: SONYA Shields) 0507 (Given - Provider: Shen Dueñas RN) 0620 (Given - Provider: Tresa Hudson RN) leflunomide (ARAVA) tablet 10 mg 10 mg, Oral, DAILY, First dose on Thu06/29/25 at 0900, Until Discontinued, Routine, On hold since Thu06/28/2025 at 2036 until manually unheld 0900 (Automatically Held - Provider: Lucian Mcdonnell MD) 0900 (Automatically Held - Provider: Lucian Mcdonnell MD) 0900 (Automatically Held - Provider: Lucian Mcdonnell MD)164 (Order Unhold - Provider: PROVIDER, DISCHARGE PATIENT) losartan (COZAAR) tablet 50 mg 50 mg, Oral, DAILY, First dose on Thu06/29/25 at 0900, Until Discontinued, Routine 0841 (Given - Provider: Oksana Sanderson RN) 1017 (Given - Provider: Oksana Sanderson RN) 829 (Given - Provider: Kendall Reeves RN) magnesium OXIDE (MAG-OX) tablet 400 mg 400 mg, Oral, TWO TIMES DAILY, First dose on Thu06/28/25 at 2100, Until Discontinued, Routine, Previous Med: magnesium oxide (MAG-OX) 400 mg (241.3 mg magnesium) tablet - Orig Sig - Take 400 mg by mouth 2 times daily. 0841 (Given - Provider: Oksana Sanderson RN)2040 (Given - Provider: Shen Dueñas RN) 1017 (Given - Provider: Oksana Sanderson RN)2106 (Given - Provider: Tresa Hudson RN) 830 (Given - Provider: Kendall Reeves RN) melatonin tablet 6 mg 6 mg, Oral, DAILY AT BEDTIME, First dose on Thu06/30/25 at 2100, Until Discontinued, Routine 2040 (Given - Provider: Shen Dueñas RN) 2106 (Given - Provider: Tresa Hudson RN) naloxone (NARCAN) 0.4 mg/mL injection 0.1-0.4 mg 0.1-0.4 mg, IV, SEE ADMIN INSTRUCTIONS, Starting on Thu06/28/25 at 1130, Until Thu07/03/25 at 1641, Routine, PACU pantoprazole (PROTONIX) tablet 40 mg 40 mg, Oral, DAILY BEFORE BREAKFAST, First dose on Thu06/29/25 at 0730, Until Discontinued, Previous Med: omeprazole (PriLOSEC) 20 mg Capsule, Delayed Release(E.C.) - Orig Sig - Take 20 mg by mouth daily. , Indication: Gastroesophageal reflux disease (GERD) 08 (Given - Provider: Oksana Sanderson RN) 1017 (Given - Provider: Oksana Sanderson RN) 830 (Given - Provider: Kendall Reeves RN) QUEtiapine (SEROquel) tablet 25 mg 25 mg, Oral, DAILY, First dose on Thu06/30/25 at 1130, Until Discontinued, Routine 0841 (Given - Provider: Oksana Sanderson RN) 1019 (Given - Provider: Oksana Sanderson RN) 0831 (Given - Provider: Kendall Reeves RN) QUEtiapine (SEROquel) tablet 50 mg 50 mg, Oral, DAILY AT BEDTIME, First dose (after last modification) on Thu06/30/25 at 2100, Until Discontinued, Routine 2040 (Given - Provider: Shen Dueñas, MITZI) 2105 (Given - Provider: Tresa Hudson RN) tamsulosin (FLOMAX) SR 24 hour capsule 0.4 mg 0.4 mg, Oral, DAILY, First dose on Thu06/29/25 at 0900, Until Discontinued, Routine, Previous Med: tamsulosin (FLOMAX) 0.4 mg capsule - Orig Sig - Take 0.4 mg by mouth daily. 0841 (Given - Provider: Oksana Sanderson RN) 101 (Given - Provider: Oksana Sanderson RN) 0831 (Given - Provider: Kenadll Reeves RN) timoloL maleate (TIMOPTIC) 0.5% ophthalmic solution 1 Drop 1 Drop, Right Eye, TWO TIMES DAILY, First dose on Thu06/28/25 at 2100, Until Discontinued, Routine, Previous Med: timoloL maleate (TIMOPTIC) 0.5% solution - Orig Sig - INSTILL 1 DROP IN RIGHT EYE TWO TIMES A DAY 0846 (Given - Provider: Oksana Sanderson RN)2041 (Given - Provider: Shen Dueñas RN) 120 (Given - Provider: Sulema Chavis RN)2110 (Given - Provider: Tresa Hudson RN) 0834 (Given - Provider: Kendall Reeves RN) umeclidinium (INCRUSE ELLIPTA) 62.5 mcg/actuation inhaler 1 Puff 1 Puff, Inhalation, DAILY RESPIRATORY, First dose on Thu06/29/25 at 0800, Until Discontinued, Routine 0844 (Given - Provider: Oksana Sanderson RN) 0800 (Refused - Provider: Oksana Sanderson RN) 0831 (Given - Provider: Kendall Reeves RN) ziprasidone (GEODON) 10 mg in sterile water 0.5 mL injection 10 mg, IM, ONE TIME ONLY, 1 dose, On 07/02/25 at 2215, Routine 2215 (Due) PRN Medication Order 07/01/2025 07/02/2025 07/03/2025 acetaminophen (TYLENOL) tablet 650 mg 650 mg, Oral, EVERY 6 HOURS PRN, Starting on Thu06/28/25 at 1956, Until 07/03/25 at 1641, Other (See Comment), See admin instructions, Routine, Post-op - Floor HYDROcodone-acetaminophen (NORCO) 5-325 mg per tablet 1 Tablet 1 Tablet, Oral, EVERY 4 HOURS PRN, Starting on Thu06/28/25 at 1956, Until 07/03/25 at 1641, Pain (See admin instructions), Routine, Post-op - Floor 1202 (Given - Provider: Sulema Chavis RN)2107 (Given - Provider: Tresa Hudson RN) 1238 (Given - Provider: Kendall Reeves RN) ibuprofen (MOTRIN) tablet 400 mg 400 mg, Oral, EVERY 6 HOURS PRN, Starting on Thu06/28/25 at 1956, Until 07/03/25 at 1641, Pain, for pain secondary to inflammation, Routine, Post-op - Floor 0831 (Given - Provid er: Kendall Reeves RN) ipratropium-albuteroL (DUONEB) 0.5 mg-3 mg(2.5 mg base)/3 mL inhalation solution 3 mL 3 mL, Inhalation, EVERY 6 HOURS PRN RESPIRATORY, Starting on Sharmila 06/29/25 at 0215, Until 07/03/25 at 1641, Shortness of Breath, Wheezing, Routine, Previous Med: ipratropium-albuteroL (DUONEB) 0.5 mg-3 mg(2.5 mg base)/3 mL Solution for Nebulization - Orig Sig - Take 3 mL by inhalation every 4 hours as needed for Shortness of Breath. morphine 4 mg/mL injection 2 mg 2 mg, IV, EVERY 4 HOURS PRN, Starting on Thu06/28/25 at 195, Until Thu07/03/25 at 1641, Pain (See admin instructions), Routine, Post-op - Floor nitroglycerin (NITROSTAT) tablet 0.4 mg 0.4 mg, Sublingual, EVERY 5 MINUTES PRN, Starting on Thu06/28/25 at 1958, Until Thu07/03/25 at 1641, Chest Pain, Routine, Previous Med: nitroglycerin (NITROSTAT) 0.4 mg Tablet, Sublingual - Orig Sig - Place 0.4 mg under tongue every 5 minutes as needed for Chest Pain. ondansetron (ZOFRAN) 4 mg/2 mL injection 4 mg 4 mg, IV, EVERY 6 HOURS PRN, Starting on Thu06/28/25 at 1955, Until Thu07/03/25 at 1641, Nausea/Emesis, Routine, Post-op - Floor documented in this encounter Care Teams Director Targeted Marketing Relationship Specialty Start Date End Date Astrid Escobedo DO [address] [place] [address] PCP - General Family Practice 12/17/15 documented as of this encounter
--- OUTSIDE RECORDS SUMMARY | 2025-07-07 19:18 | XMS_ITS | Encounter Summary ---
Author Organization [facility] Address [address] [place] [address] Care Team Providers Care Car Record Clerk Name Role Phone Astrid Escobedo DO Primary Care Provider [phone] Encounter Details Date Type Department Care Team (Latest Contact Info) Description 04/07/[address] 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
--- OUTSIDE RECORDS SUMMARY | 2025-07-07 19:18 | XMS_ITS | Encounter Summary ---
Author Organization [facility] Address [address] [place] [address] Care Team Providers Care Director Specialty Name Role Phone Astrid Escobedo DO Primary Care Provider Encounter Details Date Type Department Care Team (Latest Contact Info) Description 11/05/2005 Outpatient Historical [facility] [address] [place] [address] Anthony Wilson MD [address] [place] [address] LOC PRIM OSTEOARTH-HAND (Primary Dx) Social History Tobacco Use Types Packs/Day Years Used Date Smoking Tobacco: Never Assessed Sex and Gender Information Value Date Recorded Sex Assigned at Not on file 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 Gender Identity Not on file Sexual Orientation Not on file documented as of this encounter Plan of Treatment Not on file documented as of this encounter Procedures Procedure Name Priority Date/Time Associated Diagnosis Comments POC GLUCOSE Routine 11/05/2005 8:57 AM BAGGAGE CHECKER POC GLUCOSE Routine 11/05/2005 7:02 AM BAGGAGE CHECKER documented in this encounter Results * (ABNORMAL) POC GLUCOSE (11/05/2005 8:57 AM BAGGAGE CHECKER) GLUCOSE POC 152(H) 60 - 100 mg/dL INTERFACE SYSTEM 11/05/2005 8:57 AM BAGGAGE CHECKER us Historical Provider POINT OF CARE TESTING Final Result INTERFACE SYSTEM Refer to clinic/hospital department * (ABNORMAL) POC GLUCOSE (11/05/2005 7:02 AM BAGGAGE CHECKER) GLUCOSE POC 140(H) 60 - 100 mg/dL INTERFACE SYSTEM 11/05/2005 7:02 AM BAGGAGE CHECKER [facility] Provider POINT OF CARE TESTING Final Result Performing Organization Address [facility] de Phone Number INTERFACE SYSTEM Refer to clinic/hospital department documented in this encounter Visit Diagnoses Diagnosis Primary localized osteoarthrosis, hand- Primary documented in this encounter Care Teams Director Specialty Relationship Specialty Start Date End Date Astrid Escobedo DO [address] [place] [address] PCP - General Family Practice 12/17/15 documented as of this encounter
--- OUTSIDE RECORDS SUMMARY | 2025-07-07 19:18 | XMS_ITS | Encounter Summary ---
Author Organization [facility] Address [address] [place] [address] Care Team Providers Care Dynamicist Name Role Phone Astrid Escobedo DO Primary Care Provider [phone] Encounter Details Date Type Department Care Team (Latest Contact Info) Description 06/26/2005 Outpatient Historical [facility] Rheumatology- [place] [address] [place] [address] Winston Magana MD NO ADDRESS ON FILE PSORIATIC ARTHROPATHY (CMS/HCC) (Primary Dx); AFTERCARE RESIDENTIAL USE MEDICATN Social History Tobacco Use Types Packs/Day Years Used Date Smoking Tobacco: Never Assessed Sex and Gender Information Value Date Recorded Sex Assigned at Not on file 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
--- OUTSIDE RECORDS SUMMARY | 2025-07-07 19:18 | XMS_ITS | Encounter Summary ---
Author Organization [facility] Address [address] [place] [address] Care Team Providers Care Printing Equipment Mechanic Name Role Phone Astrid Escobedo DO Primary Care Provider Encounter Details Date Type Department Care Team (Latest Contact Info) Description 11/17/2005 Outpatient Historical [facility] Orthopedics- 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
--- OUTSIDE RECORDS SUMMARY | 2025-07-07 19:18 | XMS_ITS | Encounter Summary ---
Author Organization [facility] Address [address] [place] [address] Care Team Providers Care Client Support Associate Name Role Phone Astrid Escobedo DO Primary Care Provider Encounter Details Date Type Department Care Team (Latest Contact Info) Description 09/23/2001 Outpatient Historical [facility] Rheumatology- [address] [place] [address] [place] [address] Winston Magana MD NO ADDRESS ON FILE PSORIATIC ARTHROPATHY (CMS/HCC) (Primary Dx); AFTERCARE HALF-WAY USE MEDICATN Social History Tobacco Use Types Packs/Day Years Used Date Smoking Tobacco: Never Assessed Sex and Gender Information Value Date Recorded Sex Assigned at Not on file 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
--- OUTSIDE RECORDS SUMMARY | 2025-07-07 19:18 | XMS_ITS | Encounter Summary ---
Author Organization [facility] Address [address] [place] [address] Care Team Providers Care Box Icer Name Role Phone Astrid Escobedo DO Primary Care Provider Encounter Details Date Type Department Care Team (Latest Contact Info) Description 08/11/2001 Outpatient Historical [facility] Rheumatology- [address] [place] [address] [place] [phone] Winston Magana MD NO ADDRESS ON FILE PSORIATIC ARTHROPATHY (CMS/HCC) (Primary Dx); AFTERCARE [facility] USE MEDICATN Social History Tobacco Use Types Packs/Day Years Used Date Smoking Tobacco: Never Assessed Sex and Gender Information Value Date Recorded Sex Assigned at Not on file Legal Sex Male 5:31 AM TIRE RECAPPER Gender Identity Not on file Sexual Orientation Not on file documented as of this encounter Plan of Treatment Not on file documented as of this encounter Visit Diagnoses Diagnosis Psoriatic arthropathy (CMS/HCC)- Primary Psoriatic arthropathy Encounter for long-term (current) use of other medications documented in this encounter Care Teams Box Icer Relationship Specialty Start Date End Date Astrid Escobedo DO [address] [place] [address] PCP - General Family Practice 12/17/15 documented as of this encounter
--- OUTSIDE RECORDS SUMMARY | 2025-07-07 19:18 | XMS_ITS | Encounter Summary ---
Author Organization [facility] Address [address] [place] [address] Care Team Providers Care Director Of Search Engine Optimization Name Role Phone Astrid Escobedo DO Primary Care Provider Encounter Details Date Type Department Care Team (Latest Contact Info) Description 02/20/[address] 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
--- OUTSIDE RECORDS SUMMARY | 2025-07-07 19:18 | XMS_ITS | Encounter Summary ---
Author Organization [facility] Address [address] [place] [address] Care Team Providers Care Breaker Table Worker Name Role Phone Astrid Escobedo DO Primary Care Provider [phone] Encounter Details Date Type Department Care Team [...] on file Legal Sex Male 5:31 AM HISTORICAL RECORDS ADMINISTRATOR Gender Identity Not on file Sexual Orientation Not on file documented as of this encounter Plan of Treatment Not on file documented as of this encounter Visit Diagnoses Diagnosis Encounter for long-term (current) use of other medications- Primary Psoriatic arthropathy (CMS/HCC) Psoriatic arthropathy documented in this encounter Care Teams Breaker Table Worker Relationship Specialty Start Date End Date Astrid Escobedo DO [address] [place] [phone] PCP - General Family Practice 12/17/15 documented as of this encounter
--- OUTSIDE RECORDS SUMMARY | 2025-07-07 19:18 | XMS_ITS | Encounter Summary ---
Author Organization [facility] Address [address] [place] [address] Care Team Providers Care Datastage Developer Name Role Phone Astrid Escobedo DO Primary Care Provider [phone] Encounter Details Date Type Department Care Team (Latest Contact Info) Description 10/16/2005 Outpatient Historical [facility] Rheumatology- [address] [place] [address] [place] [address] Winston Magana MD NO ADDRESS ON FILE PSORIATIC ARTHROPATHY (CMS/HCC) (Primary Dx); AFTERCARE SKILLED NURSING USE MEDICATN Social History Tobacco Use Types Packs/Day Years Used Date Smoking Tobacco: Never Assessed Sex and Gender Information Value Date Recorded Sex Assigned at Not on file Legal Sex Male 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
--- OUTSIDE RECORDS SUMMARY | 2025-07-07 19:18 | XMS_ITS | Encounter Summary ---
Author Organization [facility] Address [address] [place] [address] Care Team Providers Care Parachute Folder Name Role Phone Astrid Escobedo DO Primary Care Provider Encounter Details Date Type Department Care Team (Latest Contact Info) Description 07/29/2005 Outpatient Historical [facility] Rheumatology- [place] [address] [place] [phone] Winston Magana MD NO ADDRESS ON FILE PSORIATIC ARTHROPATHY (CMS/HCC) (Primary Dx) Social History Tobacco Use Types Packs/Day Years Used Date Smoking Tobacco: Never Assessed Sex and Gender Information Value Date Recorded Sex Assigned at Not on file 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
--- OUTSIDE RECORDS SUMMARY | 2025-07-07 19:18 | XMS_ITS | Encounter Summary ---
Author Organization [facility] Address [address] [place] [address] Care Team Providers Care Parks And Recreation Manager Name Role Phone Astrid Escobedo DO Primary Care Provider [phone] Encounter Details Date Type Department Care Team (Latest Contact Info) Description 06/01/2025 Results Follow-Up [facility] [address] [place] [address] Bonnie Lizama MD [address] [facility] [address] [place] [address] ECHOCARDIOGRAM W/ CONTRAST AGENT Social History Tobacco Use Types Packs/Day Years Used Date Smoking Tobacco: Former Cigarettes Q uit: 09/07/1996 Smokeless Tobacco: Current Chew Alcohol Use Standard Drinks/Week Comments No 0 (1 standard drink = 0.6 oz pur e alcohol) Feeling Safe Answer Date Recorded Are you in a relationship wi th someone who hurts you emotionally and/or physically? No 05/03/2025 Sex and Gender Information Value Date Recorded Sex Assigned at Not on file Legal Sex Male 10:44 AM AUTOBODY TECHNICIAN Gender Identity Not on file Sexual Orientation Not on file documented as of this encounter Plan of Treatment Upcoming Encounters Date Type Department Care Team (Late st Contact Info) Description 07/25/2025 2:30 PM AUTOBODY TECHNICIAN Office Visit [facility]3] Vascular Surgery [place] [address] [place] [address] 08/10/2025 12:30 PM AUTOBODY TECHNICIAN Ancillary Procedure [facility]3] [facility] [place] [address] [place] [address] Lucian Mcdonnell MD [address] [place] [phone] 08/10/2025 1:15 PM AUTOBODY TECHNICIAN Office Visit [facility]3] Vascular Surgery [place] [address] [place] [address] Lucian Mcdonnell MD [address] [place] [address] 08/10/2025 2:00 PM AUTOBODY TECHNICIAN Office Visit [facility] [address] [place] [phone] Bonnie Lizama MD [address] [place] [phone] Cira Juarez, [facility] [address] [place] [phone] 024- 11/07/2025 1:20 PM AUTOBODY TECHNICIAN Office Visit [facility] [address] [place] [phone] Bonnie Lizama MD [address] [place] [phone] Ariana Brice, DAVE [address] [place] [phone] 11/27/2025 1:10 PM CDT Office Visit [facility] Ophthalmology [place] [address] [place] [address] Bright Tenorio MD [address] [place] [address] documented as of this encounter Visit Diagnoses Not on filedocumented in this encounter Care Teams Parks And Recreation Manager Relationship Specialty Start Date End Date Astrid Escobedo DO [address] [place] [address] PCP - General Family Practice 12/17/15 documented as of this encounter
--- OUTSIDE RECORDS SUMMARY | 2025-07-07 19:18 | XMS_ITS | Encounter Summary ---
Author Organization [facility] Address [address] [place] [address] Care Team Providers Care Ceo And Founder Name Role Phone Astrid Escobedo DO Primary Care Provider Encounter Details Date Type Department Care Team (Latest Contact Info) Description 12/29/2005 Outpatient Historical [facility] Orthopedics- [address] [place] [address] Anthony Wilson MD [address] [place] [phone] Primary Localized Osteoarthrosis, Hand (Primary Dx) Social History Tobacco Use Types Packs/Day Years Used Date Smoking Tobacco: Never Assessed Sex and Gender Information Value Date Recorded Sex Assigned at Not on file Legal Sex Male 5:31 AM ELECTRONEURODIAGNOSTIC TECHNICIAN Gender Identity Not on file Sexual Orientation Not on file documented as of this encounter Plan of Treatment Not on file documented as of this encounter Visit Diagnoses Diagnosis Primary localized osteoarthrosis, hand- Primary documented in this encounter Care Teams Ceo And Founder Relationship Specialty Start Date End Date Astrid Escobedo DO [address] [place] [address] PCP - General Family Practice 12/17/15 documented as of this encounter
--- OUTSIDE RECORDS SUMMARY | 2025-07-07 19:18 | XMS_ITS | Encounter Summary ---
Author Organization [facility] Address [address] [place] [address] Care Team Providers Care Miscellaneous Machine Operator Name Role Phone Astrid Escobedo DO Primary Care Provider [phone] Encounter Details Date Type Department Care Team (Latest Contact Info) Description 10/13/2005 Outpatient Historical [facility] Orthopedics- [address] [place] [address] Anthony Wilson MD [address] [place] [phone] LOC PRIM OSTEOARTH-HAND (Primary Dx); JOINT PAIN-HAND Social History Tobacco Use Types Packs/Day Years Used Date Smoking Tobacco: Never Assessed Sex and Gender Information Value Date Recorded Sex Assigned at Not on file Legal Sex Male 5:31 AM APPLICATION SUPPORT ENGINEER Gender Identity Not on file Sexual Orientation Not on file documented as of this encounter Plan of Treatment Not on file documented as of this encounter Visit Diagnoses Diagnosis Primary localized osteoarthrosis, hand- Primary Pain in joint, hand documented in this encounter Care Teams Miscellaneous Machine Operator Relationship Specialty Start Date End Date Astrid Escobedo DO [address] [place] [address] PCP - General Family Practice 12/17/15 documented as of this encounter
--- OUTSIDE RECORDS SUMMARY | 2025-07-07 19:18 | XMS_ITS | Encounter Summary ---
Author Organization [facility] Address [address] [place] [address] Care Team Providers Care Hot Die Picker Name Role Phone Astrid Escobedo DO Primary Care Provider [phone] Encounter Details Date Type Department Care Team [...] on file Legal Sex Male 5:31 AM CARPENTER RAILCAR Gender Identity Not on file Sexual Orientation Not on file documented as of this encounter Plan of Treatment Not on file documented as of this encounter Visit Diagnoses Diagnosis Encounter for long-term (current) use of other medications- Primary Psoriatic arthropathy (CMS/HCC) Psoriatic arthropathy documented in this encounter Care Teams Hot Die Picker Relationship Specialty Start Date End Date Astrid Escobedo DO [address] [place] [id number] PCP - General Family Practice 12/17/15 documented as of this encounter
--- OUTSIDE RECORDS SUMMARY | 2025-07-07 19:18 | XMS_ITS | Encounter Summary ---
Author Organization [facility] Address [address] [place] [address] Care Team Providers Care Senior Brand Manager Name Role Phone Astrid Escobedo DO Primary Care Provider Encounter Details Date Type Department Care Team (Latest Contact Info) Description 01/13/2001 Outpatient Historical [facility] Rheumatology- Bill [place] [address] [place] [phone] Winston Magana MD NO ADDRESS ON FILE Psoriatic arthropathy (CMS/HCC) (Primary Dx); Encounter for long-term (current) use of other medications Social History Tobacco Use Types Packs/Day Years Used Date Smoking Tobacco: Never Assessed Sex and Gender Information Value Date Recorded Sex Assigned at Not on file Legal Sex Male 5:31 AM RADIATION OFFICER Gender Identity Not on file Sexual Orientation Not on file documented as of this encounter Plan of Treatment Not on file documented as of this encounter Visit Diagnoses Diagnosis Psoriatic arthropathy (CMS/HCC)- Primary Psoriatic arthropathy Encounter for long-term (current) use of other medications documented in this encounter Care Teams Senior Brand Manager Relationship Specialty Start Date End Date Astrid Escobedo DO [address] [place] [address] PCP - General Family Practice 12/17/15 documented as of this encounter
--- OUTSIDE RECORDS SUMMARY | 2025-07-07 19:18 | XMS_ITS | Encounter Summary ---
Author Organization [facility] Address [address] [place] [address] Care Team Providers Care Fnp Name Role Phone Astrid Escobedo DO Primary Care Provider Encounter Details Date Type Department Care Team (Latest Contact Info) Description 02/24/2001 Outpatient Historical [facility] Rheumatology- Bill [place] [address] [place] [phone] Winston Magana MD NO ADDRESS ON FILE Psoriatic arthropathy (CMS/HCC) (Primary Dx); Encounter for long-term (current) use of other medications Social History Tobacco Use Types Packs/Day Years Used Date Smoking Tobacco: Never Assessed Sex and Gender Information Value Date Recorded Sex Assigned at Not on file Legal Sex Male 5:31 AM PRODUCT MARKETING CONSULTANT Gender Identity Not on file Sexual Orientation Not on file documented as of this encounter Plan of Treatment Not on file documented as of this encounter Visit Diagnoses Diagnosis Psoriatic arthropathy (CMS/HCC)- Primary Psoriatic arthropathy Encounter for long-term (current) use of other medications documented in this encounter Care Teams Fnp Relationship Specialty Start Date End Date Astrid Escobedo DO [address] [place] [address] PCP - General Family Practice 12/17/15 documented as of this encounter
--- OUTSIDE RECORDS SUMMARY | 2025-07-07 19:18 | XMS_ITS | Encounter Summary ---
Author Organization [facility] Address [address] [place] [address] Care Team Providers Care Professor Of Voice Name Role Phone Astrid Escobedo DO Primary Care Provider [phone] Encounter Details Date Type Department Care Team [...] file Legal Sex Male 5:31 AM DIRECTOR OF MOBILE MARKETING Gender Identity Not on file Sexual Orientation Not on file documented as of this encounter Plan of Treatment Not on file documented as of this encounter Visit Diagnoses Diagnosis Encounter for long-term (current) use of other medications- Primary Psoriatic arthropathy (CMS/HCC) Psoriatic arthropathy documented in this encounter Care Teams Professor Of Voice Relationship Specialty Start Date End Date Astrid Escobedo DO [address] [place] [phone] PCP - General Family Practice 12/17/15 documented as of this encounter
--- OUTSIDE RECORDS SUMMARY | 2025-07-07 19:19 | XMS_ITS | Encounter Summary ---
Author Organization [facility] Address [address] [place] [address] Care Team Providers Care County Assessor Name Role Phone Astrid Escobedo DO Primary Care Provider [phone] Encounter Details Date Type Department Care Team (Latest Contact Info) Description 11/08/2004 Outpatient Historical [facility] Rheumatology- [place] [address] [place] [address] Winston Magana MD NO ADDRESS ON FILE PSORIATIC ARTHROPATHY (CMS/HCC) (Primary Dx); [facility] USE MEDICATN Social History Tobacco Use Types Packs/Day Years Used Date Smoking Tobacco: Never Assessed Sex and Gender Information Value Date Recorded Sex Assigned at Not on file Legal Sex Male 5:31 AM CONGRESSIONAL AIDE Gender Identity Not on file Sexual Orientation Not on file documented as of this encounter Plan of Treatment Not on file documented as of this encounter Visit Diagnoses Diagnosis Psoriatic arthropathy (CMS/HCC)- Primary Psoriatic arthropathy Encounter for long-term (current) use of other medications documented in this encounter Care Teams County Assessor Relationship Specialty Start Date End Date Astrid Escobedo DO [address] [place] [address] PCP - General Family Practice 12/17/15 documented as of this encounter
--- OUTSIDE RECORDS SUMMARY | 2025-07-07 19:19 | XMS_ITS | Encounter Summary ---
Author Organization [facility] Address [address] [place] [address] Care Team Providers Care Mold Making Plastics Sheets Supervisor Name Role Phone Astrid Escobedo DO Primary Care Provider [phone] Encounter Details Date Type Department Care Team (Late st Contact Info) Description 07/05/2025 External Device Data [facility] ABSTRACTION Provider, Abstract NO ADDRESS ON FILE Social History Tobacco Use Types Packs/Day Years [...] on file Legal Sex Male 10:44 AM JANITORIAL SUPERVISOR Gender Identity Not on file Sexual Orientation Not on file documented as of this encounter Plan of Treatment Upcoming Encounters Date Type Department Care Team (Late Contact Info) Description 07/25/2025 2:30 PM JANITORIAL SUPERVISOR Office Visit [facility] Vascular Surgery [address] [address] 08/10/2025 12:30 PM JANITORIAL SUPERVISOR Ancillary Procedure [facility] Vascular Lab and Vein Center- [address] [address] Lucian Mcdonnell MD [address] [place] [address] 08/10/2025 1:15 PM JANITORIAL SUPERVISOR Office Visit [facility] Vascular Surgery [place] [address] [place] [address] Lucian Mcdonnell MD [address] [place] [address] 08/10/2025 2:00 PM JANITORIAL SUPERVISOR Office Visit [facility] [address] [place] [address] Bonnie Lizama MD [address] [place] [address] Cira Juarez, [facility] [address] [place] [address] 11/07/2025 1:20 PM JANITORIAL SUPERVISOR Office Visit [facility] [address] [place] [address] Bonnie Lizama MD [address] [place] [address] Ariana Brice, DAVE [address] [place] [address] 11/27/2025 1:10 PM CDT Office Visit [facility] Ophthalmology [place] [address] [place] [address] Bright Tenorio MD [address] [place] [phone] documented as of this encounter Visit Diagnoses Not on filedocumented in this encounter Care Teams Mold Making Plastics Sheets Supervisor Relationship Specialty Start Date End Date Astrid Escobedo DO [address] [place] [address] PCP - General Family Practice 12/17/15 documented as of this encounter
--- OUTSIDE RECORDS SUMMARY | 2025-07-07 19:19 | XMS_ITS | Encounter Summary ---
Author Organization [facility] Address [address] [place] [address] Care Team Providers Care Inside Barrel Polisher Name Role Phone Astrid Escobedo DO Primary Care Provider + [phone] Reason for Visit * Reason Onset Date Comments Question 07/07/2025 Encounter Details Date Type Department Care Team (Late st Contact Info) Description 07/07/2025 Telephone [facility] Vascular Surgery [place] [address] [facility] [address] [place] [address] Lucian Mcdonnell MD [address] [facility] [address] [place] [address] Question Social History Tobacco Use Types Packs/Day Years [...] on file Legal Sex Male 10:44 AM DEATH CLAIM CLERK Gender Identity Not on file Sexual Orientation Not on file documented as of this encounter Miscellaneous Notes * Telephone Encounter - Kathie Deal RN - 07/07/2025 4:28 PM CDT Advised this is the recommended timeframe. Patient's son verbalizes understanding. * Telephone Encounter - Marisa Lopez - 07/07/2025 1:06 PM CDT Valentin (Provider) Caller: Dave Relation to Patient: Son PHI (Y/N): Y MESSAGE Caller states PT primary is inquiring when the appointment to have PT nick removed will be. Caller states they are aware of the appointment on 07/20/25 but feels that is too long. Please advise caller. documented in this encounter Plan of Treatment Upcoming Encounters Date Type Department Care Team (Late st Contact Info) Description 07/25/2025 2:30 PM DEATH CLAIM CLERK Office Visit [facility] Vascular Surgery [place] [address] [place] [address] 08/10/2025 12:30 PM DEATH CLAIM CLERK Ancillary Procedure [facility] Vascular Lab and Vein Center- [place] [address] [place] [phone] Lucian Mcdonnell MD [address] [place] [address] 08/10/2025 1:15 PM DEATH CLAIM CLERK Office Visit [facility] Vascular Surgery [place] [address] [place] [address] Lucian Mcdonnell MD [address] [place] [phone] 08/10/2025 2:00 PM DEATH CLAIM CLERK Office Visit [facility] [address] [place] [address] Bonnie Lizama MD [address] [place] [address] Cira Juarez, HEALTH PROMOTER [address] [place] [address] 11/07/2025 1:20 PM DEATH CLAIM CLERK Office Visit [facility] [address] [place] [address] Bonnie Lizama MD [address] [place] [phone] Ariana Brice, DAVE [address] [place] [address] 11/27/2025 1:10 PM CDT Office Visit [facility] Ophthalmology [place] [address] [address] Bright Tenorio MD [address] [place] [address] documented as of this encounter Visit Diagnoses Not on filedocumented in this encounter Care Teams Inside Barrel Polisher Relationship Specialty Start Date End Date Astrid Escobedo DO [address] [place] [address] PCP - General Family Practice 12/17/15 documented as of this encounter
--- OUTSIDE RECORDS SUMMARY | 2025-07-07 19:19 | XMS_ITS | Encounter Summary ---
Author Organization [facility] Address [address] [place] [address] Care Team Providers Care Compound Machine Operator Name Role Phone Astrid Escobedo DO Primary Care Provider Encounter Details Date Type Department Care Team (Latest Contact Info) Description 10/01/2004 Outpatient Historical [facility] Allergy and Asthma- [place] [address] [place] [address] Hector Landon MD NO ADDRESS ON FILE CHRONIC RHINITIS (Primary Dx); RESPIRATORY ABNORM NEC Social History Tobacco Use Types Packs/Day Years Used Date Smoking Tobacco: Never Assessed Sex and Gender Information Value Date Recorded Sex Assigned at Not on file Legal Sex Male 5:31 AM DIE SINKER Gender Identity Not on file Sexual Orientation Not on file documented as of this encounter Plan of Treatment Not on file documented as of this encounter Visit Diagnoses Diagnosis Chronic rhinitis- Primary Other dyspnea and respiratory abnormality documented in this encounter Care Teams Compound Machine Operator Relationship Specialty Start Date End Date Astrid Escobedo DO [address] [place] [address] PCP - General Family Practice 12/17/15 documented as of this encounter
--- OUTSIDE RECORDS SUMMARY | 2025-07-07 19:19 | XMS_ITS | Encounter Summary ---
Author Organization [facility] Address [address] [place] [address] Care Team Providers Care Bath Steward/Stewardess Name Role Phone Astrid Escobedo DO Primary Care Provider [phone] Encounter Details Date Type Department Care Team (Late st Contact Info) Description 05/22/2025 Results Follow-Up 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 Gender Identity Not on file Sexual Orientation Not on file documented as of this encounter Plan of Treatment Upcoming Encounters Date Type Department Care Team (Late st Contact Info) Description 07/25/2025 2:30 PM WOOL HANDLER Office Visit [facility] Vascular Surgery [place] [address] [place] [address] 08/10/2025 12:30 PM WOOL HANDLER Ancillary Procedure [facility] Vascular Lab and Vein Center- [place] [address] [place] [address] Lucian Mcdonnell MD [address] [place] [phone] 08/10/2025 1:15 PM WOOL HANDLER Office Visit [facility] Vascular Surgery [place] [address] [place] [address] Lucian Mcdonnell MD [address] [place] [address] 08/10/2025 2:00 PM WOOL HANDLER Office Visit [facility] [address] [place] [address] Bonnie Lizama MD [address] [place] [address] Cira Juarez, [facility] [address] [place] [phone]49- 11/07/2025 1:20 PM WOOL HANDLER Office Visit [facility] [address] [place] [address] Bonnie Lizama MD [address] [place] [address] Ariana Brice, DAVE [address] [place] [address] 11/27/2025 1:10 PM CDT Office Visit [facility] Op[facility] [place] [address] [place] [address] Bright Tenorio MD [address] [place] [address] documented as of this encounter Visit Diagnoses Not on filedocumented in this encounter Care Teams Bath Steward/Stewardess Relationship Specialty Start Date End Date Astrid Escobedo DO [address] [place] [address] PCP - General Family Practice 12/17/15 documented as of this encounter
--- OUTSIDE RECORDS SUMMARY | 2025-07-07 19:19 | XMS_ITS | Encounter Summary ---
Author Organization [facility] Address 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 Gender Identity Not on file Sexual Orientation Not on file documented as of this encounter Plan of Treatment Upcoming Encounters Date Type Department Care Team (Late st Contact Info) Description 07/25/2025 2:30 PM RECRUITMENT SPECIALIST Office Visit [facility] Vascular Surgery [address] [address] 08/10/2025 12:30 PM RECRUITMENT SPECIALIST Ancillary Procedure [facility] Vascular Lab and Vein Center- [address] [address] Lucian Mcdonnell MD [address] [place] [address] 08/10/2025 1:15 PM RECRUITMENT SPECIALIST Office Visit [facility] Vascular Surgery [place] [address] [place] [address] Lucian Mcdonnell MD [address] [place] [address] 08/10/2025 2:00 PM RECRUITMENT SPECIALIST Office Visit [facility] [address] [place] [address] Bonnie Lizama MD [address] [place] [address] Cira Juarez, [facility] [address] [place] [address] 11/07/2025 1:20 PM RECRUITMENT SPECIALIST Office Visit [facility] [address] [place] [address] Bonnie Lizama MD [address] [place] [address] Ariana Brice, DAVE [address] [place] [address] 11/27/2025 1:10 PM CDT Office Visit [facility] Ophthalmology [place] [address] [place] [address] Bright Tenorio MD [address] [place] [address] documented as of this encounter Visit Diagnoses Not on filedocumented in this encounter Care Teams Patch Worker Relationship Specialty Start Date End Date Astrid Escobedo DO [address] [place] [address] PCP - General Family Practice 12/17/15 documented as of this encounter
--- OUTSIDE RECORDS SUMMARY | 2025-07-07 19:19 | XMS_ITS | Encounter Summary ---
Author Organization [facility] Address [address] [place] [address] Care Team Providers Care Striker Off Name Role Phone Astrid Escobedo DO Primary Care Provider Encounter Details Date Type Department Care Team (Latest Contact Info) Description 09/24/2004 Outpatient Historical [facility] Allergy and Asthma- [place] [address] [place] [address] Hector Landon MD NO ADDRESS ON FILE CHRONIC RHINITIS (Primary Dx); RESPIRATORY ABNORM NEC Social History Tobacco Use Types Packs/Day Years Used Date Smoking Tobacco: Never Assessed Sex and Gender Information Value Date Recorded Sex Assigned at Not on file 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
--- OUTSIDE RECORDS SUMMARY | 2025-07-07 19:19 | XMS_ITS | Encounter Summary ---
Author Organization [facility] Address 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 Gender Identity Not on file Sexual Orientation Not on file documented as of this encounter Plan of Treatment Upcoming Encounters Date Type Department Care Team (Late st Contact Info) Description 07/25/2025 2:30 PM HEAD OF SALES Office Visit [facility] Vascular Surgery [place] [address] [place] [address] 08/10/2025 12:30 PM HEAD OF SALES Ancillary Procedure [facility] Vascular Lab and Vein Center- [place] [address] [place] [address] Lucian Mcdonnell MD [address] [place] [address] 08/10/2025 1:15 PM HEAD OF SALES Office Visit [facility] Vascular Surgery [place] [address] [place] [address] Lucian Mcdonnell MD [address] [place] [address] 08/10/2025 2:00 PM HEAD OF SALES Office Visit [facility] [address] [place] [address] Bonnie Lizama MD [address] [place] [phone] 521- Cira Juarez, [facility] [address] [place] [phone]63- 11/07/2025 1:20 PM HEAD OF SALES Office Visit [facility] [address] [place] [address] Bonnie Lizama MD [address] [place] [address] Ariana Brice, DAVE [address] [place] [phone] 706- 11/27/2025 1:10 PM CDT [facility] Op[facility] [place] [address] [place] [address] Bright Tenorio MD [address] [place] [address] documented as of this encounter Visit Diagnoses Not on filedocumented in this encounter Care Teams Assembler Crimper Relationship Specialty Start Date End Date Astrid Escobedo DO [address] [place] [address] PCP - General Family Practice 12/17/15 documented as of this encounter
--- OUTSIDE RECORDS SUMMARY | 2025-07-07 19:19 | XMS_ITS | Clinical Summary ---
Author Organization [facility] Address [address] 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 Active tamsulosin (FLOMAX) 0.4 mg capsule Take 0.4 mg by mouth daily. Active omeprazole (PriLOSEC) 20 mg Capsule, Delayed Release(E.C.) Take 20 mg by mouth daily. Active metFORMIN (GLUCOPHAGE) 1,000 mg tablet Take 1,000 mg by mouth 2 times daily with meals. Active fluticasone propion-salmete roL (ADVAIR HFA) 115-21 mcg/actuation HFA Aerosol Inhaler Take 2 Puffs by inhalation every 12 hours. 12 Gram 1 Active tiotropium (SPIRIVA) 18 mcg capsule Take 18 mcg by inhalation daily. Active atorvastatin (LIPITOR) 80 mg tablet Take 80 mg by mouth Daily LATE. Active magnesium oxide (MAG-OX) 400 mg (241.3 mg magnesium) tablet Take 400 mg by mouth 2 times daily. Active ipratropium-alb uteroL (DUONEB) 0.5 mg-3 mg(2.5 mg base)/3 mL Solution for Nebulization Take 3 mL by inhalation every 4 hours as needed for Shortness of Breath. Active nitroglycerin (NITROSTAT) 0.4 mg Tablet, Sublingual Place 0.4 mg under tongue every 5 minutes as needed for Chest Pain. Active vitamin E 400 unit capsule Take 400 Units by mouth daily. Active nystatin (MYCOSTATIN) 100,000 unit/gram Ointment Apply to affected area 4 times daily as needed. Active folic acid (FOLVITE) 1 mg tablet Take 1 mg by mouth daily. Active Mounjaro 2.5 mg/0.5 mL Pen Injector Active methotrexate (RHEUMATREX) 2.5 mg Tablet Active Trelegy Ellipta 200-62.5-25 mcg Disk with Device Active losartan (COZAAR) 50 mg tablet Active cephALEXin (KEFLEX) 500 mg capsule Active tiZANidine (ZANAFLEX) 4 mg Tablet Active valACYclovir (VALTREX) 1 gram tablet Active neomycin-polymy darin-dexAMETHaso ne (Maxitrol) 3.5mg/mL-10,000 unit/mL-0.1 % suspension Administer 1 Drop in right eye see administration instructions. QID x 7 days, TID x 7 days, BID x 7 days, q-day x 7 days, stop 5 mL 1 Active aspirin (ECOTRIN EC) 81 mg Tablet, Delayed Release (E.C.) Take 1 Tablet (81 mg) by mouth daily. 90 Tablet 3 Active brimonidine (ALPHAGAN) 0.2 % solution INSTILL 1 DROP IN RIGHT EYE TWO TIMES A DAY 10 mL Active timoloL maleate (TIMOPTIC) 0.5% solution INSTILL 1 DROP IN RIGHT EYE TWO TIMES A DAY 10 mL Active diclofenac sodium (VOLTAREN) 75 mg Tablet, Delayed Release (E.C.) Active leflunomide (ARAVA) 20 mg Tablet Active HYDROcodone-ramirez taminophen (NORCO) 5-325 mg tabletIndicatio ns:Peripheral vascular disease, unspecified,Pos t-op pain Take 1 Tablet by mouth every 6 hours as needed for Pain. Max Daily Amount: 4 Tablets 10 Tablet 2024 Active QUEtiapine (SEROquel) 25 mg tablet Take 1 Tablet (25 mg) by mouth daily at bedtime. 7 Tablet Active clopidogreL (Plavix) 75 mg Tablet Take 1 Tablet (75 mg) by mouth daily. 90 Tablet 1 Active ticagrelor (BRILINTA) 90 mg Tablet Take by mouth. 2024 Discontinued metoprolol succinate (TOPROL XL) 25 mg Extended Release 24 hour tablet Take 25 mg by mouth daily. 2024 Discontinued raNITIdine (ZANTAC) 300 mg tablet Take 300 mg by mouth 2 times daily. 2024 Discontinued HYDROcodone-ramirez taminophen (NORCO) 7.5-325 mg Tablet Take 1 Tablet by mouth every 6 hours as needed for Pain, Moderate. 2024 Discontinued glipiZIDE (GLUCOTROL) 5 mg tablet Take 5 mg by mouth daily with breakfast. 2024 Discontinued losartan-hydroC HLOROthiazide (HYZAAR) 50-12.5 mg tablet Take 1 Tablet by mouth daily. 2024 Discontinued clindamycin HCL (CLEOCIN) 300 mg Capsule 2024 Discontinued Active Problems Problem Noted Date Diagnosed Date Delirium 06/30/2025 Atherosclerosis of nightmute ar teries of extremities with intermittent claudication, left leg 06/28/2025 Peripheral vascular disease, unspecified 025 Abnormal stress test 05/23/2025 Other forms of angina pectoris 04/28/2025 Shortness of breath 04/28/2025 Macula-off rhegmatogenous retinal detachment, ri ght 02/13/[address] 12/21/2017 Type 2 diabetes mellitus without complication COPD (chronic obstructive pulmonary disease) 07/2016 CAD (coronary atherosclerotic disease) 6 COPD with exacerbation 12/17/2015 Encounters Date Type Department Care Team Description 07/07/2025 Telephone [facility] [place] [address] [place] [phone] Lucian Kirkpatrick MD Question 07/05/2025 External Device Data STL ABSTRACTION Provider, Abstract 07/04/2025 External Device Data STL ABSTRACTION Provider, Abstract 07/04/2025 External Device Data STL ABSTRACTION Provider, Abstract 06/28/2025 12:27 PM CDT - 06/28/2025 5:10 PM CDT Surgery [facility] Operating Room [address] [place] [address] Lucian Kirkpatrick MD FEMORAL ENDARTERECTOMY 06/28/2025 12:19 PM CDT Anesthesia Event [facility] Operating Room [address] [place] [address] Jose Magana MD Lin, Scott Y, AA-C 06/28/2025 9:36 AM CDT - 07/03/2025 2:41 PM CDT Hospital Encounter [address] [facility] [address] [place] [phone] Lucian Kirkpatrick MD Atherosclerosis of nightmute arteries of extremities with intermittent claudication, left leg Discharge Disposition: Home or Self Care 06/28/2025 6:45 AM CDT - 06/28/2025 11:59 PM CDT Hospital Encounter [facility] Interventional Radiology [place] [address] [place] [address] Lucian Kirkpatrick MD Discharge Disposition: Home or Self Care 06/28/2025 External Device Data STL ABSTRACTION Provider, Abstract 06/27/2025 External Device Data STL ABSTRACTION Provider, Abstract 06/02/2025 Telephone [facility] Surgery [place] [address] [place] [address] Lucian Kirkpatrick MD Surgery Talk 06/02/2025 Orders Only [facility] Surgery [address] [place] [address] Lucian Kirkpatrick MD Encounter for preadmission testing (Primary Dx); PAD (peripheral artery disease); Abnormal coagulation profile 06/01/2025 Results Follow-Up [facility] [address] [place] [address] Bonnie Lizama MD ECHOCARDIOGRAM W/ CONTRAST AGENT 05/30/2025 2:14 PM CDT - 05/30/2025 11:59 PM CDT Hospital Encounter [facility] Echo [address] [place] [phone] Bonnie Lizama MD Discharge Disposition: Home or Self Care 05/30/2025 1:00 PM CDT Office Visit [facility] Ophthalmology [place] [address] [place] [phone] Bright Tenorio MD Macular hole of right eye (Primary Dx); Macula-off rhegmatogenous retinal detachment, right 05/29/2025 Refill [facility]hthal[facility] [place] [address] [place] [phone] Bright Tenorio MD 05/26/2025 Telephone [facility] Surgery [place] [address] [place] [phone] Lucian Kirkpatrick MD Needs Appointment 05/25/2025 9:20 AM CDT - 05/25/2025 10:21 AM CDT Surgery [facility] Cardiac Agricultural Engineering Technician [address] [place] [phone] Bonnie Lizama MD Left heart cath with grafts 05/25/2025 7:59 AM CDT - 05/25/2025 1:24 PM CDT Hospital Encounter [facility] Prep Recovery [address] [place] [address] Bonnie Lizama MD Abnormal stress test Discharge Disposition: Home or Self Care 05/25/2025 Results Follow-Up [facility] [address] [place] [phone] Bonnie Lizama MD RFID SPECIALIST PROCEDURE, EKG 12-LEAD 05/25/2025 Travel 05/23/2025 Telephone [facility] [address] [place] [phone] Bonnie Lizama MD schedule angiogram/pci 05/23/2025 Prep for Surgery [facility] [address] [place] [phone] Bonnie Lizama MD Other forms of angina pectoris (Primary Dx); Shortness of breath; Atherosclerosis of coronary artery without angina pectoris, unspecified vessel or lesion type, unspecified whether nightmute or transplanted heart; Abnormal stress test 05/22/2025 12:50 PM CDT - 05/22/2025 11:59 PM CDT Hospital Encounter [facility] Nuclear Medicine [facility] [place] [phone] Bonnie Lizama MD Discharge Disposition: Home or Self Care 05/22/2025 6:11 AM CDT - 05/22/2025 11:59 PM CDT Hospital Encounter [facility] Nuclear Medicine [address] [place] [address] Bonnie Lizama MD Discharge Disposition: Home or Self Care 05/22/2025 Results Follow-Up [facility] [address] [place] [phone] Bonnie Lizama MD NM MYOCARD PERF IMAG SPECT MULT 05/18/2025 Telephone [facility] [address] [place] [address] Maryann Cárdenas, PCT nmst instructions 05/09/2025 External Device Data STL ABSTRACTION Provider, Abstract 05/04/2025 8:10 AM CDT Office Visit [facility] Ophthalmology [place] [address] [place] [address] Bright Tenorio MD Macular hole of right eye (Primary Dx); Macula-off rhegmatogenous retinal detachment, right 05/03/2025 9:20 AM CDT - 05/03/2025 10:15 AM CDT Surgery [facility] [address] [place] [phone] Bright Tenorio MD EYE PARS PLANA VITRECTOMY 05/03/2025 9:10 AM CDT Anesthesia Event [facility] [address] [place] [phone] Bolivar Martinez MD 05/03/2025 7:45 AM CDT - 05/03/2025 10:32 AM CDT Hospital Encounter [facility] [address] [place] [phone] Bright Tenorio MD Discharge Disposition: Home or Self Care 05/01/2025 Travel 04/28/2025 1:45 PM CDT Office Visit [facility] [address] [place] [address] Lucian Kirkpatrick MD Amritphale, Amod, MD Other forms of angina pectoris (Primary Dx); Shortness of breath 04/28/2025 Results Follow-Up [facility] [address] [facility] [address] [place] [phone] Bonnie Lizama MD EKG 12-LEAD 04/27/2025 Orders Only [facility] [address] [facility] [address] [place] [phone] Bonnie Lizama MD Atherosclerosis of coronary artery without angina pectoris, unspecified vessel or lesion type, unspecified whether nightmute or transplanted heart (Primary Dx) 04/26/2025 Telephone [place] [id number] [facility] [address] [place] [phone] Provider, Abstract Needs Appointment 04/25/2025 3:45 PM CDT Office Visit [facility] [address] [address] Lucian Kirkpatrick MD Occlusion of left femoral artery (Primary Dx); PAD (peripheral artery disease); Rest pain of lower extremity due to atherosclerosis ([facility]/HCC); Encounter for pre-operative cardiovascular clearance 04/25/2025 External Device Data STL ABSTRACTION Provider, Abstract 04/17/2025 Orders Only [facility] [place] [address] [address] Francois Mcgill DO 04/17/2025 Telephone [facility] Surgery [address] [address] Lucian Kirkpatrick MD Referral 04/11/2025 Telephone [facility] [place] [address] [address] Jose Dailey MD Referral 04/10/2025 2:40 PM CDT Office Visit [facility] Ophthal[facility] [place] [address] [phone] Bright Tenorio MD Macula-off rhegmatogenous retinal detachment, right (Primary Dx); Macular hole of right eye; Type 2 diabetes mellitus without complication, with long-term current use of insulin (CMS/HCC); Type 2 diabetes mellitus without complication, without long-term current use of insulin (CMS/HCC); Epiretinal membrane (ERM) of left eye 04/10/2025 Orders Only [facility] Ophthal[facility] [place] [address] [phone] Bright Tenorio MD 04/07/2025 Orders Only [facility] Surgery [address] [phone] Sanjuanita Ozuna DO PAD (peripheral artery disease) (Primary Dx); Iliac artery stenosis, bilateral 04/07/2025 Abstract [facility] Surgery [address] [phone] [place], Cysco A, PA from Last 3 Months Immunizations Immunization Administration Dates Next Due (PREVNAR 13)(6 WKS UP) PNEUM OCOCCAL CONJUGATE (PCV13) 0.5 ML, IM 12/20/2015 (TDVAX)(7 YRS UP) TETANUS AN D DIPHTHERIA TOXOIDS, ADSORBED (2 LF OF TETANUS TOXOID AND 2 LF OF DIPHTHERIA TOXOID), 0.5ML (PF), IM 02/21/2005 Influenza Seasonal Unspecified Formulation IM Family History Medical History Relation Name Comments [...] on file Legal Sex Male 10:44 AM TOP TRIMMER Gender Identity Not on file Sexual Orientation [...] Mass Index 25.4 06/28/2025 10:06 AM CDT Plan of Treatment Upcoming Encounters Date Type Department Care Team (Late st Contact Info) Description 07/25/2025 2:30 PM TOP TRIMMER Office Visit [facility] Surgery [address] [phone] 08/10/2025 12:30 PM TOP TRIMMER Ancillary Procedure [facility] [place] [address] [place] [phone] Lucian Mcdonnell MD [address] [address] 08/10/2025 1:15 PM TOP TRIMMER Office Visit [facility] Surgery [address] [address] Lucian Mcdonnell MD [address] [place] [phone] 08/10/2025 2:00 PM TOP TRIMMER Office Visit [facility] [address] [place] [phone] Bonnie Lizama MD [address] [place] [phone] 361- Cira Juarez, [facility] [address] [place] [phone] 11/07/2025 1:20 PM TOP TRIMMER Office Visit [facility] [address] [place] [phone] Bonnie Lizama MD [address] [place] [phone] Ariana Brice, DAVE [address] [place] [phone] 11/27/2025 1:10 PM CDT Office Visit [facility] Ophthal[facility] [place] [address] [address] Bright Tenorio MD [address] [place] [address] Health Maintenance Due Date Last Done Comments [...] - PPSV23, PCV20, or PCV21) 02/14/2016 12/20/2015 RSV VACCINE (60+ or ) (1 - 1-dose 75+ series) 2024 INFLUENZA VACCINE (#1) 2025 , 07/02/2021, 08/15/2020 COVID-19 Vaccine (2 - 2024-2 6 season) 2025 03/20/2022 DIABETES HBA1C Q 6 MONTHS 12/28/20252024, 12/18/2015, 12/18/2015 DIABETES ANNUAL RETINAL EXAM 05/30/2026, 05/30/2025, 05/30/2025, Additional history exists Medical Devices Implanted Type Area Toe Closing Machine Tender Device Identifier Shelf Expiration Date Model / Serial / Lot Clip Ligating Horizon Red [id number] - Csc - [id number] Implanted:Qty: 1 on 06/28/2025 by Lucian Ramos MD at [facility] Clip Left: Groin [employer] [id number] 12/20/2029 [id number] / / [id number] Clip Ligating Horizon Med Ti [id number] - Csc - [id number] Implanted:Qty: 1 on 06/28/2025 by Lucian Ramos MD at [facility] Clip Left: Groin TELEFLEX- WECK CLOSURE SYS [id number] 10/04/2029 [id number] / / [id number] Clip Ligating Horizon Red 169893 - Csc - [id number] Implanted:Qty: 1 on 06/28/2025 by Lucian Ramos MD at [facility] Clip Left: Groin TELE[employer]LEX INC [id number] 11/15/2029 [id number] / / [id number] Closure Perclose Prostyle Sut Mediate 61565-80 - [id number] Implanted:Qty: 1 on 05/25/2025 by Bonnie Lizama MD at [facility] Closure Device Right: Groin FUNES- VASC DEVICE [id number] 01/04/2027 [id number] / / [id number] Agent Hemostat Surgicel 2x3in 1952s - [id number] Implanted:Qty: 1 on 06/28/2025 by Lucian Ramos MD at [facility] Hemostatic Left: Groin J[employer]J- [employer] [id number] 12/05/20291952S / / [id number] Agent Hemostat Surgicel 2x3in 1952s - [id number] Implanted:Qty: 1 on 06/28/2025 by Lucian Ramos MD at [facility] Hemostatic Left: Groin J&J- [employer] [id number] 01/04/20301952S / / [id number] Stent Viabahn Hep [id number] - [id number] Implanted:Qty: 1 on 06/28/2025 by Lucian Ramos MD at [facility] Stent Left: Groin [employer] [id number] 04/08/2028 [id number] / [id number] / Procedures Procedure Name Priority Date/Time Associated Diagnosis [...] POC GLUCOSE Routine 07/01/2025 11:46 AM CDT BASIC METABOLIC PANEL Stat 07/01/2025 8:05 AM CDT CBC WITH DIFFERENTIAL Stat 07/01/2025 8:05 AM CDT POC GLUCOSE [...] POC GLUCOSE Routine 06/29/2025 5:28 PM CDT ETHANOL LEVEL Routine 06/29/2025 4:42 PM CDT HEMOGLOBIN A1C Routine 06/29/2025 4:42 PM CDT OSMOLALITY Routine 06/29/2025 4:42 PM CDT LACTIC ACID Stat 06/29/2025 4:42 PM CDT VITAMIN B12 AND FOLATE Routine 06/29/2025 4:42 PM CDT AMMONIA LEVEL Routine 06/29/2025 4:42 PM CDT PT EVAL AND TREAT Pending Discharge 06/29/2025 9:17 AM CDT POC GLUCOSE Routine 06/29/2025 5:10 AM CDT T4 FREE Routine 06/29/2025 2:02 AM CDT TSH Routine 06/29/2025 2:02 AM CDT BASIC METABOLIC PANEL Routine 06/29/2025 2:02 AM CDT RT ASSESS AND TREAT Routine 06/29/2025 1 :45 AM CDT POC GLUCOSE Routine 06/28/2025 8:30 PM CDT POC GLUCOSE Routine 06/28/2025 4:12 PM CDT IR FLUORO OR OTHER Routine 06/28/2025 3: 54 PM CDT PVD (peripheral vascular disease) POC ACTIVATED CLOTTING TIME Routine 06/28/2025 3:05 PM CDT POC ACTIVATED CLOTTING TIME Routine 06/28/2025 2:22 PM CDT POC ACTIVATED CLOTTING TIME Routine 06/28/2025 1:45 PM CDT FL ANES INSERT CATH, ART, PERCUT, SHORTTERM Routine 06/28/2025 12:46 PM CDT FL ANES INSERT ENDOTRACHEAL AIRWAY Routine 06/28/2025 12:33 PM CDT ANGIOPLASTY ARTERIAL 06/28/2025 12:27 PM CDT Peripheral vascular disease, unspecified VASCULAR STENT INSERTION ARTERIAL 06/28/2025 12:27 PM CDT Peripheral vascular disease, unspecified CHG ANGIOGRAPHY EXTREMITY UNILATERAL RS&I 06/28/2025 12:27 PM CDT Peripheral vascular disease, unspecified FL TEAEC W/WO PATCH GRAFT ILIOFEMORAL 06/28/2025 12:27 PM CDT Peripheral vascular disease, unspecified VERIFICATION BLOOD GROUP Stat 06/28/2025 11:01 AM CDT PROTIME-INR Stat 06/28/2025 11:01 AM CDT CBC WITH DIFFERENTIAL Stat 06/28/2025 11:01 AM CDT BASIC METABOLIC PANEL Stat 06/28/2025 11:01 AM CDT TYPE AND SCREEN Stat 06/28/2025 10:50 AM CDT ECHOCARDIOGRAM W/ CONTRAST AGENT Stat 05/30/2025 3:37 PM CDT Other forms of angina pectoris Shortness of breath EYE DROPS Routine 05/30/2025 1:59 PM CDT Macular hole of right eye OCT, RETINA - OU - BOTH EYES Routine 05/30/2025 1:45 PM CDT Macular hole of right eye Macula-off rhegmatogenous retinal detachment, right SUPRAVALVULAR AORTOGRAPHY Routine 05/25/2025 10:04 AM CDT Abnormal stress test LEFT HEART CATH WITH GRAFTS Routine 05/25/2025 10:04 AM CDT Abnormal stress test EKG 12-LEAD Routine 05/25/2025 9:33 AM CDT BASIC METABOLIC PANEL Routine 05/25/2025 8:26 AM CDT CBC WITH DIFFERENTIAL Routine 05/25/2025 8:26 AM CDT NM MYOCARD PERF IMAG SPECT MULT Routine 05/22/2025 3:51 PM CDT Other forms of angina pectoris Shortness of breath NM PHARMACOLOGICAL STRESS TEST Routine 05/22/2025 2:52 PM CDT Other forms of angina pectoris Shortness of breath FL INJ SUBSTITUTE PARS PLANA/LIMBL W/WO ASPIR SPX 05/03/2025 9:20 AM CDT H33.001 FL VITRECTOMY PARS PLANA REMOVE PRERETINAL MEMBRANE 05/03/2025 9:20 AM CDT H33.001 FL RMVL VITREOUS ANT APPR PARTIAL REMOVAL 05/03/2025 9:20 AM CDT H33.001 POC GLUCOSE Routine 05/03/2025 8:45 AM CDT EKG 12-LEAD Routine 04/28/2025 1:45 PM CDT Atherosclerosis of coronary artery without angina pectoris, unspecified vessel or lesion type, unspecified whether nightmute or transplanted heart CTA ABD AORTA BI ILIOFEM W AND/OR WO Routine 04/13/2025 3:57 PM CDT OCT, RETINA - OU - BOTH EYES Routine 04/10/2025 3:16 PM CDT Macula-off rhegmatogenous retinal detachment, right from Last 3 Months Results * TELEMETRY REPORT (07/05/2025 2:06 AM CDT) Only the most recent of2 resultswithin the time period is included. us Provider Scanning ECG ORDERABLES Final Result * (ABNORMAL) POC GLUCOSE (07/03/2025 11:22 AM CDT) Only the most recent of20 resultswithin the time period is included. [facility] GLUCOSE POC 180(H) 74 - 99 mg/dL 07/03/2025 11:22 AM CDT [facility] SPECIMEN SOURCE, GLUCOSE POC Capillary 07/03/2025 11:22 AM CDT [facility] Blood, whole 07/03/2025 11:2 2 AM CDT 07/03/2025 11:33 AM CDT Lucian Mcdonnell MD POINT OF CARE TESTIN G Final Result [facility] # [id number] [address] [place] [address] [place] [address] * (ABNORMAL) CBC WITH DIFFERENTIAL (07/01/2025 8:05 AM CDT) Only the most recent of3 resultswithin the time period is included. [facility] WBC 7.0 4.8 - 10.8 K/uL 07/01/2025 8:35 AM T [facility] RBC 4.01(L) 4.60 - 6.20 M/uL 07/01/2025 8:35 AM T [facility] HEMOGLOBIN 10.3(L) 14.0 - 18.0 g/dL 07/01/2025 8:35 AM T [facility] HEMATOCRIT 32.0(L) 41.0 - 53.0 % 07/01/2025 8:35 AM T [facility] MCV 79.8(L) 84.0 - 103.0 fL 07/01/2025 8:35 AM T [facility] MCH 25.7(L) 27.0 - 34.0 pg 07/01/2025 8:35 AM CDT [facility] MCHC 32.2 30.0 - 35.0 g/dL 07/01/2025 8:35 AM [facility] PLATELETS 194 140 - 440 K/uL 07/01/2025 8:35 AM [facility] MPV 11.2 8.9 - 12.8 fL 07/01/2025 8:35 AM [facility] RDW 14.1 11.0 - 14.5 % 07/01/2025 8:35 AM [facility] RDW-STDEV 40.6 37.0 - 54.0 fL 07/01/2025 8:35 AM [facility] NEUTROPHILS 64 42 - 75 % 07/01/2025 8:35 AM [facility] LYMPHOCYTES 18(L) 24 - 44 % 07/01/2025 8:35 AM [facility] MONOCYTES 13(H) 2 - 10 % 07/01/2025 8:35 AM [facility] EOSINOPHILS 4 0 - 7 % 07/01/2025 8:35 AM [facility] BASOPHILS 1 0 - 1 % 07/01/2025 8:35 AM [facility] IMMATURE GRANULOCYTES 0 0 - 2 % 07/01/2025 8:35 AM [facility] NEUTROPHIL ABSOLUTE 4.45 2.00 - 8.00 K/uL 07/01/2025 8:35 AM [facility] LYMPHOCYTE ABSOLUTE 1.28 1.20 - 4.00 K/uL 07/01/2025 8:35 AM [facility] MONOCYTE ABSOLUTE 0.92(H) 0.10 - 0.60 K/uL 07/01/2025 8:35 AM [facility] EOSINOPHIL ABSOLUTE 0.25 0.00 - 0.70 K/uL 07/01/2025 8:35 AM [facility] BASOPHILS ABSOLUTE 0.07 0.00 - 0.20 K/uL 07/01/2025 8:35 AM [facility] IMMATURE GRANULOCYTES ABSOLUTE 0.03 0.00 - 0.10 K/uL 07/01/2025 8:35 AM CDT [facility] SMEAR REVIEWED: NA - Not Applicable 07/01/2025 8:35 AM T [facility] Blood Venipuncture / Unknown 07/01/2025 8:05 AM CDT 07/01/2025 8:28 AM CDT us Javier Christensen MD HEMATOLOGY ORDERABLES Final Res ult [facility] CLIA # [id number] [facility] [address] * (ABNORMAL) BASIC METABOLIC PANEL (07/01/2025 8:05 AM CDT) Only the most recent of5 resultswithin the time period is included. SODIUM 140 136 - 145 mmol/L 07/01/2025 9:04 AM [facility] H[facility]PITAL POTASSIUM 4.0 3.5 - 5.1 mmol/L 07/01/2025 9:04 AM [facility] CHLORIDE 104 98 - 107 mmol/L 07/01/2025 9:04 AM [facility] CO2 24 22 - 29 mmol/L 07/01/2025 9:04 AM [facility] CALCIUM 8.2(L) 8.8 - 10.2 mg/dL 07/01/2025 9:04 AM [facility] BUN 11 8 - 23 mg/dL 07/01/2025 9:04 AM [facility] CREATININE 0.99 0.67 - 1.17 mg/dL 07/01/2025 9:04 AM [facility] Comment:The GFR result is no t clinically significant on patients <18 or >70 years of age. GLUCOSE 167(H) 74 - 99 mg/dL 07/01/2025 9:04 AM [facility] GFR >60 mL/min/1.7 3 sq meter 07/01/2025 9:04 AM CDT [facility] Comment:eGFR calculated with 2020 CKD-EPI equation. Vegetarian diet, extremely high or low muscle mass, and may affect results. Cystatin C with Glomerular Filtration Rate is a suitable alternative for these patients. ANION GAP 12 9 - 20 mmol/L 07/01/2025 9:04 AM CDT [facility] Blood Venipuncture / Unknown 07/01/2025 8:05 AM CDT 07/01/2025 8:29 AM CDT us Javier Christensen MD CHEMISTRY ORDERABLES Final Resu lt Performing Organization Address [facility] Co de Phone Number [facility] CLIA # [id number] [address] [address] * EXTRA TUBE (URINE YU) (06/30/2025 3:25 AM CDT) Urine URINE SPECIMEN OBTAINED BY CLEAN CATCH PROCEDURE / Unknown Collection / Unknown 06/30/2025 3:25 AM CDT 06/30/2025 3:30 AM CDT us Gabriel Arellano MD URINE ORDERABLES Final Result Performing Organization Address [facility] Co de Phone Number [facility] CLIA # [id number] [address] [address] [place] [address] * SODIUM, RANDOM URINE (06/30/2025 3:25 AM CDT) SODIUM, URINE <20 mmol/L 06/30/2025 4:12 AM CDT [facility] Urine URINE SPECIMEN OBTAINED BY CLEAN CATCH PROCEDURE / Unknown Collection / Unknown 06/30/2025 3:25 AM CDT 06/30/2025 3:30 AM CDT us Gabriel Arellano MD URINE ORDERABLES Final Result Performing Organization Address City/[facility] Co de Phone Number [facility] CLIA # [id number] [address] [place] [address] * OSMOLALITY, URINE (06/30/2025 3:25 AM CDT) OSMOLALITY, URINE 147 50 - 1,200 mOsm/kg 06/30/2025 4:01 AM CDT [facility] Urine URINE SPECIMEN OBTAINED BY CLEAN CATCH PROCEDURE / Unknown Collection / Unknown 06/30/2025 3:25 AM CDT 06/30/2025 3:30 AM CDT Narrative [facility] - 06/30/2025 4:01 AM CDT Reference range: 50-1200 mOsm/kg H2O, depending on fluid intake. Gabriel Arellano MD URINE ORDERABLES Final Result Performing Organization Address [facility] de Phone Number [facility] CLIA # [id number] [address] [place] [address] * (ABNORMAL) DRUG SCREEN, URINE (06/30/2025 3:25 AM CDT) AMPHETAMINE QUAL, URINE Negative Negative 06/30/2025 4:10 AM CDT [facility] BARBITURATE QUAL, URINE Negative Negative 06/30/2025 4:10 AM CDT [facility] BENZODIAZEPINE QUAL, URINE Negative Negative 06/30/2025 4:10 AM CDT [facility] COCAINE QUAL URINE Negative Negative 06/30/2025 4:10 AM CDT [facility] OPIATE QUAL, URINE Negative Negative 06/30/2025 4:10 AM CDT [facility] CANNABINOIDS QUAL, URINE Negative Negative 06/30/2025 4:10 AM CDT [facility] OXYCODONE QUAL, URINE Negative Negative 06/30/2025 4:10 AM CDT [facility] METHADONE QUAL, URINE Negative Negative 06/30/2025 4:10 AM CDT [facility] FENTANYL QUAL, URINE Presumptive Positive(A) Negative 06/30/2025 4:10 AM CDT [facility] CREATININE, URINE 32.8(L) 40.0 - 278.0 mg/dL 06/30/2025 4:10 AM CDT [facility] Comment:Reference Range vari es with fluid intake and diet. Urine URINE SPECIMEN OBTAINED BY CLEAN CATCH PROCEDURE / Unknown Collection / Unknown 06/30/2025 3:25 AM CDT 06/30/2025 3:30 AM CDT Narrative [facility] - 06/30/2025 4:10 AM CDT This test [...] Gabriel Arellano MD URINE ORDERABLES Final Result [facility] CLIA # [id number] [address] [place] [id number] * (ABNORMAL) URINALYSIS WITH REFLEX MICROSCOPIC (06/30/2025 3:25 AM CDT) COLOR UA Colorless(A ) Pale to Dark Yellow 06/30/2025 3:34 AM CDT [facility] CLARITY UA Clear Clear 06/30/2025 3:34 AM T [facility] SPECIFIC GRAVITY UA 1.007 1.003 - 1.035 06/30/2025 3:34 AM T [facility] PH UA 6.0 5.0 - 8.0 06/30/2025 3:34 AM CDT [facility] LEUKOCYTE ESTERASE UA Negative Negative 06/30/2025 3:34 AM CDT [facility] NITRITE UA Negative Negative 06/30/2025 3:34 AM CDT [facility] PROTEIN UA Negative Negative 06/30/2025 3:34 AM CDT [facility] GLUCOSE UA Trace(A) Negative 06/30/2025 3:34 AM CDT [facility] KETONES UA Trace(A) Negative 06/30/2025 3:34 AM CDT [facility] UROBILINOGEN UA <2.0 <2.0 mg/dL 3:34 AM CDT [facility] BILIRUBIN UA Negative Negative 06/30/2025 3:34 AM CDT [facility] BLOOD UA Negative Negative 06/30/2025 3:34 AM CDT [facility] Urine URINE SPECIMEN OBTAINED BY CLEAN CATCH PROCEDURE / Unknown Collection / Unknown 06/30/2025 3:25 AM CDT 06/30/2025 3:30 AM CDT Gabriel Arellano MD URINE ORDERABLES Final Result [facility] CLIA # [id number] [address] [place] [address] * CT HEAD WO CONTRAST (06/29/2025 8:41 [...] (ABNORMAL) BLOOD GAS ARTERIAL (06/29/2025 8:27 PM [facility]) PH BLOOD POC 7.42 7.35 - 7.45 06/29/2025 8:27 PM [facility] PCO2 POC 34(L) 35 - 45 mm Hg 06/29/2025 8:27 PM [facility] PO2 POC 76(L) 80 - 105 mm Hg 06/29/2025 8:27 PM [facility] HCO3 (CALC) POC 22 22 - 26 mmol/L 06/29/2025 8:27 PM [facility] HEMOGLOBIN POC 10.6(L) 12.0 - 18.0 g/dL 06/29/2025 8:27 PM [facility] BASE EXCESS POC -2 -2 - 3 mmol/L 06/29/2025 8:27 PM [facility] O2 SATURATION POC 98 95 - 98 % 025 8:27 PM [facility] SODIUM POC 120(L) 138 - 146 mmol/L 06/29/2025 8:27 PM CDT [facility] POTASSIUM POC 4.3 3.5 - 4.9 mmol/L 06/29/2025 8:27 PM [facility] HEMATOCRIT POC 32(L) 38 - 51 % 06/29/2025 8:27 PM [facility] PH TEMP CORRECT 7.42 7.35 - 7.45 06/29/2025 8:27 PM [facility] PCO2 TEMP CORRECT 34(L) 35 - 45 mm Hg 06/29/2025 8:27 PM [facility] PO2 TEMP CORRECT 76(L) 80 - 105 mm Hg 06/29/2025 8:27 PM [facility] SPECIMEN SOURCE, GASES POC Arterial 06/29/2025 8:27 PM [facility] CALCIUM IONIZED POC 4.7(L) 4.8 - 5.2 mg/dL 06/29/2025 8:27 PM [facility] TCO2 (CALC) POC 23 23 - 27 mmol/L 06/29/2025 8:27 PM [facility] FIO2 21.0 21.0 - 100.0 % 06/29/2025 8:27 PM [facility] Comment:FIO2 values reported <21.0 indicate O2 flow in Liters/minute. Values >/= 21.0 indicate percent O2. P/F RATIO POC 362 06/29/2025 8:27 PM [facility] Comment: P/F Ratio Interpretation ARDS SEVERITY PaO2/FiO2 Mild 200-300 Moderate 100-200 Severe <100 [facility] SITE POC ART PUNCT 06/29/2025 8:27 PM [facility] PATIENT'S TEMPERATURE POC 37.0 degrees 06/29/2025 8:27 PM [facility] Blood, arterial 06/29/2025 8 :27 PM CDT 06/29/2025 8:29 PM CDT Lucian Mcdonnell MD ABG ORDERABLES Halle l Result [facility] CLIA # [id number] [address] [address] * EKG 12-LEAD (06/29/2025 8:13 PM CDT) Only the most recent of3 resultswithin the time period is included. 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: [id number] : 1950 Requested By: Order Number: [id number] Reading MD: Magda Lakhani Measurements Intervals [place] Rate: 104 P: 48 FL: 212 QRS: 24 QRSD: 92 T: 1 QT: 348 QTc: 457 Interpretive Statements Sinus tachycardia with 1st degree AV block Nonspecific T wave abnormality Abnormal ECG Electronically Signed On 06-29-2025 21:54:49 CDT by Magda Lakhani Procedure Note Magda Lakhani MD - 06/29/[address] [address] Test Date: 2025-06-29 Pat Name: GO ADAIR Department: 12 Room: [facility] 02 Gender: Male Tentering Machine Off Bearer: [id number] : 1950 Requested By: Order Number: [id number] Reading MD: Magda Lakhani Measurements Intervals [place] Rate: 104 P: 48 FL: 212 QRS: 24 QRSD: 92 T: 1 QT: 348 QTc: 457 Interpretive Statements Sinus tachycardia with 1st degree AV block Nonspecific T wave abnormality Abnormal ECG Electronically Signed On 06-29-2025 21:54:49 CDT by Magda Lakhani Anushka Becerra FACULTY RESEARCH PHYSICIAN ECG ORDERABLES Final R esult Performing Organization Address City/[facility]/ZIP Co de Phone Number INTERFACE SYSTEM Refer to clinic/hospital department * (ABNORMAL) LACTIC ACID (06/29/2025 4:42 PM CDT) Pathologist [facility] [place] LACTIC ACID 2.1(H) <=2.0 mmol/L 06/29/2025 5:40 PM CDT [facility] Blood Venipuncture / Unknown 06/29/2025 4:42 PM CDT 06/29/2025 4:53 PM CDT Gabriel Arellano MD CHEMISTRY ORDERABLES Final Resul t Performing Organization Address [facility] de Phone Number [facility] CLIA # [id number] [address] [address] * (ABNORMAL) VITAMIN B12 AND FOLATE (06/29/2025 4:42 PM CDT) [facility] VITAMIN B12 441 211 - 946 pg/mL 06/29/2025 10:58 PM CDT [facility] FOLATE, SERUM >20.0(H) 3.1 - 17.5 ng/mL 06/29/2025 10:58 PM CDT [facility] Blood Venipuncture / Unknown 06/29/2025 4:42 PM CDT 06/29/2025 5:23 PM CDT us Gabriel Arellano MD CHEMISTRY ORDERABLES Final Resul t Performing Organization Address [facility] de Phone Number [facility] CLIA # [id number] [address] [address] * (ABNORMAL) OSMOLALITY (06/29/2025 4:42 PM CDT) [facility] OSMOLALITY 272(L) 275 - 295 mOsm/kg 06/29/2025 6:33 PM CDT [facility] Blood Venipuncture / Unknown 06/29/2025 4:42 PM CDT 06/29/2025 5:31 PM CDT Gabriel Arellano MD CHEMISTRY ORDERABLES Final Resul t Performing Organization Address [facility] de Phone Number [facility] CLIA # [id number] [address] [address] * (ABNORMAL) HEMOGLOBIN A1C (06/29/2025 4:42 PM CDT) HEMOGLOBIN A1C 8.3(H) <=5.6 % 06/30/2025 11:27 AM CDT [facility] EST. AVG GLUCOSE, A1C 192 mg/dL 06/30/2025 11:27 AM CDT [facility] Blood Venipuncture / Unknown 06/29/2025 4:42 PM CDT 06/29/2025 5:30 PM CDT Narrative [facility] - 06/30/2025 11:27 AM CDT HGB A1C INTERPRETATION NORMAL: <5.7% PRE-DIABETES: 5.7 - 6.4% DIABETES: 6.5% OR GREATER Gabriel Arellano MD CHEMISTRY ORDERABLES Final Resul t Performing Organization Address [facility] de Phone Number [facility] CLIA # [id number] [address] [address] * (ABNORMAL) AMMONIA LEVEL (06/29/2025 4:42 PM CDT) AMMONIA 14.5(L) 16.0 - 60.0 umol/L 06/29/2025 5:43 PM CDT [facility] Blood, venous 06/29/2025 4:4 2 PM CDT 06/29/2025 4:53 PM CDT Gabriel Arellano MD CHEMISTRY ORDERABLES Final Resul t Performing Organization Address City/[facility]/ZIP Co de Phone Number [facility] CLIA # [id number] [address] [address] * ETHANOL LEVEL (06/29/2025 4:42 PM CDT) ETHANOL <10.10 <10.10 mg/dL 06/29/2025 6:03 PM CDT [facility] ETHANOL % <0.01 <=0.01 %w/v 06/29/2025 6:03 PM CDT [facility] Blood Venipuncture / Unknown 06/29/2025 4:42 PM CDT 06/29/2025 5:23 PM CDT Gabriel Arellano MD CHEMISTRY ORDERABLES Final Resul t Performing Organization Address [facility] Co de Phone Number [facility] CLIA # [id number] [address] [address] * TSH (06/29/2025 2:02 AM CDT) TSH 2.57 0.27 - 4.20 uIU/mL 06/29/2025 4:45 PM CDT [facility] Blood Venipuncture / Unknown 06/29/2025 2:02 AM CDT 06/29/2025 2:31 AM CDT Gabriel Arellano MD CHEMISTRY ORDERABLES Final Resul t Performing Organization Address City/[facility]/ZIP Co de Phone Number [facility] CLIA # [id number] [address] [address] [place] [address] * T4 FREE (06/29/2025 2:02 AM CDT) T4 FREE 1.21 0.81 - 1.70 ng/dL 06/29/2025 4:33 PM CDT [facility] Blood Venipuncture / Unknown 06/29/2025 2:02 AM CDT 06/29/2025 2:31 AM CDT Gabriel Arellano MD CHEMISTRY ORDERABLES Final Resul t Performing Organization Address [facility]/ZIP Co de Phone Number [facility] CLIA # [id number] [address] [facility] [place] [address] * IR FLUORO OR OTHER (06/28/2025 3:54 PM CDT) Narrative 06/28/2025 3:54 PM CDT Order Auto Finalized. Please see associated Operative Report/Progress Note/Procedure Note from the same date. Lucian Mcdonnell MD IR ORDERABLES Halle l Result * (ABNORMAL) POC ACTIVATED CLOTTING TIME (06/28/2025 3:05 PM CDT) Only the most recent of3 resultswithin the time period is included. Pathologist [facility] [place] ACTIVATED CLOTTING TIME POC 233(H) 116 - 140 sec 06/28/2025 3:05 PM CDT [facility] Blood 06/28/2025 3:05 PM CDT 06/28/2025 4:09 PM CDT Lucian Mcdonnell MD POINT OF CARE TESTIN G Final Result Performing Organization Address City/[facility]/ZIP Co de Phone Number [facility] CLIA # [id number] [address] [place], [place] [id number] * FL ANES INSERT CATH, ART, PERCUT, SHORTTERM (06/28/2025 12:46 PM CDT) Narrative Ulysses Montano II, DO - 06/28/2025 12:46 PM CDT Ulysses Montano II, DO 06/28/2025 12:47 PM Arterial Line Insertion Patient location during procedure: OR Staffing Performed: Anesthesiologist (/) Authorized by: Ulysses Montano II, DO Performed by: Ulysses Montano II, DO time out called Patient was prepped and draped in usual sterile fashion Indications: multiple ABGs and hemodynamic monitoring Anesthetic total: 1 mL Hand hygiene performed prior to procedure Sterile Barriers: gloves, cap and mask Preparation: skin prepped with ChloraPrep Skin prep agent dried: skin prep agent completely dried prior to procedure Patient position: flat Location: right radial modified Seldinger technique used Catheter type: radial kit Catheter size: 20 G Catheter Length (in.): 1.75 Jamul Identification: palpation technique Number of attempts: 1 Assessment: blood return through port Procedure uneventful Post-procedure: line secured and dressing applied Comments: Sterile technique, sterile dressing, tape secured. Ulysses Montano II, DO PROCEDURE/MINOR PEREYRA RGICAL ORDERABLES Final Result * FL ANES INSERT ENDOTRACHEAL AIRWAY (06/28/2025 12:33 PM CDT) Narrative Shadi Davis AA-C - 06/28/2025 12:33 PM CDT Shadi Davis AA-C 06/28/2025 12:47 PM Airway Date/Time: 06/28/2025 12:33 PM Location: OR Plan: routine intubation Patient Identity Confirmed by: Verbally with patient and armband Airway: not difficult Staffing Performed: Student NA/AA Authorized by: Jose Magana MD Performed by: Shadi Davis AA-C Indications and Patient Condition: Indications for Airway Management: Anesthesia Sedation Level: general anesthesia Preoxygenated: yes Patient Position: Sniffing Mask Difficulty Assessment: 2 - vent by mask + OA or adjuvant +/- NMBA Oral Airway: 100mm Plan to extubate at end of case: Yes Final Airway Details: Final Airway Type: Endotracheal airway ETT Cuffed: Yes Technique Used for Successful ETT Placement: Direct laryngoscopy Devices/Methods Used in Placement: Intubating stylet Blade Type: curved blade Blade Size: 4 Insertion Site: Oral ETT Size (mm): 7.5 Measured from: Gums ETT to Gums (cm): 22 Tube secured with: Tape Placement Verified by: auscultation, end tidal CO2 and chest rise Cormack-Lehane Classification: Grade I - full view of glottis Number of Attempts at Approach: 1 Additional Procedure Information: atraumatic and dentition unchanged Jose Magana MD PROCEDURE/MINOR SURGICAL ORDERA BLES Final Result * VERIFICATION BLOOD GROUP (06/28/2025 11:01 AM CDT) Pathologist [facility] [place] ABO GROUP A 06/28/2025 11:35 AM CDT [facility] RH (D) TYPE Positive 06/28/2025 11:35 AM CDT [facility] [employer] [facility] Blood Venipuncture / Unknown 06/28/2025 11:01 AM CDT 06/28/2025 11:08 AM CDT Lucian Mcdonnell MD BLOOD BANK ORDERABLE S Final Result [facility] [employer] [facility] CLIA#[id number] [address] [place], [place] [id number], * PROTIME-INR (06/28/2025 11:01 AM CDT) PROTIME 13.4 12.7 - 14.9 Seconds 06/28/2025 11:26 AM CDT [facility] [employer] [facility] INR 1.0 0.8 - 1.2 06/28/2025 11:26 AM CDT [facility] [employer] [facility] Blood Venipuncture / Unknown 06/28/2025 11:01 AM CDT 06/28/2025 11:10 AM CDT Narrative [facility] - 06/28/2025 11:26 AM CDT Expected Values for INR: DVT/PE Goal INR 2.5; range 2.0 - 3.0 Valve Replacement Tissue Goal INR 2.5; range 2.0 - 3.0 Valve Replacement Mechanical Goal INR 3.0; range 2.5 - 3.5 POST-PR Goal INR 2.5; range 2.0 - 3.0 or Goal INR 3.0; range 2.5 - 3.5 Atrial Fibrillation Goal INR 2.5; range 2.0 - 3.0 Ischemic Stroke Goal INR 2.5; range 2.0 - 3.0 us Lucian Mcdonnell MD HEMATOLOGY ORDERABLE S Final Result [facility] CLIA # [id number] [address] [facility] [place] [address] * TYPE AND SCREEN (06/28/2025 10:50 AM CDT) ABO GROUP A 06/28/2025 12:24 PM CDT [facility] RH (D) TYPE Positive 06/28/2025 12:24 PM CDT [facility] ANTIBODY SCREEN Negative 06/28/2025 12:24 PM CDT [facility] Blood Venipuncture / Unknown 06/28/2025 10:50 AM CDT 06/28/2025 11:08 AM CDT us Lucian Mcdonnell MD BLOOD BANK ORDERABLE S Edited Result - Final [facility] [employer] [facility] CLIA#[id number] [address] [place], [place] [id number] [place] [address] * ECHOCARDIOGRAM W/ CONTRAST AGENT (05/30/2025 3:37 PM CDT) EJECTION FRACTION 35 INTERFACE SYSTEM 05/30/2025 2:38 PM CDT Narrative INTERFACE SYSTEM - 05/31/2025 9:10 PM CDT [facility] Echocardiography Laboratory [address] [place] [address] Transthoracic Echocardiography Patient: Go Adair Study ID: ECHO COMPLETE - C Gender: M : 1950 Age: 74 Room: [facility] 05/30/2025 Outpatient Date: Status: Study 02:38:25 PM CSN #: [id number] Time: Ordering:Bonnie Lizama [employer] Pilot: LIZETT Indications and History: Other forms of angina pectoris [I20.89 (ICD-10-CM)]; Shortness of breath [R06.02 (ICD-10-CM)]. Labs, prior tests, procedures, and surgery: Transthoracic echocardiogram (12/19/2015). Catheterization (05/25/2025). Coronary artery bypass grafting. Summary and Conclusion: - Left ventricle: The cavity size is normal. Wall thickness is increased in a pattern of mild LVH. Global systolic function is moderately reduced. The estimated ejection fraction is 35-40%. For Epic reporting: the left ventricular ejection fraction is 35% by visual assessment. Regional wall motion difficult to determine but improved with echo contrast. Findings consistent with left ventricular diastolic dysfunction. The global longitudinal strain is -11.6% (Normal range is -18 to -25). - Right ventricle: The cavity size is normal. Systolic function is normal. Systolic pressure is not obtained. - Left atrium: The atrium is upper normal to mildly dilated. - Aortic valve: There is mild regurgitation. - Mitral valve: The annulus is mildly to moderately calcified. The leaflets are sclerotic and calcified. The findings are consistent with mild stenosis. MG 6 mmHg at HR 83 bpm. There is mild regurgitation. - Pulmonic valve: There is trivial to mild regurgitation. - LVEF worse compared to the prior echo. Procedure information: Comparison is made to the study of 12/19/2015. Study status: STAT. Procedure: A transthoracic echocardiogram was performed. Image quality was adequate. Scanning was performed from the parasternal, apical, subcostal, and suprasternal notch acoustic windows. Intravenous contrast (Definity) was administered to opacify the LV. There were no complications. There were no contrast reactions. Study components: M-mode, 2D, complete spectral Doppler, and color Doppler. Height: 175.3cm. Height: 69in. Weight: 81.9kg. Weight: 180.6lb. BMI: 26.7kg/m^2. BSA: 2.01m^2. Blood pressure: 141/67 Study date: 05/30/2025. Study time: 02:38 PM. Location: Echo laboratory. Cardiac Anatomy: LEFT VENTRICLE: The cavity size is normal. Wall thickness is increased in a pattern of mild LVH. Global systolic function is moderately reduced. The estimated ejection fraction is 35-40%. For Epic reporting: the left ventricular ejection fraction is 35% by visual assessment. Regional wall motion difficult to determine but improved with echo contrast. The longitudinal strain is -11.6% (Normal range is -18 to -25). The global longitudinal strain is -11.6% (Normal range is -18 to -25). Findings consistent with left ventricular diastolic dysfunction. RIGHT VENTRICLE: The cavity size is normal. Systolic function is normal. Systolic pressure is not obtained. LEFT ATRIUM: The atrium is upper normal to mildly dilated. RIGHT ATRIUM: The atrium is normal in size. ATRIAL SEPTUM: No obvious PFO or ASD identified by 2D imaging and color Doppler. AORTIC VALVE: The valve is trileaflet. The leaflets are normal thickness. There is no stenosis. There is mild regurgitation. MITRAL VALVE: The annulus is mildly to moderately calcified. The leaflets are sclerotic and calcified. The findings are consistent with mild stenosis. MG 6 mmHg at HR 83 bpm. There is mild regurgitation. TRICUSPID VALVE: Structurally normal valve. Mobility is unrestricted. There is no evidence for stenosis. There is no significant regurgitation. PULMONIC VALVE: Not well visualized. The valve appears to be grossly normal. There is no evidence for stenosis. There is trivial to mild regurgitation. The peak systolic gradient is 4mm Hg. PERICARDIUM: There is no pericardial effusion. AORTA: Aortic root: The root is not dilated. Measurements Left ventricle Value Left atrium Value GLS, 2D -11.6 % AP dim, ES 3.3 cm DAXA, LAX 5.4 cm AP dim index, ES 1.6 cm/m^2 ESD, LAX 4.2 cm SI dim, A4C 6.2 cm DAXA/bsa, LAX 2.7 cm/m^2 Area ES, A4C 21 cm^2 ESD/bsa, LAX 2.1 cm/m^2 Vol, S 62 ml FS, LAX 23 % Vol/bsa, S 31 ml/m^2 ESD major ax, A4C 8.5 cm Vol, ES, 1-p A4C 56 ml ESD/bsa major ax, A4C 4.2 cm/m^2 Vol/bsa, ES, 1-p A4C 28 ml/m^2 DAXA minor ax, A4C 8.5 cm Vol, ES, 1-p A2C 59 ml DAXA/bsa minor ax, A4C 4.2 cm/m^2 Vol/bsa, ES, 1-p A2C 29 ml/m^2 DAXA major ax, A2C 8.8 cm Vol, ES, A/L 60 ml ESD major ax, A2C 6.9 cm Vol/bsa, ES, A/L 30 ml/m^2 DAXA/bsa major ax, A2C 4.4 cm/m^2 ESD/bsa major ax, A2C 3.4 cm/m^2 Right atrium Value IVS, ED 1.1 cm Area, ES 11 cm^2 ESD 4.2 cm Area, ES, A4C 11 cm^2 ESD/bsa 2.1 cm/m^2 PW, ED 1.2 cm Aortic valve Value IVS/PW, ED 0.94 Peak v, S 115.53 cm/sec EDV, 1-p A2C 105 ml VTI, S 22.9 cm ESV, 1-p A2C 48 ml Mean grad, S 2 mm Hg EF, 1-p A2C 46 % Peak grad, S 5 mm Hg EDV/bsa, 1-p A2C 52 ml/m^2 LVOT/AV, VTI ratio 0.59 ESV/bsa, 1-p A2C 24 ml/m^2 SUDHA, VTI 2.12 cm^2 EDV, 1-p A4C 134 ml SUDHA/bsa, VTI 1.05 cm^2/m^2 ESV, 1-p A4C 80 ml LVOT/AV, Vpeak ratio 0.6 EF, 1-p A4C 40 % SUDHA, Vmax 2.18 cm^2 SV, 1-p A4C 53 ml SUDHA/bsa, Vmax 1.08 cm^2/m^2 EDV/bsa, 1-p A4C 66 ml/m^2 AR peak v 3.87 m/sec ESV/bsa, 1-p A4C 40 ml/m^2 AR PHT 337 ms SV/bsa, 1-p A4C 27 ml/m^2 AR peak grad 60 mm Hg EDV, 2-p 118 ml ESV, 2-p 75 ml Mitral valve Value EF, 2-p 37 % Mean v, D 75 cm/sec SV, 2-p 57 ml Peak E 71.67 cm/sec EDV/bsa, 2-p 59 ml/m^2 Peak A 122.55 cm/sec ESV/bsa, 2-p 37 ml/m^2 Decel time 184 ms SV/bsa, 2-p 28.2 ml/m^2 PHT 87 ms E', lat natalee, TDI 9.0 cm/sec Mean grad, D 3 mm Hg E/e', lat natalee, TDI 8 Peak grad, D 6 mm Hg E', med natalee, TDI 5.0 cm/sec Peak E/A ratio 0.58 E/e', med natalee, TDI 14 MVA, PHT 2.52 cm^2 E', avg, TDI 7.0 cm/sec MVA/bsa, PHT 1.25 cm^2/m^2 E/e', avg, TDI 10 Vena contracta width 3.2 cm LVOT Value Pulmonic valve Value Diam, S 2.2 cm Peak v, S 103.1 cm/sec Area 3.6 cm^2 Peak grad, S 4 mm Hg Peak aida, S 69.49 cm/sec VTI, S 13.4 cm Ascending aorta Value Peak grad, S 2 mm Hg AAo AP diam, S 3.0 cm SV 49 ml AAo AP diam/bsa, S 1.5 cm/m^2 Qs 3.7 L/min Qs/bsa 1.8 L/(min-m^2) Systemic veins Value SV/bsa 24 ml/m^2 Estimated CVP 3 mm Hg Right ventricle Value DAXA, LAX 3.2 cm DAXA 3.2 cm Legend: (L) and (H) bolivar values outside specified reference range. [facility] are accredited with the Intersocietal Accreditation Commission - Echocardiography. Prepared and Electronically Authenticated Claudio Alvarez Confirmed 05/31/2025 21:09 Procedure Note Claudio Alvarez MD - 05/31/2025 [facility] Echocardiography Laboratory [address] [place] [address] Transthoracic Echocardiography Patient: Go Adair Study ID: ECHO COMPLETE- C Gender: Jimena : 1950 Age: 74 Room: [facility] 05/30/2025 Pt Outpatient Date: Status: Study 02:38:25 PM [facility] #: [id number] Time: Ordering:Bonnie Lizama [employer]: LIZETT Indications and History: Other forms of angina pectoris [I20.89 (ICD-10-CM)]; Shortness of breath [R06.02 (ICD-10-CM)]. Labs, prior tests, procedures, and surgery: Transthoracic echocardiogram (12/19/2015). Catheterization (05/25/2025). Coronary artery bypass grafting. Summary and Conclusion: - Left ventricle: The cavity size is normal. Wall thickness is increasedin a pattern of mild LVH. Global systolic function is moderately reduced.The estimated ejection fraction is 35-40%. For Epic reporting: the left ventricular ejection fraction is 35% by visual assessment. Regionalwall motion difficult to determine but improved with echo contrast.Findings consistent with left ventricular diastolic dysfunction. The global longitudinal strain is -11.6% (Normal range is -18 to -25). - Right ventricle: The cavity size is normal. Systolic function isnormal. Systolic pressure is not obtained. - Left atrium: The atrium is upper normal to mildly dilated. - Aortic valve: There is mild regurgitation. - Mitral valve: The annulus is mildly to moderately calcified. Theleaflets are sclerotic and calcified. The findings are consistent with mildstenosis. MG 6 mmHg at HR 83 bpm. There is mild regurgitation. - Pulmonic valve: There is trivial to mild regurgitation. - LVEF worse compared to the prior echo. Procedure information: Comparison is made to the study of 12/19/2015.Study status: STAT. Procedure: A transthoracic echocardiogram wasperformed. Image quality was adequate. Scanning was performed from the parasternal, apical, subcostal, and suprasternal notch acoustic windows. Intravenous contrast (Definity) was administered to opacify the LV. There were no complications. There were no contrast reactions. Studycomponents: M-mode, 2D, complete spectral Doppler, and color Doppler. Height:175.3cm. Height: 69in. Weight: 81.9kg. Weight: 180.6lb. BMI: 26.7kg/m^2. BSA: 2.01m^2. Blood pressure: 141/67 Study date: 05/30/2025.Study time: 02:38 PM. Location: Echo laboratory. Cardiac Anatomy: LEFT VENTRICLE: The cavity size is normal. Wall thickness is increased libby pattern of mild LVH. Global systolic function is moderately reduced. The estimated ejection fraction is 35-40%. For Epic reporting: the left ventricular ejection fraction is 35% by visual assessment. Regional wall motion difficult to determine but improved with echo contrast. The longitudinal strain is -11.6% (Normal range is -18 to -25). The global longitudinal strain is -11.6% (Normal range is -18 to -25). Findings consistent with left ventricular diastolic dysfunction. RIGHT VENTRICLE: The cavity size is normal. Systolic function isnormal. Systolic pressure is not obtained. LEFT ATRIUM: The atrium is upper normal to mildly dilated. RIGHT ATRIUM: The atrium is normal in size. ATRIAL SEPTUM: No obvious PFO or ASD identified by 2D imaging and color Doppler. AORTIC VALVE: The valve is trileaflet. The leaflets are normalthickness. There is no stenosis. There is mild regurgitation. MITRAL VALVE: The annulus is mildly to moderately calcified. The leafletsare sclerotic and calcified. The findings are consistent with mild stenosis.MG 6 mmHg at HR 83 bpm. There is mild regurgitation. TRICUSPID VALVE: Structurally normal valve. Mobility isunrestricted. There is no evidence for stenosis. There is no significantregurgitation. PULMONIC VALVE: Not well visualized. The valve appears to be grosslynormal. There is no evidence for stenosis. There is trivial to mild regurgitation. The peak systolic gradient is 4mm Hg. PERICARDIUM: There is no pericardial effusion. AORTA: Aortic root: The root is not dilated. Measurements Left ventricle Value Left atrium Value GLS, 2D -11.6 % AP dim, ES 3.3cm DAXA, LAX 5.4 cm AP dim index, ES 1.6cm/m^2 ESD, LAX 4.2 cm SI dim, A4C 6.2cm DAXA/bsa, LAX 2.7 cm/m^2 Area ES, A4C 21cm^2 ESD/bsa, LAX 2.1 cm/m^2 Vol, S 62ml FS, LAX 23 % Vol/bsa, S 31ml/m^2 ESD major ax, A4C 8.5 cm Vol, ES, 1-p A4C 56ml ESD/bsa major ax, A4C 4.2 cm/m^2 Vol/bsa, ES, 1-p A4C 28ml/m^2 DAXA minor ax, A4C 8.5 cm Vol, ES, 1-p A2C 59ml DAXA/bsa minor ax, A4C 4.2 cm/m^2 Vol/bsa, ES, 1-p A2C 29ml/m^2 DAXA major ax, A2C 8.8 cm Vol, ES, A/L 60ml ESD major ax, A2C 6.9 cm Vol/bsa, ES, A/L 30ml/m^2 DAXA/bsa major ax, A2C 4.4 cm/m^2 ESD/bsa major ax, A2C 3.4 cm/m^2 Right atrium Value IVS, ED 1.1 cm Area, ES 11cm^2 ESD 4.2 cm Area, ES, A4C 11cm^2 ESD/bsa 2.1 cm/m^2 PW, ED 1.2 cm Aortic valve Value IVS/PW, ED 0.94 Peak v, S 115.53cm/sec EDV, 1-p A2C 105 ml VTI, S 22.9cm ESV, 1-p A2C 48 ml Mean grad, S 2 mmHg EF, 1-p A2C 46 % Peak grad, S 5 mmHg EDV/bsa, 1-p A2C 52 ml/m^2 LVOT/AV, VTI ratio 0.59 ESV/bsa, 1-p A2C 24 ml/m^2 SUDHA, VTI 2.12cm^2 EDV, 1-p A4C 134 ml SUDHA/bsa, VTI 1.05cm^2/m^2 ESV, 1-p A4C 80 ml LVOT/AV, Vpeak ratio 0.6 EF, 1-p A4C 40 % SUDHA, Vmax 2.18cm^2 SV, 1-p A4C 53 ml SUDHA/bsa, Vmax 1.08cm^2/m^2 EDV/bsa, 1-p A4C 66 ml/m^2 AR peak v 3.87m/sec ESV/bsa, 1-p A4C 40 ml/m^2 AR PHT 337ms SV/bsa, 1-p A4C 27 ml/m^2 AR peak grad 60 mmHg EDV, 2-p 118 ml ESV, 2-p 75 ml Mitral valve Value EF, 2-p 37 % Mean v, D 75cm/sec SV, 2-p 57 ml Peak E 71.67cm/sec EDV/bsa, 2-p 59 ml/m^2 Peak A 122.55cm/sec ESV/bsa, 2-p 37 ml/m^2 Decel time 184ms SV/bsa, 2-p 28.2 ml/m^2 PHT 87ms E', lat natalee, TDI 9.0 cm/sec Mean grad, D 3 mmHg E/e', lat natalee, TDI 8 Peak grad, D 6 mmHg E', med natalee, TDI 5.0 cm/sec Peak E/A ratio 0.58 E/e', med natalee, TDI 14 MVA, PHT 2.52cm^2 E', avg, TDI 7.0 cm/sec MVA/bsa, PHT 1.25cm^2/m^2 E/e', avg, TDI 10 Vena contracta width 3.2cm LVOT Value Pulmonic valve Value Diam, S 2.2 cm Peak v, S 103.1cm/sec Area 3.6 cm^2 Peak grad, S 4 mmHg Peak aida, S 69.49 cm/sec VTI, S 13.4 cm Ascending aorta Value Peak grad, S 2 mm Hg AAo AP diam, S 3.0cm SV 49 ml AAo AP diam/bsa, S 1.5cm/m^2 Qs 3.7 L/min Qs/bsa 1.8 L/(min-m^2) Systemic veins Value SV/bsa 24 ml/m^2 Estimated CVP 3 mmHg Right ventricle Value DAXA, LAX 3.2 cm DAXA 3.2 cm Legend: (L) and (H) bolivar values outside specified reference range. [facility] are accredited with theJohn Douglas French Centeretal Accreditation Commission - Echocardiography. Prepared and Electronically Authenticated Claudio Alvarez Confirmed 05/31/2025 21:09 us Bonnie Lizama MD ORDERABLES Final Result INTERFACE SYSTEM Refer to clinic/hospital department * EYE DROPS (05/30/2025 1:59 PM CDT) Narrative [facility] - 05/30/2025 1:59 PM CDT Medications Eye Drops: 1 Drop phenylephrine 2.5 % Route: Topical NDC: 43044-979-99, Lot: [id number] 2 Drop proparacaine 0.5 % Route: Topical NDC: 65518-612-19, Lot: [id number] 1 Drop tropicamide 1 % Route: Topical NDC: 77173-859-17, Lot: [id number] Notes Eye drop orders per protocol for Basic Route Delivery Supervisor Eye Exam (Dilated) 1 Drop proparacaine (OPHTHAINE) 0.5% ophthalmic solution prior to tonometry 1 Drop tropicamide (MYDRIACYL) 1% ophthalmic solution 1 Drop phenylephrine (AK-DILATE, MYDFRIN) 2.5% ophthalmic solution Bright Tenorio MD OPH CLINIC PROCEDURES Fin al Result Performing Organization Address City/[facility]/ZIP Co de Phone Number [facility] CLIA[facility] [id number] [address] [place] [address] * OCT, RETINA - OU - BOTH EYES (05/30/2025 1:45 PM CDT) Narrative [facility] - 05/30/2025 2:00 PM CDT Right Eye Quality was good. Left Eye Quality was good. Notes Optical Coherence Tomography ordered to evaluate the status of the macula: Right Eye: closed macular hole, good contour with outer segment disruption Left Eye: trace Epiretinal membrane Bright Tenorio MD OPHTH TOMOGRAPHY Final Resu lt Performing Organization Address [facility]/ZIP Co de Phone Number [facility] * LEFT HEART CATH WITH GRAFTS, SUPRAVALVULAR AORTOGRAPHY (05/25/2025 10:04 AM CDT) 05/25/2025 9:40 AM CDT Narrative [facility] - 05/25/2025 10:15 AM CDT Prox RCA to Mid RCA lesion is 25% stenosed. Ost LAD to Prox LAD lesion is 95% stenosed. Prox LAD lesion is 100% stenosed. 1. Significant nightmute coronary artery disease as described above. - Patent RENDON to LAD. No other SVG grafts appear to be patent angiographically based on supravalvular aortography. 2. Aggressive risk factor modification and lifestyle changes. 3. Recommend maximally tolerated guideline directed medical therapy. 4. Access site care per protocol. 5. Cardiac rehab per the referring provider. Portions of this document were created through the use of [employer] specialist software. Effort has been made to ensure accuracy of the alcoholism worker. Any obvious errors or omissions should be clarified with the author of the document. Coronary Findings Diagnostic Dominance: Right Left Main: The vessel is large. The vessel exhibits minimal luminal irregularities. Left Anterior Descending: The vessel is large. There is mild diffuse disease in the vessel. Ost LAD to Prox LAD lesion is 95% stenosed. Not the culprit lesion. RENE flow is 3. The lesion is calcified. Prox LAD lesion is 100% stenosed. Not the culprit lesion. RENE flow is 0. The lesion is calcified. Left Circumflex: The vessel is large. There is mild diffuse disease in the vessel. Right Coronary Artery: The vessel is large. There is mild diffuse disease in the vessel. Prox RCA to Mid RCA lesion is 25% stenosed. Not the culprit lesion. RENE flow is 3. The lesion was previously treated using a stent of unknown type. Vein Graft To Dist RCA: Not patent In Situ RENDON Graft To Mid LAD: The graft was visualized by angiography. Graft is patent. The graft exhibits minimal luminal irregularities. Intervention No interventions have been documented. Estimated Blood Loss There was minimal blood loss during procedure. Procedure Details DESCRIPTION OF PROCEDURE: The risks and benefits of the procedure were described in simple details. Risks including: bleeding, need for blood transfusion, arrhythmia, need for emergent surgery, renal failure, allergic reactions, myocardial infarction, stroke and . All questions were answered. Informed consent was signed. The access site was prepped and draped in a sterile technique in the usual fashion. Lidocaine 2% was used for local anesthesia. A 6 Greenlandic sheath was placed in the access site using single entry technique. Using the JL4 catheter, the left main coronary artery was engaged and multiple shots were obtained. Using the JR4 catheter, the right coronary artery was engaged and multiple shots were obtained. Using the same catheter the aortic valve was crossed and LV pressure measurements were obtained. Using the IM catheter RENDON to LAD was engaged and angiographic picture obtained. Using a angled pigtail catheter supravalvular aortography was performed and no other patent SVG grafts were appreciated angiographically. us Bonnie Lizama MD [facility] CATH ORDERABLES Final Res ult [facility] [id number] [address] [facility] [address] [place] [address], [place] [phone] * (ABNORMAL) NM MYOCARD PERF IMAG SPECT MULT (05/22/2025 3:51 PM CDT) EJECTION FRACTION 39(A) 50 - 65 % [facility] Narrative [facility] - 05/22/2025 4:02 PM CDT Rest/Stress Single Isotope SPECT Myocardial Perfusion Imaging with pharmacologic stress and Gated Ejection Fraction Clinical Indication and History: Chest pain, shortness of breath, CAD, CABG, COPD, hypertension, diabetes, hyperlipidemia. Patient height 70 inches, weight 178 lbs. Pharmacologic stress testing was performed with Regadenoson 0.4 mg injected intravenously over 10 seconds. The patient reported cough during stress test. The resting heart rate was 79 beats per minute and peak heart rate during stress was 97 beats per minute. Blood pressure was 128/68 mmHg at rest and 132/66 mm Hg at peak stress. Blood pressure response was appropriate during the stress procedure. The resting electrocardiogram demonstrated normal sinus rhythm, cannot rule out septal infarct, age indeterminate, with nonspecific ST-segment changes. During stress, no significant ST-T changes were noted. There were no significant new arrhythmias. Myocardial perfusion imaging was performed at rest in the upright position (30 minutes following the intravenous injection of 10.2 mCi of Tc99m Tetrofosmin). At peak pharmacologic effect, the patient was intravenously injected with 31.0 mCi of Tc99m Tetrofosmin. Post stress images were obtained in both the upright position and supine position. Gated post-stress tomographic imaging was performed 45 minutes after stress. The data was reconstructed in the short, horizontal long and vertical long axis views. Findings: The overall quality of the study is good. There is evidence of some soft tissue attenuation and splanchnic artifact. Left ventricular cavity is noted to be normal in size on the rest images without further dilatation on post stress images. Transient dilatation ratio is 0.99. SPECT images at rest show mild to moderate and at times severe decrease in the tracer concentration in the apical, periapical, basal and mid inferior, basal and mid inferior lateral, basal and mid anteroseptal, basal anterior myocardial territory. In the supine stress images there is mild to moderate and at times severe decrease in the tracer orientation in the periapical, apical, basal and mid inferior, mid inferior lateral, basal anteroseptal myocardial territory. In the upright stress images there is mild to moderate and at times severe decrease in the tracer concentration in the apical, periapical, basal and mid inferior, mid inferior lateral, basal anterior septal myocardial territory such that taken together shows as large size fixed defect in the apical, periapical, inferior lateral, anteroseptal zones where henok-infarct ischemia cannot be ruled out completely. Reversibility score 10, SDS score 0. Polar maps with LAD 28% fixed defect, 9% respiratory, circumflex with 28% fixed defect, 13% reversibility, RCA with 37% fixed defect, 9% reversibility any minor inhomogeneity present is commensurate with the degree of soft tissue attenuation noted. Gated SPECT imaging reveals appropriate myocardial thickening (with limitations as above) and nondiagnostic wall motion of the visualized segments. The left ventricular ejection fraction was calculated to be 39%, with an end-diastolic volume of 125 ml. Impression: 1. Myocardial perfusion imaging is abnormal. Moderate size, mild intensity reversible defect is noted to suggest significant myocardial ischemia in the henok-infarct ischemia pattern versus artifact. Large size fixed defect is noted to suggest nontransmural myocardial injury as described above. 2. Global left ventricular systolic function ejection fraction of 39% without diagnostic segmental wall motion abnormalities. 3. Nonischemic response to stress by electrocardiographic criterion with symptoms as described above. 4. No previous study is available for direct comparison. Portions of this document were created through the use of [employer] specialist software. Effort has been made to ensure accuracy of the alcoholism worker. Any obvious errors or omissions should be clarified with the author of the document. Bonnie Lizama MD [facility] us Bonnie Lizama MD NM ORDERABLES Final Result [facility] CLIA [id number] [address] [place] [id number], [place] [phone] * NM PHARMACOLOGICAL STRESS TEST (05/22/2025 2:52 PM CDT) Narrative [facility] - 05/22/2025 4:02 PM CDT Rest/Stress Single Isotope SPECT Myocardial Perfusion Imaging with pharmacologic stress and Gated Ejection Fraction Clinical Indication and History: Chest pain, shortness of breath, CAD, CABG, COPD, hypertension, diabetes, hyperlipidemia. Patient height 70 inches, weight 178 lbs. Pharmacologic stress testing was performed with Regadenoson 0.4 mg injected intravenously over 10 seconds. The patient reported cough during stress test. The resting heart rate was 79 beats per minute and peak heart rate during stress was 97 beats per minute. Blood pressure was 128/68 mmHg at rest and 132/66 mm Hg at peak stress. Blood pressure response was appropriate during the stress procedure. The resting electrocardiogram demonstrated normal sinus rhythm, cannot rule out septal infarct, age indeterminate, with nonspecific ST-segment changes. During stress, no significant ST-T changes were noted. There were no significant new arrhythmias. Myocardial perfusion imaging was performed at rest in the upright position (30 minutes following the intravenous injection of 10.2 mCi of Tc99m Tetrofosmin). At peak pharmacologic effect, the patient was intravenously injected with 31.0 mCi of Tc99m Tetrofosmin. Post stress images were obtained in both the upright position and supine position. Gated post-stress tomographic imaging was performed 45 minutes after stress. The data was reconstructed in the short, horizontal long and vertical long axis views. Findings: The overall quality of the study is good. There is evidence of some soft tissue attenuation and splanchnic artifact. Left ventricular cavity is noted to be normal in size on the rest images without further dilatation on post stress images. Transient dilatation ratio is 0.99. SPECT images at rest show mild to moderate and at times severe decrease in the tracer concentration in the apical, periapical, basal and mid inferior, basal and mid inferior lateral, basal and mid anteroseptal, basal anterior myocardial territory. In the supine stress images there is mild to moderate and at times severe decrease in the tracer orientation in the periapical, apical, basal and mid inferior, mid inferior lateral, basal anteroseptal myocardial territory. In the upright stress images there is mild to moderate and at times severe decrease in the tracer concentration in the apical, periapical, basal and mid inferior, mid inferior lateral, basal anterior septal myocardial territory such that taken together shows as large size fixed defect in the apical, periapical, inferior lateral, anteroseptal zones where henok-infarct ischemia cannot be ruled out completely. Reversibility score 10, SDS score 0. Polar maps with LAD 28% fixed defect, 9% respiratory, circumflex with 28% fixed defect, 13% reversibility, RCA with 37% fixed defect, 9% reversibility any minor inhomogeneity present is commensurate with the degree of soft tissue attenuation noted. Gated SPECT imaging reveals appropriate myocardial thickening (with limitations as above) and nondiagnostic wall motion of the visualized segments. The left ventricular ejection fraction was calculated to be 39%, with an end-diastolic volume of 125 ml. Impression: 1. Myocardial perfusion imaging is abnormal. Moderate size, mild intensity reversible defect is noted to suggest significant myocardial ischemia in the henok-infarct ischemia pattern versus artifact. Large size fixed defect is noted to suggest nontransmural myocardial injury as described above. 2. Global left ventricular systolic function ejection fraction of 39% without diagnostic segmental wall motion abnormalities. 3. Nonischemic response to stress by electrocardiographic criterion with symptoms as described above. 4. No previous study is available for direct comparison. Portions of this document were created through the use of [employer] specialist software. Effort has been made to ensure accuracy of the alcoholism worker. Any obvious errors or omissions should be clarified with the author of the document. Bonnie Lizama MD [facility] Bonnie Lizama MD NM ORDERABLES Final Result [facility] [id number] [address] [place] [address], [place] [phone] * CTA ABD AORTA BI ILIOFEM W AND/OR WO (04/13/2025 3:57 PM CDT) Anatomical Region Laterality Modality Abdomen Computed Tomogra phy Francois Mcgill DO CT ORDERABLES Final Result * OCT, RETINA - OU - BOTH EYES (04/10/2025 3:16 PM CDT) Narrative [facility] - 04/10/2025 4:23 PM CDT Right Eye Quality was good. Left Eye Quality was good. Notes Optical Coherence Tomography ordered to evaluate the status of the macula: Right Eye: FTMH. Left Eye: trace Epiretinal membrane us Bright Tenorio MD OPHTH TOMOGRAPHY Final Resu lt [facility] from Last 3 Months Insurance [facility] MEDICAID [place] Advance Directives For more information, please contact: [phone] * Full Code (Latest Code Status on File) Date Activated Date Inactivated Comments 06/28/2025 7:57 PM 07/03/2025 4:41 PM * Full Code Date Activated Date Inactivated Comments 05/25/2025 8:03 AM 05/25/2025 3:25 PM * Full Code Date Activated Date Inactivated Comments 05/03/2025 8:25 AM 05/03/2025 12:43 PM * Full Code Date Activated Date Inactivated Comments 02/15/2025 1:03 PM 02/15/2025 5:50 PM Care Teams Spanner Operator Relationship Specialty Start Date End Date Astrid Escobedo DO [address] [place] [address] PCP - General Family Practice 4/11/16
--- OUTSIDE RECORDS SUMMARY | 2025-07-07 19:19 | XMS_ITS | Encounter Summary ---
Author Organization [facility] Address [address] [place] [address] Care Team Providers Care Front Counter Attendant Name Role Phone Astrid Escobedo DO Primary Care Provider [phone] Encounter Details Date Type Department Care Team (Latest Contact Info) Description 07/05/2004 Outpatient Historical [facility] Rheumatology- Khan Nba [place] [address] [place] [address] Winston Magana MD NO ADDRESS ON FILE PSORIATIC ARTHROPATHY (CMS/HCC) (Primary Dx); AFTERCARE HALF-WAY USE MEDICATN Social History Tobacco Use Types Packs/Day Years Used Date Smoking Tobacco: Never Assessed Sex and Gender Information Value Date Recorded Sex Assigned at Not on file 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
--- OUTSIDE RECORDS SUMMARY | 2025-07-07 19:19 | XMS_ITS | Encounter Summary ---
Author Organization [facility] Address [address] [place] [address] Care Team Providers Care Archives Director Name Role Phone Astrid Escobedo DO Primary Care Provider [phone] Encounter Details Date Type Department Care Team (Latest Contact Info) Description 12/02/2000 Outpatient Historical [facility] Rheumatology- Mehoop[place] [address] [place] [address] Winston Magana MD NO ADDRESS ON FILE Psoriatic arthropathy (CMS/HCC) (Primary Dx) Social History Tobacco Use Types Packs/Day Years Used Date Smoking Tobacco: Never Assessed Sex and Gender Information Value Date Recorded Sex Assigned at Not on file 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
--- OUTSIDE RECORDS SUMMARY | 2025-07-07 19:19 | XMS_ITS | Encounter Summary ---
Author Organization [facility] Address 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 BRAZING MACHINE OPERATOR Gender Identity Not on file Sexual Orientation Not on file documented as of this encounter Plan of Treatment Upcoming Encounters Date Type Department Care Team (Late st Contact Info) Description 07/25/2025 2:30 PM FLAME BRAZING MACHINE OPERATOR Office Visit [facility] Vascular Surgery [address] [address] 08/10/2025 12:30 PM FLAME BRAZING MACHINE OPERATOR Ancillary Procedure [facility]- [address] [address] Lucian Mcdonnell MD [address] [place] [address] 08/10/2025 1:15 PM FLAME BRAZING MACHINE OPERATOR Office Visit [facility] Vascular Surgery [place] [address] [place] [address] Lucian Mcdonnell MD [address] [place] [address] 08/10/2025 2:00 PM FLAME BRAZING MACHINE OPERATOR Office Visit [facility] [address] [place] [address] Bonnie Lizama MD [address] [place] [address] Cira Juarez, [facility] [address] [place] [address] 11/07/2025 1:20 PM FLAME BRAZING MACHINE OPERATOR Office Visit [facility] [address] [place] [address] Bonnie Lizama MD [address] [place] [address] Ariana Brice, DAVE [address] [place] [address] 11/27/2025 1:10 PM CDT Office Visit [facility] [place] [address] [place] [address] Bright Tenorio MD [address] [place] [id number] documented as of this encounter Visit Diagnoses Not on filedocumented in this encounter Care Teams Brand Marketing Intern Relationship Specialty Start Date End Date Astrid Escobedo DO [address] [place] [address] PCP - General Family Practice 12/17/15 documented as of this encounter
--- OUTSIDE RECORDS SUMMARY | 2025-07-07 19:20 | XMS_ITS | Encounter Summary ---
Author Organization [facility] Address [address] [place] [address] Care Team Providers Care Health Workers Name Role Phone Astrid Escobedo DO Primary Care Provider [phone] Encounter Details Date Type Department Care Team (Latest Contact Info) Description 01/27/2002 Outpatient Historical [facility] Rheumatology- Bill Arango [place] [address] [place] [address] Winston Magana MD NO ADDRESS ON FILE RHEUMATOID ARTHRITIS (CMS/[facility]) (Primary Dx); AFTERCARE LONG-TERM USE MEDICATN Social History Tobacco Use Types Packs/Day Years Used Date Smoking Tobacco: Never Assessed Sex and Gender Information Value Date Recorded Sex Assigned at Not on file 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
--- OUTSIDE RECORDS SUMMARY | 2025-07-07 19:20 | XMS_ITS | Encounter Summary ---
Author Organization [facility] Address [address] [place] [address] Care Team Providers Care Electrical Power Station Technician Name Role Phone Astrid Escobedo DO Primary Care Provider [phone] Encounter Details Date Type Department Care Team (Latest Contact Info) Description 03/30/2003 Outpatient Historical [facility] Rheumatology- Khan Nba [place] [address] [place] [address] Winston Magana MD NO ADDRESS ON FILE PSORIATIC ARTHROPATHY (CMS/HCC) (Primary Dx); AFTERCARE [facility] USE MEDICATN Social History Tobacco Use Types Packs/Day Years Used Date Smoking Tobacco: Never Assessed Sex and Gender Information Value Date Recorded Sex Assigned at Not on file 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
--- OUTSIDE RECORDS SUMMARY | 2025-07-07 19:20 | XMS_ITS | Encounter Summary ---
Author Organization [facility] Address [address] [place] [address] Care Team Providers Care Slat Basket Maker Helper Machine Name Role Phone Astrid Escobedo DO Primary Care Provider Encounter Details Date Type Department Care Team (Latest Contact Info) Description 08/18/2002 Outpatient Historical [facility] Rheumatology- Khan Nba [place] [address] [place] [phone] Winston Magana MD NO ADDRESS ON FILE PSORIATIC ARTHROPATHY (CMS/HCC) (Primary Dx); AFTERCARE LONGTERM USE MEDICATN Social History Tobacco Use Types Packs/Day Years Used Date Smoking Tobacco: Never Assessed Sex and Gender Information Value Date Recorded Sex Assigned at Not on file 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
--- OUTSIDE RECORDS SUMMARY | 2025-07-07 19:20 | XMS_ITS | Encounter Summary ---
Author Organization [facility] Address [address] [place] [address] Care Team Providers Care Diesel Engine Erector Name Role Phone Astrid Escobedo DO Primary Care Provider [phone] Encounter Details Date Type Department Care Team (Latest Contact Info) Description 11/16/2003 Outpatient Historical [facility] Rheumatology- Bill Arango [place] [address] [place] [phone] Winston Magana MD NO ADDRESS ON FILE RHEUMATOID ARTHRITIS (CMS/[facility]) (Primary Dx); AFTERCARE [facility] USE MEDICATN Social History Tobacco Use Types Packs/Day Years Used Date Smoking Tobacco: Never Assessed Sex and Gender Information Value Date Recorded Sex Assigned at Not on file 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
--- OUTSIDE RECORDS SUMMARY | 2025-07-07 19:20 | XMS_ITS | Encounter Summary ---
Author Organization [facility] Address [address] [place] [address] Care Team Providers Care Tile Grader Name Role Phone Astrid Escobedo DO Primary Care Provider [phone] Encounter Details Date Type Department Care Team (Latest Contact Info) Description 06/14/2004 Outpatient Historical [facility] [address] [place] [address] AMBULANCE, [facility] SHORTNESS OF BREATH (Primary Dx) Social History Tobacco Use Types Packs/Day Years Used Date Smoking Tobacco: Never Assessed Sex and Gender Information Value Date Recorded Sex Assigned at Not on file Legal Sex Male 5:31 AM GROUND SUPPORT AGENT Gender Identity Not on file Sexual Orientation Not on file documented as of this encounter Plan of Treatment Not on file documented as of this encounter Visit Diagnoses Diagnosis Shortness of breath- Primary documented in this encounter Care Teams Tile Grader Relationship Specialty Start Date End Date Astrid Escobedo DO [address] [place] [address] PCP - General Family Practice 12/17/15 documented as of this encounter
--- OUTSIDE RECORDS SUMMARY | 2025-07-07 19:20 | XMS_ITS | Clinical Summary ---
Author Organization [facility] Address [address] [place] [address] Phone Care Team Providers Care Automated Manufacturing Instructor Name Role Phone Astrid Escobedo Primary Care Provider [phone] Allergies Active Allergy Reactions Criticality Noted Date [...] tablet Take 30 mg by mouth daily trap operator. Active metoprolol succinate (TOPROL XL) 25 mg [...] on file Legal Sex Male 5:31 AM RECORD CLERK Gender Identity Not on file Sexual [...] - 6.0 % 12/18/2015 9:23 AM CDT [facility] EST. AVG GLUCOSE, A1C 151 mg/dL 12/18/2015 9:23 AM CDT [facility] Blood Venipuncture - L ab Collect / Unknown 12/18/2015 1:42 AM CDT 12/18/2015 2:06 AM CDT Narrative [facility] - 12/18/2015 9:23 AM CDT Test performed on [employer] instrumentation using HPLC methodology us Hernan Millard MD CHEMISTRY ORDERABLES Final Res ult [facility] CLIA# [id number] [address] [place] [address] from Last 3 Months or Most Recently Relevant to Health Maintenance Insurance [place] [facility] Advance Directives For more information, please contact: [phone] * Full Code (Latest Code Status on File) Date Activated Date Inactivated Comments 12/17/2015 6:17 PM 12/20/2015 1:12 PM Care Teams Automated Manufacturing Instructor Relationship Specialty Start Date End Date Astrid Escobedo DO [address] [place] [address] PCP - General Family Practice 12/17/15
--- OUTSIDE RECORDS SUMMARY | 2025-07-07 19:20 | XMS_ITS | Encounter Summary ---
Author Organization [facility] Address [address] [place] [address] Care Team Providers Care Organic Lab Worker Name Role Phone Astrid Escobedo DO Primary Care Provider Encounter Details Date Type Department Care Team (Latest Contact Info) Description 12/08/2002 Outpatient Historical [facility] Rheumatology- Khan Nba [place] [address] [place] [address] Winston Magana MD NO ADDRESS ON FILE PSORIATIC ARTHROPATHY (CMS/HCC) (Primary Dx); AFTERCARE [facility] USE MEDICATN Social History Tobacco Use Types Packs/Day Years Used Date Smoking Tobacco: Never Assessed Sex and Gender Information Value Date Recorded Sex Assigned at Not on file Legal Sex Male 5:31 AM AMPOULE EXAMINER Gender Identity Not on file Sexual Orientation Not on file documented as of this encounter Plan of Treatment Not on file documented as of this encounter Visit Diagnoses Diagnosis Psoriatic arthropathy (CMS/HCC)- Primary Psoriatic arthropathy Encounter for long-term (current) use of other medications documented in this encounter Care Teams Organic Lab Worker Relationship Specialty Start Date End Date Astrid Escobedo DO [address] [place] [address] PCP - General Family Practice 12/17/15 documented as of this encounter
--- OUTSIDE RECORDS SUMMARY | 2025-07-07 19:20 | XMS_ITS | Encounter Summary ---
Author Organization [facility] Address [address] [place] [address] Care Team Providers Care Residential Instructor Name Role Phone Astrid Escobedo DO Primary Care Provider [phone] Encounter Details Date Type Department Care Team (Latest Contact Info) Description 04/28/2002 Outpatient Historical [facility] Rheumatology- Khan Nba [place] [address] [place] [address] Winston Magana MD NO ADDRESS ON FILE PSORIATIC ARTHROPATHY (CMS/HCC) (Primary Dx); AFTERCARE RETIREMENT USE MEDICATN Social History Tobacco Use Types Packs/Day Years Used Date Smoking Tobacco: Never Assessed Sex and Gender Information Value Date Recorded Sex Assigned at Not on file Legal Sex Male 5:31 AM COREMAKER PIPE Gender Identity Not on file Sexual Orientation Not on file documented as of this encounter Plan of Treatment Not on file documented as of this encounter Visit Diagnoses Diagnosis Psoriatic arthropathy (CMS/HCC)- Primary Psoriatic arthropathy Encounter for long-term (current) use of other medications documented in this encounter Care Teams Residential Instructor Relationship Specialty Start Date End Date Astrid Escobedo DO [address] [place] [address] PCP - General Family Practice 12/17/15 documented as of this encounter
--- OUTSIDE RECORDS SUMMARY | 2025-07-07 19:20 | XMS_ITS | Encounter Summary ---
Author Organization [facility] Address [address] [place] [address] Care Team Providers Care Furnace Packer Name Role Phone Astrid Escobedo DO Primary Care Provider Encounter Details Date Type Department Care Team (Latest Contact Info) Description 03/13/2004 Outpatient Historical [facility] Rheumatology- Bill Arango [place] [address] [place] [address] Winston Magana MD NO ADDRESS ON FILE PSORIATIC ARTHROPATHY (CMS/HCC) (Primary Dx); AFTERCARE [facility] USE MEDICATN Social History Tobacco Use Types Packs/Day Years Used Date Smoking Tobacco: Never Assessed Sex and Gender Information Value Date Recorded Sex Assigned at Not on file Legal Sex Male 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
--- OUTSIDE RECORDS SUMMARY | 2025-07-07 19:20 | XMS_ITS | Encounter Summary ---
Author Organization [facility] Address [address] [place] [address] Care Team Providers Care Email Producer Name Role Phone Astrid Escobedo DO Primary Care Provider Encounter Details Date Type Department Care Team (Latest Contact Info) Description 07/21/2003 Outpatient Historical [facility] Rheumatology- Khan Nba [place] [address] [place] [address] Winston Magana MD NO ADDRESS ON FILE PSORIATIC ARTHROPATHY (CMS/HCC) (Primary Dx); AFTERCARE [place]FW[place] USE MEDICATN Social History Tobacco Use Types Packs/Day Years Used Date Smoking Tobacco: Never Assessed Sex and Gender Information Value Date Recorded Sex Assigned at Not on file 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
[2025-07-07 19:26] VITALS: BP 173/84; PULSE 94; RESP 16; TEMP 36.5; O2SAT 94; BMI 25.7
--- NOTE | 2025-07-07 20:26 | W.ED.WOUNDLC ---
HPI - Wound/Laceration General: Chief Complaint: Wound/Laceration Stated Complaint: mckenna in groin swollen, puss, suddenly Time Seen by Provider: 07/07/25 19:55 History of Present Illness: Patient is a 74-year-old male who underwent vascular surgery approximately two weeks ago. He presents today with concerns about one of his surgical incision sites. The patient reports that one of the stapled incisions has suddenly developed swelling and is leaking yellow liquid. He describes the area as feeling ice cold to the touch. The patient denies significant pain at the incision site but reports a mild headache and describes the area as sore and kind of tingly. He denies fever, chills, or other systemic symptoms. The patient's mckenna are scheduled to be removed on July 25, 2025, approximately 3 weeks from now. Related Data Home Medications ?Medication ?Instructions ?Recorded ?Confirmed acetaminophen 325 mg tablet 325 mg PO QID PRN Pain 10/11/24 07/06/25 (Tylenol) docusate sodium 50 mg capsule 50 mg PO DAILY PRN Constipation 10/11/24 07/06/25 (Stool Softener) albuterol sulfate 90 mcg/actuation 2 puff inhalation Q6H PRN 04/21/25 07/06/25 aerosol inhaler Shortness Of Breath atorvastatin 40 mg tablet 40 mg PO QPM 04/21/25 07/06/25 brimonidine 0.2 % eye drops 1 drp ophthalmic (eye) TID PRN 04/21/25 07/06/25 glaucoma leflunomide 20 mg tablet 20 mg PO QAM 04/21/25 07/06/25 losartan 50 mg tablet 50 mg PO QPM 04/21/25 07/06/25 metformin 500 mg tablet,extended 1,000 mg PO QPM 04/21/25 07/06/25 release 24 hr methotrexate sodium 2.5 mg tablet See Rx Instructions .Route .COMPLEX 04/21/25 07/06/25 omeprazole 20 mg capsule,delayed 20 mg PO QAM 04/21/25 07/06/25 release timolol maleate 0.5 % eye drops 1 drp ophthalmic (eye) TID PRN 04/21/25 07/06/25 glaucoma Previous Rx's ?Medication ?Instructions ?Recorded ipratropium 0.5 mg-albuterol 3 mg 3 ml inhalation QID PRN wheezing 09/08/24 (2.5 mg base)/3 mL nebulization #180 mL soln methocarbamol 500 mg tablet 500 mg PO Q8H PRN muscle spasm #30 04/21/25 tabs Trelegy Ellipta 200 mcg-62.5 See Rx Instructions .Route 05/29/25 mcg-25 mcg powder for inhalation .COMPLEX #60 ea (fmzmbpnvpze-[id number]-bctrhpfe) tirzepatide 5 mg/0.5 mL See Rx Instructions .Route 05/29/25 subcutaneous pen injector .COMPLEX #2 mL (Mounjaro) betamethasone dipropionate 0.05 % 1 applic topical DAILY #60 mL 06/07/25 lotion fexofenadine 180 mg tablet 180 mg PO DAILY #90 tabs 06/07/25 ([facility]ley Allergy) ketoconazole 2 % shampoo 1 applic topical .Q7 DAYS #120 mL 06/07/25 diclofenac sodium 75 mg 75 mg PO Q12H PRN moderate to 06/14/25 tablet,delayed release severe pain as needed #60 tabs prednisone 10 mg tablet 10 mg PO DAILY PRN psoriasis, RA 06/22/25 flares. #90 tabs cephalexin 500 mg capsule 500 mg PO BID 5 days #10 caps 07/06/25 insulin glargine 100 unit/mL (3 5 unit (0.05 mL) SUBCUT DAILY #3 mL 07/06/25 mL) subcutaneous pen (Lantus Solostar U-100 Insulin) Allergies Allergy/AdvReac Type Severity Reaction Status Date / Time montelukast (From Singulair) Allergy Intermediate Altered Verified 07/07/25 19:29 Heart Rate simvastatin Allergy Intermediate Hives/Skin Verified 07/07/25 19:29 Rash codeine Allergy Mild N/V Verified 07/07/25 19:29 milk Allergy Mild GI problems Verified 07/07/25 19:29 Sulfa (Sulfonamide Allergy Mild N/V Verified 07/07/25 19:29 Antibiotics) tramadol Allergy Mild N/V Verified 07/07/25 19:29 PFSH ED PFSH: Medical History Immunization counseling Plaque psoriasis Seropositive rheumatoid arthritis of multiple sites Diabetes mellitus COPD (chronic obstructive pulmonary disease) PAD (peripheral artery disease) CAD (coronary artery disease) Hyperlipidemia High risk medication use Psoriatic arthritis Surgical History S/P colostomy S/P cataract extraction No pertinent past surgical history Family History Other Cancer Denies family history of Lupus (systemic lupus erythematosus) Rheumatoid arthritis Diabetes Social History Smoking and tobacco/nicotine status: former use of tobacco/nicotine Alcohol intake: current Alcohol intake frequency: holidays/special occasions only Alcohol type: beer Substance/Drug Use: never Physical Exam Const: COMMON NORMALS: no acute distress GENERAL APPEARANCE: cooperative; not ill appearing and not frail appearing HENMT: COMMON NORMALS: normocephalic, atraumatic and Normal external nose present HEAD & SCALP: normocephalic and atraumatic FACE & SINUS: normal facial exam and face symmetric NOSE: Normal external nose present Eye: COMMON NORMALS: Equal, round and reactive pupils present and EOMs intact bilaterally PUPIL: Yes Equal, round and reactive pupils present Neck/C-Spine: GENERAL: Yes trachea midline Chest: CHEST: Yes Symmetrical chest wall rise Resp: COMMON NORMALS: normal respiratory effort, No retractions and No use of accessory muscles Cardio: COMMON NORMALS: regular rate and regular rhythm RATE: regular rate RHYTHM: regular rhythm Neuro: JOSUE COMA SCALE: document GCS findings Josue coma scale eye opening: Spontaneous [place] coma scale verbal response: Orientated [place] coma scale motor response: Obey commands [place] coma scale total score: 15 SENSORY EXAM: Yes extremities (intact) Psych: COMMON NORMALS: speech normal SPEECH: Yes normal speech Skin: NARRATIVE SKIN EXAM: Examination of the left groin reveals 2 incisions, approximately 3 inches apiece to the left anterior proximal thigh. Mckenna are in place. Wound is approximated well. Minimal redness. No warmth. No streaking. No drainage currently. Course Vital Signs: Vital signs: Vital Signs Temperature 97.7 F 07/07/25 19:26 Pulse Rate 85 07/07/25 20:43 Respiratory Rate 16 07/07/25 19:26 Blood Pressure 144/91 07/07/25 20:43 Pulse Oximetry 98 07/07/25 20:43 Oxygen Delivery Me thod Room Air 07/07/25 19:26 MDM - Wound/Laceration Medical Decision Making Bedside ultrasound is performed. There is subcutaneous fluid present under both incisions. Significant cellulitic change is not seen. Debris in the fluid is not seen. He gives the appearance of a seroma on ultrasound. The incisions look excellent. The patient was placed on antibiotics by his primary care physician earlier, and has had 1 dose today. He will stay on his antibiotics. He will continue to monitor. Seroma fluid may continue to leak. He was counseled on this. And into return for redness, thickening of the fluid or worsening appearance, opening of the incision, fever, etc. No radiology studies performed this visit Discharge Plan Discharge Patient Disposition: Home Clinical Impression: Seroma after procedure Condition: Stable Prescriptions: No Action ipratropium-albuterol 0.5 mg-3 mg(2.5 mg base)/3 mL solution for nebulization 3 ml inhalation QID PRN (Reason: wheezing) Qty: 180 2RF prednisone 10 mg tablet 10 mg PO DAILY PRN (Reason: psoriasis, RA flares. ) Qty: 90 1RF insulin glargine [Lantus Solostar U-100 Insulin] 100 unit/mL (3 mL) insulin pen 5 unit SUBCUT DAILY Qty: 3 0RF cephalexin 500 mg capsule 500 mg PO BID 5 Days Qty: 10 0RF acetaminophen [Tylenol] 325 mg tablet 325 mg PO QID PRN (Reason: Pain) Stool Softener 50 mg capsule 50 mg PO DAILY PRN (Reason: Constipation) ketoconazole 2 % shampoo 1 applic topical .Q7 DAYS Qty: 120 0RF betamethasone dipropionate 0.05 % lotion 1 applic topical DAILY Qty: 60 2RF fexofenadine [Ashley Allergy] 180 mg tablet 180 mg PO DAILY Qty: 90 1RF Mounjaro 5 mg/0.5 mL pen injector See Rx Instructions .ROUTE .COMPLEX Qty: 2 2RF Dose Instruction: INJECT 5 MG UNDER THE SKIN ONCE WEEKLY. Rx Instructions: INJECT 5 MG UNDER THE SKIN ONCE WEEKLY. Trelegy Ellipta 200-62.5-25 mcg blister with device See Rx Instructions .ROUTE .COMPLEX Qty: 60 2RF Dose Instruction: INHALE 1 PUFFS BY MOUTH DAILY FOR 30 DAYS Rx Instructions: INHALE 1 PUFFS BY MOUTH DAILY FOR 30 DAYS diclofenac sodium 75 mg tablet,delayed release (DR/EC) 75 mg PO Q12H PRN (Reason: moderate to severe pain as needed) Qty: 60 0RF methotrexate sodium 2.5 mg tablet See Rx Instructions .ROUTE .COMPLEX Rx Instructions: Take 6 tablets all at once by mouth once weekly on Thursday. brimonidine 0.2 % drops 1 drp ophthalmic (eye) TID PRN (Reason: glaucoma) albuterol sulfate 90 mcg/actuation HFA aerosol inhaler 2 puff INHALATION Q6H PRN (Reason: Shortness Of Breath) timolol maleate 0.5 % drops 1 drp ophthalmic (eye) TID PRN (Reason: glaucoma) losartan 50 mg tablet 50 mg PO QPM atorvastatin 40 mg tablet 40 mg PO QPM leflunomide 20 mg tablet 20 mg PO QAM omeprazole 20 mg capsule,delayed release(DR/EC) 20 mg PO QAM metformin 500 mg tablet extended release 24 hr 1,000 mg PO QPM methocarbamol 500 mg tablet 500 mg PO Q8H PRN (Reason: muscle spasm) Qty: 30 0RF Discharge Orders: Discharge ED (Routine); Ordered 07/07/25 Ordered By: Jovi Vital Referrals: Francois Mcgill DO [Primary Care Provider, Family Practice] - 4-7 days Patient Instructions: Opioid Safety, Pain Management, Patient Portal & Abdiel Instructions Activity Restrictions/Additional Instructions: Continue to bandage, and observe drainage. As long as standing yellow, this is likely just serous fluid draining. If fluid gets thick, smelly, or significantly bloody, return. Return also for fever, worsening swelling or pain to the site, or worsening redness. Continue your antibiotics. Keep your appointment with your surgeon otherwise. Print Language: Armenian Coding Level of Care Code ED Heavy Machinery Operator for Brayden Perales
[2025-07-07 20:43] VITALS: BP 144/91; PULSE 85; O2SAT 98
== END 2025-07-07 20:44 | disposition home or self-care (01) ==
PROVIDERS: Emergency Provider Emergency Medicine; PCP Family Medicine
DX: L76.34 Postprocedural seroma of skin and subcutaneous tissue following other procedure (principal); Z79.4 Long term (current) use of insulin; Z79.84 Long term (current) use of oral hypoglycemic drugs; Z87.891 Personal history of nicotine dependence; J44.9 Chronic obstructive pulmonary disease, unspecified; I25.10 Atherosclerotic heart disease of native coronary artery without angina pectoris; E78.5 Hyperlipidemia, unspecified
CPT/HCPCS: 99282